=== PATIENT | female | born 1950 | race Caucasian/White ===

== ENCOUNTER 2019-01-24 14:51 | Inpatient (IN) ==
[2019-01-24 16:14] VITALS: BMI 28.5
[2019-01-24] MEDS ORDERED: NS 1/2 1000 ML IV 1,000 ML ONE (16:25)
[2019-01-24 16:26] LABS: BASOPHILS % (AUTO) 0.4 % (0.2-1.0); EOSINOPHILS # (AUTO) 0.1 x10^3/uL (0.0-0.2); EOSINOPHILS % (AUTO) 0.9 % (0.9-2.9); HEMATOCRIT 48.4 % (36.0-47.0); HEMOGLOBIN 16.3 g/dL (12.0-16.0); LYMPHOCYTES # (AUTO) 1.9 X10^3/uL (1.3-2.9); LYMPHOCYTES % (AUTO) 19.4 % (21.0-51.0); MEAN CORPUSCULAR HEMOGLOBIN 32.6 pg (27.0-34.0); MEAN CORPUSCULAR HGB CONC 33.6 g/dL (33.0-35.0); MEAN CORPUSCULAR VOLUME 97.1 fL (80.0-100.0); MONOCYTES # (AUTO) 0.8 x10^3/uL (0.3-0.8); MONOCYTES % (AUTO) 8.4 % (0.0-13.0); NEUTROPHILS # (AUTO) 6.8 x10^3/uL (2.2-4.8); NEUTROPHILS % (AUTO) 70.9 % (42.0-75.0); PLATELET COUNT 100 X10^3/uL (150.0-450.0); RED BLOOD COUNT 4.98 X10^6/uL (3.5-5.4); RED CELL DISTRIBUTION WIDTH 17.8 % (11.6-16.5); WHITE BLOOD COUNT 9.6 X10^3/uL (3.6-10.0)
[2019-01-24] MEDS: DUONEB 0.5 MG/3 MG NEB SCH ×2 (16:28→20:45)
[2019-01-24] MEDS: VSL#3 PO SCH (16:33)
[2019-01-24] MEDS: LEVAQUIN PREMIX IV 500 MG 500 MG/100 ML BAG IV SCH (16:33)
[2019-01-24] MEDS: NS 1/2 1000 ML IV 1,000 ML IV SCH (16:33)
[2019-01-24] MEDS: ROBITUSSIN DM PO SCH ×2 (16:33→21:51)
[2019-01-24 16:39] LABS: ALANINE AMINOTRANSFERASE 34 Units/L (12-78); ALBUMIN 2.4 g/dL (3.4-5.0); ALKALINE PHOSPHATASE 129 Units/L (46-116); ASPARTATE AMINO TRANSFERASE 36 Units/L (15-37); BLOOD UREA NITROGEN 16 mg/dL (7-18); CALCIUM 8.7 mg/dL (8.5-10.1); CARBON DIOXIDE 28.4 mmol/L (21-32); CHLORIDE 104 mmol/L (98-107); COR NA(FOR HYPERGLY) 141 mmol/L (136-145); CREATININE 1.09 mg/dL (0.55-1.02); SODIUM 139 mmol/L (136-145); TOTAL PROTEIN 6.5 g/dL (6.4-8.2); eGFR NON BLACK RACES 53 (>60)
[2019-01-24] MEDS: TUSSIONEX PENNKINETIC SUSP PO SCH (16:43)
[2019-01-24] MEDS ORDERED: SALINE 3% 15 ML NEB TX NEB ONE (16:58)
[2019-01-24] MEDS ORDERED: MICRO K EXTEN CAP 10 MEQ PO PRN (18:20)
[2019-01-24] MEDS ORDERED: K-DUR TAB 20 MEQ PO PRN (18:20)
[2019-01-24] MEDS ORDERED: K-RIDER 10 MEQ/NS 100 ML 10 MEQ/100 ML BAG IV PRN (18:20)
[2019-01-24] MEDS ORDERED: POTASSIUM CHLORIDE LIQ 20 MEQ UDC PO PRN (18:20)
[2019-01-24] MEDS ORDERED: POTASSIUM CHL 40 MEQ/NS 0.45% 500 ML IV PRN (18:20)
[2019-01-24] MEDS ORDERED: POTASSIUM CHL 60 MEQ/NS 0.45% 500 ML IV PRN (18:20)
[2019-01-24] MEDS ORDERED: KLOR-CON PO PRN (18:20)
[2019-01-24] MEDS: MAGNESIUM SULFATE 1 GRAM/100 mL PREMIX 1 GM/100 ML BAG IV PRN ×4 (19:21→23:00)
--- NOTE | 2019-01-24 20:34 | RAD ---
Single frontal view of the chest. Indication: Pneumonia. Comparison: 01/19/2019. Findings: There is cardiomegaly without pulmonary vasculature congestion. The lungs are hyper expanded with stable chronic interstitial lung changes. No focal consolidation, pneumothorax, or pleural effusion. Conclusion: Stable examination with cardiomegaly and COPD. No focal consolidation. Reported By:
[2019-01-24] MEDS: ZOSYN VIAL 3.375 GRAMS 3.375 G in NS 100 ML IV + SPIKE MINIBAG* 100 ML IV SCH (21:51)
[2019-01-25] MEDS: DUONEB 0.5 MG/3 MG NEB SCH ×6 (01:01→21:45)
[2019-01-25] MEDS: TUSSIONEX PENNKINETIC SUSP PO SCH ×2 (04:55→21:27)
[2019-01-25] MEDS: ZOSYN VIAL 3.375 GRAMS 3.375 G in NS 100 ML IV + SPIKE MINIBAG* 100 ML IV SCH ×3 (05:04→21:28)
[2019-01-25] MEDS: NS 1/2 1000 ML IV 1,000 ML IV SCH ×2 (05:04→09:12)
[2019-01-25 05:39] LABS: BASOPHILS % (AUTO) 0.5 % (0.2-1.0); EOSINOPHILS # (AUTO) 0.1 x10^3/uL (0.0-0.2); EOSINOPHILS % (AUTO) 1.4 % (0.9-2.9); HEMATOCRIT 44.4 % (36.0-47.0); HEMOGLOBIN 14.8 g/dL (12.0-16.0); LYMPHOCYTES # (AUTO) 1.3 X10^3/uL (1.3-2.9); LYMPHOCYTES % (AUTO) 20.9 % (21.0-51.0); MEAN CORPUSCULAR HEMOGLOBIN 32.5 pg (27.0-34.0); MEAN CORPUSCULAR HGB CONC 33.4 g/dL (33.0-35.0); MEAN CORPUSCULAR VOLUME 97.4 fL (80.0-100.0); MEAN PLATELET VOLUME 11.2 fL (7.4-11.0); MONOCYTES # (AUTO) 0.7 x10^3/uL (0.3-0.8); MONOCYTES % (AUTO) 10.7 % (0.0-13.0); NEUTROPHILS # (AUTO) 4.1 x10^3/uL (2.2-4.8); NEUTROPHILS % (AUTO) 66.5 % (42.0-75.0); PLATELET COUNT 79 X10^3/uL (150.0-450.0); RED BLOOD COUNT 4.56 X10^6/uL (3.5-5.4); RED CELL DISTRIBUTION WIDTH 17.8 % (11.6-16.5); WHITE BLOOD COUNT 6.2 X10^3/uL (3.6-10.0)
[2019-01-25 05:53] LABS: ALANINE AMINOTRANSFERASE 28 Units/L (12-78); ALBUMIN 1.9 g/dL (3.4-5.0); ALKALINE PHOSPHATASE 110 Units/L (46-116); ASPARTATE AMINO TRANSFERASE 31 Units/L (15-37); BLOOD UREA NITROGEN 14 mg/dL (7-18); CARBON DIOXIDE 26.9 mmol/L (21-32); CHLORIDE 105 mmol/L (98-107); COR CA(FOR HYPOALB) 9.7 mg/dL (8.5-10.1); COR NA(FOR HYPERGLY) 139 mmol/L (136-145); CREATININE 0.89 mg/dL (0.55-1.02); MAGNESIUM 2.1 mg/dL (1.7-2.9); SODIUM 139 mmol/L (136-145); TOTAL PROTEIN 5.5 g/dL (6.4-8.2); eGFR NON BLACK RACES > 60 (>60)
--- NOTE | 2019-01-25 06:14 | RAD ---
HISTORY: Follow-up pneumonia Study: Chest AP portable Comparison: 01/24/2019 Findings: The heart is mildly enlarged. No definite congestive heart failure is noted. The clementine are normal. The lungs are mildly hyperinflated. Mild interstitial lung changes are present. No acute alveolar infiltrates or pleural effusions are identified. The bony thorax is unremarkable. IMPRESSION: Mild cardiomegaly without congestive heart failure Hyperinflation with mild interstitial lung disease consistent with COPD in the appropriate clinical setting Reported By:
[2019-01-25] MEDS ORDERED: PHARMACY CONSULT - DOSE _____ XX SCH (09:00)
[2019-01-25] MEDS ORDERED: NS 1/2 1000 ML IV 1,000 ML ONE (09:08)
[2019-01-25] MEDS: VSL#3 PO SCH (09:11)
[2019-01-25] MEDS: ROBITUSSIN DM PO SCH ×4 (09:12→21:27)
[2019-01-25] MEDS: LEVAQUIN PREMIX IV 500 MG 500 MG/100 ML BAG IV SCH (09:12)
[2019-01-25] MEDS ORDERED: ALLEGRA ONE (11:08)
[2019-01-25] MEDS: SYNTHROID 50 mcg TAB PO SCH (11:27)
[2019-01-25] MEDS: ELIQUIS PO SCH ×2 (11:27→21:27)
[2019-01-25] MEDS: ALLEGRA PO SCH (11:28)
[2019-01-25] MEDS: ZESTRIL TAB 10 MG PO SCH (11:28)
[2019-01-25] MEDS: PROTONIX TAB 40 MG PO SCH (11:28)
[2019-01-25] MEDS: CARDIZEM SR 90 MG PO SCH ×2 (11:29→21:27)
[2019-01-25 11:32] LABS: CKMB % 4.8 % (<4); CREATINE KINASE MB 1.1 ng/mL (0-4.0); TROPONIN I 0.05 ng/mL (0-1.5)
[2019-01-25 15:25] LABS: CKMB % 3.7 % (<4); TROPONIN I 0.04 ng/mL (0-1.5)
--- NOTE | 2019-01-25 16:12 | DR.UPDATE ---
H&P Update History and Physical Update: WAS SEEN IN THE OFFICE TODAY FOR COMPLAINTS OF COUGH, FEVER, CHILLS, DIZZINESS, FATIGUE, AND SHORTNESS OF BREATH. SHE REPORTS THAT COUGH HAS BEEN PRODUCTIVE. ON EXAMINATION, SHE WAS NOTED WITH AN ABNORMAL HEART RHYTHM. SHE WAS STARTED ON CIPRO 500MG PO BID X 7 DAYS ON 01/19/19 WELL AN ADVAIR INHALER. SHE DENIES IMPROVEMENT IN SYMPTOMS. SHE WAS ADMITTED FOR FURTHER EVALUATION AND TREATMENT OF PNEUMONIA. ON ADMISSION, WE PLAN TO START IV LEVAQUIN AND IV ZOSYN. WE WILL ALSO RESUME HER CARDIZEM AND ELIQUIS DUE TO ATRIAL FIBRILLATION. WE WILL OBTAIN LABS AND CHEST XRAY. OTHERWISE, NO CHANGES NOTED TO H&P. Changes noted: NO Prescription drug monitoring program results: PDMP reviewed and no concerns identified
--- NOTE | 2019-01-25 17:04 | PCM.PROG ---
Progress Note - Progress Note for Day of Date of Exam: 01/25/19 - Subjective Subjective: WAS ADMITTED FOR PNEUMONIA AND ATRIAL FIBRILLATION. TODAY, SHE IS ALERT AND ORIENTED, LYING IN BED ON MORNING ROUNDS. SHE CONTINUES WITH COMPLAINTS OF COUGH AND SHORTNESS OF BREATH. SHE REPORTS THAT COUGH HAS BEEN PRODUCTIVE. ON EXAMINATION, SHE IS NOTED WITH AN IRREGULAR HEART BEAT. RATE IS CONTROLLED, IN THE 70S. BILATERAL LUNGS ARE NOTED WITH SCATTERED WHEEZING, DIMINISHED. ABDOMEN IS ROUND, SOFT, AND NON-TENDER WITH NORMAL BOWEL SOUNDS NOTED IN ALL QUADRANTS. HER VITALS THIS MORNING ARE: 98.9-60-12-96%-108/51. LABS WERE OBTAINED. ABNORMAL LAB VALUES INCLUDE THE FOLLOWING: HGB 16.3, HCT 48.4, PLT COUNT 100, CREATININE 1.09, GLUCOSE 201, MAGNESIUM 1.3, ALK PHOS 129, ALBUMI N 2.4. BLOOD AND SPUTUM CULTURES ARE PENDING. A CHEST XRAY WAS OBTAINED THIS MORNING AND REVEALED: Mild cardiomegaly without congestive heart failure. Hyperinflation with mild interstitial lung disease consistent with COPD in the appropriate clinical setting. SHE IS CURRENTLY ON THE PNEUMONIA PROTOCOL WITH LEVAQUIN, ZOSYN, RESPIRATORY TX, AND SUPPLEMENTAL OXYGEN. SHE IS ON ELIQUIS AND CARDIZEM FOR THE ATRIAL FIBRILLATION. WE WILL CONTINUE WITH CURRENT PLAN OF CARE TODAY AND OBTAIN AN ECHO. WE WILL ALSO OBTAIN SERIAL CARDIAC ENZYMES AND EKGS. OTHERWISE, WE WILL FOLLOW UP WITH AM LABS AND CONTINUE TO MONITOR. - Past Medical Family Social History Past Med/Fam/Surg Hx: No changes since H&P Allergies: Allergies No Known Drug Allergies Allergy (Verified 06/17/18 07:54) - Review of Systems ROS: No change since H&P - Vital Signs and I&O's Vital Signs: Temperature 97.8 F Pulse Rate 67 Respiratory Rate 13 Blood Pressure [Left Arm] 126/82 Blood Pressure 117/58 O2 Sat by Pulse Oximetry 100 Intake and Output: Intake & Output 01/23/19 01/24/19 01/25/19 01/26/19 11:59 11:59 11:59 11:59 Intake Total 1260 / 1260 1196 / 1196 Balance 1260 / 1260 1196 / 1196 - Physical Exam Oriented: Normal Eyes: Normal Ear: Normal Nose: Normal Throat: Normal Respiratory: Generalized, Diminished, Wheezes Cardiovascular: Irregular. negative: S3, S4, Murmur : Normal Auscultation: Bowel Sounds: Normal Palpation: Normal Tenderness: Normal Skin: Normal Musculoskeletal: Normal Psychiatric: Normal Mood Description: Calm Affect: Normal Speech Pattern: Clear, Appropriate - Laboratory and Diagnostics Result Diagrams: 01/25/19 03:58 01/25/19 03:58 Labs: 01/25/19 05:00 Sputum - Expectorated Sputum - Final Laboratory WBC 6.2 X10^3/uL (3.6-10.0) 01/25/19 03:58 RBC 4.56 X10^6/uL (3.5-5.4) 01/25/19 03:58 Hgb 14.8 g/dL (12.0-16.0) 01/25/19 03:58 Hct 44.4 % (36.0-47.0) 01/25/19 03:58 MCV 97.4 fL (80.0-100.0) 01/25/19 03:58 MCH 32.5 pg (27.0-34.0) 01/25/19 03:58 MCHC 33.4 g/dL (33.0-35.0) 01/25/19 03:58 RDW 17.8 % (11.6-16.5) H 01/25/19 03:58 Plt Count 79 X10^3/uL (150.0-450.0) L 01/25/19 03:58 MPV 11.2 fL (7.4-11.0) H 01/25/19 03:58 Neut % (Auto) 66.5 % (42.0-75.0) 01/25/19 03:58 Lymph % (Auto) 20.9 % (21.0-51.0) L 01/25/19 03:58 [place] % (Auto) 10.7 % (0.0-13.0) 01/25/19 03:58 Eos % (Auto) 1.4 % (0.9-2.9) 01/25/19 03:58 Baso % (Auto) 0.5 % (0.2-1.0) 01/25/19 03:58 Neut # (Auto) 4.1 x10^3/uL (2.2-4.8) 01/25/19 03:58 Lymph # (Auto) 1.3 X10^3/uL (1.3-2.9) 01/25/19 03:58 [place] # (Auto) 0.7 x10^3/uL (0.3-0.8) 01/25/19 03:58 Eos # (Auto) 0.1 x10^3/uL (0.0-0.2) 01/25/19 03:58 Baso # (Auto) 0.0 X10^3/uL (0.0-0.1) 01/25/19 03:58 Absolute Nucleated RBC 0.2 /100WBC 01/25/19 03:58 Sodium 139 mmol/L (136-145) 01/25/19 03:58 Corrected Sodium 139 mmol/L (136-145) 01/25/19 03:58 Potassium 3.7 mmol/L (3.5-5.1) 01/25/19 03:58 Chloride 105 mmol/L (98-107) 01/25/19 03:58 Carbon Dioxide 26.9 mmol/L (21-32) 01/25/19 03:58 BUN 14 mg/dL (7-18) 01/25/19 03:58 Creatinine 0.89 mg/dL (0.55-1.02) 01/25/19 03:58 Est GFR (MDRD) Af Amer > 60 (>60) 01/25/19 03:58 Est GFR (MDRD) Non-Af > 60 (>60) 01/25/19 03:58 Glucose 113 mg/dL (65-99) H 01/25/19 03:58 Calcium 8.0 mg/dL (8.5-10.1) L 01/25/19 03:58 Corrected Calcium 9.7 mg/dL (8.5-10.1) 01/25/19 03:58 Magnesium 2.1 mg/dL (1.7-2.9) 01/25/19 03:58 Total Bilirubin 1.50 mg/dL (0.2-1.0) H 01/25/19 03:58 AST 31 Units/L (15-37) 01/25/19 03:58 ALT 28 Units/L (12-78) 01/25/19 03:58 Alkaline Phosphatase 110 Units/L (46-116) 01/25/19 03:58 Creatine Kinase 27 Units/L (26-192) 01/25/19 14:56 CK-MB (CK-2) 1.0 ng/mL (0-4.0) 01/25/19 14:56 CK/CKMB % Calc 3.7 % (<4) 01/25/19 14:56 Troponin I 0.04 ng/mL (0-1.5) 01/25/19 14:56 Total Protein 5.5 g/dL (6.4-8.2) L 01/25/19 03:58 Albumin 1.9 g/dL (3.4-5.0) L 01/25/19 03:58 Globulin 3.6 g/dL (2.5-4.5) 01/25/19 03:58 Albumin/Globulin Ratio 0.5 Ratio (1.1-2.1) L 01/25/19 03:58 - Plan (1) Pneumonia Status: Acute Qualifiers: Pneumonia type: due to unspecified organism Laterality: unspecified laterality Lung location: unspecified part of lung Qualified Code(s): J18.9 - Pneumonia, unspecified organism Plan: IV ZOSYN, IV LEVAQUIN, RESPIRATORY TX, SUPPLEMENTAL OXYGEN, CONTINUE TO MONITOR (2) Atrial fibrillation Status: Acute Qualifiers: Atrial fibrillation type: paroxysmal Qualified Code(s): I48.0 - Paroxysmal atrial fibrillation Plan: CARDIZEM PO, ELIQUIS PO, CONTINUE TO MONITOR (3) COPD (chronic obstructive pulmonary disease) Status: Acute Qualifiers: COPD type: unspecified COPD Qualified Code(s): J44.9 - Chronic obstructive pulmonary disease, unspecified Plan: CONTINUE HOME MEDS, RESPIRATORY TX, SUPPLEMENTAL OXYGEN
[2019-01-25] MEDS: SNACK - Diabetic Appropriate PO SCH (19:29)
[2019-01-25 19:37] LABS: CKMB % 5.2 % (<4); CREATINE KINASE MB 1.2 ng/mL (0-4.0); TROPONIN I 0.04 ng/mL (0-1.5)
[2019-01-25] MEDS ORDERED: NYSTATIN CREAM TOP PRN (21:54)
[2019-01-26] MEDS: DUONEB 0.5 MG/3 MG NEB SCH ×6 (00:53→20:29)
[2019-01-26] MEDS ORDERED: NS 1/2 1000 ML IV 1,000 ML ONE ×2 (00:55→16:50)
[2019-01-26] MEDS: NS 1/2 1000 ML IV 1,000 ML IV SCH ×3 (01:07→20:35)
[2019-01-26 05:28] LABS: BASOPHILS % (AUTO) 0.4 % (0.2-1.0); EOSINOPHILS # (AUTO) 0.1 x10^3/uL (0.0-0.2); HEMATOCRIT 40.7 % (36.0-47.0); HEMOGLOBIN 13.8 g/dL (12.0-16.0); LYMPHOCYTES % (AUTO) 20.4 % (21.0-51.0); MEAN CORPUSCULAR HGB CONC 33.8 g/dL (33.0-35.0); MEAN CORPUSCULAR VOLUME 97.4 fL (80.0-100.0); MEAN PLATELET VOLUME 10.9 fL (7.4-11.0); MONOCYTES # (AUTO) 0.5 x10^3/uL (0.3-0.8); MONOCYTES % (AUTO) 10.6 % (0.0-13.0); NEUTROPHILS # (AUTO) 3.3 x10^3/uL (2.2-4.8); NEUTROPHILS % (AUTO) 66.6 % (42.0-75.0); PLATELET COUNT 70 X10^3/uL (150.0-450.0); RED BLOOD COUNT 4.17 X10^6/uL (3.5-5.4); RED CELL DISTRIBUTION WIDTH 17.6 % (11.6-16.5)
[2019-01-26 05:48] LABS: ALANINE AMINOTRANSFERASE 24 Units/L (12-78); ALBUMIN 1.6 g/dL (3.4-5.0); ALKALINE PHOSPHATASE 89 Units/L (46-116); ASPARTATE AMINO TRANSFERASE 28 Units/L (15-37); BLOOD UREA NITROGEN 12 mg/dL (7-18); CALCIUM 8.1 mg/dL (8.5-10.1); CARBON DIOXIDE 26.2 mmol/L (21-32); CHLORIDE 106 mmol/L (98-107); COR NA(FOR HYPERGLY) 138 mmol/L (136-145); CREATININE 0.85 mg/dL (0.55-1.02); SODIUM 137 mmol/L (136-145); TOTAL PROTEIN 4.8 g/dL (6.4-8.2); eGFR NON BLACK RACES > 60 (>60)
[2019-01-26] MEDS: ZOSYN VIAL 3.375 GRAMS 3.375 G in NS 100 ML IV + SPIKE MINIBAG* 100 ML IV SCH ×3 (05:49→21:06)
--- NOTE | 2019-01-26 06:20 | RAD ---
HISTORY: Follow-up pneumonia Study: Chest AP portable Comparison: 01/25/2019 Findings: The heart remains enlarged. No definite congestive heart failure is noted. The clementine are normal. No acute alveolar infiltrates or pleural effusions are identified. Interstitial lung changes are stable. The bony thorax is unremarkable. IMPRESSION: Mild cardiomegaly without congestive heart failure Stable hyperinflation with interstitial lung changes Reported By:
[2019-01-26] MEDS ORDERED: ALLEGRA ONE (09:33)
[2019-01-26] MEDS: LEVAQUIN PREMIX IV 500 MG 500 MG/100 ML BAG IV SCH (09:45)
[2019-01-26] MEDS: SYNTHROID 50 mcg TAB PO SCH (09:45)
[2019-01-26] MEDS: VSL#3 PO SCH (09:46)
[2019-01-26] MEDS: ZESTRIL TAB 10 MG PO SCH (09:46)
[2019-01-26] MEDS: ALLEGRA PO SCH (09:46)
[2019-01-26] MEDS: ELIQUIS PO SCH ×2 (09:46→20:49)
[2019-01-26] MEDS: PROTONIX TAB 40 MG PO SCH (09:46)
[2019-01-26] MEDS: CARDIZEM SR 90 MG PO SCH ×2 (09:46→20:49)
[2019-01-26] MEDS: AMARYL TAB 4 MG PO SCH (09:47)
[2019-01-26] MEDS: ROBITUSSIN DM PO SCH ×4 (09:47→20:49)
[2019-01-26] MEDS: TUSSIONEX PENNKINETIC SUSP PO SCH ×2 (09:47→20:49)
[2019-01-26] MEDS ORDERED: PROCALAMINE 3 % 1,000 ML IV SCH (11:00)
[2019-01-26] MEDS: ALBUMIN HUMAN 25%- 100 ML 100 ML IV SCH (11:48)
--- NOTE | 2019-01-26 18:08 | PCM.PROG ---
Progress Note - Progress Note for Day of Date of Exam: 01/26/19 - Subjective Subjective: WAS ADMITTED FOR PNEUMONIA AND ATRIAL FIBRILLATION. TODAY, SHE IS ALERT AND ORIENTED, LYING IN BED ON MORNING ROUNDS. SHE CONTINUES WITH COMPLAINTS OF COUGH AND SHORTNESS OF BREATH. SHE ALSO REPORTS GENERALIZED WEAKNESS. ON EXAMINATION, SHE IS NOTED WITH AN IRREGULAR HEART BEAT. RATE IS CONTROLLED, IN THE 70S. BILATERAL LUNGS ARE NOTED WITH SCATTERED WHEEZING, DIMINISHED. ABDOMEN IS ROUND, SOFT, AND NON-TENDER WITH NORMAL BOWEL SOUNDS NOTED IN ALL QUADRANTS. HER VITALS THIS MORNING ARE: 98.3-60-14-100%-127/60. LABS WERE OBTAINED. ABNORMAL LAB VALUES INCLUDE THE FOLLOWING:PLT COUNT 70, GLUCOSE 137, CALCIUM 8.1, TOTAL BILI 1.30, TOTAL PROTEIN 4.8, ALBUMIN 1.6. BLOOD AND SPUTUM CULTURES ARE PENDING. A CHEST XRAY WAS OBTAINED THIS MORNING AND REVEALED: Mild cardiomegaly without congestive heart failure. Stable hyperinflation with interstitial lung changes. SHE IS CURRENTLY ON THE PNEUMONIA PROTOCOL WITH LEVAQUIN, ZOSYN, RESPIRATORY TX, AND SUPPLEMENTAL OXYGEN. SHE IS ON ELIQUIS AND CARDIZEM FOR THE ATRIAL FIBRILLATION. WE WILL CONTINUE WITH CURRENT PLAN OF CARE TODAY. WE WILL START PROCALAMINE AND ALBUMIN 25% IV DAILY DUE TO PROTEIN DEFICIENCY. OTHERWISE, WE WILL FOLLOW UP WITH AM LABS AND CONTINUE TO MONITOR. - Past Medical Family Social History Past Med/Fam/Surg Hx: No changes since H&P Allergies: Allergies No Known Drug Allergies Allergy (Verified 06/17/18 07:54) - Review of Systems ROS: No change since H&P - Vital Signs and I&O's Vital Signs: Temperature 98.4 F Pulse Rate 67 Respiratory Rate 15 Blood Pressure [Left Arm] 126/82 Blood Pressure 110/55 O2 Sat by Pulse Oximetry 99 Intake and Output: Intake & Output 01/24/19 01/25/19 01/26/19 01/27/19 11:59 11:59 11:59 11:59 Intake Total 1260 / 1260 2595 / 2595 1602 / 1602 Balance 1260 / 1260 2595 / 2595 1602 / 1602 - Physical Exam Oriented: Normal Eyes: Normal Ear: Normal Nose: Normal Throat: Normal Respiratory: Generalized, Diminished, Wheezes Cardiovascular: Irregular. negative: S3, S4, Murmur : Normal Auscultation: Bowel Sounds: Normal Tenderness: Normal Skin: Normal Musculoskeletal: Normal Psychiatric: Normal Mood Description: Calm Affect: Normal Speech Pattern: Clear, Appropriate - Laboratory and Diagnostics Result Diagrams: 01/26/19 04:14 01/26/19 04:14 Labs: 01/24/19 14:15 Blood Blood Culture - Preliminary 01/24/19 14:00 Blood Blood Culture - Preliminary 01/25/19 05:00 Sputum - Expectorated Sputum Sputum Culture - Preliminary 01/25/19 05:00 Sputum - Expectorated Sputum - Final Laboratory WBC 5.0 X10^3/uL (3.6-10.0) 01/26/19 04:14 RBC 4.17 X10^6/uL (3.5-5.4) 01/26/19 04:14 Hgb 13.8 g/dL (12.0-16.0) 01/26/19 04:14 Hct 40.7 % (36.0-47.0) 01/26/19 04:14 MCV 97.4 fL (80.0-100.0) 01/26/19 04:14 MCH 33.0 pg (27.0-34.0) 01/26/19 04:14 MCHC 33.8 g/dL (33.0-35.0) 01/26/19 04:14 RDW 17.6 % (11.6-16.5) H 01/26/19 04:14 Plt Count 70 X10^3/uL (150.0-450.0) L 01/26/19 04:14 MPV 10.9 fL (7.4-11.0) 01/26/19 04:14 Neut % (Auto) 66.6 % (42.0-75.0) 01/26/19 04:14 Lymph % (Auto) 20.4 % (21.0-51.0) L 01/26/19 04:14 [place] % (Auto) 10.6 % (0.0-13.0) 01/26/19 04:14 Eos % (Auto) 2.0 % (0.9-2.9) 01/26/19 04:14 Baso % (Auto) 0.4 % (0.2-1.0) 01/26/19 04:14 Neut # (Auto) 3.3 x10^3/uL (2.2-4.8) 01/26/19 04:14 Lymph # (Auto) 1.0 X10^3/uL (1.3-2.9) L 01/26/19 04:14 [place] # (Auto) 0.5 x10^3/uL (0.3-0.8) 01/26/19 04:14 Eos # (Auto) 0.1 x10^3/uL (0.0-0.2) 01/26/19 04:14 Baso # (Auto) 0.0 X10^3/uL (0.0-0.1) 01/26/19 04:14 Absolute Nucleated RBC 0.2 /100WBC 01/26/19 04:14 Sodium 137 mmol/L (136-145) 01/26/19 04:14 Corrected Sodium 138 mmol/L (136-145) 01/26/19 04:14 Potassium 4.1 mmol/L (3.5-5.1) 01/26/19 04:14 Chloride 106 mmol/L (98-107) 01/26/19 04:14 Carbon Dioxide 26.2 mmol/L (21-32) 01/26/19 04:14 BUN 12 mg/dL (7-18) 01/26/19 04:14 Creatinine 0.85 mg/dL (0.55-1.02) 01/26/19 04:14 Est GFR (MDRD) Af Amer > 60 (>60) 01/26/19 04:14 Est GFR (MDRD) Non-Af > 60 (>60) 01/26/19 04:14 Glucose 137 mg/dL (65-99) H 01/26/19 04:14 Calcium 8.1 mg/dL (8.5-10.1) L 01/26/19 04:14 Corrected Calcium 10.0 mg/dL (8.5-10.1) 01/26/19 04:14 Magnesium 2.1 mg/dL (1.7-2.9) 01/25/19 03:58 Total Bilirubin 1.30 mg/dL (0.2-1.0) H 01/26/19 04:14 AST 28 Units/L (15-37) 01/26/19 04:14 ALT 24 Units/L (12-78) 01/26/19 04:14 Alkaline Phosphatase 89 Units/L (46-116) 01/26/19 04:14 Creatine Kinase 23 Units/L (26-192) L 01/25/19 18:46 CK-MB (CK-2) 1.2 ng/mL (0-4.0) 01/25/19 18:46 CK/CKMB % Calc 5.2 % (<4) 01/25/19 18:46 Troponin I 0.04 ng/mL (0-1.5) 01/25/19 18:46 Total Protein 4.8 g/dL (6.4-8.2) L 01/26/19 04:14 Albumin 1.6 g/dL (3.4-5.0) L 01/26/19 04:14 Globulin 3.2 g/dL (2.5-4.5) 01/26/19 04:14 Albumin/Globulin Ratio 0.5 Ratio (1.1-2.1) L 01/26/19 04:14 - Plan (1) Pneumonia Status: Acute Qualifiers: Pneumonia type: due to unspecified organism Laterality: unspecified laterality Lung location: unspecified part of lung Qualified Code(s): J18.9 - Pneumonia, unspecified organism Plan: IV ZOSYN, IV LEVAQUIN, RESPIRATORY TX, SUPPLEMENTAL OXYGEN, CONTINUE TO MONITOR (2) Atrial fibrillation Status: Acute Qualifiers: Atrial fibrillation type: paroxysmal Qualified Code(s): I48.0 - Paroxysmal atrial fibrillation Plan: CARDIZEM PO, ELIQUIS PO, CONTINUE TO MONITOR (3) COPD (chronic obstructive pulmonary disease) Status: Acute Qualifiers: COPD type: unspecified COPD Qualified Code(s): J44.9 - Chronic obstructive pulmonary disease, unspecified Plan: CONTINUE HOME MEDS, RESPIRATORY TX, SUPPLEMENTAL OXYGEN (4) Protein deficiency Status: Acute Plan: ALBUMIN 25% IV DAILY, PROCAL, CONTINUE TO MONITOR
[2019-01-26] MEDS: SNACK - Diabetic Appropriate PO SCH (20:33)
[2019-01-27] MEDS: DUONEB 0.5 MG/3 MG NEB SCH ×6 (01:31→21:56)
[2019-01-27] MEDS ORDERED: NS 1/2 1000 ML IV 1,000 ML ONE ×2 (05:12→20:50)
[2019-01-27] MEDS: ZOSYN VIAL 3.375 GRAMS 3.375 G in NS 100 ML IV + SPIKE MINIBAG* 100 ML IV SCH ×3 (05:24→21:15)
[2019-01-27] MEDS: NS 1/2 1000 ML IV 1,000 ML IV SCH ×4 (05:24→20:50)
[2019-01-27 06:43] LABS: BASOPHILS % (AUTO) 0.5 % (0.2-1.0); EOSINOPHILS # (AUTO) 0.1 x10^3/uL (0.0-0.2); EOSINOPHILS % (AUTO) 1.5 % (0.9-2.9); HEMATOCRIT 43.6 % (36.0-47.0); HEMOGLOBIN 14.7 g/dL (12.0-16.0); LYMPHOCYTES # (AUTO) 1.2 X10^3/uL (1.3-2.9); LYMPHOCYTES % (AUTO) 22.3 % (21.0-51.0); MEAN CORPUSCULAR HEMOGLOBIN 32.7 pg (27.0-34.0); MEAN CORPUSCULAR HGB CONC 33.7 g/dL (33.0-35.0); MEAN CORPUSCULAR VOLUME 96.9 fL (80.0-100.0); MEAN PLATELET VOLUME 10.3 fL (7.4-11.0); MONOCYTES # (AUTO) 0.5 x10^3/uL (0.3-0.8); MONOCYTES % (AUTO) 10.5 % (0.0-13.0); NEUTROPHILS # (AUTO) 3.4 x10^3/uL (2.2-4.8); NEUTROPHILS % (AUTO) 65.2 % (42.0-75.0); PLATELET COUNT 64 X10^3/uL (150.0-450.0); RED CELL DISTRIBUTION WIDTH 18.1 % (11.6-16.5); WHITE BLOOD COUNT 5.2 X10^3/uL (3.6-10.0)
[2019-01-27 07:17] LABS: ALANINE AMINOTRANSFERASE 27 Units/L (12-78); ALBUMIN 2.4 g/dL (3.4-5.0); ALKALINE PHOSPHATASE 97 Units/L (46-116); ASPARTATE AMINO TRANSFERASE 38 Units/L (15-37); BLOOD UREA NITROGEN 14 mg/dL (7-18); CALCIUM 8.4 mg/dL (8.5-10.1); CARBON DIOXIDE 24.6 mmol/L (21-32); CHLORIDE 102 mmol/L (98-107); COR CA(FOR HYPOALB) 9.7 mg/dL (8.5-10.1); COR NA(FOR HYPERGLY) 135 mmol/L (136-145); CREATININE 0.92 mg/dL (0.55-1.02); SODIUM 134 mmol/L (136-145); TOTAL PROTEIN 5.9 g/dL (6.4-8.2); eGFR NON BLACK RACES > 60 (>60)
[2019-01-27] MEDS ORDERED: ALLEGRA ONE (09:00)
[2019-01-27] MEDS: ROBITUSSIN DM PO SCH ×4 (09:07→20:46)
[2019-01-27] MEDS: ALLEGRA PO SCH (09:07)
[2019-01-27] MEDS: AMARYL TAB 4 MG PO SCH (09:07)
[2019-01-27] MEDS: ELIQUIS PO SCH ×2 (09:08→20:46)
[2019-01-27] MEDS: SYNTHROID 50 mcg TAB PO SCH (09:08)
[2019-01-27] MEDS: PROTONIX TAB 40 MG PO SCH (09:08)
[2019-01-27] MEDS: ZESTRIL TAB 10 MG PO SCH (09:08)
[2019-01-27] MEDS: ALBUMIN HUMAN 25%- 100 ML 100 ML IV SCH (09:09)
[2019-01-27] MEDS: TUSSIONEX PENNKINETIC SUSP PO SCH ×2 (09:21→20:46)
[2019-01-27] MEDS: VSL#3 PO SCH (09:21)
[2019-01-27] MEDS: CARDIZEM SR 90 MG PO SCH ×2 (09:23→20:46)
[2019-01-27] MEDS: LEVAQUIN PREMIX IV 500 MG 500 MG/100 ML BAG IV SCH (09:55)
[2019-01-27] MEDS: SNACK - Diabetic Appropriate PO SCH (20:00)
--- NOTE | 2019-01-27 20:05 | PCM.PROG ---
Progress Note - Progress Note for Day of Date of Exam: 01/27/19 - Subjective Subjective: WAS ADMITTED FOR PNEUMONIA AND ATRIAL FIBRILLATION. TODAY, SHE IS ALERT AND ORIENTED, LYING IN BED ON MORNING ROUNDS. SHE CONTINUES WITH COMPLAINTS OF COUGH AND SHORTNESS OF BREATH. SHE ALSO REPORTS GENERALIZED WEAKNESS. ON EXAMINATION, SHE IS NOTED WITH AN IRREGULAR HEART BEAT. RATE IS CONTROLLED, IN THE 70S. BILATERAL LUNGS ARE NOTED WITH SCATTERED WHEEZING, DIMINISHED. ABDOMEN IS ROUND, SOFT, AND NON-TENDER WITH NORMAL BOWEL SOUNDS NOTED IN ALL QUADRANTS. HER VITALS THIS MORNING ARE: 97.9-63-14-98%-130/60. LABS WERE OBTAINED. ABNORMAL LAB VALUES INCLUDE THE FOLLOWING: PLT COUNT 64, SODIUM 134, GLUCOSE 129, CALCIUM 8.4, TOTAL BILI 1.40, ALT 38, TOTAL PROTEIN 5.9, ALBUMIN 2.4. BLOOD AND SPUTUM CULTURES ARE PENDING. SHE IS CURRENTLY ON THE PNEUMONIA PROTOCOL WITH LEVAQUIN, ZOSYN, RESPIRATORY TX, AND SUPPLEMENTAL OXYGEN. SHE IS ON ELIQUIS AND CARDIZEM FOR THE ATRIAL FIBRILLATION. WE WILL CONTINUE WITH CURRENT PLAN OF CARE TODAY. OTHERWISE, WE WILL FOLLOW UP WITH AM LABS AND CONTINUE TO MONITOR. - Past Medical Family Social History Past Med/Fam/Surg Hx: No changes since H&P Allergies: Allergies No Known Drug Allergies Allergy (Verified 06/17/18 07:54) - Review of Systems ROS: No change since H&P - Vital Signs and I&O's Vital Signs: Temperature 98.4 F Pulse Rate 61 Respiratory Rate 13 Blood Pressure [Left Arm] 126/82 Blood Pressure 133/59 O2 Sat by Pulse Oximetry 99 Intake and Output: Intake & Output 01/25/19 01/26/19 01/27/19 01/28/19 11:59 11:59 11:59 11:59 Intake Total 1260 / 1260 2595 / 2595 3737 / 3737 1641 / 1641 Balance 1260 / 1260 2595 / 2595 3737 / 3737 1641 / 1641 - Physical Exam Oriented: Normal Eyes: Normal Ear: Normal Nose: Normal Throat: Normal Respiratory: Generalized, Diminished, Wheezes Cardiovascular: Irregular. negative: S3, S4, Murmur : Normal Auscultation: Bowel Sounds: Normal Tenderness: Normal Skin: Normal Musculoskeletal: Normal Psychiatric: Normal Mood Description: Calm Affect: Normal Speech Pattern: Clear, Appropriate - Laboratory and Diagnostics Result Diagrams: 01/27/19 05:13 01/27/19 05:13 Labs: 01/25/19 05:00 Sputum - Expectorated Sputum Sputum Culture - Final 01/25/19 05:00 Sputum - Expectorated Sputum - Final 01/24/19 14:15 Blood Blood Culture - Preliminary 01/24/19 14:00 Blood Blood Culture - Preliminary Laboratory WBC 5.2 X10^3/uL (3.6-10.0) 01/27/19 05:13 RBC 4.50 X10^6/uL (3.5-5.4) 01/27/19 05:13 Hgb 14.7 g/dL (12.0-16.0) 01/27/19 05:13 Hct 43.6 % (36.0-47.0) 01/27/19 05:13 MCV 96.9 fL (80.0-100.0) 01/27/19 05:13 MCH 32.7 pg (27.0-34.0) 01/27/19 05:13 MCHC 33.7 g/dL (33.0-35.0) 01/27/19 05:13 RDW 18.1 % (11.6-16.5) H 01/27/19 05:13 Plt Count 64 X10^3/uL (150.0-450.0) L 01/27/19 05:13 MPV 10.3 fL (7.4-11.0) 01/27/19 05:13 Neut % (Auto) 65.2 % (42.0-75.0) 01/27/19 05:13 Lymph % (Auto) 22.3 % (21.0-51.0) 01/27/19 05:13 [place] % (Auto) 10.5 % (0.0-13.0) 01/27/19 05:13 Eos % (Auto) 1.5 % (0.9-2.9) 01/27/19 05:13 Baso % (Auto) 0.5 % (0.2-1.0) 01/27/19 05:13 Neut # (Auto) 3.4 x10^3/uL (2.2-4.8) 01/27/19 05:13 Lymph # (Auto) 1.2 X10^3/uL (1.3-2.9) L 01/27/19 05:13 [place] # (Auto) 0.5 x10^3/uL (0.3-0.8) 01/27/19 05:13 Eos # (Auto) 0.1 x10^3/uL (0.0-0.2) 01/27/19 05:13 Baso # (Auto) 0.0 X10^3/uL (0.0-0.1) 01/27/19 05:13 Absolute Nucleated RBC 0.2 /100WBC 01/27/19 05:13 Sodium 134 mmol/L (136-145) L 01/27/19 05:13 Corrected Sodium 135 mmol/L (136-145) L 01/27/19 05:13 Potassium 4.5 mmol/L (3.5-5.1) 01/27/19 05:13 Chloride 102 mmol/L (98-107) 01/27/19 05:13 Carbon Dioxide 24.6 mmol/L (21-32) 01/27/19 05:13 BUN 14 mg/dL (7-18) 01/27/19 05:13 Creatinine 0.92 mg/dL (0.55-1.02) 01/27/19 05:13 Est GFR (MDRD) Af Amer > 60 (>60) 01/27/19 05:13 Est GFR (MDRD) Non-Af > 60 (>60) 01/27/19 05:13 Glucose 129 mg/dL (65-99) H 01/27/19 05:13 POC Glucose (mg/dL) 123 mg/dL (65-99) H 01/27/19 06:00 Calcium 8.4 mg/dL (8.5-10.1) L 01/27/19 05:13 Corrected Calcium 9.7 mg/dL (8.5-10.1) 01/27/19 05:13 Magnesium 2.1 mg/dL (1.7-2.9) 01/25/19 03:58 Total Bilirubin 1.40 mg/dL (0.2-1.0) H 01/27/19 05:13 AST 38 Units/L (15-37) H 01/27/19 05:13 ALT 27 Units/L (12-78) 01/27/19 05:13 Alkaline Phosphatase 97 Units/L (46-116) 01/27/19 05:13 Creatine Kinase 23 Units/L (26-192) L 01/25/19 18:46 CK-MB (CK-2) 1.2 ng/mL (0-4.0) 01/25/19 18:46 CK/CKMB % Calc 5.2 % (<4) 01/25/19 18:46 Troponin I 0.04 ng/mL (0-1.5) 01/25/19 18:46 Total Protein 5.9 g/dL (6.4-8.2) L 01/27/19 05:13 Albumin 2.4 g/dL (3.4-5.0) L 01/27/19 05:13 Globulin 3.5 g/dL (2.5-4.5) 01/27/19 05:13 Albumin/Globulin Ratio 0.7 Ratio (1.1-2.1) L 01/27/19 05:13 - Plan (1) Pneumonia Status: Acute Qualifiers: Pneumonia type: due to unspecified organism Laterality: unspecified laterality Lung location: unspecified part of lung Qualified Code(s): J18.9 - Pneumonia, unspecified organism Plan: IV ZOSYN, IV LEVAQUIN, RESPIRATORY TX, SUPPLEMENTAL OXYGEN, CONTINUE TO MONITOR (2) Atrial fibrillation Status: Acute Qualifiers: Atrial fibrillation type: paroxysmal Qualified Code(s): I48.0 - Paroxysmal atrial fibrillation Plan: CARDIZEM PO, ELIQUIS PO, CONTINUE TO MONITOR (3) COPD (chronic obstructive pulmonary disease) Status: Acute Qualifiers: COPD type: unspecified COPD Qualified Code(s): J44.9 - Chronic obstructive pulmonary disease, unspecified Plan: CONTINUE HOME MEDS, RESPIRATORY TX, SUPPLEMENTAL OXYGEN (4) Protein deficiency Status: Acute Plan: ALBUMIN 25% IV DAILY, PROCAL, CONTINUE TO MONITOR
[2019-01-27] MEDS ORDERED: COLACE CAP 100 MG PO SCH (21:00)
[2019-01-28] MEDS: DUONEB 0.5 MG/3 MG NEB SCH ×3 (01:07→08:33)
[2019-01-28] MEDS: NS 1/2 1000 ML IV 1,000 ML IV SCH (05:13)
[2019-01-28 05:21] LABS: BASOPHILS % (AUTO) 0.4 % (0.2-1.0); HEMATOCRIT 39.4 % (36.0-47.0); HEMOGLOBIN 13.3 g/dL (12.0-16.0); LYMPHOCYTES # (AUTO) 0.8 X10^3/uL (1.3-2.9); LYMPHOCYTES % (AUTO) 17.1 % (21.0-51.0); MEAN CORPUSCULAR HEMOGLOBIN 32.8 pg (27.0-34.0); MEAN CORPUSCULAR HGB CONC 33.7 g/dL (33.0-35.0); MEAN CORPUSCULAR VOLUME 97.3 fL (80.0-100.0); MEAN PLATELET VOLUME 11.4 fL (7.4-11.0); MONOCYTES # (AUTO) 0.5 x10^3/uL (0.3-0.8); MONOCYTES % (AUTO) 10.5 % (0.0-13.0); NEUTROPHILS # (AUTO) 3.3 x10^3/uL (2.2-4.8); PLATELET COUNT 49 X10^3/uL (150.0-450.0); RED BLOOD COUNT 4.05 X10^6/uL (3.5-5.4); RED CELL DISTRIBUTION WIDTH 17.8 % (11.6-16.5); WHITE BLOOD COUNT 4.6 X10^3/uL (3.6-10.0)
[2019-01-28 05:27] LABS: ALANINE AMINOTRANSFERASE 21 Units/L (12-78); ALBUMIN 2.5 g/dL (3.4-5.0); ALKALINE PHOSPHATASE 75 Units/L (46-116); ASPARTATE AMINO TRANSFERASE 27 Units/L (15-37); BLOOD UREA NITROGEN 13 mg/dL (7-18); CALCIUM 8.4 mg/dL (8.5-10.1); CARBON DIOXIDE 28.8 mmol/L (21-32); CHLORIDE 102 mmol/L (98-107); COR CA(FOR HYPOALB) 9.6 mg/dL (8.5-10.1); COR NA(FOR HYPERGLY) 135 mmol/L (136-145); CREATININE 0.73 mg/dL (0.55-1.02); SODIUM 134 mmol/L (136-145); TOTAL PROTEIN 5.5 g/dL (6.4-8.2); eGFR NON BLACK RACES > 60 (>60)
[2019-01-28] MEDS: ZOSYN VIAL 3.375 GRAMS 3.375 G in NS 100 ML IV + SPIKE MINIBAG* 100 ML IV SCH (05:42)
[2019-01-28 05:58] LABS: PLATELET MORPHOLOGY COMMENT NORMAL (NORMAL)
--- NOTE | 2019-01-28 06:02 | RAD ---
HISTORY: Shortness of breath Study: Chest AP portable Comparison: 01/26/2019 Findings: The heart remains enlarged. No definite congestive heart failure is identified. The clementine are normal. Interstitial lung changes are stable. No acute alveolar infiltrates or pleural effusions are identified. The bony thorax is unremarkable. IMPRESSION: Continued cardiomegaly without congestive heart failure Mild hyperinflation with interstitial lung changes, stable Reported By:
[2019-01-28] MEDS ORDERED: ALLEGRA ONE (09:01)
[2019-01-28] MEDS: ALBUMIN HUMAN 25%- 100 ML 100 ML IV SCH (09:30)
[2019-01-28] MEDS: LEVAQUIN PREMIX IV 500 MG 500 MG/100 ML BAG IV SCH (09:30)
[2019-01-28] MEDS: ROBITUSSIN DM PO SCH (09:31)
[2019-01-28] MEDS: ELIQUIS PO SCH (09:31)
[2019-01-28] MEDS: AMARYL TAB 4 MG PO SCH (09:31)
[2019-01-28] MEDS: SYNTHROID 50 mcg TAB PO SCH (09:33)
[2019-01-28] MEDS: ZESTRIL TAB 10 MG PO SCH (09:34)
[2019-01-28] MEDS: ALLEGRA PO SCH (09:34)
[2019-01-28] MEDS: PROTONIX TAB 40 MG PO SCH (09:35)
[2019-01-28] MEDS: TUSSIONEX PENNKINETIC SUSP PO SCH (09:35)
[2019-01-28] MEDS: CARDIZEM SR 90 MG PO SCH (09:38)
[2019-01-28 11:42] VITALS: BP 134/59
== END 2019-01-28 11:43 | disposition home or self-care (01) | DRG 194 ==
LOC: ICU 15:29
PROVIDERS: ADMIT Internal Medicine; ATTEND Internal Medicine
DX: I48.0 Paroxysmal atrial fibrillation; J18.8 Other pneumonia, unspecified organism; Z79.01 Long term (current) use of anticoagulants; R26.89 Other abnormalities of gait and mobility; E46 Unspecified protein-calorie malnutrition; J44.9 Chronic obstructive pulmonary disease, unspecified; R94.31 Abnormal electrocardiogram [ECG] [EKG]
CPT/HCPCS: 36415; 71010; 71045; 80053; 82550; 82553; 83735; 84484; 85025; 87040; 87070; 87205; 93005; 93306; 94640; 97110; 97116; 97162; 97167; 97530; 97535; A4222; B5200; P9047; J1956; J2543; J3475; J7050; J7620

== ENCOUNTER 2019-02-14 11:51 | Observation (INO) ==
[2019-02-14 14:09] VITALS: BMI 28.8
--- NOTE | 2019-02-14 14:19 | CT ---
HISTORY: Altered mental status Study: CT HEAD WITHOUT CONTRAST Comparison: No recent comparisons Technique: Multiple axial images of the brain were obtained from the skull base to the vertex without administration of IV contrast. Findings: Moderate cortical volume loss is observed resulting in prominence of the subarachnoid space along the frontal skull convexity. There is no intracranial hemorrhage or extra-axial hematoma. There is no mass effect or shift or cerebral edema. The ventricular size is normal. Cortical goss-white matter differentiation is preserved. No sulcal effacement is identified. There is no acute, large artery territorial infarct identified. IMPRESSION: 1. No acute intracranial process can be identified. Other chronic age-related involutional changes as discussed above. Individualized dose optimization techniques were utilized to reduce radiation dose through one or more of the following means: automated exposure control, adjustment of mA and/or KV according to patient size, or through use of iterative reconstruction technique. Reported By:
[2019-02-14 14:23] LABS: BASOPHILS # (AUTO) 0.1 X10^3/uL (0.0-0.1); BASOPHILS % (AUTO) 0.6 % (0.2-1.0); EOSINOPHILS % (AUTO) 0.5 % (0.9-2.9); HEMATOCRIT 47.7 % (36.0-47.0); LYMPHOCYTES # (AUTO) 1.9 X10^3/uL (1.3-2.9); LYMPHOCYTES % (AUTO) 24.4 % (21.0-51.0); MEAN CORPUSCULAR HEMOGLOBIN 32.9 pg (27.0-34.0); MEAN CORPUSCULAR HGB CONC 33.6 g/dL (33.0-35.0); MEAN CORPUSCULAR VOLUME 97.7 fL (80.0-100.0); MEAN PLATELET VOLUME 9.9 fL (7.4-11.0); MONOCYTES # (AUTO) 0.7 x10^3/uL (0.3-0.8); MONOCYTES % (AUTO) 8.8 % (0.0-13.0); NEUTROPHILS # (AUTO) 5.1 x10^3/uL (2.2-4.8); NEUTROPHILS % (AUTO) 65.7 % (42.0-75.0); PLATELET COUNT 107 X10^3/uL (150.0-450.0); RED BLOOD COUNT 4.88 X10^6/uL (3.5-5.4); RED CELL DISTRIBUTION WIDTH 17.2 % (11.6-16.5); WHITE BLOOD COUNT 7.8 X10^3/uL (3.6-10.0)
[2019-02-14 14:37] LABS: ALANINE AMINOTRANSFERASE 20 Units/L (12-78); ALBUMIN 2.9 g/dL (3.4-5.0); ALKALINE PHOSPHATASE 111 Units/L (46-116); ASPARTATE AMINO TRANSFERASE 25 Units/L (15-37); BLOOD UREA NITROGEN 16 mg/dL (7-18); CALCIUM 9.4 mg/dL (8.5-10.1); CARBON DIOXIDE 26.7 mmol/L (21-32); CHLORIDE 104 mmol/L (98-107); COR CA(FOR HYPOALB) 10.3 mg/dL (8.5-10.1); COR NA(FOR HYPERGLY) 145 mmol/L (136-145); CREATININE 1.03 mg/dL (0.55-1.02); SODIUM 140 mmol/L (136-145); TOTAL PROTEIN 7.4 g/dL (6.4-8.2); eGFR NON BLACK RACES 56 (>60)
[2019-02-14] MEDS: NS 1000 ML 1,000 ML IV SCH (15:01)
[2019-02-14] MEDS: SYNTHROID 50 mcg TAB PO SCH (16:30)
[2019-02-14] MEDS: HumuLIN R SUBCUT PRN ×2 (16:33→21:28)
[2019-02-14] MEDS ORDERED: POTASSIUM CHLORIDE LIQ 20 MEQ UDC PO PRN (17:15)
[2019-02-14] MEDS ORDERED: MICRO K EXTEN CAP 10 MEQ PO PRN (17:15)
[2019-02-14] MEDS ORDERED: POTASSIUM CHL 60 MEQ/NS 0.45% 500 ML IV PRN (17:15)
[2019-02-14] MEDS ORDERED: KLOR-CON PO PRN (17:15)
[2019-02-14] MEDS ORDERED: POTASSIUM CHL 40 MEQ/NS 0.45% 500 ML IV PRN (17:15)
[2019-02-14] MEDS ORDERED: K-RIDER 10 MEQ/NS 100 ML 10 MEQ/100 ML BAG IV PRN (17:15)
[2019-02-14] MEDS: K-DUR TAB 20 MEQ PO PRN (17:47)
[2019-02-14] MEDS: SNACK - Diabetic Appropriate PO SCH (20:04)
[2019-02-14] MEDS: PULMICORT NEB TX 0.5 MG NEB SCH (20:29)
[2019-02-14] MEDS: DUONEB 0.5 MG/3 MG NEB SCH ×2 (20:29)
[2019-02-14] MEDS ORDERED: REFLEX: PROVENTIL NEB & PulmiCORT NEB~ NEB SCH (21:00)
[2019-02-14] MEDS: ELIQUIS PO SCH (21:25)
[2019-02-14] MEDS: CARDIZEM SR 90 MG PO SCH (21:25)
[2019-02-15] MEDS ORDERED: MAGNESIUM SULFATE 1 GRAM/100 mL PREMIX 4 G/400 ML BAG IV ONE (00:52)
[2019-02-15] MEDS: MAGNESIUM SULFATE 1 GRAM/100 mL PREMIX 1 GM/100 ML BAG IV PRN ×4 (00:57→04:19)
[2019-02-15] MEDS: DUONEB 0.5 MG/3 MG NEB SCH ×3 (05:20→20:24)
[2019-02-15] MEDS: SYNTHROID 50 mcg TAB PO SCH (06:03)
[2019-02-15] MEDS: NS 1000 ML 1,000 ML IV SCH ×2 (06:03→20:25)
[2019-02-15] MEDS: HumuLIN R SUBCUT PRN (06:04)
[2019-02-15 06:13] LABS: BASOPHILS # (AUTO) 0.1 X10^3/uL (0.0-0.1); BASOPHILS % (AUTO) 0.8 % (0.2-1.0); EOSINOPHILS % (AUTO) 0.6 % (0.9-2.9); HEMATOCRIT 41.7 % (36.0-47.0); HEMOGLOBIN 14.3 g/dL (12.0-16.0); LYMPHOCYTES # (AUTO) 1.6 X10^3/uL (1.3-2.9); LYMPHOCYTES % (AUTO) 25.6 % (21.0-51.0); MEAN CORPUSCULAR HEMOGLOBIN 33.2 pg (27.0-34.0); MEAN CORPUSCULAR HGB CONC 34.2 g/dL (33.0-35.0); MEAN PLATELET VOLUME 9.8 fL (7.4-11.0); MONOCYTES # (AUTO) 0.5 x10^3/uL (0.3-0.8); MONOCYTES % (AUTO) 8.6 % (0.0-13.0); NEUTROPHILS # (AUTO) 4.1 x10^3/uL (2.2-4.8); NEUTROPHILS % (AUTO) 64.4 % (42.0-75.0); PLATELET COUNT 86 X10^3/uL (150.0-450.0); RED CELL DISTRIBUTION WIDTH 16.9 % (11.6-16.5); WHITE BLOOD COUNT 6.4 X10^3/uL (3.6-10.0)
[2019-02-15 06:32] LABS: ALANINE AMINOTRANSFERASE 17 Units/L (12-78); ALBUMIN 2.4 g/dL (3.4-5.0); ALKALINE PHOSPHATASE 91 Units/L (46-116); ASPARTATE AMINO TRANSFERASE 23 Units/L (15-37); BLOOD UREA NITROGEN 13 mg/dL (7-18); CALCIUM 8.5 mg/dL (8.5-10.1); CARBON DIOXIDE 25.9 mmol/L (21-32); CHLORIDE 105 mmol/L (98-107); COR CA(FOR HYPOALB) 9.8 mg/dL (8.5-10.1); COR NA(FOR HYPERGLY) 143 mmol/L (136-145); CREATININE 0.78 mg/dL (0.55-1.02); MAGNESIUM 2.3 mg/dL (1.7-2.9); SODIUM 139 mmol/L (136-145); TOTAL PROTEIN 6.2 g/dL (6.4-8.2); eGFR NON BLACK RACES > 60 (>60)
[2019-02-15] MEDS ORDERED: PROTONIX TAB 40 MG PO SCH (09:00)
[2019-02-15] MEDS: PULMICORT NEB TX 0.5 MG NEB SCH ×2 (09:31→20:24)
[2019-02-15] MEDS: AMARYL TAB 4 MG PO SCH (09:41)
[2019-02-15] MEDS: CARDIZEM SR 90 MG PO SCH ×2 (09:41→21:45)
[2019-02-15] MEDS: ZESTRIL TAB 10 MG PO SCH (09:42)
[2019-02-15] MEDS: ELIQUIS PO SCH ×2 (09:42→21:45)
[2019-02-15] MEDS: PEPCID 20 MG IV PREMIX* 20 MG/50 ML BAG IV SCH ×2 (09:42→21:50)
[2019-02-15] MEDS: VSL#3 PO SCH (09:42)
--- NOTE | 2019-02-15 11:30 | MRI ---
MRA of the head without contrast Clinical indication: Possible CVA, slurred speech 2 days ago, confusion Technique: 3D [id number] MRA of the brain is performed with 2D slab reconstruction. Comparison: None Findings: With regards to the posterior circulatory system, the vertebral arteries are codominant. Normal flow related signal is maintained through the bilateral vertebral arteries and posterior inferior cerebellar artery branches. Normal flow related signal is maintained throughout the basilar artery to the level of the basilar terminus. Normal flow related signal is maintained within the bilateral superior cerebellar artery segments and bilateral posterior cerebral artery segments. With regards to the anterior circulatory system, normal flow related signal is maintained through the ICA terminus, bilateral middle cerebral artery and bilateral anterior cerebral artery territories. Overall, there is no loss of signal within the anterior or posterior circulatory system to indicate occlusion, slow flow, or hemodynamically significant stenosis. No discrete aneurysms are demonstrated, within limitations of MRA. Please note that MRA is relatively insensitive for small aneurysms measuring less than 3 mm. Impression: There is no flow limiting stenosis or occlusion of the major vascular territories comprising the anterior and posterior intracranial circulation. Reported By:
--- NOTE | 2019-02-15 15:11 | VAS ---
HISTORY: . Slurred speech weakness Study: Carotid Doppler ultrasound Comparison: None Technique: Multiple grayscale and color flow Doppler imaging of the carotid and vertebral arteries is performed with waveform analysis and peak systolic velocity measurements. Findings: At real-time scanning on the right no plaquing or stenoses are seen. Waveforms are normal peak systolic velocities are in the normal range maximal 91 centimeters/second in the proximal right ICA. Antegrade flow seen in the right vertebral artery. On the left mild plaquing is seen in the left carotid bulb. Waveforms are normal. Peak systolic velocity is in the proximal left ICA at 73 cm per 2nd. Antegrade flow seen in the left vertebral artery. IMPRESSION: 1. Normal antegrade flow seen in both vertebral arteries. 2. No hemodynamically significant stenoses in either carotid system by real-time scanning, waveforms, peak systolic velocities or systolic velocity ratios. Reported By:
[2019-02-15 16:39] LABS: BILIRUBIN,URINE NEGATIVE (NEGATIVE); BLOOD/HEMOGLOBIN,URINE 1+ (NEGATIVE); GLUCOSE, URINE NEGATIVE (NEGATIVE); KETONES,URINE NEGATIVE (NEGATIVE); LEUKOCYTE ESTERASE ,URINE NEGATIVE (NEGATIVE); NITRITES,URINE NEGATIVE (NEGATIVE); PROTEIN,URINE NEGATIVE (NEGATIVE); UROBILINOGEN,URINE 1+ (NORMAL)
[2019-02-15 16:53] LABS: APPEARANCE,URINE SLIGHTLY HAZY (CLEAR); COLOR,URINE YELLOW (YELLOW)
[2019-02-15 16:54] LABS: AMORPHOUS SEDIMENT,UR 1+ /HPF (NEGATIVE); BACTERIA,URINE TRACE /HPF (NEGATIVE); SQUAMOUS EPITHELIAL CELL,UR MANY /HPF (NEGATIVE)
[2019-02-15 16:55] LABS: YEAST,URINE RARE /HPF (NEGATIVE)
--- NOTE | 2019-02-15 18:38 | DR.H&P ---
H&P - History & Physical for Day of: H&P Date: 02/14/19 - Chief Complaint Chief Complaint: WEAKNESS, SLURRED SPEECH, DROWSINESS - History of Present Illness History of Present Illness: IS A 68 YEAR OLD PATIENT OF OURS WHO PRESENTED TO THE HOSPITAL A DIRECT ADMISSION DUE TO SLURRED SPEECH, WEAKNESS, AND INCREASED DROWSINESS. SYMPTOMS REPORTEDLY STARTED TWO DAYS AGO AND HAVE PROGRESSIVELY GOTTEN WORSE. ON ARRIVAL TO THE HOSPITAL, VITALS WERE 97.6-85-13-97%-141/78. LABS WERE OBTAINED. ABNORMAL LAB VALUES INCLUDE THE FOLLOWING: HCT 47.7, PLT COUNT 107, CREATININE 1.03, GLUCOSE 323, MAGNESIUM 1.4, TOTAL BILI 2.00, ALBUMIN 2.9. A BRAIN CT WAS OBTAINED AND REVEALED: Moderate cortical volume loss is observed resulting in prominence of the subarachnoid space along the frontal skull convexity. There is no intracranial hemorrhage or extra-axial hematoma. There is no mass effect or shift or cerebral edema. The ventricular size is normal. Cortical goss-white matter differentiation is preserved. No sulcal effacement is identified. There is no acute, large artery territorial infarct identified. Right mastoid effusion noted. SHE WAS STARTED ON NORMAL SALINE AT 50ML/HR, MAGNESIUM REPLACEMENT, HUMULIN R SLIDING SCALE, AND HOME MEDICATIONS WERE RESUMED. WE PLAN TO OBTAIN A BRAIN MRI/MRA IN THE MORNING. OTHERWISE, WE WILL FOLLOW UP WITH AM LABS AND CONTINUE TO MONITOR. - Past Medical History Past Medical History: Hypertension, Diabetes, Hypothyroidism, COPD - Past Surgical History Surgical History: Hysterectomy - Family History Family Medical History: Hypertension - Social History Does patient currently use any type of tobacco product: No Have you used tobacco products in the last 12 months: No Type of Tobacco Use: None Alcohol Use: None Drug Use: None Prescription drug monitoring program results: PDMP reviewed and no concerns identified - Medications Home Medications: No Known Drug Allergies Allergy (Verified 06/17/18 07:54) - Review of Systems Constitutional: See HPI, Weakness Eyes: No Symptoms Reported ENT: No Symptoms Reported Respiratory: No Symptoms Reported Cardiovascular: No Symptoms Reported Gastrointestinal: No Symptoms Reported Genitourinary: No Symptoms Reported Musculoskeletal: No Symptoms Reported Skin: No Symptoms Reported Neurological: See HPI, Weakness, Change in Speech, Confusion - Physical Exam Vital Signs: Temperature 98.1 F Pulse Rate [Apical] 80 Pulse Rate 75 Respiratory Rate 13 Blood Pressure [Left Arm] 118/57 Blood Pressure 134/59 O2 Sat by Pulse Oximetry 98 Oriented: Not Oriented Eyes: Normal Ear: Normal Nose: Normal Throat: Normal Respiratory: Diminished Throughout Cardiovascular: Normal. negative: S3, S4, Murmur : Normal Auscultation: Bowel Sounds: Normal Palpation: Normal Tenderness: Normal Skin: Normal Musculoskeletal: Normal Psychiatric: Normal Mood Description: Calm Affect: Normal Speech Pattern: Clear - Assessment/Plan (1) Generalized weakness Status: Acute Plan: OBTAIN BRAIN MRI/MRA IN AM, PHYSICAL THERAPY, CONTINUE TO MONITOR (2) Slurring of speech Status: Acute (3) Diabetes Qualifiers: Diabetes mellitus type: type 2 Diabetes mellitus long-term insulin use: with manager intermediate use Diabetes mellitus complication status: without complication Qualified Code(s): E11.9 - Type 2 diabetes mellitus without complications; Z79.4 - terminal gauger supervisor (current) use of insulin Status: Acute Plan: HUMULIN R SLIDING SCALE, CONTINUE TO MONITOR (4) Atrial fibrillation Qualifiers: Atrial fibrillation type: chronic Qualified Code(s): I48.2 - Chronic atrial fibrillation Status: Acute Plan: ELIQUIS 5 MG PO BID, CONTINUE TO MONITOR - Allergies Allergies/Adverse Reactions: Allergies Allergy/AdvReac Type Severity Reaction Status Date / Time No Known Drug Allergies Allergy Verified 06/17/18 07:54
[2019-02-15] MEDS ORDERED: SNACK - Diabetic Appropriate PO SCH (20:00)
[2019-02-15] MEDS: ZOSYN VIAL 3.375 GRAMS 3.375 G in NS 100 ML IV + SPIKE MINIBAG* 100 ML IV SCH ×2 (20:32→22:26)
[2019-02-15] MEDS: SNACK - Diabetic Appropriate PO SCH (20:33)
[2019-02-16] MEDS: HumuLIN R SUBCUT PRN ×2 (05:39→11:23)
[2019-02-16] MEDS: ZOSYN VIAL 3.375 GRAMS 3.375 G in NS 100 ML IV + SPIKE MINIBAG* 100 ML IV SCH (05:48)
[2019-02-16] MEDS: DUONEB 0.5 MG/3 MG NEB SCH ×2 (06:05→06:06)
[2019-02-16 06:14] LABS: BASOPHILS % (AUTO) 0.5 % (0.2-1.0); EOSINOPHILS % (AUTO) 0.7 % (0.9-2.9); HEMATOCRIT 43.1 % (36.0-47.0); HEMOGLOBIN 14.7 g/dL (12.0-16.0); LYMPHOCYTES # (AUTO) 1.8 X10^3/uL (1.3-2.9); LYMPHOCYTES % (AUTO) 27.5 % (21.0-51.0); MEAN CORPUSCULAR HEMOGLOBIN 32.9 pg (27.0-34.0); MEAN CORPUSCULAR HGB CONC 34.1 g/dL (33.0-35.0); MEAN CORPUSCULAR VOLUME 96.2 fL (80.0-100.0); MEAN PLATELET VOLUME 9.9 fL (7.4-11.0); MONOCYTES # (AUTO) 0.6 x10^3/uL (0.3-0.8); MONOCYTES % (AUTO) 9.3 % (0.0-13.0); PLATELET COUNT 81 X10^3/uL (150.0-450.0); RED BLOOD COUNT 4.48 X10^6/uL (3.5-5.4); RED CELL DISTRIBUTION WIDTH 17.1 % (11.6-16.5); WHITE BLOOD COUNT 6.5 X10^3/uL (3.6-10.0)
[2019-02-16 06:18] LABS: ALANINE AMINOTRANSFERASE 17 Units/L (12-78); ALBUMIN 2.3 g/dL (3.4-5.0); ALKALINE PHOSPHATASE 90 Units/L (46-116); ASPARTATE AMINO TRANSFERASE 28 Units/L (15-37); BLOOD UREA NITROGEN 13 mg/dL (7-18); CALCIUM 8.8 mg/dL (8.5-10.1); CHLORIDE 107 mmol/L (98-107); COR CA(FOR HYPOALB) 10.2 mg/dL (8.5-10.1); COR NA(FOR HYPERGLY) 142 mmol/L (136-145); CREATININE 0.86 mg/dL (0.55-1.02); SODIUM 140 mmol/L (136-145); TOTAL PROTEIN 6.1 g/dL (6.4-8.2); eGFR NON BLACK RACES > 60 (>60)
[2019-02-16] MEDS: SYNTHROID 50 mcg TAB PO SCH (07:39)
[2019-02-16] MEDS: PULMICORT NEB TX 0.5 MG NEB SCH (09:30)
[2019-02-16] MEDS: AMARYL TAB 4 MG PO SCH (09:45)
[2019-02-16] MEDS: NS 1000 ML 1,000 ML IV SCH (09:45)
[2019-02-16] MEDS: ELIQUIS PO SCH (09:49)
[2019-02-16] MEDS: VSL#3 PO SCH (09:49)
[2019-02-16] MEDS: CARDIZEM SR 90 MG PO SCH (09:49)
[2019-02-16] MEDS: PEPCID 20 MG IV PREMIX* 20 MG/50 ML BAG IV SCH (09:49)
[2019-02-16] MEDS: ZESTRIL TAB 10 MG PO SCH (09:50)
[2019-02-16] MEDS: K-DUR TAB 20 MEQ PO PRN (11:30)
[2019-02-16 13:06] VITALS: BP 178/70
== END 2019-02-16 13:59 | disposition home or self-care (01) ==
LOC: ICU
PROVIDERS: ADMIT Internal Medicine; ATTEND Internal Medicine
DX: R47.81 Slurred speech; R41.0 Disorientation, unspecified; E80.6 Other disorders of bilirubin metabolism; Z79.4 Long term (current) use of insulin; I48.2 Chronic atrial fibrillation; G45.9 Transient cerebral ischemic attack, unspecified; Z79.899 Other long term (current) drug therapy; J44.9 Chronic obstructive pulmonary disease, unspecified; E11.65 Type 2 diabetes mellitus with hyperglycemia; R26.89 Other abnormalities of gait and mobility; E03.8 Other specified hypothyroidism
CPT/HCPCS: 36415; 70450; 70544; 70551; 80053; 81001; 83735; 85025; 93880; 94640; 96367; 96372; 96374; 97162; 97166; A4222; S0028; G0378; J1815; J2543; J3475; J7030; J7050; J7620; J7626

== ENCOUNTER 2019-02-19 11:29 | Inpatient (IN) ==
--- NOTE | 2019-02-19 12:03 | DR.AMS ---
HPI Time Seen Time Seen by Provider: 02/19/19 11:40 HPI Comment HPI Comment: PATIENT IS 68YR OLD WHITE FEMALE WITH HISTORY OF COPD, DM, HTN AND HYPOTHYROIDISM IS IN THE EMERGENCY ROOM VIA EMS WITH UNRESPONSIVENESS.. HER RELATIVE SAID SHE WAS IN HER USUAL STATE OF MIND LAST NIGHT WHEN SHE WENT TO BED. IN THE ED SHE IS MOVING ALL LIMBS BUT RESPOND OMLY TO PAINFUL STIMULI. GCS 9. Complaint Cheif Complaint Doctors Comments: UNRESPONSINESS, AMS. Reviewed Nurses Notes Reviewed: Yes Source History Provided: Family Member and EMS Mode of Arrival Mode of Arrival: EMS Timing Came On: Suddenly Symptoms: Improving Duration Duration: Constant Duration: Hours Quality Quality: Decreased Alertness Severity Severity: Unresponsive Context Recent: None History Of: Diabetes Associated Signs and Symptoms Associated Signs and Symptoms: Unresponsiveness PMH PMH Past Medical History: COPD, Diabetes, Hypertension and Hypothyroidism Surgical History: Hysterectomy Family History Family Medical History: Hypertension Social History Do you use any recreational Drugs:: No infectious screening Isolation: Standard ROS Review of Systems Constitutional: See HPI and Other (UNRESPONSIVE, RESPONDING TO PAINFUL STIMULI.); negative Fever Eyes: No Symptoms Reported and See HPI ENTM: No Symptoms Reported and See HPI Respiratoy: See HPI; negative Short of Breath, Wheezing and Hemoptysis Cardiovascular: See HPI, Syncope (RESPOND TO PAIN.) and Other; negative Edema a nd Palpitations Gastrointestinal/Abdominal: See HPI; negative Vomiting Genitourinary: See HPI; negative Hematuria Neurological: See HPI and Other (RESPNDING TO PAINFUL STIMULI.) Musculoskeletal: See HPI and Other (MUSCLE TONE NORMAL. NOT SPASTIC OR FLACCID.) Integumentary: See HPI; negative Change in Color, Rash and Juandice Hematologic/Lymphatic: See HPI and Easy Bruising; negative Swollen Glands and Lymphadenopathy Endocrine: See HPI and Other (NO POLYDYPSEA REPORTED. PATIENT NOT RESPONDING TO QUESTIONS.) Psychiatric: See HPI and Other (AMS.) Unable to Obtain Due To: Altered mental status PE Vitals Vital Signs: Temp Pulse Pulse Resp BP BP Pulse Ox 02/27/19 16:00 99.1 F 68 12 111/54 99 02/27/19 15:00 73 14 108/53 99 02/27/19 14:00 68 11 L 103/55 100 02/27/19 13:00 79 15 115/56 98 02/27/19 12:01 69 17 104/54 100 02/27/19 12:00 98.8 F 67 14 100 02/27/19 11:00 65 10 L 113/53 100 02/27/19 10:01 67 12 110/54 100 02/27/19 10:00 68 10 L 100 02/27/19 09:00 66 15 115/58 100 02/27/19 08:25 20 100 02/27/19 08:00 98.5 F 66 14 112/55 100 02/27/19 07:00 67 14 115/55 100 02/27/19 06:00 65 14 118/58 100 02/27/19 05:00 71 14 114/55 99 02/27/19 04:00 97.6 F 71 12 119/59 100 02/27/19 03:00 72 11 L 126/62 100 02/27/19 02:01 72 12 120/56 100 02/27/19 02:00 72 10 L 100 02/27/19 01:00 73 12 122/58 100 02/27/19 00:00 98.1 F 68 13 128/60 100 02/26/19 23:00 76 13 122/57 100 02/26/19 22:00 74 13 118/58 100 02/26/19 21:00 72 11 L 130/61 100 02/26/19 20:35 64 100 02/26/19 20:00 98.1 F 71 15 131/63 100 02/26/19 19:00 65 12 120/58 100 02/26/19 18:30 72 18 100 02/26/19 18:15 69 10 L 64 L 02/26/19 18:00 62 12 100 02/26/19 17:45 67 12 100 02/26/19 17:30 64 11 L 100 02/26/19 17:15 63 14 100 02/26/19 17:00 64 15 112/53 100 02/26/19 16:45 64 14 100 02/26/19 16:30 70 15 99 02/26/19 16:15 60 11 L 100 02/26/19 16:00 98.0 F 62 11 L 112/58 100 02/26/19 15:45 62 11 L 100 02/26/19 15:30 60 11 L 100 02/26/19 15:15 62 12 100 02/26/19 15:00 60 11 L 109/58 100 02/26/19 14:45 60 11 L 97 02/26/19 14:30 60 13 94 L 02/26/19 14:21 61 18 02/26/19 14:00 63 15 120/58 100 02/26/19 13:45 62 17 100 02/26/19 13:30 66 14 100 02/26/19 13:15 66 15 100 02/26/19 13:00 70 15 136/60 100 02/26/19 12:45 66 14 100 02/26/19 12:30 58 L 11 L 100 02/26/19 12:15 60 12 100 02/26/19 12:00 98.0 F 61 11 L 117/58 100 02/26/19 11:45 60 13 100 02/26/19 11:30 61 12 100 02/26/19 11:15 63 15 100 02/26/19 11:00 64 18 128/61 100 02/26/19 10:45 63 18 100 02/26/19 10:30 67 22 100 02/26/19 10:15 64 15 100 02/26/19 10:00 66 16 129/62 100 02/26/19 09:45 63 16 100 02/26/19 09:30 60 14 100 02/26/19 09:15 59 L 14 100 02/26/19 09:02 63 100 02/26/19 09:00 73 15 113/73 100 02/26/19 08:45 69 18 100 02/26/19 08:30 65 15 100 02/26/19 08:15 67 13 100 02/26/19 08:00 98.5 F 53 L 9 L 105/55 100 02/26/19 07:45 57 L 10 L 99 02/26/19 07:31 61 13 99 02/26/19 07:15 54 L 10 L 100 02/26/19 07:01 56 L 9 L 94/50 100 02/26/19 07:00 56 L 10 L 100 02/26/19 06:45 54 L 10 L 100 02/26/19 06:30 59 L 9 L 100 02/26/19 06:15 59 L 9 L 100 02/26/19 06:00 57 L 12 102/54 100 02/26/19 05:45 58 L 11 L 100 02/26/19 05:30 60 9 L 100 02/26/19 05:15 55 L 9 L 99 02/26/19 05:00 57 L 10 L 105/54 100 02/26/19 04:45 63 9 L 100 02/26/19 04:30 70 13 99 02/26/19 04:15 61 9 L 99 02/26/19 04:00 97.9 F 61 10 L 106/54 99 02/26/19 03:45 63 9 L 100 02/26/19 03:30 66 10 L 100 02/26/19 03:15 70 100 02/26/19 03:00 68 118/56 100 02/26/19 02:45 66 10 L 100 02/26/19 02:30 65 10 L 98 02/26/19 02:15 63 10 L 99 02/26/19 02:00 64 9 L 118/55 99 02/26/19 01:45 69 9 L 100 02/26/19 01:30 69 10 L 100 02/26/19 01:15 68 10 L 100 02/26/19 01:00 69 10 L 129/60 100 02/26/19 00:45 69 11 L 100 02/26/19 00:30 70 10 L 100 02/26/19 00:15 72 11 L 99 02/26/19 00:00 98.4 F 76 15 131/60 98 02/25/19 23:45 69 11 L 99 02/25/19 23:30 69 11 L 99 02/25/19 23:15 72 12 99 02/25/19 23:00 73 12 128/60 100 02/25/19 22:45 71 11 L 100 02/25/19 22:30 69 14 100 02/25/19 22:15 70 9 L 100 02/25/19 22:00 72 11 L 128/59 100 02/25/19 21:45 70 14 100 02/25/19 21:30 70 14 100 02/25/19 21:15 66 11 L 100 02/25/19 21:00 71 11 L 128/60 100 02/25/19 20:45 68 22 100 02/25/19 20:30 69 15 100 02/25/19 20:25 64 100 02/25/19 20:15 70 13 100 02/25/19 20:00 98.0 F 66 13 139/63 100 02/25/19 19:45 65 10 L 100 07 19:30 67 16 100 02/25/19 19:15 67 12 100 02/25/19 19:00 65 10 L 135/63 100 02/25/19 18:45 66 10 L 100 02/25/19 18:30 63 12 100 02/25/19 18:15 65 19 100 02/25/19 18:00 69 8 L 138/68 99 02/25/19 17:45 69 9 L 99 02/25/19 17:30 69 14 99 02/25/19 17:15 67 10 L 99 02/25/19 17:00 68 12 142/66 100 02/25/19 16:45 68 12 99 02/25/19 16:30 68 10 L 99 02/25/19 16:15 67 11 L 99 02/25/19 16:00 71 15 139/68 99 02/25/19 15:45 68 10 L 99 02/25/19 15:30 66 11 L 99 02/25/19 15:15 66 13 99 02/25/19 15:00 62 14 128/60 100 02/25/19 14:45 65 17 100 02/25/19 14:30 64 14 100 02/25/19 14:15 64 10 L 100 02/25/19 14:00 61 13 131/60 100 02/25/19 13:45 62 13 100 02/25/19 13:30 61 12 100 02/25/19 13:15 60 12 100 02/25/19 13:01 72 19 126/64 100 02/25/19 13:00 73 31 H 100 02/25/19 12:45 69 13 100 02/25/19 12:30 68 16 100 02/25/19 12:15 66 11 L 100 02/25/19 12:00 98.0 F 133/64 02/25/19 11:45 66 11 L 100 02/25/19 11:30 69 11 L 100 02/25/19 11:15 68 10 L 100 02/25/19 11:00 71 11 L 138/62 100 02/25/19 10:45 69 10 L 100 02/25/19 10:30 71 12 100 02/25/19 10:15 71 11 L 100 02/25/19 10:00 71 15 152/67 100 02/25/19 09:45 68 11 L 100 02/25/19 09:30 73 14 100 02/25/19 09:15 76 14 100 02/25/19 09:00 70 11 L 146/67 100 02/25/19 08:59 71 100 02/25/19 08:45 71 13 100 02/25/19 08:30 69 10 L 100 02/25/19 08:15 69 12 100 02/25/19 08:01 74 12 124/51 100 02/25/19 08:00 98.7 F 74 12 100 02/25/19 07:45 74 12 100 02/25/19 07:30 73 10 L 100 02/25/19 07:15 74 11 L 100 02/25/19 07:00 72 9 L 145/63 100 02/25/19 06:45 72 11 L 100 02/25/19 06:30 71 10 L 100 02/25/19 06:15 73 11 L 100 02/25/19 06:01 73 10 L 133/79 100 02/25/19 06:00 74 15 133/79 100 02/25/19 05:45 73 10 L 100 02/25/19 05:30 71 10 L 100 02/25/19 05:15 71 10 L 100 02/25/19 05:04 73 11 L 140/58 100 02/25/19 05:00 72 10 L 140/58 100 02/25/19 04:47 70 10 L 100 02/25/19 04:30 72 10 L 100 02/25/19 04:15 71 9 L 100 02/25/19 04:00 98.2 F 71 11 L 113/59 100 02/25/19 03:48 74 02/25/19 03:15 71 10 L 100 02/25/19 03:00 73 11 L 115/60 100 02/25/19 02:45 72 14 100 02/25/19 02:30 71 10 L 100 02/25/19 02:15 71 10 L 100 02/25/19 02:06 75 10 L 118/58 100 02/25/19 02:00 71 10 L 118/58 100 02/25/19 01:45 72 9 L 100 02/25/19 01:30 71 16 100 02/25/19 01:15 71 10 L 100 02/25/19 01:01 73 11 L 138/61 100 07/19 01:00 73 10 L 138/61 100 07/19/19 00:45 72 9 L 100 07/ 00:30 73 9 L 100 07/ 00:15 72 12 100 07 00:00 98.0 F 70 11 L 116/61 100 0718/19 23:45 75 8 L 100 0718/19 23:30 74 10 L 100 0718/19 23:15 72 10 L 100 0718/19 23:00 72 11 L 128/58 100 0718/19 22:45 74 11 L 100 0718/19 22:30 75 11 L 100 0718/19 22:25 78 16 126/59 100 18/19 22:15 85 15 100 18/19 20:12 71 100 18/19 18:45 68 10 L 99 0718/19 18:30 67 11 L 99 0718/19 18:18 75 14 19 17:57 119/59 18/19 17:56 71 15 18/19 17:45 72 12 100 18/19 17:30 72 13 100 18/19 17:15 69 12 100 18/19 17:01 67 10 L 131/59 100 18/19 17:00 70 10 L 98 18/19 16:45 68 11 L 100 18/19 16:30 67 9 L 100 18/19 16:15 67 9 L 100 18/19 16:00 67 10 L 122/56 100 18/19 15:45 69 9 L 100 0718/19 15:30 67 9 L 100 0718/19 15:15 65 10 L 100 07/18/19 15:00 66 11 L 124/58 100 18/19 14:45 66 11 L 99 0718/19 14:30 88 98 18/19 14:15 67 12 100 18/19 14:00 70 12 123/60 100 18/19 13:48 69 11 L 100 07/18/19 13:30 73 13 100 18/19 13:15 80 16 94 L 18/19 13:01 80 15 139/65 97 07/18/19 13:00 80 13 100 07/18/19 12:45 76 20 100 07/18/19 12:30 73 13 100 07/18/19 12:15 69 9 L 100 07/18/19 12:00 97.8 F 68 11 L 133/61 100 07/18/19 11:45 63 9 L 100 07/18/19 11:30 66 11 L 100 07/18/19 11:15 62 10 L 100 07/18/19 11:00 62 10 L 125/56 100 07/18/19 10:45 62 10 L 100 07/18/19 10:30 63 11 L 100 07/18/19 10:15 64 11 L 100 07/18/19 10:00 126/58 07/18/19 09:45 68 13 100 07/18/19 09:30 69 12 100 07/18/19 09:15 69 16 100 07/18/19 09:00 67 12 123/56 100 07/18/19 08:45 62 11 L 100 07/18/19 08:39 62 100 07/18/19 08:30 61 11 L 100 07/18/19 08:15 67 12 100 07/18/19 08:01 80 14 119/73 97 07/18/19 08:00 97.1 F L 75 16 88 L 07/18/19 07:45 73 14 100 07/18/19 07:30 65 11 L 100 07/18/19 07:15 63 11 L 100 07/18/19 07:00 65 11 L 128/62 100 07/18/19 06:45 64 12 100 07/18/19 06:30 64 11 L 100 07/18/19 06:15 64 11 L 100 07/18/19 06:00 62 12 118/59 100 07/18/19 05:45 64 12 100 07/18/19 05:30 63 11 L 100 07/18/19 05:15 60 12 100 07/18/19 05:00 63 12 120/56 100 07/18/19 04:45 62 11 L 100 07/18/19 04:30 68 19 100 07/18/19 04:15 60 11 L 100 07/18/19 04:00 97.5 F L 63 12 120/58 100 07/18/19 03:45 63 10 L 100 07/18/19 03:30 61 10 L 100 02/24/19 03:15 63 10 L 100 02/24/19 03:00 64 10 L 112/57 100 02/24/19 02:45 67 11 L 100 02/24/19 02:30 65 11 L 100 02/24/19 02:15 67 12 100 02/24/19 02:00 66 14 121/59 100 02/24/19 01:45 67 11 L 100 02/24/19 01:30 67 11 L 100 02/24/19 01:15 67 11 L 100 02/24/19 01:00 67 10 L 120/59 100 02/24/19 00:45 71 10 L 100 02/24/19 00:30 71 10 L 100 02/24/19 00:15 71 7 L 100 02/24/19 00:00 97.7 F 72 11 L 122/60 100 02/23/19 23:45 73 11 L 100 02/23/19 23:30 73 11 L 100 02/23/19 23:15 74 10 L 100 02/23/19 23:00 75 13 132/63 100 02/23/19 22:45 75 12 100 02/23/19 22:30 73 11 L 100 02/23/19 22:00 78 15 133/60 100 02/23/19 21:03 73 100 02/23/19 21:00 73 11 L 149/66 100 02/23/19 20:00 97.4 F L 77 12 113/56 100 02/23/19 19:00 97.0 F L 78 13 110/66 100 02/23/19 18:01 76 13 108/58 100 02/23/19 18:00 75 13 100 02/23/19 17:45 72 11 L 100 02/23/19 17:30 74 13 100 02/23/19 17:15 73 11 L 100 02/23/19 17:00 75 13 94/55 100 02/23/19 16:45 75 11 L 100 02/23/19 16:30 74 11 L 100 02/23/19 16:15 73 11 L 100 02/23/19 16:01 73 10 L 86/54 100 02/23/19 16:00 71 10 L 100 02/23/19 15:45 98.7 F 70 10 L 100 02/23/19 15:30 72 10 L 100 07/17/19 15:15 73 11 L 100 02/23/19 15:00 78 11 L 117/56 100 02/23/19 14:46 83 16 124/57 100 02/23/19 14:45 82 16 100 02/23/19 14:30 88 12 100 02/23/19 14:15 84 10 L 100 02/23/19 14:01 87 13 147/64 100 02/23/19 14:00 85 17 100 02/23/19 13:45 95 H 21 100 02/23/19 13:30 97 H 24 96 02/23/19 13:15 85 14 100 02/23/19 13:01 92 H 17 167/81 100 02/23/19 13:00 92 H 18 99 02/23/19 12:45 95 H 18 97 02/23/19 12:30 94 H 21 97 02/23/19 12:15 84 100 02/23/19 12:00 97.4 F L 78 16 143/64 100 02/23/19 11:45 79 20 100 02/23/19 11:30 83 19 100 02/23/19 11:15 74 13 100 02/23/19 11:00 76 14 132/60 100 02/23/19 10:45 85 12 100 02/23/19 10:30 83 100 02/23/19 10:15 86 16 100 02/23/19 10:00 87 12 129/75 100 02/23/19 09:45 89 14 100 02/23/19 09:30 88 18 100 02/23/19 09:15 87 15 100 02/23/19 09:00 120/56 02/23/19 08:45 86 18 100 02/23/19 08:37 87 100 02/23/19 08:30 88 12 100 02/23/19 08:15 90 16 99 02/23/19 08:01 93 H 16 128/73 95 02/23/19 08:00 90 14 99 02/23/19 07:45 92 H 16 100 02/23/19 07:30 75 12 99 02/23/19 07:15 76 12 99 02/23/19 07:00 75 13 115/54 99 02/23/19 06:45 76 10 L 99 02/23/19 06:30 76 10 L 99 02/23/19 06:15 76 10 L 100 02/23/19 06:00 76 10 L 134/58 100 02/23/19 05:45 75 11 L 100 02/23/19 05:30 78 11 L 100 02/23/19 05:15 79 12 100 02/23/19 05:00 75 12 132/59 100 02/23/19 04:45 76 12 100 02/23/19 04:30 74 11 L 100 02/23/19 04:15 73 11 L 100 02/23/19 04:01 76 11 L 144/62 100 02/23/19 04:00 98.4 F 77 12 144/62 100 02/23/19 03:45 76 11 L 100 02/23/19 03:30 72 12 100 02/23/19 03:15 73 11 L 100 02/23/19 03:00 72 11 L 98/52 100 02/23/19 02:45 69 12 100 02/23/19 02:30 71 12 100 02/23/19 02:15 68 9 L 100 02/23/19 02:03 71 13 91/51 100 02/23/19 02:02 67 9 L 79/51 99 02/23/19 02:00 65 9 L 83/49 99 02/23/19 01:45 68 8 L 100 02/23/19 01:30 66 8 L 100 02/23/19 01:15 72 13 100 02/23/19 01:00 69 10 L 93/50 100 02/23/19 00:45 68 9 L 100 02/23/19 00:30 67 9 L 100 02/23/19 00:15 68 10 L 100 02/23/19 00:00 98.2 F 74 9 L 119/57 100 02/22/19 23:45 69 7 L 100 02/22/19 23:30 68 8 L 100 02/22/19 23:15 66 9 L 100 02/22/19 23:00 70 10 L 128/61 100 02/22/19 22:45 71 9 L 100 02/22/19 22:00 69 11 L 121/59 100 02/22/19 21:00 72 12 128/58 100 02/22/19 20:51 72 100 02/22/19 20:15 98.1 F 69 11 L 96/48 100 02/22/19 19:15 97.9 F 73 12 134/64 100 02/22/19 18:00 142/67 02/22/19 17:45 77 100 02/22/19 17:30 125/68 02/22/19 17:15 74 100 02/22/19 17:00 65 123/58 100 02/22/19 16:15 97.8 F 71 99/51 100 02/22/19 16:00 97.4 F L 73 94/50 100 02/22/19 15:45 97.6 F 70 138/60 100 02/22/19 15:30 97.8 F 76 122/58 100 02/22/19 15:18 78 10 L 80/48 96 02/22/19 15:15 97.8 F 77 98 02/22/19 14:00 82 15 147/67 95 02/22/19 13:01 89 34 H 100 02/22/19 12:00 98.2 F 83 19 99 02/22/19 11:08 134/67 02/22/19 11:06 92 H 97 02/22/19 10:00 71 12 152/65 100 02/22/19 09:15 66 9 L 100 02/22/19 09:00 138/62 02/22/19 08:15 63 6 L 100 02/22/19 08:01 61 9 L 142/60 100 02/22/19 07:01 113/56 02/22/19 07:00 58 L 9 L 100 02/22/19 06:45 62 9 L 100 02/22/19 06:30 61 10 L 100 02/22/19 06:15 66 10 L 100 02/22/19 06:01 66 10 L 114/54 100 02/22/19 06:00 69 10 L 100 02/22/19 05:45 68 11 L 100 02/22/19 05:30 60 10 L 100 02/22/19 05:15 59 L 10 L 100 02/22/19 05:00 60 9 L 119/53 100 02/22/19 04:45 62 10 L 100 02/22/19 04:30 64 11 L 100 02/22/19 04:15 63 9 L 100 02/22/19 04:00 66 11 L 106/56 99 02/22/19 03:45 59 L 9 L 100 02/22/19 03:30 62 11 L 100 02/22/19 03:15 60 11 L 100 02/22/19 03:00 97.9 F 66 10 L 110/55 100 02/22/19 02:45 68 10 L 100 02/22/19 02:30 64 10 L 100 02/22/19 02:15 66 10 L 100 02/22/19 02:00 73 13 111/58 100 02/22/19 01:45 71 10 L 100 02/22/19 01:30 74 9 L 100 02/22/19 01:15 74 11 L 100 02/22/19 01:00 76 10 L 107/51 100 02/22/19 00:45 76 10 L 100 02/22/19 00:30 74 10 L 100 02/22/19 00:15 74 10 L 100 02/22/19 00:00 116/56 02/21/19 23:45 76 10 L 100 02/21/19 23:30 76 12 100 02/21/19 23:15 78 15 100 02/21/19 23:00 98.6 F 79 12 115/58 100 02/21/19 22:45 74 10 L 100 02/21/19 22:30 78 11 L 100 02/21/19 22:15 79 11 L 100 02/21/19 22:01 81 12 119/64 100 02/21/19 22:00 78 12 119/64 100 02/21/19 21:45 78 12 99 02/21/19 21:30 76 12 100 02/21/19 21:21 79 99 02/21/19 21:15 85 14 100 02/21/19 21:00 78 10 L 99/62 100 02/21/19 20:45 79 11 L 100 02/21/19 20:30 79 12 100 02/21/19 20:15 75 10 L 99 02/21/19 20:00 74 12 115/57 100 02/21/19 19:45 76 12 100 02/21/19 19:30 77 10 L 100 02/21/19 19:15 75 10 L 100 02/21/19 19:00 98.4 F 77 11 L 114/57 100 02/21/19 18:45 78 10 L 100 02/21/19 18:30 78 10 L 100 02/21/19 18:15 81 10 L 100 02/21/19 18:00 80 13 136/75 100 02/21/19 17:45 86 16 100 02/21/19 17:30 87 13 100 02/21/19 17:15 85 18 100 02/21/19 17:01 89 20 150/65 100 02/21/19 17:00 89 15 150/65 100 02/21/19 16:45 81 18 100 02/21/19 16:30 77 17 100 02/21/19 16:15 79 18 100 02/21/19 16:00 98.6 F 87 12 113/68 100 02/21/19 15:45 92 H 17 100 02/21/19 15:30 88 13 99 02/21/19 15:15 80 8 L 100 02/21/19 15:00 80 12 123/71 100 02/21/19 14:30 96 02/21/19 14:15 95 02/21/19 14:00 78 16 138/58 100 02/21/19 13:00 82 19 140/63 100 02/21/19 12:00 98.1 F 92 H 24 130/91 100 02/21/19 11:00 79 15 130/62 100 02/21/19 10:00 85 17 132/64 100 02/21/19 09:00 78 17 148/72 100 02/21/19 08:48 80 100 02/21/19 08:00 97.8 F 78 11 L 151/75 100 02/21/19 07:00 75 14 127/95 100 02/21/19 06:00 74 16 127/65 100 02/21/19 05:00 79 14 148/72 100 02/21/19 04:00 98.0 F 79 14 148/72 100 02/21/19 03:00 76 12 131/60 100 02/21/19 02:00 76 16 142/64 100 02/21/19 01:00 79 13 125/66 100 02/21/19 00:00 97.7 F 81 13 131/63 100 02/20/19 23:00 83 12 157/80 100 02/20/19 22:00 79 20 142/62 100 02/20/19 21:00 80 12 169/80 100 02/20/19 20:57 81 98 02/20/19 20:00 98.0 F 79 10 L 143/75 100 02/20/19 19:00 80 12 169/72 100 02/20/19 18:00 75 10 L 161/72 100 02/20/19 17:45 74 10 L 100 02/20/19 17:30 74 11 L 100 02/20/19 17:15 77 10 L 100 02/20/19 17:00 74 11 L 153/71 100 02/20/19 16:45 74 9 L 100 02/20/19 16:30 73 7 L 100 02/20/19 16:15 72 9 L 100 02/20/19 16:00 98.7 F 72 9 L 130/72 100 02/20/19 15:45 74 9 L 100 02/20/19 15:30 73 10 L 100 02/20/19 15:15 73 9 L 100 02/20/19 15:00 70 8 L 145/67 100 02/20/19 14:48 70 96 02/20/19 14:15 71 0 L 100 02/20/19 14:00 71 0 L 139/68 100 02/20/19 13:45 65 7 L 100 02/20/19 13:30 70 10 L 99 02/20/19 13:15 71 9 L 100 02/20/19 13:00 68 11 L 131/63 100 02/20/19 12:45 98.2 F 66 9 L 100 02/20/19 12:30 69 10 L 99 02/20/19 12:15 68 10 L 100 02/20/19 12:00 69 11 L 143/71 100 02/20/19 11:45 69 0 L 100 02/20/19 11:30 70 7 L 100 02/20/19 11:15 68 8 L 100 02/20/19 11:00 68 10 L 138/65 99 02/20/19 10:45 67 12 100 02/20/19 10:30 65 9 L 99 02/20/19 10:15 67 9 L 99 02/20/19 10:00 66 10 L 136/65 100 02/20/19 09:45 65 0 L 100 02/20/19 09:30 64 9 L 100 02/20/19 09:15 66 11 L 100 02/20/19 09:13 66 99 02/20/19 09:00 66 10 L 134/67 100 02/20/19 08:45 66 5 L 100 02/20/19 08:30 63 9 L 99 02/20/19 08:15 97.7 F 67 11 L 99 02/20/19 08:00 67 11 L 135/62 100 02/20/19 07:45 67 14 99 02/20/19 07:30 64 10 L 99 02/20/19 07:15 65 11 L 99 02/20/19 07:00 65 10 L 131/64 100 02/20/19 06:45 68 11 L 99 02/20/19 06:30 67 11 L 100 02/20/19 06:15 66 10 L 100 02/20/19 06:00 66 13 129/67 99 02/20/19 05:45 64 12 99 02/20/19 05:30 64 12 99 02/20/19 05:15 64 11 L 99 02/20/19 05:00 63 11 L 129/58 99 02/20/19 04:45 66 10 L 99 02/20/19 04:30 64 11 L 99 02/20/19 04:15 65 13 99 02/20/19 04:00 64 12 128/59 99 02/20/19 03:45 64 11 L 99 02/20/19 03:30 64 12 99 02/20/19 03:15 63 11 L 99 02/20/19 03:00 63 13 124/62 100 02/20/19 02:45 65 10 L 100 02/20/19 02:30 63 9 L 99 02/20/19 02:15 64 12 100 02/20/19 02:00 65 11 L 129/61 100 02/20/19 01:45 64 11 L 99 02/20/19 01:30 62 11 L 99 02/20/19 01:15 62 10 L 99 02/20/19 01:00 66 11 L 129/58 99 02/20/19 00:00 97.5 F L 65 13 123/57 98 02/19/19 23:00 66 13 135/63 98 02/19/19 22:00 63 12 142/68 100 02/19/19 21:00 66 16 153/70 100 02/19/19 20:00 97.2 F L 64 12 144/69 100 02/19/19 19:59 64 99 02/19/19 19:00 67 13 151/66 100 02/19/19 18:23 97.7 F 02/19/19 18:15 64 7 L 100 02/19/19 18:02 62 11 L 149/77 02/19/19 18:01 62 11 L 100 02/19/19 17:10 65 10 L 144/72 02/19/19 17:00 64 12 154/68 02/19/19 16:42 61 10 L 152/73 02/19/19 16:00 58 L 12 162/74 02/19/19 15:30 60 9 L 139/65 02/19/19 15:00 60 9 L 145/63 02/19/19 14:30 59 L 9 L 150/69 02/19/19 14:10 59 L 11 L 141/73 02/19/19 14:00 59 L 14 146/69 02/19/19 13:40 85 12 207/100 02/19/19 13:20 81 13 198/85 02/19/19 13:00 84 12 190/84 02/19/19 12:40 78 13 179/87 02/19/19 12:20 80 14 168/83 02/19/19 12:00 75 12 162/75 95 02/19/19 11:54 97 F L 74 11 L 157/74 96 02/16/19 13:00 178/70 178/70 General Limitations: Altered Mental Status General Appearance: In No Apparent Distress and Other (RESPOND TO PAIN STIMULI.) Head Head Exam: Normal Inspection and Atraumatic Head Exam Physical: Other (NONE PRESENT.) Eyes Eye exam: PERRL (PUPILS EQUAL. AND REACTIVE.); negative Scleral Icterus and Conjunctival Injection Pupils: Regular, Round: Bilateral ENT ENT Exam: Normal Oropharynx, Normal External Ear Exam and TM's Normal Bilaterally External Ear Exam: Normal External Inspection; negative Mastoid Tenderness TM/Canal Exam: Bilateral: Normal Nose Exam: negative Nasal Deviation and Septal Hematoma Mouth Exam: negative Lip Swelling and Tongue Swelling Throat Exam: Normal Inspection and Tonsillar Erythema; negative Tonsillomegaly and Tonsillar Exudate Neck Neck Exam: Trachea Midline and Tenderness; negative Lymphadenopathy Chest Chest Inspection: Normal Inspection Respiratory Respiratory Exam: Normal Lung Sounds Bilat; negative Accessory Muscle Use, Chest Wall Tenderness and Respiratory Distress Respiratory Exam: Bilateral: Rhonchi and Lower: Rhonchi Cardiovascular Cardiovascular Exam: Normal Rhythm and Normal Heart Sounds; negative Systolic Murmur and Diastolic Murmur Abdominal Exam Abdominal Exam: Normal Bowel Sounds and Soft; negative Tenderness Extremities Extremities Exam: Normal Inspection and Normal Capillary Refill; negative Edema Back Back Exam: negative Tenderness and Paraspinal Tenderness Neurological Neurological Exam: Other (RESPONSE TO PAINFUL STIMULI. GCS 9. ); negative CN II- XII Intact and Motor Sensory Deficit Speech: Other (NOT TALKING CURRENTLY.) Cranial Nerve Exam: Gag reflex (XI): Normal Psychological Psychiatric Exam: Flat Affect and Other (RESPONDING TO PAINFUL STIMULI.) Skin Skin Exam: Warm, Dry, Intact and Normal Color MDM Differential Diagnosis Metabolic: Dehydration, Hypercalcemia, Hypernatremia, Hypoglycemia and Hyponatremia Structural: Mass Lesion COURSE Treatment Treatment: SEE ORDERS. Education/Counseling Educated On: Diagnosis ROR Labs Reviewed Laboratory Results Reviewed?: Yes Result Diagrams: 03/04/19 06:11 03/04/19 06:11 Laboratory: 02/19/19 11:08 Blood Blood Culture - Final 02/19/19 11:02 Blood Blood Culture - Final WBC 8.2 X10^3/uL (3.6-10.0) 03/04/19 06:11 RBC 3.72 X10^6/uL (3.5-5.4) 03/04/19 06:11 Hgb 12.4 g/dL (12.0-16.0) 03/04/19 06:11 Hct 36.4 % (36.0-47.0) 03/04/19 06:11 MCV 97.7 fL (80.0-100.0) 03/04/19 06:11 MCH 33.2 pg (27.0-34.0) 03/04/19 06:11 MCHC 34.0 g/dL (33.0-35.0) 03/04/19 06:11 RDW 16.9 % (11.6-16.5) H 03/04/19 06:11 Plt Count 71 X10^3/uL (150.0-450.0) L 03/04/19 06:11 MPV 10.2 fL (7.4-11.0) 03/04/19 06:11 Neut % (Auto) 61.0 % (42.0-75.0) 03/04/19 06:11 Lymph % (Auto) 25.9 % (21.0-51.0) 03/04/19 06:11 [place] % (Auto) 11.0 % (0.0-13.0) 03/04/19 06:11 Eos % (Auto) 1.2 % (0.9-2.9) 03/04/19 06:11 Baso % (Auto) 0.9 % (0.2-1.0) 03/04/19 06:11 Neut # (Auto) 5.0 x10^3/uL (2.2-4.8) H 03/04/19 06:11 Lymph # (Auto) 2.1 X10^3/uL (1.3-2.9) 03/04/19 06:11 [place] # (Auto) 0.9 x10^3/uL (0.3-0.8) H 03/04/19 06:11 Eos # (Auto) 0.1 x10^3/uL (0.0-0.2) 03/04/19 06:11 Baso # (Auto) 0.1 X10^3/uL (0.0-0.1) 03/04/19 06:11 Absolute Nucleated RBC 0.2 /100WBC 03/04/19 06:11 INR Target Range - 02/23/19 11:10 INR 1.34 (0.8-1.3) H 02/23/19 11:10 APTT 29.6 SECONDS (22.9-36.5) 02/23/19 11:10 PTT Comment - 02/23/19 11:10 Sodium 138 mmol/L (136-145) 03/04/19 06:11 Corrected Sodium 139 mmol/L (136-145) 03/04/19 06:11 Potassium 4.1 mmol/L (3.5-5.1) 03/04/19 06:11 Chloride 104 mmol/L (98-107) 03/04/19 06:11 Carbon Dioxide 28.4 mmol/L (21-32) 03/04/19 06:11 BUN 11 mg/dL (7-18) 03/04/19 06:11 Creatinine 0.97 mg/dL (0.55-1.02) 03/04/19 06:11 Est GFR (MDRD) Af Amer > 60 (>60) 03/04/19 06:11 Est GFR (MDRD) Non-Af > 60 (>60) 03/04/19 06:11 Glucose 161 mg/dL (65-99) H 03/04/19 06:11 POC Glucose (mg/dL) 211 mg/dL (65-99) H 02/27/19 16:42 Lactic Acid 1.9 mmol/L (0.4-2.0) 02/19/19 11:02 Calcium 9.2 mg/dL (8.5-10.1) 03/04/19 06:11 Corrected Calcium 10.9 mg/dL (8.5-10.1) H 03/04/19 06:11 Magnesium 1.1 mg/dL (1.7-2.9) L 03/04/19 06:11 Iron 201 ug/dL (50-175) H 02/21/19 17:57 Transferrin 196 mg/dL (202-364) L 02/21/19 17:57 Ferritin 81 ng/mL (8-252) 02/21/19 17:57 Total Bilirubin 1.00 mg/dL (0.2-1.0) 03/04/19 06:11 Direct Bilirubin 0.80 mg/dL (0-0.2) H 02/21/19 17:57 Indirect Bilirubin 1.50 mg/dL (0.2-0.8) H 02/21/19 17:57 AST 33 Units/L (15-37) 03/04/19 06:11 ALT 18 Units/L (12-78) 03/04/19 06:11 Alkaline Phosphatase 92 Units/L (46-116) 03/04/19 06:11 Ammonia 32 umol/L (11-32) 03/04/19 06:11 Creatine Kinase 43 Units/L (26-192) 02/20/19 03:58 CK-MB (CK-2) 2.0 ng/mL (0-4.0) 02/20/19 03:58 CK/CKMB % Calc 4.7 % (<4) 02/20/19 03:58 Troponin I 0.04 ng/mL (0-1.5) 02/20/19 03:58 C-Reactive Protein 3.60 mg/L (0-3.0) H 02/19/19 11:02 B-Natriuretic Peptide 135 pg/mL (0-79) H 02/19/19 11:02 Total Protein 5.6 g/dL (6.4-8.2) L 03/04/19 06:11 Albumin 1.9 g/dL (3.4-5.0) L 03/04/19 06:11 Globulin 3.7 g/dL (2.5-4.5) 03/04/19 06:11 Albumin/Globulin Ratio 0.5 Ratio (1.1-2.1) L 03/04/19 06:11 [id number] 118 mg/dL (90-200) 02/21/19 17:57 Ceruloplasmin 21 mg/dL (17-54) 02/21/19 17:57 Alpha Fetoprotein 5 ng/mL (0-9) 02/23/19 11:10 Carcinoembryonic Ag 15.7 ng/mL (0.0-3.0) H 02/19/19 11:02 Specimen Type Catherized urine 02/19/19 12:17 Urine Color Yellow (YELLOW) 02/19/19 12:17 Urine Appearance Cloudy (CLEAR) 02/19/19 12:17 Urine pH 7.0 (5.0 - 8.0) 02/19/19 12:17 Ur Specific [place] 1.010 (1.000-1.030) 02/19/19 12:17 Urine Protein 1+ (NEGATIVE) 02/19/19 12:17 Urine Glucose (UA) 1+ (NEGATIVE) 02/19/19 12:17 Urine Ketones Negative (NEGATIVE) 02/19/19 12:17 Urine Occult Blood 2+ (NEGATIVE) 02/19/19 12:17 Urine Nitrite Negative (NEGATIVE) 02/19/19 12:17 Urine Bilirubin Negative (NEGATIVE) 02/19/19 12:17 Urine Urobilinogen 1+ (NORMAL) 02/19/19 12:17 Ur Leukocyte Esterase Negative (NEGATIVE) 02/19/19 12:17 Urine RBC 0-2 /HPF (NONE SEEN) 02/19/19 12:17 Urine WBC 3-5 /HPF (NONE SEEN) 02/19/19 12:17 Ur Squamous Epith Cells Moderate /HPF (NEGATIVE) 02/19/19 12:17 Amorphous Sediment 3+ /HPF (NEGATIVE) 02/19/19 12:17 Urine Bacteria Negative /HPF (NEGATIVE) 02/19/19 12:17 Hyaline Casts Rare /LPF (NEGATIVE) 02/19/19 12:17 Ur Culture Indicated? No/not indicated 02/19/19 12:17 Urine Opiates Screen Negative (NEG=<300) 02/19/19 11:57 Urine Methadone Screen Negative (NEG=<300) 02/19/19 11:57 Ur Barbiturates Screen Negative (NEG=<200) 02/19/19 11:57 Ur Phencyclidine Scrn Negative (NEG=<25) 02/19/19 11:57 Ur Amphetamines Screen Negative (NEG=<1000) 02/19/19 11:57 U Benzodiazepines Scrn Negative (NEG=<200) 02/19/19 11:57 Urine Cocaine Screen Negative (NEG=<300) 02/19/19 11:57 U Marijuana (THC) Screen Negative (NEG=<50) 02/19/19 11:57 Copper 73.1 ug/dL (80.0-155.0) L 02/21/19 17:57 CHRISTINE Screen None detected (None Detected) 02/21/19 17:57 CHRISTINE Titer TNP 02/21/19 17:57 CHRISTINE Pattern TNP 02/21/19 17:57 Anti-Mitochondrial Ab 6.6 Units (0.0-20.0) 02/21/19 17:57 Smooth Muscle Ab Titer <1:20 (<1:20) 02/21/19 17:57 Hepatitis A IgM Ab Negative (Negative) 02/21/19 17:57 Hep Bs Antigen Negative (Negative) 02/21/19 17:57 Hep Bs Ag Confirmation TNP 02/21/19 17:57 Hep B Core IgM Ab Negative (Negative) 02/21/19 17:57 Hepatitis C Ab Index 0.03 IV 02/21/19 17:57 Hepatitis C Interp Negative (Negative) 02/21/19 17:57 Hepatitis Interpret See note 02/21/19 17:57 XRAY XRAY Interpreted by: Radiologist XRAY Findings: REPORT NOTED. Opioid Opioid Risk Tool Age ([place] box if 16-45): No Total: 0 Total Score Risk Category: Low Risk Copyright: Mulugeta CARNEY predicting aberrant behaviors Diagnosis Discharge Problem: Altered mental status Qualifiers: Altered mental status type: transient alteration of awareness Qualified Code(s): R40.4 - Transient alteration of awareness Pneumonia Qualifiers: Pneumonia type: due to unspecified organism Laterality: left Lung location: lower lobe of lung Qualified Code(s): J18.1 - Lobar pneumonia, unspecified organism Instructions Instructions: Chronic Obstructive Pulmonary Disease, [id number] Ammonia Test Cirrhosis Type 2 Diabetes Mellitus, Self Care, Adult, [id number] Atrial Fibrillation, [id number] Community-Acquired Pneumonia, Adult Forms: Excuse From Work or School
[2019-02-19 12:22] LABS: BASOPHILS # (AUTO) 0.1 X10^3/uL (0.0-0.1); BASOPHILS % (AUTO) 0.8 % (0.2-1.0); EOSINOPHILS # (AUTO) 0.1 x10^3/uL (0.0-0.2); EOSINOPHILS % (AUTO) 0.8 % (0.9-2.9); HEMATOCRIT 51.1 % (36.0-47.0); HEMOGLOBIN 17.6 g/dL (12.0-16.0); LYMPHOCYTES # (AUTO) 2.2 X10^3/uL (1.3-2.9); LYMPHOCYTES % (AUTO) 21.3 % (21.0-51.0); MEAN CORPUSCULAR HEMOGLOBIN 33.1 pg (27.0-34.0); MEAN CORPUSCULAR HGB CONC 34.4 g/dL (33.0-35.0); MEAN CORPUSCULAR VOLUME 96.2 fL (80.0-100.0); MEAN PLATELET VOLUME 10.4 fL (7.4-11.0); MONOCYTES # (AUTO) 0.9 x10^3/uL (0.3-0.8); NEUTROPHILS # (AUTO) 7.1 x10^3/uL (2.2-4.8); NEUTROPHILS % (AUTO) 68.1 % (42.0-75.0); PLATELET COUNT 107 X10^3/uL (150.0-450.0); RED BLOOD COUNT 5.31 X10^6/uL (3.5-5.4); RED CELL DISTRIBUTION WIDTH 16.9 % (11.6-16.5); WHITE BLOOD COUNT 10.4 X10^3/uL (3.6-10.0)
[2019-02-19 12:29] LABS: BILIRUBIN,URINE NEGATIVE (NEGATIVE); BLOOD/HEMOGLOBIN,URINE 2+ (NEGATIVE); GLUCOSE, URINE 1+ (NEGATIVE); KETONES,URINE NEGATIVE (NEGATIVE); LEUKOCYTE ESTERASE ,URINE NEGATIVE (NEGATIVE); NITRITES,URINE NEGATIVE (NEGATIVE); PROTEIN,URINE 1+ (NEGATIVE); UROBILINOGEN,URINE 1+ (NORMAL)
[2019-02-19 12:34] LABS: APPEARANCE,URINE CLOUDY (CLEAR); COLOR,URINE YELLOW (YELLOW)
[2019-02-19 12:36] LABS: LACTIC ACID 1.9 mmol/L (0.4-2.0)
--- NOTE | 2019-02-19 12:36 | CT ---
HISTORY: Altered mental status and dizziness. Noncontrast head CT examination. Comparison: Head CT exam dated 02/15/2019. Technique: Multiple axial images of the brain were obtained from the skull base to the vertex without administration of IV contrast. Findings: There is moderate sulcal and cisternal prominence as well as atherosclerotic change in the proximal intracranial carotid and vertebral arteries, which is not out of proportion to the patient's stated age. There is diffuse CT density alteration seen in the periventricular white matter of the high and mid-convexity, which is likely in the setting of small vessel disease and not out of proportion to the patient's stated age. There is no pathologic ventricular dilatation or CT evidence for hydrocephalus or herniation syndrome. No midline shift is evident. No acute intraparenchymal hemorrhage or mass can be identified. No extra-axial fluid collections are seen. No alteration in the attenuation of the brain parenchyma can be identified to suggest acute or subacute ischemic change. The extracranial structures are unremarkable. IMPRESSION: 1. No acute intracranial process or changes identified. 2. Age-appropriate intra-cranial changes of advancing age. Reported By:
[2019-02-19 12:37] LABS: BLOOD UREA NITROGEN 12 mg/dL (7-18); CALCIUM 9.2 mg/dL (8.5-10.1); CARBON DIOXIDE 26.7 mmol/L (21-32); CHLORIDE 105 mmol/L (98-107); COR NA(FOR HYPERGLY) 143 mmol/L (136-145); CREATININE 0.94 mg/dL (0.55-1.02); SODIUM 140 mmol/L (136-145); TROPONIN I 0.03 ng/mL (0-1.5); eGFR NON BLACK RACES > 60 (>60)
[2019-02-19 12:41] LABS: ALANINE AMINOTRANSFERASE 21 Units/L (12-78); ALBUMIN 3.1 g/dL (3.4-5.0); ALKALINE PHOSPHATASE 120 Units/L (46-116); ASPARTATE AMINO TRANSFERASE 24 Units/L (15-37); CKMB % 4.4 % (<4); COR CA(FOR HYPOALB) 9.9 mg/dL (8.5-10.1); CREATINE KINASE 55 Units/L (26-192); CREATINE KINASE MB 2.4 ng/mL (0-4.0); TOTAL PROTEIN 7.7 g/dL (6.4-8.2)
--- NOTE | 2019-02-19 12:42 | RAD ---
Examination: Portable AP chest History: AMS Comparison 01/28/2019 Findings: Mild cardiomegaly. The lungs are essentially clear. There may be minimal infiltrate in the retrocardiac left base but this is equivocal. There is no discrete mass, pneumothorax or large pleural effusion. Impression: Improved aeration of the lungs since 01/28/2019. Mild stable cardiomegaly. A small area of infiltrate or atelectasis in the left lower lobe is not excluded. Reported By:
[2019-02-19 12:51] LABS: BACTERIA,URINE NEGATIVE /HPF (NEGATIVE); RBC,URINE 0-2 /HPF (NONE SEEN); SQUAMOUS EPITHELIAL CELL,UR MODERATE /HPF (NEGATIVE)
[2019-02-19 12:52] LABS: AMORPHOUS SEDIMENT,UR 3+ /HPF (NEGATIVE); HYALINE CASTS, URINE RARE /LPF (NEGATIVE)
[2019-02-19] MEDS ORDERED: NORMODYNE INJ 20 MG VIAL IVP PRN (13:33)
[2019-02-19] MEDS ORDERED: NORMODYNE INJ 100 MG VIAL ONE (13:43)
[2019-02-19] MEDS: PROVENTIL NEB TX 0.083% 2.5MG/ 3ML NEB SCH (19:59)
[2019-02-19] MEDS: PULMICORT NEB TX 0.5 MG NEB SCH (19:59)
[2019-02-19] MEDS: SNACK - Diabetic Appropriate PO SCH (22:20)
[2019-02-19 23:45] LABS: CKMB % 3.3 % (<4); CREATINE KINASE MB 1.3 ng/mL (0-4.0); TROPONIN I 0.04 ng/mL (0-1.5)
[2019-02-19] MEDS: CARDIZEM SR 90 MG PO SCH (23:52)
[2019-02-19] MEDS: CRESTOR TAB 10 MG PO SCH (23:53)
[2019-02-19] MEDS: ELIQUIS PO SCH (23:53)
[2019-02-20 04:27] LABS: BASOPHILS % (AUTO) 0.5 % (0.2-1.0); EOSINOPHILS # (AUTO) 0.1 x10^3/uL (0.0-0.2); EOSINOPHILS % (AUTO) 1.2 % (0.9-2.9); HEMOGLOBIN 14.9 g/dL (12.0-16.0); LYMPHOCYTES # (AUTO) 1.8 X10^3/uL (1.3-2.9); LYMPHOCYTES % (AUTO) 22.7 % (21.0-51.0); MEAN CORPUSCULAR HEMOGLOBIN 32.7 pg (27.0-34.0); MEAN CORPUSCULAR HGB CONC 33.7 g/dL (33.0-35.0); MEAN CORPUSCULAR VOLUME 96.9 fL (80.0-100.0); MEAN PLATELET VOLUME 10.4 fL (7.4-11.0); MONOCYTES # (AUTO) 0.7 x10^3/uL (0.3-0.8); MONOCYTES % (AUTO) 8.6 % (0.0-13.0); NEUTROPHILS # (AUTO) 5.4 x10^3/uL (2.2-4.8); PLATELET COUNT 81 X10^3/uL (150.0-450.0); RED BLOOD COUNT 4.54 X10^6/uL (3.5-5.4); RED CELL DISTRIBUTION WIDTH 17.1 % (11.6-16.5); WHITE BLOOD COUNT 8.1 X10^3/uL (3.6-10.0)
[2019-02-20 04:34] LABS: ALANINE AMINOTRANSFERASE 16 Units/L (12-78); ALBUMIN 2.2 g/dL (3.4-5.0); ALKALINE PHOSPHATASE 90 Units/L (46-116); ASPARTATE AMINO TRANSFERASE 24 Units/L (15-37); BLOOD UREA NITROGEN 14 mg/dL (7-18); CALCIUM 8.8 mg/dL (8.5-10.1); CARBON DIOXIDE 28.4 mmol/L (21-32); CHLORIDE 108 mmol/L (98-107); COR CA(FOR HYPOALB) 10.2 mg/dL (8.5-10.1); COR NA(FOR HYPERGLY) 145 mmol/L (136-145); CREATININE 0.85 mg/dL (0.55-1.02); MAGNESIUM 1.3 mg/dL (1.7-2.9); SODIUM 142 mmol/L (136-145); TOTAL PROTEIN 5.9 g/dL (6.4-8.2); eGFR NON BLACK RACES > 60 (>60)
[2019-02-20] MEDS ORDERED: KLOR-CON PO PRN (04:42)
[2019-02-20] MEDS ORDERED: K-RIDER 10 MEQ/NS 100 ML 10 MEQ/100 ML BAG IV PRN (04:42)
[2019-02-20] MEDS ORDERED: MICRO K EXTEN CAP 10 MEQ PO PRN (04:42)
[2019-02-20] MEDS ORDERED: POTASSIUM CHL 60 MEQ/NS 0.45% 500 ML IV PRN (04:42)
[2019-02-20] MEDS ORDERED: POTASSIUM CHL 40 MEQ/NS 0.45% 500 ML IV PRN (04:42)
[2019-02-20] MEDS ORDERED: POTASSIUM CHLORIDE LIQ 20 MEQ UDC PO PRN (04:42)
[2019-02-20] MEDS ORDERED: MAGNESIUM SULFATE 1 GRAM/100 mL PREMIX 1 G/100 ML BAG IV ONE ×2 (04:49→05:58)
[2019-02-20] MEDS: MAGNESIUM SULFATE 1 GRAM/100 mL PREMIX 1 GM/100 ML BAG IV PRN ×4 (04:52→09:29)
[2019-02-20 04:55] LABS: CKMB % 4.7 % (<4); TROPONIN I 0.04 ng/mL (0-1.5)
[2019-02-20] MEDS ORDERED: LACTOBAC RHAMNOSUS GG INULIN PO SCH (09:00)
[2019-02-20] MEDS: PULMICORT NEB TX 0.5 MG NEB SCH ×2 (09:13→20:57)
[2019-02-20] MEDS: PROVENTIL NEB TX 0.083% 2.5MG/ 3ML NEB SCH ×2 (09:13→20:57)
[2019-02-20] MEDS ORDERED: NS 100 ML IV 100 ML ONE (10:39)
[2019-02-20] MEDS ORDERED: PHARMACY CONSULT - DOSE _____ XX SCH (11:00)
[2019-02-20] MEDS: AMARYL TAB 4 MG PO SCH (12:23)
[2019-02-20] MEDS: SYNTHROID 50 mcg TAB PO SCH (12:25)
[2019-02-20] MEDS: ZESTRIL TAB 10 MG PO SCH (12:25)
[2019-02-20] MEDS: PROTONIX TAB 40 MG PO SCH (12:26)
[2019-02-20] MEDS: ELIQUIS PO SCH ×2 (12:27→20:08)
[2019-02-20] MEDS: CARDIZEM SR 90 MG PO SCH ×2 (12:28→20:08)
[2019-02-20] MEDS: CULTURELLE PRO-WELL PROBIOTIC CAP PO SCH (12:28)
[2019-02-20 14:18] VITALS: BMI 28.5
--- NOTE | 2019-02-20 15:32 | CT ---
CT ABDOMEN AND PELVIS WITH IV CONTRAST CLINICAL HISTORY: 68-year-old female with elevated ammonia level. History of COPD COMPARISON: None. TECHNIQUE: Multiple contiguous axial images of the abdomen and pelvis were obtained following the administration of 100 mL Omnipaque 350 IV contrast. Coronal and sagittal reformatted imaging was submitted. Dose reduction techniques including Automated Exposure Control (AEC) and adjustment of mA and kV were utilized. FINDINGS: Small volume consolidation left lung base with a few air bronchograms and bilateral trace pleural effusions. Interstitial thickening consistent with history of COPD. No mass, nodule, pneumothorax. Cardiomegaly with moderate pericardial effusion. Mild atrophic appearance of the liver with nodular contour without mass, biliary ductal dilatation or other focal lesion. Spleen, pancreas and gallbladder are unremarkable. The adrenal glands are normal bilaterally. The kidneys perfuse in a normal fashion and the ureters run in an unobstructed course to the urinary bladder. Bladder is overall decompressed around a well placed Mccray catheter with balloon inflated in good position with small volume intracystic air, likely secondary to placement of the same. No nephroureterolithiasis or hydroureteronephrosis. Status post hysterectomy. Vaginal cuff and adnexa unremarkable. Pelvic phleboliths are present. Appendix not visualized, no pericecal inflammatory change. Diverticulosis without diverticulitis. The bowel is without obstruction or inflammation and there is no free fluid or free air within the peritoneal cavity. There are no pathologically enlarged lymph nodes in the abdomen or pelvis. The arteriovascular structures are within normal limits. Soft tissues are normal. The osseous structures are intact without fracture or malalignment. IMPRESSION: 1. Small volume consolidation with air bronchograms left lower lobe and trace bilateral effusions, correlate clinically with serology for pneumonia. 2. Mild hepatic atrophy with lobulated contour, correlate clinically with serology for cirrhosis. 3. Diverticulosis without diverticulitis. 4. Mccray catheter as above with small volume intracystic gas, likely secondary to the same, correlate with urinalysis. 5. No acute intra-abdominal intrapelvic process otherwise. Reported By:
--- NOTE | 2019-02-20 19:33 | DR.H&P ---
H&P - History & Physical for Day of: H&P Date: 02/19/19 - Chief Complaint Chief Complaint: ALTERED MENTAL STATUS - History of Present Illness History of Present Illness: IS A 68 YEAR OLD PATIENT OF OURS WHO PRESENTED TO THE ER WITH REPORTS OF ALTERED MENTAL STATUS PER FAMILY MEMBERS. FAMILY REPORTS THAT PATIENT WAS LAST SEEN IN HER USUAL STATE AT BEDTIME THE PRIOR NIGHT. SHE WAS HOSPITALIZED ABOUT A WEEK AGO TO RULE OUT ACUTE CVA. SHE HAD RETURNED TO [facility] PRIOR TO DISCHARGE ON 02/16. ON ARRIVAL TO THE HOSPITAL, VITALS WERE 97.0-74-11-96%-157/74. LABS WERE OBTAINED. ABNORMAL LAB VALUES INCLUDE THE FOLLOWING: WBC 10.4, HGB 17.6, HCT 51.1, PLT COUNT 107, INR 1.53, GLUCOSE 230, TOTAL BILI 1.80, ALK PHOS 120, CRP 3.60, BNP 135, ALBUMIN 3.1, AMMONIA 75. URINALYSIS REVEALED: WBC 3-5, RBC 0-2, LEUKOCYTES NEGATIVE, BACTERIA NEGATIVE. A BRAIN CT WAS OBTAINED AND REVEALED: No acute intracranial process or changes identified. Age-appropriate intra-cranial changes of advancing age. EKG REVEALED ATRIAL FIBRILLATION WITH HR 83. CHEST XRAY REVEALED: Improved aeration of the lungs since 01/28/2019. Mild stable cardiomegaly. A small area of infiltrate or atelectasis in the left lower lobe is not excluded. SHE WAS ADMITTED TO THE HOSPITAL FOR FURTHER EVALUATION AND TREATMENT OF ALTERED MENTAL STATUS. SHE WAS STARTED ON NORMAL SALINE AT 30ML/HR, HUMULIN R SLIDING SCALE, AND HOME MEDICATIONS WERE RESUMED. OTHERWISE, WE WILL FOLLOW UP WITH AM LABS AND CONTINUE TO MONITOR. - Past Medical History Past Medical History: Hypertension, Diabetes, Hypothyroidism, COPD - Past Surgical History Surgical History: Hysterectomy - Family History Family Medical History: Hypertension - Social History Does patient currently use any type of tobacco product: No Have you used tobacco products in the last 12 months: No Type of Tobacco Use: None Does any household member use tobacco: No Alcohol Use: None Prescription drug monitoring program results: PDMP reviewed and no concerns identified - Medications Home Medications: No Known Drug Allergies Allergy (Verified 06/17/18 07:54) - Review of Systems Constitutional: See HPI, Weakness Eyes: No Symptoms Reported ENT: No Symptoms Reported Respiratory: Shortness of Breath Cardiovascular: No Symptoms Reported Gastrointestinal: No Symptoms Reported Genitourinary: No Symptoms Reported Musculoskeletal: No Symptoms Reported Skin: No Symptoms Reported Neurological: See HPI, Weakness, Confusion - Physical Exam Vital Signs: Temperature 98.7 F Pulse Rate [Apical] 65 Pulse Rate 75 Respiratory Rate 10 Blood Pressure [Left Arm] 144/72 Blood Pressure 161/72 O2 Sat by Pulse Oximetry 100 Oriented: Person Eyes: Normal Ear: Normal Nose: Normal Throat: Normal Respiratory: Diminished Throughout Cardiovascular: Normal. negative: S3, S4, Murmur, Edema : Normal Auscultation: Bowel Sounds: Normal Palpation: Normal Tenderness: Normal Skin: Normal Musculoskeletal: Normal Psychiatric: Normal Mood Description: Calm Affect: Normal Speech Pattern: Inappropriate - Assessment/Plan (1) Altered mental status Qualifiers: Altered mental status type: transient alteration of awareness Qualified Code(s): R40.4 - Transient alteration of awareness Status: Acute Plan: ADMIT, MONITOR LABS (2) Generalized weakness Status: Acute - Allergies Allergies/Adverse Reactions: Allergies Allergy/AdvReac Type Severity Reaction Status Date / Time No Known Drug Allergies Allergy Verified 06/17/18 07:54
[2019-02-20] MEDS ORDERED: SNACK - Diabetic Appropriate PO SCH (20:00)
[2019-02-20] MEDS: NS 1000 ML 1,000 ML IV SCH (20:08)
[2019-02-20] MEDS: CHRONULAC NG SCH (20:08)
[2019-02-20] MEDS: CRESTOR TAB 10 MG PO SCH (20:08)
[2019-02-20] MEDS: SNACK - Diabetic Appropriate PO SCH (20:09)
[2019-02-21 04:30] LABS: AMMONIA 50 umol/L (11-32)
[2019-02-21 04:31] LABS: BASOPHILS # (AUTO) 0.1 X10^3/uL (0.0-0.1); BASOPHILS % (AUTO) 0.8 % (0.2-1.0); EOSINOPHILS # (AUTO) 0.1 x10^3/uL (0.0-0.2); EOSINOPHILS % (AUTO) 0.9 % (0.9-2.9); HEMATOCRIT 48.7 % (36.0-47.0); HEMOGLOBIN 16.4 g/dL (12.0-16.0); LYMPHOCYTES # (AUTO) 2.3 X10^3/uL (1.3-2.9); LYMPHOCYTES % (AUTO) 23.9 % (21.0-51.0); MEAN CORPUSCULAR HEMOGLOBIN 32.9 pg (27.0-34.0); MEAN CORPUSCULAR HGB CONC 33.7 g/dL (33.0-35.0); MEAN CORPUSCULAR VOLUME 97.7 fL (80.0-100.0); MEAN PLATELET VOLUME 10.8 fL (7.4-11.0); MONOCYTES # (AUTO) 0.8 x10^3/uL (0.3-0.8); MONOCYTES % (AUTO) 8.4 % (0.0-13.0); NEUTROPHILS # (AUTO) 6.3 x10^3/uL (2.2-4.8); PLATELET COUNT 90 X10^3/uL (150.0-450.0); RED BLOOD COUNT 4.99 X10^6/uL (3.5-5.4); RED CELL DISTRIBUTION WIDTH 16.8 % (11.6-16.5); WHITE BLOOD COUNT 9.6 X10^3/uL (3.6-10.0)
[2019-02-21 04:38] LABS: ALANINE AMINOTRANSFERASE 19 Units/L (12-78); ALBUMIN 2.4 g/dL (3.4-5.0); ALKALINE PHOSPHATASE 99 Units/L (46-116); ASPARTATE AMINO TRANSFERASE 22 Units/L (15-37); BLOOD UREA NITROGEN 16 mg/dL (7-18); CALCIUM 8.8 mg/dL (8.5-10.1); CARBON DIOXIDE 28.8 mmol/L (21-32); CHLORIDE 106 mmol/L (98-107); COR CA(FOR HYPOALB) 10.1 mg/dL (8.5-10.1); COR NA(FOR HYPERGLY) 144 mmol/L (136-145); CREATININE 1.03 mg/dL (0.55-1.02); SODIUM 142 mmol/L (136-145); TOTAL PROTEIN 6.4 g/dL (6.4-8.2); eGFR NON BLACK RACES 56 (>60)
[2019-02-21] MEDS: CHRONULAC NG SCH ×2 (04:39→12:52)
[2019-02-21] MEDS: NS 1000 ML 1,000 ML IV SCH ×3 (05:15→18:10)
[2019-02-21] MEDS: MAGNESIUM SULFATE 1 GRAM/100 mL PREMIX 1 GM/100 ML BAG IV PRN ×2 (06:27→12:49)
[2019-02-21] MEDS: PROVENTIL NEB TX 0.083% 2.5MG/ 3ML NEB SCH ×2 (08:48→21:21)
[2019-02-21] MEDS: PULMICORT NEB TX 0.5 MG NEB SCH ×2 (08:48→21:21)
[2019-02-21 11:39] LABS: IRON 193 ug/dL (50-175)
[2019-02-21] MEDS ORDERED: PHARMACY CONSULT - DOSE _____ XX SCH (12:00)
[2019-02-21] MEDS: HumuLIN R SUBCUT PRN ×3 (12:44→21:26)
[2019-02-21] MEDS ORDERED: SALINE 3% 15 ML NEB TX NEB ONE (13:45)
[2019-02-21] MEDS: FORTAZ or TAZICEF VIAL INJ 1 G in NS 100 ML IV + SPIKE MINIBAG* 100 ML IV SCH ×2 (15:00→21:25)
[2019-02-21] MEDS: ZESTRIL TAB 10 MG PO SCH (16:44)
[2019-02-21] MEDS: PROTONIX TAB 40 MG PO SCH (16:46)
[2019-02-21] MEDS: AMARYL TAB 4 MG PO SCH (16:46)
[2019-02-21] MEDS: ALDACTONE TAB 25 MG PO SCH (16:46)
[2019-02-21] MEDS: CARDIZEM SR 90 MG PO SCH ×2 (17:01→21:28)
[2019-02-21] MEDS: CULTURELLE PRO-WELL PROBIOTIC CAP PO SCH (17:01)
[2019-02-21] MEDS: SYNTHROID 50 mcg TAB PO SCH (17:02)
--- NOTE | 2019-02-21 17:13 | DR.CONSULT ---
Consult - Consultation for Day of: Date: 02/21/19 - Chief Complaint Chief Complaint: Patient referred for EGD r/o varices. Patient with complaints of constipation - History of Present Illness History of Present Illness: Patient is a 68 yo female who was referred for EGD r/o varices. Patient with complaitns of constipatio last BM was 02/18. Patient denies dysphagia, dyspepsia, nausea, vomiting, abdominal pain, diarrhea, melena and hematochezia. Last EGD was 10/21/18 which shoed mild to moderate antral gastritis, previous seen ulcer healed and mild esophagitis. Last Colon was 06/28/15 which showed sigmoid diverticulosis and internal hemorrhoids. Abdomen and pelvis CT showed Mild hepatic atrophy with lobulated contour, correlate clinically with serology for cirrhosis. Hgb 16.4, Hct 48.7, Plt 90, T. BIli 2.20, AST 22, ALT 19, ALlk Phos 99, Ammonia 50 - Past Medical History Past Medical History: COPD, Diabetes, GERD, Hypertension, Hypothyroidism Additional Medical History: Thyroid cancer - Past Surgical History Surgical History: Hysterectomy - Family History Family Medical History: Hypertension - Social History Does patient currently use any type of tobacco product: No Have you used tobacco products in the last 12 months: No Type of Tobacco Use: None Does any household member use tobacco: No Alcohol Use: None - Medications Home Medications: No Known Drug Allergies Allergy (Verified 06/17/18 07:54) - Review of Systems Gastrointestinal: Constipation. denies: Nausea, Vomiting, Abdominal Pain, Diarrhea, Melena, Hematochezia - Physical Exam Vital Signs: Temperature 97.8 F Pulse Rate [Apical] 65 Pulse Rate 66 Respiratory Rate 19 Blood Pressure [Left Arm] 144/72 Blood Pressure 140/63 O2 Sat by Pulse Oximetry 96 Oriented: Normal Eyes: Normal Ear: Normal Nose: Normal Throat: Normal Respiratory: Clear Throughout Cardiovascular: Normal Auscultation: Bowel Sounds: Normal Palpation: Normal, Other (no distention). negative: Spleen Enlarged, Liver Enlarged, Mass Pulsatile Tenderness: Normal (no tenderness) Skin: Normal Musculoskeletal: Normal Psychiatric: Normal Mood Description: Calm, Appropriate Affect: Normal Speech Pattern: Clear, Appropriate - Plan Plan: Assessment. 1. Abnormal Liver Imaging suggesting cirrhosis. 2. Hyperammonemia. 3. GERD. Plan. 1. Abnormal LFT panel, hepatitis panel, Fractionate bilirubin, Monitor LFT, EGD tomorrow to rule out varices. 2. Cont lactulose 30ml Q8hr. 3. Cont protonix. Plan reviewed with Dr. London - Allergies Allergies/Adverse Reactions: Allergies Allergy/AdvReac Type Severity Reaction Status Date / Time No Known Drug Allergies Allergy Verified 06/17/18 07:54
[2019-02-21] MEDS: CHRONULAC PO SCH (17:24)
[2019-02-21 18:23] LABS: BILIRUBIN,DIRECT 0.8 mg/dL (0-0.2)
[2019-02-21 18:44] LABS: IRON 201 ug/dL (50-175)
[2019-02-21] MEDS: SNACK - Diabetic Appropriate PO SCH (20:53)
--- NOTE | 2019-02-21 21:15 | PCM.PROG ---
Progress Note - Progress Note for Day of Date of Exam: 02/20/19 - Subjective Subjective: WAS ADMITTED FOR ALTERED MENTAL STATUS. TODAY, SHE IS LYING IN BED WITH EYES CLOSED ON MORNING ROUNDS. SHE AWAKENS TO VERBAL STIMULI, BUT CONTINUES WITH DROWSINESS. SHE IS DISORIENTED THIS MORNING. ON EXAMINATION, SCLERA IS NOTED TO BE JAUNDICED. HEART RHYTHM IS IRREGULAR. BILATERAL LUNGS ARE NOTED WITH DIMINISHED LUNG SOUNDS THROUGHOUT. ABDOMEN IS ROUND, SOFT, AND NOTED WITH DIFFUSE TENDERNESS TO PALPATION. HER VITALS THIS MORNING ARE: 97.7-67-11-99%-135/62. LABS WERE OBTAINED. ABNORMAL LAB VALUES INCLUDE THE FOLLOWING: PLT COUNT 81, INR 1.53, CHLORIDE 108, GLUCOSE 207, MAGNESIUM 1.3, TOTAL BILI 1.70, AMMONIA 75. BLOOD CULTURES ARE PENDING. EKG REVEALED ATRIAL FIBRILLATION WITH HR 65. WE OBTAINED AN ABDOMEN/PELVIS CT WAS OBTAINED THIS MORNING AND REVEALED: Small volume consolidation with air bronchograms left lower lobe and trace bilateral effusions, correlate clinically with serology for pneumonia. Mild hepatic atrophy with lobulated contour, correlate clinically wit h serology for cirrhosis. Diverticulosis without diverticulitis. Mccray catheter as above with small volume intracystic gas, likely secondary to the same, correlate with urinalysis. No acute intra-abdominal intrapelvic process otherwise. SHE IS CURRENTLY RECEIVING NORMAL SALINE AT O. TODAY, WE WILL START FORTAZ 1G IV Q8H AND LACTULOSE 30ML Q8H VIA NG TUBE. WE WILL CONSULT DUE TO CIRRHOSIS. OTHERWISE, WE WILL CONTINUE WITH CURRENT PLAN OF CARE. WE PLAN TO FOLLOW-UP WITH AM LABS AND CONTINUE TO MONITOR. - Past Medical Family Social History Past Med/Fam/Surg Hx: No changes since H&P Allergies: Allergies No Known Drug Allergies Allergy (Verified 06/17/18 07:54) - Review of Systems ROS: No change since H&P - Vital Signs and I&O's Vital Signs: Temperature 98.4 F Pulse Rate [Apical] 65 Pulse Rate 74 Respiratory Rate 16 Blood Pressure [Left Arm] 144/72 Blood Pressure 115/57 O2 Sat by Pulse Oximetry 100 Intake and Output: Intake & Output 02/19/19 02/20/19 02/21/19 02/22/19 11:59 11:59 11:59 11:59 Intake Total 450 / 450 1072 / 1072 1350 / 1350 Output Total 850 / 850 1650 / 1650 225 / 225 Balance -400 / -400 -578 / -578 1125 / 1125 - Physical Exam Oriented: Normal Eyes: Normal Ear: Normal Nose: Normal Throat: Normal Respiratory: Generalized, Diminished Cardiovascular: Normal : Normal Auscultation: Bowel Sounds: Normal Palpation: Normal Tenderness: Diffuse, Mild. negative: Rebound, Guarding, Rigidity Skin: Normal Musculoskeletal: Normal Psychiatric: Normal Mood Description: Calm Affect: Normal Speech Pattern: Clear, Delayed - Laboratory and Diagnostics Result Diagrams: 02/21/19 04:12 02/21/19 04:12 Labs: 02/19/19 11:08 Blood Blood Culture - Preliminary 02/19/19 11:02 Blood Blood Culture - Preliminary Laboratory WBC 9.6 X10^3/uL (3.6-10.0) 02/21/19 04:12 RBC 4.99 X10^6/uL (3.5-5.4) 02/21/19 04:12 Hgb 16.4 g/dL (12.0-16.0) H 02/21/19 04:12 Hct 48.7 % (36.0-47.0) H 02/21/19 04:12 MCV 97.7 fL (80.0-100.0) 02/21/19 04:12 MCH 32.9 pg (27.0-34.0) 02/21/19 04:12 MCHC 33.7 g/dL (33.0-35.0) 02/21/19 04:12 RDW 16.8 % (11.6-16.5) H 02/21/19 04:12 Plt Count 90 X10^3/uL (150.0-450.0) L 02/21/19 04:12 MPV 10.8 fL (7.4-11.0) 02/21/19 04:12 Neut % (Auto) 66.0 % (42.0-75.0) 02/21/19 04:12 Lymph % (Auto) 23.9 % (21.0-51.0) 02/21/19 04:12 [place] % (Auto) 8.4 % (0.0-13.0) 02/21/19 04:12 Eos % (Auto) 0.9 % (0.9-2.9) 02/21/19 04:12 Baso % (Auto) 0.8 % (0.2-1.0) 02/21/19 04:12 Neut # (Auto) 6.3 x10^3/uL (2.2-4.8) H 02/21/19 04:12 Lymph # (Auto) 2.3 X10^3/uL (1.3-2.9) 02/21/19 04:12 [place] # (Auto) 0.8 x10^3/uL (0.3-0.8) 02/21/19 04:12 Eos # (Auto) 0.1 x10^3/uL (0.0-0.2) 02/21/19 04:12 Baso # (Auto) 0.1 X10^3/uL (0.0-0.1) 02/21/19 04:12 Absolute Nucleated RBC 0.5 /100WBC 02/21/19 04:12 INR Target Range - 02/20/19 03:58 INR 1.53 (0.8-1.3) H 02/20/19 03:58 APTT 29.2 SECONDS (22.9-36.5) 02/20/19 03:58 PTT Comment - 02/20/19 03:58 Sodium 142 mmol/L (136-145) 02/21/19 04:12 Corrected Sodium 144 mmol/L (136-145) 02/21/19 04:12 Potassium 3.7 mmol/L (3.5-5.1) 02/21/19 04:12 Chloride 106 mmol/L (98-107) 02/21/19 04:12 Carbon Dioxide 28.8 mmol/L (21-32) 02/21/19 04:12 BUN 16 mg/dL (7-18) 02/21/19 04:12 Creatinine 1.03 mg/dL (0.55-1.02) H 02/21/19 04:12 Est GFR (MDRD) Af Amer > 60 (>60) 02/21/19 04:12 Est GFR (MDRD) Non-Af 56 (>60) L 02/21/19 04:12 Glucose 189 mg/dL (65-99) H 02/21/19 04:12 POC Glucose (mg/dL) 251 mg/dL (65-99) H 02/21/19 20:42 Lactic Acid 1.9 mmol/L (0.4-2.0) 02/19/19 11:02 Calcium 8.8 mg/dL (8.5-10.1) 02/21/19 04:12 Corrected Calcium 10.1 mg/dL (8.5-10.1) 02/21/19 04:12 Magnesium 1.6 mg/dL (1.7-2.9) L 02/21/19 04:12 Iron 201 ug/dL (50-175) H 02/21/19 17:57 Transferrin 196 mg/dL (202-364) L 02/21/19 17:57 Ferritin 81 ng/mL (8-252) 02/21/19 17:57 Total Bilirubin 2.30 mg/dL (0.2-1.0) H 02/21/19 17:57 Direct Bilirubin 0.80 mg/dL (0-0.2) H 02/21/19 17:57 Indirect Bilirubin 1.50 mg/dL (0.2-0.8) H 02/21/19 17:57 AST 22 Units/L (15-37) 02/21/19 04:12 ALT 19 Units/L (12-78) 02/21/19 04:12 Alkaline Phosphatase 99 Units/L (46-116) 02/21/19 04:12 Ammonia 50 umol/L (11-32) H 02/21/19 04:12 Creatine Kinase 43 Units/L (26-192) 02/20/19 03:58 CK-MB (CK-2) 2.0 ng/mL (0-4.0) 02/20/19 03:58 CK/CKMB % Calc 4.7 % (<4) 02/20/19 03:58 Troponin I 0.04 ng/mL (0-1.5) 02/20/19 03:58 C-Reactive Protein 3.60 mg/L (0-3.0) H 02/19/19 11:02 B-Natriuretic Peptide 135 pg/mL (0-79) H 02/19/19 11:02 Total Protein 6.4 g/dL (6.4-8.2) 02/21/19 04:12 Albumin 2.4 g/dL (3.4-5.0) L 02/21/19 04:12 Globulin 4.0 g/dL (2.5-4.5) 02/21/19 04:12 Albumin/Globulin Ratio 0.6 Ratio (1.1-2.1) L 02/21/19 04:12 Specimen Type Catherized urine 02/19/19 12:17 Urine Color Yellow (YELLOW) 02/19/19 12:17 Urine Appearance Cloudy (CLEAR) 02/19/19 12:17 Urine pH 7.0 (5.0 - 8.0) 02/19/19 12:17 Ur Specific [place] 1.010 (1.000-1.030) 02/19/19 12:17 Urine Protein 1+ (NEGATIVE) 02/19/19 12:17 Urine Glucose (UA) 1+ (NEGATIVE) 02/19/19 12:17 Urine Ketones Negative (NEGATIVE) 02/19/19 12:17 Urine Occult Blood 2+ (NEGATIVE) 02/19/19 12:17 Urine Nitrite Negative (NEGATIVE) 02/19/19 12:17 Urine Bilirubin Negative (NEGATIVE) 02/19/19 12:17 Urine Urobilinogen 1+ (NORMAL) 02/19/19 12:17 Ur Leukocyte Esterase Negative (NEGATIVE) 02/19/19 12:17 Urine RBC 0-2 /HPF (NONE SEEN) 02/19/19 12:17 Urine WBC 3-5 /HPF (NONE SEEN) 02/19/19 12:17 Ur Squamous Epith Cells Moderate /HPF (NEGATIVE) 02/19/19 12:17 Amorphous Sediment 3+ /HPF (NEGATIVE) 02/19/19 12:17 Urine Bacteria Negative /HPF (NEGATIVE) 02/19/19 12:17 Hyaline Casts Rare /LPF (NEGATIVE) 02/19/19 12:17 Ur Culture Indicated? No/not indicated 02/19/19 12:17 Urine Opiates Screen Negative (NEG=<300) 02/19/19 11:57 Urine Methadone Screen Negative (NEG=<300) 02/19/19 11:57 Ur Barbiturates Screen Negative (NEG=<200) 02/19/19 11:57 Ur Phencyclidine Scrn Negative (NEG=<25) 02/19/19 11:57 Ur Amphetamines Screen Negative (NEG=<1000) 02/19/19 11:57 U Benzodiazepines Scrn Negative (NEG=<200) 02/19/19 11:57 Urine Cocaine Screen Negative (NEG=<300) 02/19/19 11:57 U Marijuana (THC) Screen Negative (NEG=<50) 02/19/19 11:57 - Plan (1) Pneumonia Status: Acute Qualifiers: Pneumonia type: due to unspecified organism Laterality: left Lung location: lower lobe of lung Qualified Code(s): J18.1 - Lobar pneumonia, unspecified organism Plan: IV ANTIBIOTICS, RESPIRATORY TX, SUPPLEMENTAL OXYGEN, CONTINUE TO MONITOR (2) Cirrhosis of liver Status: Acute Qualifiers: Hepatic cirrhosis type: unspecified hepatic cirrhosis Ascites presence: without ascites Qualified Code(s): K74.60 - Unspecified cirrhosis of liver Plan: LACTULOSE, CONSULT GI, CONTINUE TO MONITOR (3) Altered mental status Status: Acute Qualifiers: Altered mental status type: transient alteration of awareness Qualified Code(s): R40.4 - Transient alteration of awareness Plan: CONTINUE TO MONITOR (4) Generalized weakness Status: Acute
[2019-02-22 04:17] LABS: BASOPHILS # (AUTO) 0.1 X10^3/uL (0.0-0.1); BASOPHILS % (AUTO) 0.6 % (0.2-1.0); EOSINOPHILS # (AUTO) 0.1 x10^3/uL (0.0-0.2); EOSINOPHILS % (AUTO) 0.6 % (0.9-2.9); HEMATOCRIT 45.2 % (36.0-47.0); HEMOGLOBIN 15.2 g/dL (12.0-16.0); LYMPHOCYTES % (AUTO) 20.8 % (21.0-51.0); MEAN CORPUSCULAR HGB CONC 33.7 g/dL (33.0-35.0); MEAN CORPUSCULAR VOLUME 97.8 fL (80.0-100.0); MEAN PLATELET VOLUME 11.1 fL (7.4-11.0); MONOCYTES # (AUTO) 1.1 x10^3/uL (0.3-0.8); MONOCYTES % (AUTO) 11.3 % (0.0-13.0); NEUTROPHILS # (AUTO) 6.6 x10^3/uL (2.2-4.8); NEUTROPHILS % (AUTO) 66.7 % (42.0-75.0); PLATELET COUNT 83 X10^3/uL (150.0-450.0); RED BLOOD COUNT 4.62 X10^6/uL (3.5-5.4); RED CELL DISTRIBUTION WIDTH 16.8 % (11.6-16.5); WHITE BLOOD COUNT 9.9 X10^3/uL (3.6-10.0)
[2019-02-22 04:22] LABS: AMMONIA 74 umol/L (11-32)
[2019-02-22] MEDS: CHRONULAC PO SCH ×5 (04:22→20:28)
[2019-02-22 04:24] LABS: ALANINE AMINOTRANSFERASE 15 Units/L (12-78); ALBUMIN 2.2 g/dL (3.4-5.0); ALKALINE PHOSPHATASE 90 Units/L (46-116); ASPARTATE AMINO TRANSFERASE 24 Units/L (15-37); BLOOD UREA NITROGEN 15 mg/dL (7-18); CALCIUM 8.9 mg/dL (8.5-10.1); CARBON DIOXIDE 28.5 mmol/L (21-32); CHLORIDE 105 mmol/L (98-107); COR CA(FOR HYPOALB) 10.3 mg/dL (8.5-10.1); COR NA(FOR HYPERGLY) 142 mmol/L (136-145); CREATININE 0.94 mg/dL (0.55-1.02); SODIUM 139 mmol/L (136-145); eGFR NON BLACK RACES > 60 (>60)
[2019-02-22] MEDS: NS 1000 ML 1,000 ML IV SCH ×2 (06:11→17:39)
[2019-02-22] MEDS: FORTAZ or TAZICEF VIAL INJ 1 G in NS 100 ML IV + SPIKE MINIBAG* 100 ML IV SCH ×3 (06:23→21:53)
--- NOTE | 2019-02-22 06:23 | RAD ---
HISTORY: Shortness of breath Study: Chest AP portable Comparison: 02/19/2019 Findings: The heart is enlarged. No congestive heart failure is noted. The lungs are well inflated. The right lung and left upper lung dill are clear. There is persistent increased density in the retrocardiac area the left lower lobe obscuring the left hemidiaphragm. This could be on the basis of atelectasis or infiltrate. The bony thorax is unremarkable. IMPRESSION: Continued cardiomegaly without congestive heart failure Increasing density retrocardiac area of the left lower lobe obscuring the left hemidiaphragm. This could be the basis of atelectasis, infiltrate or both Reported By:
[2019-02-22] MEDS: PROVENTIL NEB TX 0.083% 2.5MG/ 3ML NEB SCH ×2 (08:50→20:51)
[2019-02-22] MEDS: PULMICORT NEB TX 0.5 MG NEB SCH ×2 (08:50→20:51)
[2019-02-22] MEDS ORDERED: NS 500 ML IV 500 ML ONE (14:15)
[2019-02-22] MEDS ORDERED: VERSED ONE (15:28)
[2019-02-22] MEDS ORDERED: DIPRIVAN VIAL ONE (15:28)
[2019-02-22] MEDS: ALDACTONE TAB 25 MG PO SCH (15:46)
[2019-02-22] MEDS: AMARYL TAB 4 MG PO SCH (15:56)
[2019-02-22] MEDS: PROTONIX TAB 40 MG PO SCH (15:57)
[2019-02-22] MEDS: CARDIZEM SR 90 MG PO SCH ×2 (15:57→20:27)
[2019-02-22] MEDS: CULTURELLE PRO-WELL PROBIOTIC CAP PO SCH (15:57)
[2019-02-22] MEDS: ZESTRIL TAB 10 MG PO SCH (15:58)
[2019-02-22] MEDS: SYNTHROID 50 mcg TAB PO SCH (15:58)
[2019-02-22] MEDS: SNACK - Diabetic Appropriate PO SCH (20:27)
[2019-02-22] MEDS: XIFAXAN PO SCH (20:28)
--- NOTE | 2019-02-22 22:13 | PCM.PROG ---
Progress Note - Progress Note for Day of Date of Exam: 02/21/19 - Subjective Subjective: IS BEING TREATED FOR LEFT LOWER LOBE PNEUMONIA, CIRRHOSIS, AND ALTERED MENTAL STATUS. TODAY, SHE IS ALERT AND ORIENTED, LYING IN BED ON MORNING ROUNDS. FAMILY REPORTS THAT SHE HAS HAD A BETTER NIGHT AND IS MORE COHERENT. ON EXAMINATION, SCLERA IS NOTED TO BE SLIGHTLY JAUNDICED. NG TUBE NOTED. HEART RHYTHM IS IRREGULAR. BILATERAL LUNGS ARE NOTED WITH DIMINISHED LUNG SOUNDS THROUGHOUT. ABDOMEN IS ROUND, SOFT, AND NOTED WITH DIFFUSE TENDERNESS TO PALPATION. HER VITALS THIS MORNING ARE: 97.8-78-11-100%-151/75. LABS WERE OBTAINED. ABNORMAL LAB VALUES INCLUDE THE FOLLOWING: HGB 16.4, HGB 48.7, PLT COUNT 90, CREATININE 1.03, GLUCOSE 189, TOTAL BILI 2.20, AMMONIA 50, ALBUMIN 2.4. BLOOD CULTURES ARE PENDING. CONSULTED WITH HER AND PLANS FOR AN EGD TOMORROW. HE ORDERED NEW LABS. SHE IS CURRENTLY RECEIVING NORMAL SALINE AT [facility], [facility], AND LACTULOSE. WE WILL START ALDACTONE 25MG PO DAILY TODAY. WE WILL DISCONTINUE HER NG TUBE AND START A MECHANICAL SOFT DIET. OTHERWISE, WE WILL CONTINUE WITH CURRENT PLAN OF CARE. WE PLAN TO FOLLOW-UP WITH AM LABS AND CONTINUE TO MONITOR. - Past Medical Family Social History Past Med/Fam/Surg Hx: No changes since H&P Allergies: Allergies No Known Drug Allergies Allergy (Verified 06/17/18 07:54) - Review of Systems ROS: No change since H&P - Vital Signs and I&O's Vital Signs: Temperature 97.8 F Pulse Rate [Apical] 65 Pulse Rate 72 Respiratory Rate 10 Blood Pressure [Left Arm] 144/72 Blood Pressure 142/67 O2 Sat by Pulse Oximetry 100 Intake and Output: Intake & Output 02/20/19 02/21/19 02/22/19 02/23/19 11:59 11:59 11:59 11:59 Intake Total 450 / 450 1072 / 1072 2790 / 2790 182 / 182 Output Total 850 / 850 1650 / 1650 825 / 825 600 / 600 Balance -400 / -400 -578 / -578 1965 / 1965 -418 / -418 - Physical Exam Oriented: Normal Eyes: Normal Ear: Normal Nose: Normal Throat: Normal Respiratory: Generalized, Diminished Cardiovascular: Normal : Normal Auscultation: Bowel Sounds: Normal Tenderness: Diffuse, Mild. negative: Rebound, Guarding, Rigidity Skin: Normal Musculoskeletal: Normal Psychiatric: Normal Mood Description: Calm Affect: Normal Speech Pattern: Unclear, Slurred - Laboratory and Diagnostics Result Diagrams: 02/22/19 04:03 02/22/19 04:03 Labs: 02/19/19 11:08 Blood Blood Culture - Preliminary 02/19/19 11:02 Blood Blood Culture - Preliminary Laboratory WBC 9.9 X10^3/uL (3.6-10.0) 02/22/19 04:03 RBC 4.62 X10^6/uL (3.5-5.4) 02/22/19 04:03 Hgb 15.2 g/dL (12.0-16.0) 02/22/19 04:03 Hct 45.2 % (36.0-47.0) 02/22/19 04:03 MCV 97.8 fL (80.0-100.0) 02/22/19 04:03 MCH 33.0 pg (27.0-34.0) 02/22/19 04:03 MCHC 33.7 g/dL (33.0-35.0) 02/22/19 04:03 RDW 16.8 % (11.6-16.5) H 02/22/19 04:03 Plt Count 83 X10^3/uL (150.0-450.0) L 02/22/19 04:03 MPV 11.1 fL (7.4-11.0) H 02/22/19 04:03 Neut % (Auto) 66.7 % (42.0-75.0) 02/22/19 04:03 Lymph % (Auto) 20.8 % (21.0-51.0) L 02/22/19 04:03 [place] % (Auto) 11.3 % (0.0-13.0) 02/22/19 04:03 Eos % (Auto) 0.6 % (0.9-2.9) L 02/22/19 04:03 Baso % (Auto) 0.6 % (0.2-1.0) 02/22/19 04:03 Neut # (Auto) 6.6 x10^3/uL (2.2-4.8) H 02/22/19 04:03 Lymph # (Auto) 2.0 X10^3/uL (1.3-2.9) 02/22/19 04:03 [place] # (Auto) 1.1 x10^3/uL (0.3-0.8) H 02/22/19 04:03 Eos # (Auto) 0.1 x10^3/uL (0.0-0.2) 02/22/19 04:03 Baso # (Auto) 0.1 X10^3/uL (0.0-0.1) 02/22/19 04:03 Absolute Nucleated RBC 0.1 /100WBC 02/22/19 04:03 INR Target Range - 02/20/19 03:58 INR 1.53 (0.8-1.3) H 02/20/19 03:58 APTT 29.2 SECONDS (22.9-36.5) 02/20/19 03:58 PTT Comment - 02/20/19 03:58 Sodium 139 mmol/L (136-145) 02/22/19 04:03 Corrected Sodium 142 mmol/L (136-145) 02/22/19 04:03 Potassium 3.5 mmol/L (3.5-5.1) 02/22/19 04:03 Chloride 105 mmol/L (98-107) 02/22/19 04:03 Carbon Dioxide 28.5 mmol/L (21-32) 02/22/19 04:03 BUN 15 mg/dL (7-18) 02/22/19 04:03 Creatinine 0.94 mg/dL (0.55-1.02) 02/22/19 04:03 Est GFR (MDRD) Af Amer > 60 (>60) 02/22/19 04:03 Est GFR (MDRD) Non-Af > 60 (>60) 02/22/19 04:03 Glucose 209 mg/dL (65-99) H 02/22/19 04:03 POC Glucose (mg/dL) 138 mg/dL (65-99) H 02/22/19 20:15 Lactic Acid 1.9 mmol/L (0.4-2.0) 02/19/19 11:02 Calcium 8.9 mg/dL (8.5-10.1) 02/22/19 04:03 Corrected Calcium 10.3 mg/dL (8.5-10.1) H 02/22/19 04:03 Magnesium 1.6 mg/dL (1.7-2.9) L 02/21/19 04:12 Iron 201 ug/dL (50-175) H 02/21/19 17:57 Transferrin 196 mg/dL (202-364) L 02/21/19 17:57 Ferritin 81 ng/mL (8-252) 02/21/19 17:57 Total Bilirubin 1.80 mg/dL (0.2-1.0) H 02/22/19 04:03 Direct Bilirubin 0.80 mg/dL (0-0.2) H 02/21/19 17:57 Indirect Bilirubin 1.50 mg/dL (0.2-0.8) H 02/21/19 17:57 AST 24 Units/L (15-37) 02/22/19 04:03 ALT 15 Units/L (12-78) 02/22/19 04:03 Alkaline Phosphatase 90 Units/L (46-116) 02/22/19 04:03 Ammonia 74 umol/L (11-32) H 02/22/19 04:03 Creatine Kinase 43 Units/L (26-192) 02/20/19 03:58 CK-MB (CK-2) 2.0 ng/mL (0-4.0) 02/20/19 03:58 CK/CKMB % Calc 4.7 % (<4) 02/20/19 03:58 Troponin I 0.04 ng/mL (0-1.5) 02/20/19 03:58 C-Reactive Protein 3.60 mg/L (0-3.0) H 02/19/19 11:02 B-Natriuretic Peptide 135 pg/mL (0-79) H 02/19/19 11:02 Total Protein 6.0 g/dL (6.4-8.2) L 02/22/19 04:03 Albumin 2.2 g/dL (3.4-5.0) L 02/22/19 04:03 Globulin 3.8 g/dL (2.5-4.5) 02/22/19 04:03 Albumin/Globulin Ratio 0.6 Ratio (1.1-2.1) L 02/22/19 04:03 Specimen Type Catherized urine 02/19/19 12:17 Urine Color Yellow (YELLOW) 02/19/19 12:17 Urine Appearance Cloudy (CLEAR) 02/19/19 12:17 Urine pH 7.0 (5.0 - 8.0) 02/19/19 12:17 Ur Specific [place] 1.010 (1.000-1.030) 02/19/19 12:17 Urine Protein 1+ (NEGATIVE) 02/19/19 12:17 Urine Glucose (UA) 1+ (NEGATIVE) 02/19/19 12:17 Urine Ketones Negative (NEGATIVE) 02/19/19 12:17 Urine Occult Blood 2+ (NEGATIVE) 02/19/19 12:17 Urine Nitrite Negative (NEGATIVE) 02/19/19 12:17 Urine Bilirubin Negative (NEGATIVE) 02/19/19 12:17 Urine Urobilinogen 1+ (NORMAL) 02/19/19 12:17 Ur Leukocyte Esterase Negative (NEGATIVE) 02/19/19 12:17 Urine RBC 0-2 /HPF (NONE SEEN) 02/19/19 12:17 Urine WBC 3-5 /HPF (NONE SEEN) 02/19/19 12:17 Ur Squamous Epith Cells Moderate /HPF (NEGATIVE) 02/19/19 12:17 Amorphous Sediment 3+ /HPF (NEGATIVE) 02/19/19 12:17 Urine Bacteria Negative /HPF (NEGATIVE) 02/19/19 12:17 Hyaline Casts Rare /LPF (NEGATIVE) 02/19/19 12:17 Ur Culture Indicated? No/not indicated 02/19/19 12:17 Urine Opiates Screen Negative (NEG=<300) 02/19/19 11:57 Urine Methadone Screen Negative (NEG=<300) 02/19/19 11:57 Ur Barbiturates Screen Negative (NEG=<200) 02/19/19 11:57 Ur Phencyclidine Scrn Negative (NEG=<25) 02/19/19 11:57 Ur Amphetamines Screen Negative (NEG=<1000) 02/19/19 11:57 U Benzodiazepines Scrn Negative (NEG=<200) 02/19/19 11:57 Urine Cocaine Screen Negative (NEG=<300) 02/19/19 11:57 U Marijuana (THC) Screen Negative (NEG=<50) 02/19/19 11:57 - Plan (1) Pneumonia Status: Acute Qualifiers: Pneumonia type: due to unspecified organism Laterality: left Lung location: lower lobe of lung Qualified Code(s): J18.1 - Lobar pneumonia, unspecified organism Plan: IV ANTIBIOTICS, RESPIRATORY TX, SUPPLEMENTAL OXYGEN, CONTINUE TO MONITOR (2) Cirrhosis of liver Status: Acute Qualifiers: Hepatic cirrhosis type: unspecified hepatic cirrhosis Ascites presence: without ascites Qualified Code(s): K74.60 - Unspecified cirrhosis of liver Plan: LACTULOSE, ALDACTONE 25MG PO DAILY, CONTINUE TO MONITOR (3) Altered mental status Status: Acute Qualifiers: Altered mental status type: transient alteration of awareness Qualified Code(s): R40.4 - Transient alteration of awareness Plan: CONTINUE TO MONITOR (4) Generalized weakness Status: Acute
[2019-02-23] MEDS: NS 1000 ML 1,000 ML IV SCH ×2 (00:11→18:51)
[2019-02-23 04:55] LABS: BASOPHILS % (AUTO) 0.4 % (0.2-1.0); EOSINOPHILS # (AUTO) 0.1 x10^3/uL (0.0-0.2); EOSINOPHILS % (AUTO) 1.1 % (0.9-2.9); HEMATOCRIT 43.4 % (36.0-47.0); HEMOGLOBIN 14.9 g/dL (12.0-16.0); LYMPHOCYTES # (AUTO) 2.1 X10^3/uL (1.3-2.9); MEAN CORPUSCULAR HEMOGLOBIN 33.3 pg (27.0-34.0); MEAN CORPUSCULAR HGB CONC 34.3 g/dL (33.0-35.0); MEAN CORPUSCULAR VOLUME 97.1 fL (80.0-100.0); MEAN PLATELET VOLUME 11.3 fL (7.4-11.0); MONOCYTES # (AUTO) 0.7 x10^3/uL (0.3-0.8); MONOCYTES % (AUTO) 8.3 % (0.0-13.0); NEUTROPHILS # (AUTO) 5.2 x10^3/uL (2.2-4.8); NEUTROPHILS % (AUTO) 64.2 % (42.0-75.0); PLATELET COUNT 76 X10^3/uL (150.0-450.0); RED BLOOD COUNT 4.47 X10^6/uL (3.5-5.4); RED CELL DISTRIBUTION WIDTH 16.6 % (11.6-16.5); WHITE BLOOD COUNT 8.1 X10^3/uL (3.6-10.0)
[2019-02-23 04:59] LABS: AMMONIA 106 umol/L (11-32)
[2019-02-23 05:01] LABS: ALANINE AMINOTRANSFERASE 15 Units/L (12-78); ALBUMIN 2.2 g/dL (3.4-5.0); ALKALINE PHOSPHATASE 89 Units/L (46-116); ASPARTATE AMINO TRANSFERASE 24 Units/L (15-37); BLOOD UREA NITROGEN 13 mg/dL (7-18); CALCIUM 8.5 mg/dL (8.5-10.1); CARBON DIOXIDE 28.6 mmol/L (21-32); CHLORIDE 106 mmol/L (98-107); COR CA(FOR HYPOALB) 9.9 mg/dL (8.5-10.1); COR NA(FOR HYPERGLY) 143 mmol/L (136-145); CREATININE 0.93 mg/dL (0.55-1.02); SODIUM 142 mmol/L (136-145); TOTAL PROTEIN 5.9 g/dL (6.4-8.2); eGFR NON BLACK RACES > 60 (>60)
[2019-02-23] MEDS: FORTAZ or TAZICEF VIAL INJ 1 G in NS 100 ML IV + SPIKE MINIBAG* 100 ML IV SCH ×3 (05:35→21:20)
--- NOTE | 2019-02-23 06:31 | RAD ---
HISTORY: Shortness of breath Study: Chest AP portable Comparison: 02/22/2019 Findings: The heart remains enlarged. No congestive heart failure is noted. The lungs are well inflated. The right lung and left upper lung dill are clear. There has been some improvement in the aeration of the left lower lobe. Residual atelectasis/infiltrate, effusion may be present. Bony thorax is unremarkable. IMPRESSION: Continued mild cardiomegaly without congestive heart failure Some improvement in the aeration of the left lower lobe when compared with the prior examination Reported By:
[2019-02-23] MEDS: MAGNESIUM SULFATE 1 GRAM/100 mL PREMIX 1 GM/100 ML BAG IV PRN ×4 (06:39→12:34)
[2019-02-23] MEDS: PROVENTIL NEB TX 0.083% 2.5MG/ 3ML NEB SCH ×2 (08:36→21:02)
[2019-02-23] MEDS: PULMICORT NEB TX 0.5 MG NEB SCH ×2 (08:36→21:02)
[2019-02-23] MEDS: XIFAXAN PO SCH ×2 (09:57→20:15)
[2019-02-23] MEDS: PROTONIX TAB 40 MG PO SCH (09:57)
[2019-02-23] MEDS: SYNTHROID 50 mcg TAB PO SCH (09:57)
[2019-02-23] MEDS: AMARYL TAB 4 MG PO SCH (09:57)
[2019-02-23] MEDS: ALDACTONE TAB 25 MG PO SCH (09:57)
[2019-02-23] MEDS: CHRONULAC PO SCH ×4 (09:58→20:15)
[2019-02-23] MEDS: ZESTRIL TAB 10 MG PO SCH (09:58)
[2019-02-23] MEDS: CULTURELLE PRO-WELL PROBIOTIC CAP PO SCH (10:11)
[2019-02-23] MEDS: K-DUR TAB 20 MEQ PO PRN (10:16)
[2019-02-23] MEDS: CARDIZEM SR 90 MG PO SCH ×2 (10:48→20:15)
[2019-02-23] MEDS: HumuLIN R SUBCUT PRN ×2 (11:48→17:47)
[2019-02-23] MEDS: SNACK - Diabetic Appropriate PO SCH (20:02)
--- NOTE | 2019-02-23 20:47 | PCM.PROG ---
Progress Note - Progress Note for Day of Date of Exam: 02/22/19 - Subjective Subjective: IS BEING TREATED FOR LEFT LOWER LOBE PNEUMONIA, CIRRHOSIS, AND ALTERED MENTAL STATUS. TODAY, SHE IS ALERT AND ORIENTED, LYING IN BED ON MORNING ROUNDS. ON EXAMINATION, SCLERA CONTINUES TO BE SLIGHTLY JAUNDICED. NG TUBE NOTED. HEART RHYTHM IS IRREGULAR. BILATERAL LUNGS ARE NOTED WITH DIMINISHED LUNG SOUNDS THROUGHOUT. ABDOMEN IS ROUND, SOFT, AND NOTED WITH DIFFUSE TENDERNESS TO PALPATION. HER VITALS THIS MORNING ARE: 97.8-61-12-100%-142/60. LABS WERE OBTAINED. ABNORMAL LAB VALUES INCLUDE THE FOLLOWING: PLT COUNT 83, GLUCOSE 209, TOTAL BILI 1.80, AMMONIA 74, TOTAL PROTEIN 6.0, ALBUMIN 2.2. BLOOD CULTURES ARE PENDING. CONSULTED WITH HER AND PLANS FOR AN EGD TODAY. HE ORDERED NEW LABS THAT ARE CURRENTLY PENDING. TODAYS CHEST XRAY REVEALED: Continued cardiomegaly without congestive heart failure. Increasing density retrocardiac area of the left lower lobe obscuring the left hemidiaphragm. This could be the basis of atelectasis, infiltrate or both. SHE IS CURRENTLY RECEIVING NORMAL SALINE AT [facility], AND LACTULOSE, ALDACTONE 25MG PO DAILY, AND HOME MEDICATIONS WERE RESUMED. WE WILL CONTINUE WITH CURRENT PLAN OF CARE. OTHERWISE, WE PLAN TO FOLLOW-UP WITH AM LABS AND CONTINUE TO MONITOR. - Past Medical Family Social History Past Med/Fam/Surg Hx: No changes since H&P Allergies: Allergies No Known Drug Allergies Allergy (Verified 06/17/18 07:54) - Review of Systems ROS: No change since H&P - Vital Signs and I&O's Vital Signs: Temperature 97.4 F Pulse Rate [Apical] 65 Pulse Rate 77 Respiratory Rate 12 Blood Pressure [Left Arm] 144/72 Blood Pressure 113/56 O2 Sat by Pulse Oximetry 100 Intake and Output: Intake & Output 02/21/19 02/22/19 02/23/19 02/24/19 11:59 11:59 11:59 11:59 Intake Total 1072 / 1072 2790 / 2790 1038 / 1038 1304 / 1304 Output Total 1650 / 1650 825 / 825 1350 / 1350 900 / 900 Balance -578 / -578 1965 / 1965 -312 / -312 404 / 404 - Physical Exam Oriented: Normal Eyes: Normal Ear: Normal Nose: Normal Throat: Normal Respiratory: Generalized, Diminished Cardiovascular: Normal : Normal Auscultation: Bowel Sounds: Normal Tenderness: Diffuse, Mild. negative: Rebound, Guarding, Rigidity Skin: Normal Musculoskeletal: Normal Psychiatric: Normal Mood Description: Flat Affect: Normal Speech Pattern: Clear, Delayed - Laboratory and Diagnostics Result Diagrams: 02/23/19 04:35 02/23/19 04:35 Labs: 02/19/19 11:08 Blood Blood Culture - Preliminary 02/19/19 11:02 Blood Blood Culture - Preliminary Laboratory WBC 8.1 X10^3/uL (3.6-10.0) 02/23/19 04:35 RBC 4.47 X10^6/uL (3.5-5.4) 02/23/19 04:35 Hgb 14.9 g/dL (12.0-16.0) 02/23/19 04:35 Hct 43.4 % (36.0-47.0) 02/23/19 04:35 MCV 97.1 fL (80.0-100.0) 02/23/19 04:35 MCH 33.3 pg (27.0-34.0) 02/23/19 04:35 MCHC 34.3 g/dL (33.0-35.0) 02/23/19 04:35 RDW 16.6 % (11.6-16.5) H 02/23/19 04:35 Plt Count 76 X10^3/uL (150.0-450.0) L 02/23/19 04:35 MPV 11.3 fL (7.4-11.0) H 02/23/19 04:35 Neut % (Auto) 64.2 % (42.0-75.0) 02/23/19 04:35 Lymph % (Auto) 26.0 % (21.0-51.0) 02/23/19 04:35 [place] % (Auto) 8.3 % (0.0-13.0) 02/23/19 04:35 Eos % (Auto) 1.1 % (0.9-2.9) 02/23/19 04:35 Baso % (Auto) 0.4 % (0.2-1.0) 02/23/19 04:35 Neut # (Auto) 5.2 x10^3/uL (2.2-4.8) H 02/23/19 04:35 Lymph # (Auto) 2.1 X10^3/uL (1.3-2.9) 02/23/19 04:35 [place] # (Auto) 0.7 x10^3/uL (0.3-0.8) 02/23/19 04:35 Eos # (Auto) 0.1 x10^3/uL (0.0-0.2) 02/23/19 04:35 Baso # (Auto) 0.0 X10^3/uL (0.0-0.1) 02/23/19 04:35 Absolute Nucleated RBC 0.1 /100WBC 02/23/19 04:35 INR Target Range - 02/23/19 11:10 INR 1.34 (0.8-1.3) H 02/23/19 11:10 APTT 29.6 SECONDS (22.9-36.5) 02/23/19 11:10 PTT Comment - 02/23/19 11:10 Sodium 142 mmol/L (136-145) 02/23/19 04:35 Corrected Sodium 143 mmol/L (136-145) 02/23/19 04:35 Potassium 3.7 mmol/L (3.5-5.1) 02/23/19 04:35 Chloride 106 mmol/L (98-107) 02/23/19 04:35 Carbon Dioxide 28.6 mmol/L (21-32) 02/23/19 04:35 BUN 13 mg/dL (7-18) 02/23/19 04:35 Creatinine 0.93 mg/dL (0.55-1.02) 02/23/19 04:35 Est GFR (MDRD) Af Amer > 60 (>60) 02/23/19 04:35 Est GFR (MDRD) Non-Af > 60 (>60) 02/23/19 04:35 Glucose 140 mg/dL (65-99) H 02/23/19 04:35 POC Glucose (mg/dL) 135 mg/dL (65-99) H 02/23/19 19:57 Lactic Acid 1.9 mmol/L (0.4-2.0) 02/19/19 11:02 Calcium 8.5 mg/dL (8.5-10.1) 02/23/19 04:35 Corrected Calcium 9.9 mg/dL (8.5-10.1) 02/23/19 04:35 Magnesium 1.4 mg/dL (1.7-2.9) L 02/23/19 04:35 Iron 201 ug/dL (50-175) H 02/21/19 17:57 Transferrin 196 mg/dL (202-364) L 02/21/19 17:57 Ferritin 81 ng/mL (8-252) 02/21/19 17:57 Total Bilirubin 1.80 mg/dL (0.2-1.0) H 02/23/19 04:35 Direct Bilirubin 0.80 mg/dL (0-0.2) H 02/21/19 17:57 Indirect Bilirubin 1.50 mg/dL (0.2-0.8) H 02/21/19 17:57 AST 24 Units/L (15-37) 02/23/19 04:35 ALT 15 Units/L (12-78) 02/23/19 04:35 Alkaline Phosphatase 89 Units/L (46-116) 02/23/19 04:35 Ammonia 106 umol/L (11-32) H 02/23/19 04:35 Creatine Kinase 43 Units/L (26-192) 02/20/19 03:58 CK-MB (CK-2) 2.0 ng/mL (0-4.0) 02/20/19 03:58 CK/CKMB % Calc 4.7 % (<4) 02/20/19 03:58 Troponin I 0.04 ng/mL (0-1.5) 02/20/19 03:58 C-Reactive Protein 3.60 mg/L (0-3.0) H 02/19/19 11:02 B-Natriuretic Peptide 135 pg/mL (0-79) H 02/19/19 11:02 Total Protein 5.9 g/dL (6.4-8.2) L 02/23/19 04:35 Albumin 2.2 g/dL (3.4-5.0) L 02/23/19 04:35 Globulin 3.7 g/dL (2.5-4.5) 02/23/19 04:35 Albumin/Globulin Ratio 0.6 Ratio (1.1-2.1) L 02/23/19 04:35 Specimen Type Catherized urine 02/19/19 12:17 Urine Color Yellow (YELLOW) 02/19/19 12:17 Urine Appearance Cloudy (CLEAR) 02/19/19 12:17 Urine pH 7.0 (5.0 - 8.0) 02/19/19 12:17 Ur Specific [place] 1.010 (1.000-1.030) 02/19/19 12:17 Urine Protein 1+ (NEGATIVE) 02/19/19 12:17 Urine Glucose (UA) 1+ (NEGATIVE) 02/19/19 12:17 Urine Ketones Negative (NEGATIVE) 02/19/19 12:17 Urine Occult Blood 2+ (NEGATIVE) 02/19/19 12:17 Urine Nitrite Negative (NEGATIVE) 02/19/19 12:17 Urine Bilirubin Negative (NEGATIVE) 02/19/19 12:17 Urine Urobilinogen 1+ (NORMAL) 02/19/19 12:17 Ur Leukocyte Esterase Negative (NEGATIVE) 02/19/19 12:17 Urine RBC 0-2 /HPF (NONE SEEN) 02/19/19 12:17 Urine WBC 3-5 /HPF (NONE SEEN) 02/19/19 12:17 Ur Squamous Epith Cells Moderate /HPF (NEGATIVE) 02/19/19 12:17 Amorphous Sediment 3+ /HPF (NEGATIVE) 02/19/19 12:17 Urine Bacteria Negative /HPF (NEGATIVE) 02/19/19 12:17 Hyaline Casts Rare /LPF (NEGATIVE) 02/19/19 12:17 Ur Culture Indicated? No/not indicated 02/19/19 12:17 Urine Opiates Screen Negative (NEG=<300) 02/19/19 11:57 Urine Methadone Screen Negative (NEG=<300) 02/19/19 11:57 Ur Barbiturates Screen Negative (NEG=<200) 02/19/19 11:57 Ur Phencyclidine Scrn Negative (NEG=<25) 02/19/19 11:57 Ur Amphetamines Screen Negative (NEG=<1000) 02/19/19 11:57 U Benzodiazepines Scrn Negative (NEG=<200) 02/19/19 11:57 Urine Cocaine Screen Negative (NEG=<300) 02/19/19 11:57 U Marijuana (THC) Screen Negative (NEG=<50) 02/19/19 11:57 - Plan (1) Pneumonia Status: Acute Qualifiers: Pneumonia type: due to unspecified organism Laterality: left Lung location: lower lobe of lung Qualified Code(s): J18.1 - Lobar pneumonia, unspecified organism Plan: IV ANTIBIOTICS, RESPIRATORY TX, SUPPLEMENTAL OXYGEN, CONTINUE TO MONITOR (2) Cirrhosis of liver Status: Acute Qualifiers: Hepatic cirrhosis type: unspecified hepatic cirrhosis Ascites presence: without ascites Qualified Code(s): K74.60 - Unspecified cirrhosis of liver Plan: LACTULOSE, ALDACTONE 25MG PO DAILY, CONTINUE TO MONITOR (3) Altered mental status Status: Acute Qualifiers: Altered mental status type: transient alteration of awareness Qualified Code(s): R40.4 - Transient alteration of awareness Plan: CONTINUE TO MONITOR (4) Generalized weakness Status: Acute
[2019-02-24] MEDS: NS 1000 ML 1,000 ML IV SCH ×3 (03:17→19:23)
[2019-02-24 04:15] LABS: AMMONIA 91 umol/L (11-32)
[2019-02-24 04:16] LABS: BASOPHILS # (AUTO) 0.1 X10^3/uL (0.0-0.1); BASOPHILS % (AUTO) 0.8 % (0.2-1.0); EOSINOPHILS # (AUTO) 0.1 x10^3/uL (0.0-0.2); EOSINOPHILS % (AUTO) 1.1 % (0.9-2.9); HEMATOCRIT 41.9 % (36.0-47.0); HEMOGLOBIN 14.2 g/dL (12.0-16.0); LYMPHOCYTES # (AUTO) 2.5 X10^3/uL (1.3-2.9); LYMPHOCYTES % (AUTO) 26.5 % (21.0-51.0); MEAN CORPUSCULAR HEMOGLOBIN 32.9 pg (27.0-34.0); MEAN CORPUSCULAR HGB CONC 33.8 g/dL (33.0-35.0); MEAN CORPUSCULAR VOLUME 97.4 fL (80.0-100.0); MONOCYTES % (AUTO) 10.3 % (0.0-13.0); NEUTROPHILS # (AUTO) 5.8 x10^3/uL (2.2-4.8); NEUTROPHILS % (AUTO) 61.3 % (42.0-75.0); PLATELET COUNT 86 X10^3/uL (150.0-450.0); RED CELL DISTRIBUTION WIDTH 16.5 % (11.6-16.5); WHITE BLOOD COUNT 9.4 X10^3/uL (3.6-10.0)
[2019-02-24 04:18] LABS: ALANINE AMINOTRANSFERASE 19 Units/L (12-78); ALBUMIN 2.1 g/dL (3.4-5.0); ALKALINE PHOSPHATASE 91 Units/L (46-116); ASPARTATE AMINO TRANSFERASE 32 Units/L (15-37); BLOOD UREA NITROGEN 11 mg/dL (7-18); CALCIUM 7.9 mg/dL (8.5-10.1); CARBON DIOXIDE 29.8 mmol/L (21-32); CHLORIDE 105 mmol/L (98-107); COR CA(FOR HYPOALB) 9.4 mg/dL (8.5-10.1); COR NA(FOR HYPERGLY) 142 mmol/L (136-145); CREATININE 0.95 mg/dL (0.55-1.02); MAGNESIUM 1.6 mg/dL (1.7-2.9); SODIUM 140 mmol/L (136-145); TOTAL PROTEIN 5.6 g/dL (6.4-8.2); eGFR NON BLACK RACES > 60 (>60)
[2019-02-24] MEDS: FORTAZ or TAZICEF VIAL INJ 1 G in NS 100 ML IV + SPIKE MINIBAG* 100 ML IV SCH ×3 (05:28→21:45)
--- NOTE | 2019-02-24 06:11 | RAD ---
HISTORY: Shortness of breath Study: Chest AP portable Comparison: 02/23/2019 Findings: Patient is rotated to the left. The heart remains mildly enlarged. No congestive heart failure is noted. The right lung and left upper lung dill are clear. Increased density remains in the retrocardiac area of the left lower lobe consistent with atelectasis, infiltrate, effusion or combination. The bony thorax is unremarkable. IMPRESSION: No significant change from the prior examination Reported By:
[2019-02-24] MEDS: MAGNESIUM SULFATE 1 GRAM/100 mL PREMIX 1 GM/100 ML BAG IV PRN ×2 (06:31→08:38)
[2019-02-24] MEDS: PROVENTIL NEB TX 0.083% 2.5MG/ 3ML NEB SCH ×2 (08:38→20:11)
[2019-02-24] MEDS: PULMICORT NEB TX 0.5 MG NEB SCH ×2 (08:38→20:12)
[2019-02-24] MEDS: ALDACTONE TAB 25 MG PO SCH (08:57)
[2019-02-24] MEDS: CHRONULAC PO SCH ×4 (08:57→20:52)
[2019-02-24] MEDS: SYNTHROID 50 mcg TAB PO SCH (08:58)
[2019-02-24] MEDS: CARDIZEM SR 90 MG PO SCH ×2 (08:58→21:09)
[2019-02-24] MEDS: PROTONIX TAB 40 MG PO SCH (08:58)
[2019-02-24] MEDS: K-DUR TAB 20 MEQ PO PRN ×2 (08:58→13:34)
[2019-02-24] MEDS: XIFAXAN PO SCH ×2 (08:59→20:52)
[2019-02-24] MEDS: ZESTRIL TAB 10 MG PO SCH (08:59)
[2019-02-24] MEDS: CULTURELLE PRO-WELL PROBIOTIC CAP PO SCH (09:00)
[2019-02-24] MEDS: AMARYL TAB 4 MG PO SCH (09:00)
[2019-02-24] MEDS: HumuLIN R SUBCUT PRN ×2 (17:01→20:54)
[2019-02-24] MEDS: SNACK - Diabetic Appropriate PO SCH (20:30)
--- NOTE | 2019-02-24 20:57 | PCM.PROG ---
Progress Note - Progress Note for Day of Date of Exam: 02/23/19 - Subjective Subjective: IS BEING TREATED FOR LEFT LOWER LOBE PNEUMONIA, CIRRHOSIS, AND ALTERED MENTAL STATUS. TODAY, SHE IS ALERT AND ORIENTED, LYING IN BED ON MORNING ROUNDS. ON EXAMINATION, SCLERA CONTINUES TO BE SLIGHTLY JAUNDICED. HEART RHYTHM IS IRREGULAR. BILATERAL LUNGS ARE NOTED WITH DIMINISHED LUNG SOUNDS THROUGHOUT. ABDOMEN IS ROUND, SOFT, AND NOTED WITH DIFFUSE TENDERNESS TO PALPATION. HER VITALS THIS MORNING ARE: 97.8-90-14-99%-128/73. LABS WERE OBTAINED. ABNORMAL LAB VALUES INCLUDE THE FOLLOWING: PLT COUNT 76, INR 1.34, GLUCOSE 140, TOTAL BILI 1.80, AMMONIA 106, TOTAL PROTEIN 5.9, ALBUMIN 2.2. BLOOD CULTURES ARE PENDING. CHEST XRAY OBTAINED THIS MORNING AND REVEALED: Continued mild cardiomegaly without congestive heart failure. Some improvement in the aeration of the left lower lobe when compared with the prior examination. TOOK PATIENT FOR AN EGD YESTERDAY. IT REVEALED: DISTAL ESOPHAGITIS, EROSIVE GASTRITIS, NO VARICIES NOTED. SHE IS CURRENTLY RECEIVING NORMAL SALINE AT [facility], AND LACTULOSE, ALDACTONE 25MG PO DAILY, AND HOME MEDICATIONS WERE RESUMED. WE WILL CONTINUE WITH CURRENT PLAN OF CARE. OTHERWISE, WE PLAN TO FOLLOW-UP WITH AM LABS AND CONTINUE TO MONITOR. - Past Medical Family Social History Past Med/Fam/Surg Hx: No changes since H&P Allergies: Allergies No Known Drug Allergies Allergy (Verified 06/17/18 07:54) - Review of Systems ROS: No change since H&P - Vital Signs and I&O's Vital Signs: Temperature 97.8 F Pulse Rate [Apical] 65 Pulse Rate 71 Respiratory Rate 10 Blood Pressure [Left Arm] 144/72 Blood Pressure 119/59 O2 Sat by Pulse Oximetry 100 Intake and Output: Intake & Output 02/22/19 02/23/19 02/24/19 02/25/19 11:59 11:59 11:59 11:59 Intake Total 2790 / 2790 1038 / 1038 2677 / 2677 1182 / 1182 Output Total 825 / 825 1350 / 1350 1675 / 1675 650 / 650 Balance 1965 / 1965 -312 / -312 1002 / 1002 532 / 532 - Physical Exam Oriented: Normal Eyes: Normal Ear: Normal Nose: Normal Throat: Normal Respiratory: Generalized, Diminished Cardiovascular: Normal : Normal Auscultation: Bowel Sounds: Normal Tenderness: Diffuse, Mild. negative: Rebound, Guarding, Rigidity Skin: Normal Musculoskeletal: Normal Psychiatric: Normal Mood Description: Flat Affect: Normal Speech Pattern: Clear, Delayed - Laboratory and Diagnostics Result Diagrams: 02/24/19 03:57 02/24/19 11:25 Labs: 02/19/19 11:08 Blood Blood Culture - Preliminary 02/19/19 11:02 Blood Blood Culture - Preliminary Laboratory WBC 9.4 X10^3/uL (3.6-10.0) 02/24/19 03:57 RBC 4.30 X10^6/uL (3.5-5.4) 02/24/19 03:57 Hgb 14.2 g/dL (12.0-16.0) 02/24/19 03:57 Hct 41.9 % (36.0-47.0) 02/24/19 03:57 MCV 97.4 fL (80.0-100.0) 02/24/19 03:57 MCH 32.9 pg (27.0-34.0) 02/24/19 03:57 MCHC 33.8 g/dL (33.0-35.0) 02/24/19 03:57 RDW 16.5 % (11.6-16.5) 02/24/19 03:57 Plt Count 86 X10^3/uL (150.0-450.0) L 02/24/19 03:57 MPV 12.0 fL (7.4-11.0) H 02/24/19 03:57 Neut % (Auto) 61.3 % (42.0-75.0) 02/24/19 03:57 Lymph % (Auto) 26.5 % (21.0-51.0) 02/24/19 03:57 [place] % (Auto) 10.3 % (0.0-13.0) 02/24/19 03:57 Eos % (Auto) 1.1 % (0.9-2.9) 02/24/19 03:57 Baso % (Auto) 0.8 % (0.2-1.0) 02/24/19 03:57 Neut # (Auto) 5.8 x10^3/uL (2.2-4.8) H 02/24/19 03:57 Lymph # (Auto) 2.5 X10^3/uL (1.3-2.9) 02/24/19 03:57 [place] # (Auto) 1.0 x10^3/uL (0.3-0.8) H 02/24/19 03:57 Eos # (Auto) 0.1 x10^3/uL (0.0-0.2) 02/24/19 03:57 Baso # (Auto) 0.1 X10^3/uL (0.0-0.1) 02/24/19 03:57 Absolute Nucleated RBC 0.2 /100WBC 02/24/19 03:57 INR Target Range - 02/23/19 11:10 INR 1.34 (0.8-1.3) H 02/23/19 11:10 APTT 29.6 SECONDS (22.9-36.5) 02/23/19 11:10 PTT Comment - 02/23/19 11:10 Sodium 140 mmol/L (136-145) 02/24/19 03:57 Corrected Sodium 142 mmol/L (136-145) 02/24/19 03:57 Potassium 3.7 mmol/L (3.5-5.1) 02/24/19 11:25 Chloride 105 mmol/L (98-107) 02/24/19 03:57 Carbon Dioxide 29.8 mmol/L (21-32) 02/24/19 03:57 BUN 11 mg/dL (7-18) 02/24/19 03:57 Creatinine 0.95 mg/dL (0.55-1.02) 02/24/19 03:57 Est GFR (MDRD) Af Amer > 60 (>60) 02/24/19 03:57 Est GFR (MDRD) Non-Af > 60 (>60) 02/24/19 03:57 Glucose 165 mg/dL (65-99) H 02/24/19 03:57 POC Glucose (mg/dL) 195 mg/dL (65-99) H 02/24/19 20:40 Lactic Acid 1.9 mmol/L (0.4-2.0) 02/19/19 11:02 Calcium 7.9 mg/dL (8.5-10.1) L 02/24/19 03:57 Corrected Calcium 9.4 mg/dL (8.5-10.1) 02/24/19 03:57 Magnesium 1.6 mg/dL (1.7-2.9) L 02/24/19 03:57 Iron 201 ug/dL (50-175) H 02/21/19 17:57 Transferrin 196 mg/dL (202-364) L 02/21/19 17:57 Ferritin 81 ng/mL (8-252) 02/21/19 17:57 Total Bilirubin 1.50 mg/dL (0.2-1.0) H 02/24/19 03:57 Direct Bilirubin 0.80 mg/dL (0-0.2) H 02/21/19 17:57 Indirect Bilirubin 1.50 mg/dL (0.2-0.8) H 02/21/19 17:57 AST 32 Units/L (15-37) 02/24/19 03:57 ALT 19 Units/L (12-78) 02/24/19 03:57 Alkaline Phosphatase 91 Units/L (46-116) 02/24/19 03:57 Ammonia 91 umol/L (11-32) H 02/24/19 03:57 Creatine Kinase 43 Units/L (26-192) 02/20/19 03:58 CK-MB (CK-2) 2.0 ng/mL (0-4.0) 02/20/19 03:58 CK/CKMB % Calc 4.7 % (<4) 02/20/19 03:58 Troponin I 0.04 ng/mL (0-1.5) 02/20/19 03:58 C-Reactive Protein 3.60 mg/L (0-3.0) H 02/19/19 11:02 B-Natriuretic Peptide 135 pg/mL (0-79) H 02/19/19 11:02 Total Protein 5.6 g/dL (6.4-8.2) L 02/24/19 03:57 Albumin 2.1 g/dL (3.4-5.0) L 02/24/19 03:57 Globulin 3.5 g/dL (2.5-4.5) 02/24/19 03:57 Albumin/Globulin Ratio 0.6 Ratio (1.1-2.1) L 02/24/19 03:57 Carcinoembryonic Ag 15.7 ng/mL (0.0-3.0) H 02/19/19 11:02 Specimen Type Catherized urine 02/19/19 12:17 Urine Color Yellow (YELLOW) 02/19/19 12:17 Urine Appearance Cloudy (CLEAR) 02/19/19 12:17 Urine pH 7.0 (5.0 - 8.0) 02/19/19 12:17 Ur Specific [place] 1.010 (1.000-1.030) 02/19/19 12:17 Urine Protein 1+ (NEGATIVE) 02/19/19 12:17 Urine Glucose (UA) 1+ (NEGATIVE) 02/19/19 12:17 Urine Ketones Negative (NEGATIVE) 02/19/19 12:17 Urine Occult Blood 2+ (NEGATIVE) 02/19/19 12:17 Urine Nitrite Negative (NEGATIVE) 02/19/19 12:17 Urine Bilirubin Negative (NEGATIVE) 02/19/19 12:17 Urine Urobilinogen 1+ (NORMAL) 02/19/19 12:17 Ur Leukocyte Esterase Negative (NEGATIVE) 02/19/19 12:17 Urine RBC 0-2 /HPF (NONE SEEN) 02/19/19 12:17 Urine WBC 3-5 /HPF (NONE SEEN) 02/19/19 12:17 Ur Squamous Epith Cells Moderate /HPF (NEGATIVE) 02/19/19 12:17 Amorphous Sediment 3+ /HPF (NEGATIVE) 02/19/19 12:17 Urine Bacteria Negative /HPF (NEGATIVE) 02/19/19 12:17 Hyaline Casts Rare /LPF (NEGATIVE) 02/19/19 12:17 Ur Culture Indicated? No/not indicated 02/19/19 12:17 Urine Opiates Screen Negative (NEG=<300) 02/19/19 11:57 Urine Methadone Screen Negative (NEG=<300) 02/19/19 11:57 Ur Barbiturates Screen Negative (NEG=<200) 02/19/19 11:57 Ur Phencyclidine Scrn Negative (NEG=<25) 02/19/19 11:57 Ur Amphetamines Screen Negative (NEG=<1000) 02/19/19 11:57 U Benzodiazepines Scrn Negative (NEG=<200) 02/19/19 11:57 Urine Cocaine Screen Negative (NEG=<300) 02/19/19 11:57 U Marijuana (THC) Screen Negative (NEG=<50) 02/19/19 11:57 - Plan (1) Pneumonia Status: Acute Qualifiers: Pneumonia type: due to unspecified organism Laterality: left Lung location: lower lobe of lung Qualified Code(s): J18.1 - Lobar pneumonia, unspecified organism Plan: IV ANTIBIOTICS, RESPIRATORY TX, SUPPLEMENTAL OXYGEN, CONTINUE TO MONITOR (2) Cirrhosis of liver Status: Acute Qualifiers: Hepatic cirrhosis type: unspecified hepatic cirrhosis Ascites presence: without ascites Qualified Code(s): K74.60 - Unspecified cirrhosis of liver Plan: LACTULOSE, ALDACTONE 25MG PO DAILY, CONTINUE TO MONITOR (3) Altered mental status Status: Acute Qualifiers: Altered mental status type: transient alteration of awareness Qualified Code(s): R40.4 - Transient alteration of awareness Plan: CONTINUE TO MONITOR (4) Generalized weakness Status: Acute
[2019-02-25] MEDS: FORTAZ or TAZICEF VIAL INJ 1 G in NS 100 ML IV + SPIKE MINIBAG* 100 ML IV SCH ×3 (06:04→21:07)
[2019-02-25 06:11] LABS: BASOPHILS # (AUTO) 0.1 X10^3/uL (0.0-0.1); BASOPHILS % (AUTO) 0.5 % (0.2-1.0); EOSINOPHILS # (AUTO) 0.1 x10^3/uL (0.0-0.2); EOSINOPHILS % (AUTO) 0.6 % (0.9-2.9); HEMOGLOBIN 14.7 g/dL (12.0-16.0); LYMPHOCYTES # (AUTO) 1.9 X10^3/uL (1.3-2.9); LYMPHOCYTES % (AUTO) 17.1 % (21.0-51.0); MEAN CORPUSCULAR HGB CONC 34.3 g/dL (33.0-35.0); MEAN CORPUSCULAR VOLUME 96.3 fL (80.0-100.0); MONOCYTES # (AUTO) 1.1 x10^3/uL (0.3-0.8); MONOCYTES % (AUTO) 9.5 % (0.0-13.0); NEUTROPHILS # (AUTO) 8.1 x10^3/uL (2.2-4.8); NEUTROPHILS % (AUTO) 72.3 % (42.0-75.0); PLATELET COUNT 86 X10^3/uL (150.0-450.0); RED BLOOD COUNT 4.47 X10^6/uL (3.5-5.4); RED CELL DISTRIBUTION WIDTH 16.8 % (11.6-16.5); WHITE BLOOD COUNT 11.2 X10^3/uL (3.6-10.0)
[2019-02-25 06:23] LABS: AMMONIA 69 umol/L (11-32)
[2019-02-25 06:37] LABS: ALANINE AMINOTRANSFERASE 21 Units/L (12-78); ALBUMIN 2.2 g/dL (3.4-5.0); ALKALINE PHOSPHATASE 95 Units/L (46-116); ASPARTATE AMINO TRANSFERASE 33 Units/L (15-37); BLOOD UREA NITROGEN 12 mg/dL (7-18); CALCIUM 8.6 mg/dL (8.5-10.1); CARBON DIOXIDE 27.7 mmol/L (21-32); CHLORIDE 107 mmol/L (98-107); COR NA(FOR HYPERGLY) 142 mmol/L (136-145); CREATININE 0.91 mg/dL (0.55-1.02); MAGNESIUM 1.5 mg/dL (1.7-2.9); SODIUM 141 mmol/L (136-145); eGFR NON BLACK RACES > 60 (>60)
--- NOTE | 2019-02-25 06:41 | RAD ---
HISTORY: Shortness of breath Study: Chest AP portable Comparison: 02/24/2019 Findings: The heart is mildly enlarged. No congestive heart failure is noted. The lungs are hyperinflated. There has been significant improvement in the aeration of the left lower lobe with the left hemidiaphragm no longer obscured. No acute alveolar infiltrates are identified. The bony thorax is unremarkable. IMPRESSION: Mild cardiomegaly without congestive heart failure Lungs generally hyperinflated and now clear. Reported By:
[2019-02-25] MEDS: MAGNESIUM SULFATE 1 GRAM/100 mL PREMIX 1 GM/100 ML BAG IV PRN ×2 (07:00→08:52)
[2019-02-25] MEDS ORDERED: ZOFRAN INJ 4 MG VIAL IVP PRN (07:57)
[2019-02-25] MEDS ORDERED: NS + KCL 40 MEQ/L 1,000 ML IV SCH (08:00)
[2019-02-25] MEDS: PULMICORT NEB TX 0.5 MG NEB SCH ×2 (08:56→20:25)
[2019-02-25] MEDS: PROVENTIL NEB TX 0.083% 2.5MG/ 3ML NEB SCH ×2 (08:56→20:25)
[2019-02-25] MEDS: CULTURELLE PRO-WELL PROBIOTIC CAP PO SCH (09:12)
[2019-02-25] MEDS: CHRONULAC PO SCH ×4 (09:13→20:52)
[2019-02-25] MEDS: PROTONIX TAB 40 MG PO SCH (09:13)
[2019-02-25] MEDS: ALDACTONE TAB 25 MG PO SCH (09:13)
[2019-02-25] MEDS: SYNTHROID 50 mcg TAB PO SCH (09:13)
[2019-02-25] MEDS: ZESTRIL TAB 10 MG PO SCH (09:14)
[2019-02-25] MEDS: AMARYL TAB 4 MG PO SCH (09:14)
[2019-02-25] MEDS: XIFAXAN PO SCH ×2 (09:14→20:52)
[2019-02-25] MEDS: CARDIZEM SR 90 MG PO SCH ×2 (09:14→20:52)
[2019-02-25] MEDS: HumuLIN R SUBCUT PRN ×3 (13:21→20:53)
[2019-02-25] MEDS: SNACK - Diabetic Appropriate PO SCH (20:53)
--- NOTE | 2019-02-26 05:48 | RAD ---
Examination: AP chest History: SOB Comparison 02/25/2019 Findings: Continued cardiomegaly. The right lung is clear. There is now noted opacification in the left lower lobe obscuring the retrocardiac structures, diaphragm and costophrenic angle. The left upper lobe is clear and normally inflated. Impression: Stable cardiac enlargement. Interval development of left basal density consistent with pneumonia/atelectasis left lower lobe. Reported By:
[2019-02-26] MEDS: FORTAZ or TAZICEF VIAL INJ 1 G in NS 100 ML IV + SPIKE MINIBAG* 100 ML IV SCH ×3 (05:53→21:52)
[2019-02-26 06:33] LABS: BASOPHILS # (AUTO) 0.1 X10^3/uL (0.0-0.1); BASOPHILS % (AUTO) 0.7 % (0.2-1.0); EOSINOPHILS % (AUTO) 0.3 % (0.9-2.9); HEMATOCRIT 39.8 % (36.0-47.0); HEMOGLOBIN 13.6 g/dL (12.0-16.0); LYMPHOCYTES # (AUTO) 2.7 X10^3/uL (1.3-2.9); LYMPHOCYTES % (AUTO) 20.7 % (21.0-51.0); MEAN CORPUSCULAR HEMOGLOBIN 32.9 pg (27.0-34.0); MEAN CORPUSCULAR VOLUME 96.6 fL (80.0-100.0); MEAN PLATELET VOLUME 10.5 fL (7.4-11.0); MONOCYTES # (AUTO) 1.2 x10^3/uL (0.3-0.8); MONOCYTES % (AUTO) 8.9 % (0.0-13.0); NEUTROPHILS # (AUTO) 9.2 x10^3/uL (2.2-4.8); NEUTROPHILS % (AUTO) 69.4 % (42.0-75.0); PLATELET COUNT 82 X10^3/uL (150.0-450.0); RED BLOOD COUNT 4.12 X10^6/uL (3.5-5.4); RED CELL DISTRIBUTION WIDTH 16.8 % (11.6-16.5); WHITE BLOOD COUNT 13.2 X10^3/uL (3.6-10.0)
[2019-02-26 06:42] LABS: AMMONIA 116 umol/L (11-32)
[2019-02-26 06:49] LABS: HEPATITIS B SURFACE ANTIGEN Negative (Negative)
[2019-02-26 06:54] LABS: ANTI-NUCLEAR ANTIBODY TEST None Detected (None Detected)
[2019-02-26 06:54] LABS: ALANINE AMINOTRANSFERASE 19 Units/L (12-78); ALBUMIN 2.1 g/dL (3.4-5.0); ALKALINE PHOSPHATASE 91 Units/L (46-116); ASPARTATE AMINO TRANSFERASE 26 Units/L (15-37); BLOOD UREA NITROGEN 14 mg/dL (7-18); CALCIUM 8.6 mg/dL (8.5-10.1); CARBON DIOXIDE 26.7 mmol/L (21-32); CHLORIDE 106 mmol/L (98-107); COR CA(FOR HYPOALB) 10.1 mg/dL (8.5-10.1); COR NA(FOR HYPERGLY) 139 mmol/L (136-145); SODIUM 138 mmol/L (136-145); eGFR NON BLACK RACES > 60 (>60)
[2019-02-26] MEDS: CHRONULAC PO SCH ×5 (08:56→21:51)
[2019-02-26] MEDS: CARDIZEM SR 90 MG PO SCH ×2 (08:57→21:49)
[2019-02-26] MEDS: AMARYL TAB 4 MG PO SCH (08:58)
[2019-02-26] MEDS: PROTONIX TAB 40 MG PO SCH (08:58)
[2019-02-26] MEDS: XIFAXAN PO SCH ×2 (08:58→21:50)
[2019-02-26] MEDS: ALDACTONE TAB 25 MG PO SCH (08:58)
[2019-02-26] MEDS: SYNTHROID 50 mcg TAB PO SCH (08:58)
[2019-02-26] MEDS: ZESTRIL TAB 10 MG PO SCH (08:59)
[2019-02-26] MEDS: CULTURELLE PRO-WELL PROBIOTIC CAP PO SCH (08:59)
[2019-02-26] MEDS: PROVENTIL NEB TX 0.083% 2.5MG/ 3ML NEB SCH ×2 (09:02→20:35)
[2019-02-26] MEDS: PULMICORT NEB TX 0.5 MG NEB SCH ×2 (09:02→20:35)
[2019-02-26] MEDS: NS + KCL 20 MEQ/L 1,000 ML IV SCH ×2 (09:31→22:27)
[2019-02-26] MEDS: MAGNESIUM SULFATE 1 GRAM/100 mL PREMIX 1 GM/100 ML BAG IV PRN ×2 (10:33→11:47)
[2019-02-26] MEDS ORDERED: TobraDEX OPHTH SUSP ONE (12:26)
[2019-02-26] MEDS: TobraDEX OPHTH OPHTH 1 DOSE EACHEYE SCH ×2 (12:29→21:51)
[2019-02-26] MEDS: HumuLIN R SUBCUT PRN ×2 (12:31→21:50)
[2019-02-26] MEDS ORDERED: BUTT CREAM (COMPOUND) ONE (16:50)
[2019-02-26] MEDS: SNACK - Diabetic Appropriate PO SCH (20:00)
--- NOTE | 2019-02-26 21:17 | PCM.PROG ---
Progress Note - Progress Note for Day of Date of Exam: 02/24/19 - Subjective Subjective: IS BEING TREATED FOR LEFT LOWER LOBE PNEUMONIA, CIRRHOSIS, AND ALTERED MENTAL STATUS. TODAY, SHE IS ALERT AND ORIENTED, LYING IN BED ON MORNING ROUNDS. SHE IS NOTED WITH COMPLAINTS OF WEAKNESS AND NAUSEA TODAY. ON EXAMINATION, SCLERA CONTINUES TO BE SLIGHTLY JAUNDICED. HEART RHYTHM IS IRREGULAR. BILATERAL LUNGS ARE NOTED WITH DIMINISHED LUNG SOUNDS THROUGHOUT. ABDOMEN IS ROUND, SOFT, AND NOTED WITH DIFFUSE TENDERNESS TO PALPATION. HER VITALS THIS MORNING ARE: 97.1-75-16-98%-119/73. LABS WERE OBTAINED. ABNORMAL LAB VALUES INCLUDE THE FOLLOWING: PLT COUNT 86, GLUCOSE 165, CALCIUM 7.9, MAGNESIUM 1.6, TOTAL 1.50, AMMONIA 91, TOTAL PROTEIN 5.6, ALBUMIN 2.1. BLOOD CULTURES ARE PENDING. CHEST XRAY OBTAINED THIS MORNING AND REVEALED: Patient is rotated to the left. The heart remains mildly enlarged. No congestive heart failure is noted. The right lung and left upper lung dill are clear. Increased density remains in the retrocardiac area of the left lower lobe consistent with atelectasis, infiltrate, effusion or combination. The bony thorax is unremarkable. SHE IS CURRENTLY RECEIVING NORMAL SALINE AT [facility], [facility], AND LACTULOSE, ALDACTONE 25MG PO DAILY, AND HOME MEDICATIONS WERE RESUMED. WE WILL CONTINUE WITH CURRENT PLAN OF CARE. OTHERWISE, WE PLAN TO FOLLOW-UP WITH AM LABS AND CONTINUE TO MONITOR. - Past Medical Family Social History Past Med/Fam/Surg Hx: No changes since H&P Allergies: Allergies No Known Drug Allergies Allergy (Verified 06/17/18 07:54) - Review of Systems ROS: No change since H&P - Vital Signs and I&O's Vital Signs: Temperature 98.1 F Pulse Rate [Apical] 65 Pulse Rate 64 Respiratory Rate 15 Blood Pressure [Left Arm] 144/72 Blood Pressure 131/63 O2 Sat by Pulse Oximetry 100 Intake and Output: Intake & Output 02/24/19 02/25/19 02/26/19 02/27/19 11:59 11:59 11:59 11:59 Intake Total 2677 / 2677 2217 / 2217 1979 / 1979 1390 / 1390 Output Total 1675 / 1675 1400 / 1400 1100 / 1100 600 / 600 Balance 1002 / 1002 817 / 817 880 / 880 790 / 790 - Physical Exam Oriented: Normal Eyes: Normal Ear: Normal Nose: Normal Throat: Normal Respiratory: Generalized, Diminished Cardiovascular: Normal : Normal Auscultation: Bowel Sounds: Normal Palpation: Normal Tenderness: Diffuse, Mild. negative: Rebound, Guarding, Rigidity Skin: Normal Musculoskeletal: Normal Psychiatric: Normal Mood Description: Calm, Flat Affect: Normal Speech Pattern: Clear - Laboratory and Diagnostics Result Diagrams: 02/26/19 06:13 02/26/19 06:13 Labs: 02/19/19 11:08 Blood Blood Culture - Final 02/19/19 11:02 Blood Blood Culture - Final Laboratory WBC 13.2 X10^3/uL (3.6-10.0) H 02/26/19 06:13 RBC 4.12 X10^6/uL (3.5-5.4) 02/26/19 06:13 Hgb 13.6 g/dL (12.0-16.0) 02/26/19 06:13 Hct 39.8 % (36.0-47.0) 02/26/19 06:13 MCV 96.6 fL (80.0-100.0) 02/26/19 06:13 MCH 32.9 pg (27.0-34.0) 02/26/19 06:13 MCHC 34.0 g/dL (33.0-35.0) 02/26/19 06:13 RDW 16.8 % (11.6-16.5) H 02/26/19 06:13 Plt Count 82 X10^3/uL (150.0-450.0) L 02/26/19 06:13 MPV 10.5 fL (7.4-11.0) 02/26/19 06:13 Neut % (Auto) 69.4 % (42.0-75.0) 02/26/19 06:13 Lymph % (Auto) 20.7 % (21.0-51.0) L 02/26/19 06:13 [place] % (Auto) 8.9 % (0.0-13.0) 02/26/19 06:13 Eos % (Auto) 0.3 % (0.9-2.9) L 02/26/19 06:13 Baso % (Auto) 0.7 % (0.2-1.0) 02/26/19 06:13 Neut # (Auto) 9.2 x10^3/uL (2.2-4.8) H 02/26/19 06:13 Lymph # (Auto) 2.7 X10^3/uL (1.3-2.9) 02/26/19 06:13 [place] # (Auto) 1.2 x10^3/uL (0.3-0.8) H 02/26/19 06:13 Eos # (Auto) 0.0 x10^3/uL (0.0-0.2) 02/26/19 06:13 Baso # (Auto) 0.1 X10^3/uL (0.0-0.1) 02/26/19 06:13 Absolute Nucleated RBC 0.0 /100WBC 02/26/19 06:13 INR Target Range - 02/23/19 11:10 INR 1.34 (0.8-1.3) H 02/23/19 11:10 APTT 29.6 SECONDS (22.9-36.5) 02/23/19 11:10 PTT Comment - 02/23/19 11:10 Sodium 138 mmol/L (136-145) 02/26/19 06:13 Corrected Sodium 139 mmol/L (136-145) 02/26/19 06:13 Potassium 4.2 mmol/L (3.5-5.1) 02/26/19 06:13 Chloride 106 mmol/L (98-107) 02/26/19 06:13 Carbon Dioxide 26.7 mmol/L (21-32) 02/26/19 06:13 BUN 14 mg/dL (7-18) 02/26/19 06:13 Creatinine 0.90 mg/dL (0.55-1.02) 02/26/19 06:13 Est GFR (MDRD) Af Amer > 60 (>60) 02/26/19 06:13 Est GFR (MDRD) Non-Af > 60 (>60) 02/26/19 06:13 Glucose 155 mg/dL (65-99) H 02/26/19 06:13 POC Glucose (mg/dL) 180 mg/dL (65-99) H 02/26/19 20:23 Lactic Acid 1.9 mmol/L (0.4-2.0) 02/19/19 11:02 Calcium 8.6 mg/dL (8.5-10.1) 02/26/19 06:13 Corrected Calcium 10.1 mg/dL (8.5-10.1) 02/26/19 06:13 Magnesium 1.5 mg/dL (1.7-2.9) L 02/26/19 06:13 Iron 201 ug/dL (50-175) H 02/21/19 17:57 Transferrin 196 mg/dL (202-364) L 02/21/19 17:57 Ferritin 81 ng/mL (8-252) 02/21/19 17:57 Total Bilirubin 1.60 mg/dL (0.2-1.0) H 02/26/19 06:13 Direct Bilirubin 0.80 mg/dL (0-0.2) H 02/21/19 17:57 Indirect Bilirubin 1.50 mg/dL (0.2-0.8) H 02/21/19 17:57 AST 26 Units/L (15-37) 02/26/19 06:13 ALT 19 Units/L (12-78) 02/26/19 06:13 Alkaline Phosphatase 91 Units/L (46-116) 02/26/19 06:13 Ammonia 116 umol/L (11-32) H 02/26/19 06:13 Creatine Kinase 43 Units/L (26-192) 02/20/19 03:58 CK-MB (CK-2) 2.0 ng/mL (0-4.0) 02/20/19 03:58 CK/CKMB % Calc 4.7 % (<4) 02/20/19 03:58 Troponin I 0.04 ng/mL (0-1.5) 02/20/19 03:58 C-Reactive Protein 3.60 mg/L (0-3.0) H 02/19/19 11:02 B-Natriuretic Peptide 135 pg/mL (0-79) H 02/19/19 11:02 Total Protein 6.0 g/dL (6.4-8.2) L 02/26/19 06:13 Albumin 2.1 g/dL (3.4-5.0) L 02/26/19 06:13 Globulin 3.9 g/dL (2.5-4.5) 02/26/19 06:13 Albumin/Globulin Ratio 0.5 Ratio (1.1-2.1) L 02/26/19 06:13 Ilsng-3-Rymjajbmltt 118 mg/dL (90-200) 02/21/19 17:57 Ceruloplasmin 21 mg/dL (17-54) 02/21/19 17:57 Alpha Fetoprotein 5 ng/mL (0-9) 02/23/19 11:10 Carcinoembryonic Ag 15.7 ng/mL (0.0-3.0) H 02/19/19 11:02 Specimen Type Catherized urine 02/19/19 12:17 Urine Color Yellow (YELLOW) 02/19/19 12:17 Urine Appearance Cloudy (CLEAR) 02/19/19 12:17 Urine pH 7.0 (5.0 - 8.0) 02/19/19 12:17 Ur Specific [place] 1.010 (1.000-1.030) 02/19/19 12:17 Urine Protein 1+ (NEGATIVE) 02/19/19 12:17 Urine Glucose (UA) 1+ (NEGATIVE) 02/19/19 12:17 Urine Ketones Negative (NEGATIVE) 02/19/19 12:17 Urine Occult Blood 2+ (NEGATIVE) 02/19/19 12:17 Urine Nitrite Negative (NEGATIVE) 02/19/19 12:17 Urine Bilirubin Negative (NEGATIVE) 02/19/19 12:17 Urine Urobilinogen 1+ (NORMAL) 02/19/19 12:17 Ur Leukocyte Esterase Negative (NEGATIVE) 02/19/19 12:17 Urine RBC 0-2 /HPF (NONE SEEN) 02/19/19 12:17 Urine WBC 3-5 /HPF (NONE SEEN) 02/19/19 12:17 Ur Squamous Epith Cells Moderate /HPF (NEGATIVE) 02/19/19 12:17 Amorphous Sediment 3+ /HPF (NEGATIVE) 02/19/19 12:17 Urine Bacteria Negative /HPF (NEGATIVE) 02/19/19 12:17 Hyaline Casts Rare /LPF (NEGATIVE) 02/19/19 12:17 Ur Culture Indicated? No/not indicated 02/19/19 12:17 Urine Opiates Screen Negative (NEG=<300) 02/19/19 11:57 Urine Methadone Screen Negative (NEG=<300) 02/19/19 11:57 Ur Barbiturates Screen Negative (NEG=<200) 02/19/19 11:57 Ur Phencyclidine Scrn Negative (NEG=<25) 02/19/19 11:57 Ur Amphetamines Screen Negative (NEG=<1000) 02/19/19 11:57 U Benzodiazepines Scrn Negative (NEG=<200) 02/19/19 11:57 Urine Cocaine Screen Negative (NEG=<300) 02/19/19 11:57 U Marijuana (THC) Screen Negative (NEG=<50) 02/19/19 11:57 [place] 73.1 ug/dL (80.0-155.0) L 02/21/19 17:57 CHRISTINE Screen None detected (None Detected) 02/21/19 17:57 CHRISTINE Titer TNP 02/21/19 17:57 CHRISTINE Pattern TNP 02/21/19 17:57 Anti-Mitochondrial Ab 6.6 Units (0.0-20.0) 02/21/19 17:57 Smooth Muscle Ab Titer <1:20 (<1:20) 02/21/19 17:57 Hepatitis A IgM Ab Negative (Negative) 02/21/19 17:57 Hep Bs Antigen Negative (Negative) 02/21/19 17:57 Hep Bs Ag Confirmation TNP 02/21/19 17:57 Hep B Core IgM Ab Negative (Negative) 02/21/19 17:57 Hepatitis C Ab Index 0.03 IV 02/21/19 17:57 Hepatitis C Interp Negative (Negative) 02/21/19 17:57 Hepatitis Interpret See note 02/21/19 17:57 - Plan (1) Pneumonia Status: Acute Qualifiers: Pneumonia type: due to unspecified organism Laterality: left Lung location: lower lobe of lung Qualified Code(s): J18.1 - Lobar pneumonia, u nspecified organism Plan: IV ANTIBIOTICS, RESPIRATORY TX, SUPPLEMENTAL OXYGEN, CONTINUE TO MONITOR (2) Cirrhosis of liver Status: Acute Qualifiers: Hepatic cirrhosis type: unspecified hepatic cirrhosis Ascites presence: without ascites Qualified Code(s): K74.60 - Unspecified cirrhosis of liver Plan: LACTULOSE, ALDACTONE 25MG PO DAILY, CONTINUE TO MONITOR (3) Altered mental status Status: Acute Qualifiers: Altered mental status type: transient alteration of awareness Qualified Code(s): R40.4 - Transient alteration of awareness Plan: CONTINUE TO MONITOR (4) Generalized weakness Status: Acute
[2019-02-27] MEDS ORDERED: CARDIZEM TAB 30 MG PLAIN ONE (00:09)
[2019-02-27] MEDS: HumuLIN R SUBCUT PRN ×2 (05:41→12:00)
[2019-02-27] MEDS: FORTAZ or TAZICEF VIAL INJ 1 G in NS 100 ML IV + SPIKE MINIBAG* 100 ML IV SCH ×2 (05:41→14:00)
[2019-02-27 06:18] LABS: BASOPHILS # (AUTO) 0.1 X10^3/uL (0.0-0.1); BASOPHILS % (AUTO) 0.8 % (0.2-1.0); EOSINOPHILS # (AUTO) 0.1 x10^3/uL (0.0-0.2); EOSINOPHILS % (AUTO) 0.9 % (0.9-2.9); HEMATOCRIT 39.5 % (36.0-47.0); HEMOGLOBIN 13.6 g/dL (12.0-16.0); LYMPHOCYTES # (AUTO) 2.9 X10^3/uL (1.3-2.9); LYMPHOCYTES % (AUTO) 23.4 % (21.0-51.0); MEAN CORPUSCULAR HEMOGLOBIN 33.2 pg (27.0-34.0); MEAN CORPUSCULAR HGB CONC 34.5 g/dL (33.0-35.0); MEAN CORPUSCULAR VOLUME 96.1 fL (80.0-100.0); MEAN PLATELET VOLUME 10.4 fL (7.4-11.0); MONOCYTES # (AUTO) 1.2 x10^3/uL (0.3-0.8); MONOCYTES % (AUTO) 10.1 % (0.0-13.0); NEUTROPHILS % (AUTO) 64.8 % (42.0-75.0); PLATELET COUNT 84 X10^3/uL (150.0-450.0); RED BLOOD COUNT 4.11 X10^6/uL (3.5-5.4); RED CELL DISTRIBUTION WIDTH 16.5 % (11.6-16.5); WHITE BLOOD COUNT 12.3 X10^3/uL (3.6-10.0)
[2019-02-27 06:29] LABS: AMMONIA 72 umol/L (11-32)
[2019-02-27 06:32] LABS: ALANINE AMINOTRANSFERASE 19 Units/L (12-78); ALBUMIN 2.1 g/dL (3.4-5.0); ALKALINE PHOSPHATASE 90 Units/L (46-116); ASPARTATE AMINO TRANSFERASE 25 Units/L (15-37); BLOOD UREA NITROGEN 11 mg/dL (7-18); CALCIUM 8.3 mg/dL (8.5-10.1); CARBON DIOXIDE 27.6 mmol/L (21-32); CHLORIDE 104 mmol/L (98-107); COR CA(FOR HYPOALB) 9.8 mg/dL (8.5-10.1); COR NA(FOR HYPERGLY) 138 mmol/L (136-145); CREATININE 0.95 mg/dL (0.55-1.02); SODIUM 137 mmol/L (136-145); TOTAL PROTEIN 5.9 g/dL (6.4-8.2); eGFR NON BLACK RACES > 60 (>60)
[2019-02-27] MEDS: MAGNESIUM SULFATE 1 GRAM/100 mL PREMIX 1 GM/100 ML BAG IV PRN (06:46)
--- NOTE | 2019-02-27 06:58 | RAD ---
Portable chest Clinical indication: Shortness of breath Comparison: 02/26/2019. Findings: Aeration of the left lung base has improved in the interim. There is decreased atelectasis with trace residual pleural effusion. The remainder of the lungs are clear. The heart is enlarged. Impression: Decreased atelectasis of the left lower lobe with residual small volume atelectasis and pleural effusion persisting. Cardiomegaly Reported By:
[2019-02-27] MEDS ORDERED: SALINE 3% 15 ML NEB TX NEB ONE (08:12)
[2019-02-27] MEDS: DUONEB 0.5 MG/3 MG NEB SCH ×3 (08:25→16:33)
[2019-02-27] MEDS: PULMICORT NEB TX 0.5 MG NEB SCH (08:25)
[2019-02-27] MEDS: CHRONULAC PO SCH ×2 (09:10→13:30)
[2019-02-27] MEDS: SYNTHROID 50 mcg TAB PO SCH (09:11)
[2019-02-27] MEDS: CARDIZEM SR 90 MG PO SCH (09:11)
[2019-02-27] MEDS: AMARYL TAB 4 MG PO SCH (09:11)
[2019-02-27] MEDS: XIFAXAN PO SCH (09:11)
[2019-02-27] MEDS: ALDACTONE TAB 25 MG PO SCH (09:11)
[2019-02-27] MEDS: PROTONIX TAB 40 MG PO SCH (09:11)
[2019-02-27] MEDS: CULTURELLE PRO-WELL PROBIOTIC CAP PO SCH (09:12)
[2019-02-27] MEDS: ZESTRIL TAB 10 MG PO SCH (09:12)
[2019-02-27] MEDS: TobraDEX OPHTH OPHTH 1 DOSE EACHEYE SCH (09:12)
[2019-02-27 16:52] VITALS: BP 111/54
[2019-02-27] MEDS ORDERED: HumuLIN R ONE (21:00)
[2019-02-27] MEDS ORDERED: XIFAXAN PO ONE (21:00)
[2019-02-27] MEDS ORDERED: FORTAZ or TAZICEF VIAL INJ ONE (21:00)
[2019-02-27] MEDS ORDERED: MAGNESIUM SULFATE 1 GRAM/100 mL PREMIX IV ONE (21:00)
[2019-02-27] MEDS ORDERED: CHRONULAC ONE (21:00)
[2019-02-28] MEDS ORDERED: DUONEB 0.5 MG/3 MG NEB ONE ×5 (05:45→21:30)
[2019-02-28] MEDS ORDERED: PULMICORT NEB TX 0.5 MG NEB ONE ×2 (09:00→21:30)
[2019-02-28] MEDS ORDERED: ROCEPHIN VIAL 1 GRAM IVP ONE (09:00)
[2019-02-28] MEDS ORDERED: AMARYL TAB 4 MG PO ONE (09:00)
[2019-02-28] MEDS ORDERED: CHRONULAC PO ONE ×3 (09:00→21:20)
[2019-02-28] MEDS ORDERED: SYNTHROID 50 mcg TAB PO ONE (09:00)
[2019-02-28] MEDS ORDERED: XIFAXAN PO ONE (09:00)
[2019-02-28] MEDS ORDERED: PROTONIX TAB 40 MG PO ONE (09:00)
[2019-02-28] MEDS ORDERED: CULTURELLE PRO-WELL PROBIOTIC CAP PO ONE (09:00)
[2019-02-28] MEDS ORDERED: ALDACTONE TAB 25 MG PO ONE (09:00)
[2019-02-28] MEDS ORDERED: ZESTRIL TAB 10 MG PO ONE (09:00)
[2019-02-28] MEDS ORDERED: HumuLIN R SUBCUT ONE ×2 (16:45→21:20)
[2019-02-28] MEDS ORDERED: MAGNESIUM SULFATE 1 GRAM/100 mL PREMIX IV ONE (21:20)
[2019-03-01] MEDS ORDERED: MAGNESIUM SULFATE 1 GRAM/100 mL PREMIX IV ONE ×2 (01:00→02:00)
[2019-03-01] MEDS ORDERED: HumuLIN R SUBCUT ONE ×3 (06:00→17:00)
[2019-03-01] MEDS ORDERED: CHRONULAC PO ONE ×3 (09:00→21:30)
[2019-03-01] MEDS ORDERED: PROTONIX TAB 40 MG PO ONE (09:00)
[2019-03-01] MEDS ORDERED: XIFAXAN PO ONE ×2 (09:00→21:30)
[2019-03-01] MEDS ORDERED: ZESTRIL TAB 10 MG PO ONE (09:00)
[2019-03-01] MEDS ORDERED: SYNTHROID 50 mcg TAB PO ONE (09:00)
[2019-03-01] MEDS ORDERED: CARDIZEM SR 90 MG PO ONE ×2 (09:00→21:30)
[2019-03-01] MEDS ORDERED: ROCEPHIN VIAL 1 GRAM IVP ONE (09:00)
[2019-03-01] MEDS ORDERED: AMARYL TAB 4 MG PO ONE (09:00)
[2019-03-01] MEDS ORDERED: CULTURELLE PRO-WELL PROBIOTIC CAP PO ONE (09:00)
[2019-03-01] MEDS ORDERED: ALDACTONE TAB 25 MG PO ONE (09:00)
[2019-03-01] MEDS ORDERED: CRESTOR TAB 10 MG PO ONE (21:30)
[2019-03-02] MEDS ORDERED: ZESTRIL TAB 10 MG PO ONE (09:00)
[2019-03-02] MEDS ORDERED: CHRONULAC PO ONE ×4 (09:00→21:00)
[2019-03-02] MEDS ORDERED: SYNTHROID 50 mcg TAB PO ONE (09:00)
[2019-03-02] MEDS ORDERED: CARDIZEM SR 90 MG PO ONE ×2 (09:00→21:00)
[2019-03-02] MEDS ORDERED: VSL#3 PO ONE (09:00)
[2019-03-02] MEDS ORDERED: AMARYL TAB 4 MG PO ONE (09:00)
[2019-03-02] MEDS ORDERED: PROTONIX TAB 40 MG PO ONE (09:00)
[2019-03-02] MEDS ORDERED: ALDACTONE TAB 25 MG PO ONE (09:00)
[2019-03-02] MEDS ORDERED: XIFAXAN PO ONE ×2 (09:00→21:00)
[2019-03-02] MEDS ORDERED: NS IV ONE (11:00)
[2019-03-02] MEDS ORDERED: KCL IV ONE (11:00)
[2019-03-02] MEDS ORDERED: HumuLIN R SUBCUT ONE ×3 (11:30→20:40)
[2019-03-02] MEDS ORDERED: ROCEPHIN VIAL 1 GRAM IVP ONE (13:50)
[2019-03-03] MEDS ORDERED: HumuLIN R SUBCUT ONE ×4 (05:25→20:20)
[2019-03-03] MEDS ORDERED: ROCEPHIN VIAL 1 GRAM ONE (08:17)
[2019-03-03] MEDS ORDERED: CHRONULAC PO ONE ×4 (09:00→21:00)
[2019-03-03] MEDS ORDERED: XIFAXAN PO ONE ×2 (09:00→21:00)
[2019-03-03] MEDS ORDERED: SYNTHROID 50 mcg TAB PO ONE (09:00)
[2019-03-03] MEDS ORDERED: PROTONIX TAB 40 MG PO ONE (09:00)
[2019-03-03] MEDS ORDERED: AMARYL TAB 4 MG PO ONE (09:00)
[2019-03-03] MEDS ORDERED: ROCEPHIN VIAL 1 GRAM IVP ONE (09:00)
[2019-03-03] MEDS ORDERED: VSL#3 PO ONE (09:00)
[2019-03-03] MEDS ORDERED: CARDIZEM SR 90 MG PO ONE ×2 (09:00→21:00)
[2019-03-03] MEDS ORDERED: ZESTRIL TAB 10 MG PO ONE (09:00)
[2019-03-03] MEDS ORDERED: ALDACTONE TAB 25 MG PO ONE (09:00)
[2019-03-04 05:54] LABS: HEMATOCRIT 36.5 % (36.0-47.0); HEMOGLOBIN 12.6 g/dL (12.0-16.0); LYMPHOCYTES % (AUTO) 28.2 % (21.0-51.0); MEAN CORPUSCULAR HEMOGLOBIN 33.3 pg (27.0-34.0); MEAN CORPUSCULAR HGB CONC 34.6 g/dL (33.0-35.0); MEAN CORPUSCULAR VOLUME 96.2 fL (80.0-100.0); MEAN PLATELET VOLUME 10.9 fL (7.4-11.0); NEUTROPHILS % (AUTO) 59.1 % (42.0-75.0); PLATELET COUNT 86 X10^3/uL (150.0-450.0); RED CELL DISTRIBUTION WIDTH 16.6 % (11.6-16.5); WHITE BLOOD COUNT 11.2 X10^3/uL (3.6-10.0)
[2019-03-04 05:55] LABS: BASOPHILS # (AUTO) 0.1 X10^3/uL (0.0-0.1); BASOPHILS % (AUTO) 0.5 % (0.2-1.0); EOSINOPHILS # (AUTO) 0.1 x10^3/uL (0.0-0.2); EOSINOPHILS % (AUTO) 1.3 % (0.9-2.9); LYMPHOCYTES # (AUTO) 3.1 X10^3/uL (1.3-2.9); MONOCYTES # (AUTO) 1.2 x10^3/uL (0.3-0.8); MONOCYTES % (AUTO) 10.9 % (0.0-13.0); NEUTROPHILS # (AUTO) 6.6 x10^3/uL (2.2-4.8)
[2019-03-04 05:57] LABS: BLOOD UREA NITROGEN 9 mg/dL (7-18); CALCIUM 8.2 mg/dL (8.5-10.1); CARBON DIOXIDE 28.7 mmol/L (21-32); CHLORIDE 102 mmol/L (98-107); COR NA(FOR HYPERGLY) 136 mmol/L (136-145); CREATININE 0.87 mg/dL (0.55-1.02); SODIUM 136 mmol/L (136-145); eGFR NON BLACK RACES > 60 (>60)
[2019-03-04 05:58] LABS: ALANINE AMINOTRANSFERASE 17 Units/L (12-78); ALKALINE PHOSPHATASE 85 Units/L (46-116); AMMONIA 74 umol/L (11-32); ASPARTATE AMINO TRANSFERASE 23 Units/L (15-37); TOTAL PROTEIN 5.5 g/dL (6.4-8.2)
[2019-03-04 05:59] LABS: ALBUMIN 1.8 g/dL (3.4-5.0)
[2019-03-04 06:02] LABS: HEMATOCRIT 36.8 % (36.0-47.0); HEMOGLOBIN 12.8 g/dL (12.0-16.0); MEAN CORPUSCULAR HEMOGLOBIN 33.4 pg (27.0-34.0); MEAN CORPUSCULAR HGB CONC 34.6 g/dL (33.0-35.0); MEAN CORPUSCULAR VOLUME 96.4 fL (80.0-100.0); RED BLOOD COUNT 3.82 X10^6/uL (3.5-5.4); RED CELL DISTRIBUTION WIDTH 16.8 % (11.6-16.5); WHITE BLOOD COUNT 10.9 X10^3/uL (3.6-10.0)
[2019-03-04 06:03] LABS: BASOPHILS # (AUTO) 0.1 X10^3/uL (0.0-0.1); BASOPHILS % (AUTO) 0.6 % (0.2-1.0); EOSINOPHILS # (AUTO) 0.1 x10^3/uL (0.0-0.2); EOSINOPHILS % (AUTO) 1.2 % (0.9-2.9); LYMPHOCYTES # (AUTO) 2.6 X10^3/uL (1.3-2.9); LYMPHOCYTES % (AUTO) 24.2 % (21.0-51.0); MONOCYTES # (AUTO) 1.2 x10^3/uL (0.3-0.8); MONOCYTES % (AUTO) 10.8 % (0.0-13.0); NEUTROPHILS # (AUTO) 6.9 x10^3/uL (2.2-4.8); NEUTROPHILS % (AUTO) 63.2 % (42.0-75.0); PLATELET COUNT 85 X10^3/uL (150.0-450.0)
[2019-03-04 06:08] LABS: SODIUM 137 mmol/L (136-145)
[2019-03-04 06:09] LABS: BLOOD UREA NITROGEN 10 mg/dL (7-18); CALCIUM 8.4 mg/dL (8.5-10.1); CARBON DIOXIDE 28.8 mmol/L (21-32); CHLORIDE 103 mmol/L (98-107); COR NA(FOR HYPERGLY) 139 mmol/L (136-145); CREATININE 0.86 mg/dL (0.55-1.02); eGFR NON BLACK RACES > 60 (>60)
[2019-03-04 06:10] LABS: ALANINE AMINOTRANSFERASE 14 Units/L (12-78); ALBUMIN 1.9 g/dL (3.4-5.0); ALKALINE PHOSPHATASE 88 Units/L (46-116); AMMONIA 75 umol/L (11-32); ASPARTATE AMINO TRANSFERASE 22 Units/L (15-37); COR CA(FOR HYPOALB) 10.1 mg/dL (8.5-10.1); TOTAL PROTEIN 5.5 g/dL (6.4-8.2)
[2019-03-04 06:30] LABS: WHITE BLOOD COUNT 9.5 X10^3/uL (3.6-10.0)
[2019-03-04 06:31] LABS: BASOPHILS # (AUTO) 0.1 X10^3/uL (0.0-0.1); BASOPHILS % (AUTO) 0.5 % (0.2-1.0); EOSINOPHILS # (AUTO) 0.1 x10^3/uL (0.0-0.2); EOSINOPHILS % (AUTO) 1.2 % (0.9-2.9); HEMATOCRIT 36.1 % (36.0-47.0); HEMOGLOBIN 12.5 g/dL (12.0-16.0); LYMPHOCYTES # (AUTO) 2.3 X10^3/uL (1.3-2.9); LYMPHOCYTES % (AUTO) 24.2 % (21.0-51.0); MEAN CORPUSCULAR HEMOGLOBIN 33.5 pg (27.0-34.0); MEAN CORPUSCULAR HGB CONC 34.7 g/dL (33.0-35.0); MEAN CORPUSCULAR VOLUME 96.6 fL (80.0-100.0); MEAN PLATELET VOLUME 10.6 fL (7.4-11.0); MONOCYTES # (AUTO) 0.9 x10^3/uL (0.3-0.8); MONOCYTES % (AUTO) 9.5 % (0.0-13.0); NEUTROPHILS # (AUTO) 6.1 x10^3/uL (2.2-4.8); NEUTROPHILS % (AUTO) 64.6 % (42.0-75.0); PLATELET COUNT 78 X10^3/uL (150.0-450.0); RED BLOOD COUNT 3.74 X10^6/uL (3.5-5.4); RED CELL DISTRIBUTION WIDTH 16.9 % (11.6-16.5)
[2019-03-04 06:33] LABS: AMMONIA 45 umol/L (11-32); BLOOD UREA NITROGEN 11 mg/dL (7-18); CARBON DIOXIDE 28.8 mmol/L (21-32); CHLORIDE 100 mmol/L (98-107); SODIUM 134 mmol/L (136-145)
[2019-03-04 06:34] LABS: ALANINE AMINOTRANSFERASE 20 Units/L (12-78); ALBUMIN 1.9 g/dL (3.4-5.0); ALKALINE PHOSPHATASE 94 Units/L (46-116); ASPARTATE AMINO TRANSFERASE 30 Units/L (15-37); CALCIUM 8.5 mg/dL (8.5-10.1); COR CA(FOR HYPOALB) 10.2 mg/dL (8.5-10.1); COR NA(FOR HYPERGLY) 135 mmol/L (136-145); TOTAL PROTEIN 5.5 g/dL (6.4-8.2); eGFR NON BLACK RACES > 60 (>60)
[2019-03-04 06:46] LABS: AMMONIA 32 umol/L (11-32)
[2019-03-04 06:49] LABS: BASOPHILS # (AUTO) 0.1 X10^3/uL (0.0-0.1); BASOPHILS % (AUTO) 0.9 % (0.2-1.0); EOSINOPHILS # (AUTO) 0.1 x10^3/uL (0.0-0.2); EOSINOPHILS % (AUTO) 1.2 % (0.9-2.9); HEMATOCRIT 36.4 % (36.0-47.0); HEMOGLOBIN 12.4 g/dL (12.0-16.0); LYMPHOCYTES # (AUTO) 2.1 X10^3/uL (1.3-2.9); LYMPHOCYTES % (AUTO) 25.9 % (21.0-51.0); MEAN CORPUSCULAR HEMOGLOBIN 33.2 pg (27.0-34.0); MEAN CORPUSCULAR VOLUME 97.7 fL (80.0-100.0); MEAN PLATELET VOLUME 10.2 fL (7.4-11.0); MONOCYTES # (AUTO) 0.9 x10^3/uL (0.3-0.8); PLATELET COUNT 71 X10^3/uL (150.0-450.0); RED BLOOD COUNT 3.72 X10^6/uL (3.5-5.4); RED CELL DISTRIBUTION WIDTH 16.9 % (11.6-16.5); WHITE BLOOD COUNT 8.2 X10^3/uL (3.6-10.0)
[2019-03-04 06:55] LABS: ALANINE AMINOTRANSFERASE 18 Units/L (12-78); ALBUMIN 1.9 g/dL (3.4-5.0); ALKALINE PHOSPHATASE 92 Units/L (46-116); ASPARTATE AMINO TRANSFERASE 33 Units/L (15-37); BLOOD UREA NITROGEN 11 mg/dL (7-18); CALCIUM 9.2 mg/dL (8.5-10.1); CARBON DIOXIDE 28.4 mmol/L (21-32); CHLORIDE 104 mmol/L (98-107); COR CA(FOR HYPOALB) 10.9 mg/dL (8.5-10.1); COR NA(FOR HYPERGLY) 139 mmol/L (136-145); CREATININE 0.97 mg/dL (0.55-1.02); MAGNESIUM 1.1 mg/dL (1.7-2.9); SODIUM 138 mmol/L (136-145); TOTAL PROTEIN 5.6 g/dL (6.4-8.2); eGFR NON BLACK RACES > 60 (>60)
[2019-03-04 07:17] LABS: CHLORIDE 101 mmol/L (98-107); SODIUM 135 mmol/L (136-145)
[2019-03-04 07:18] LABS: ALANINE AMINOTRANSFERASE 16 Units/L (12-78); ALBUMIN 2.1 g/dL (3.4-5.0); ALKALINE PHOSPHATASE 99 Units/L (46-116); ASPARTATE AMINO TRANSFERASE 27 Units/L (15-37); BLOOD UREA NITROGEN 11 mg/dL (7-18); CARBON DIOXIDE 26.5 mmol/L (21-32); COR CA(FOR HYPOALB) 10.5 mg/dL (8.5-10.1); COR NA(FOR HYPERGLY) 137 mmol/L (136-145); CREATININE 0.88 mg/dL (0.55-1.02); TOTAL PROTEIN 6.1 g/dL (6.4-8.2); eGFR NON BLACK RACES > 60 (>60)
[2019-03-04 07:19] LABS: HEMATOCRIT 38.5 % (36.0-47.0); HEMOGLOBIN 13.2 g/dL (12.0-16.0); MEAN CORPUSCULAR HEMOGLOBIN 33.2 pg (27.0-34.0); MEAN CORPUSCULAR HGB CONC 34.4 g/dL (33.0-35.0); MEAN CORPUSCULAR VOLUME 96.8 fL (80.0-100.0); RED BLOOD COUNT 3.98 X10^6/uL (3.5-5.4); RED CELL DISTRIBUTION WIDTH 17.3 % (11.6-16.5); WHITE BLOOD COUNT 8.8 X10^3/uL (3.6-10.0)
[2019-03-04 07:20] LABS: BASOPHILS % (AUTO) 0.5 % (0.2-1.0); EOSINOPHILS # (AUTO) 0.1 x10^3/uL (0.0-0.2); EOSINOPHILS % (AUTO) 1.1 % (0.9-2.9); LYMPHOCYTES % (AUTO) 23.4 % (21.0-51.0); MEAN PLATELET VOLUME 10.3 fL (7.4-11.0); MONOCYTES # (AUTO) 0.8 x10^3/uL (0.3-0.8); NEUTROPHILS # (AUTO) 5.8 x10^3/uL (2.2-4.8); PLATELET COUNT 76 X10^3/uL (150.0-450.0)
[2019-03-04] MEDS ORDERED: ROCEPHIN VIAL 1 GRAM ONE (08:12)
[2019-03-04] MEDS ORDERED: ROCEPHIN VIAL 1 GRAM IVP SCH (09:00)
[2019-03-04] MEDS ORDERED: CHRONULAC PO SCH (09:00)
[2019-03-04] MEDS ORDERED: VSL#3 PO SCH (09:00)
[2019-03-10 11:24] LABS: C282Y NEGATIVE; H63D NEGATIVE; S65C NEGATIVE
== END 2019-03-04 14:50 | disposition home or self-care (01) | DRG 195 ==
LOC: ER 11:29 → ICU 11:29
PROVIDERS: ADMIT Internal Medicine; ATTEND Internal Medicine
DX: R94.31 Abnormal electrocardiogram [ECG] [EKG]; R82.2 Biliuria; I10 Essential (primary) hypertension; R40.4 Transient alteration of awareness; R42 Dizziness and giddiness; J44.9 Chronic obstructive pulmonary disease, unspecified; I48.91 Unspecified atrial fibrillation; K20.8 Other esophagitis; E03.8 Other specified hypothyroidism; K21.9 Gastro-esophageal reflux disease without esophagitis; E11.65 Type 2 diabetes mellitus with hyperglycemia; K74.69 Other cirrhosis of liver; R53.1 Weakness; K29.00 Acute gastritis without bleeding; J18.8 Other pneumonia, unspecified organism; K59.09 Other constipation; K52.89 Other specified noninfective gastroenteritis and colitis
CPT/HCPCS: 36415; 51702; 70450; 71010; 71045; 74000; 74018; 74022; 74177; 80053; 80074; 80307; 81001; 81256; 82103; 82105; 82140; 82248; 82378; 82390; 82525; 82550; 82553; 82728; 83516; 83540; 83605; 83735; 83880; 84132; 84466; 84484; 85025; 85610; 85730; 86038; 86140; 86256; 86308; 87040; 92526; 92610; 93005; 94640; 94669; 96365; 96374; 97110; 97112; 97116; 97162; 97166; 97530; 97535; 99100; 99284; A4222; G0378; G0434; J0696; J0713; J1815; J2250; J2405; J2704; J3475; J3490; J7030; J7040; J7050; J7613; J7620; J7626

== ENCOUNTER 2019-03-26 13:57 | Observation (INO) ==
[2019-03-26 14:06] VITALS: BMI 30.1
--- NOTE | 2019-03-26 14:27 | DR.EXTPAIN ---
HPI - Time seen Time seen: 14:20 - PCP Primary Care Physician: Bobo - HPI Comment HPI Comment: 68 y/o with recurrent tias and cirrhosis brought in by family who noted confusion, slurred speech and facial drooping this morning and brought her in; she is somnolent but awakens easily to say she feels alright "but ask them"; denies cp, sob, abd pain, n/v/d, dysuria, weakness, swelling or headaches; family says she's off balance as well; she was given script for bloodwork to be done yesterday but it was not. - Complaint/Symptoms Chief Complaint:: " face swollen and numbness for three days now, feeling weak also" Self Treatment fo Chief Complaint: " pt fell a week and 1/2 ago and broke her left sholder,she was also in the hospital two weeks ago. - Source History Provided: Patient, Family Member - Mode of arrival Mode of Arrival: Wheelchair - Timing Onset of Chief Complaint: 03/23/19 PMH - PMH Past Medical History: Yes Past Medical History: Hypertension, Diabetes, Hypothyroidism, COPD Past Medical History Comment: cirrhosis Past Surgical History: Yes Surgical History: Hysterectomy - Family History History of Family Medical Conditions: Yes Family Medical History: Hypertension - Social History Does patient currently use any type of tobacco product: No Have you used tobacco products in the last 12 months: No Type of Tobacco Use: None Does any household member use tobacco: No Do you use any recreational Drugs:: No Lives Where: Home - infectious screening In the last 2 months have you had wt loss of >10#?: NO Have you had fever, night sweats or hemotysis?: No Have you traveled outside the country in the last 6 months?: No Isolation: Standard ROS - Review of Systems Constitutional: No Symptoms Reported, Malaise Eyes: No Symptoms Reported ENTM: No Symptoms Reported Respiratoy: No Symptoms Reported Cardiovascular: No Symptoms Reported Neurological: See HPI Musculoskeletal: No Symptoms Reported Integumentary: No Symptoms Reported Hematologic/Lymphatic: No Symptoms Reported Endocrine: No Symptoms Reported Psychiatric: See HPI PE - General Limitations: No Limitations General Appearance: Alert (awakens easily and makes good eye contact), In No Apparent Distress - Head Head Exam: Normal Inspection, Atraumatic, Normocephalic - Eyes Eye exam: Normal Appearance, PERRL, EOMI - ENT ENT Exam: Normal Exam - Respiratory Respiratory Exam: Bilateral Clear to Auscultation - Cardiovascular Cardiovascular Exam: Regular Rate, Normal Rhythm - Abdominal Exam Abdominal Exam: Normal Inspection, Normal Bowel Sounds, Soft - Extremities Extremities Exam: Normal Inspection - Upper Extremities Arm Exam: Other (lt arm in sling) - Neurological Neurological Exam: Alert, Oriented X3, CN II-XII Intact - Psychiatric Psychiatric Exam: Normal Affect, Normal Mood - Skin Skin Exam: Warm, Dry, Intact - Vital Signs Vitals: Temperature 98.1 F Pulse Rate [Right Brachial] 80 Pulse Rate 70 Respiratory Rate 18 Blood Pressure [Left Arm] 134/63 Blood Pressure 138/64 O2 Sat by Pulse Oximetry 98 Course - Reevaluation 1st: Worsened (remains somonolent with sporadic, slurred speech) - Consultation Called: 16:39 Call Returned: 16:40 Consultation Comments: d/w Dr Broussard who is agreeable to 23 obs w/hydration ROR - Labs Reviewed Result Diagrams: 03/26/19 14:35 03/26/19 14:35 - Labs Reviewed Laboratory: WBC 7.6 X10^3/uL (3.6-10.0) 03/26/19 14:35 RBC 3.67 X10^6/uL (3.5-5.4) 03/26/19 14:35 Hgb 12.3 g/dL (12.0-16.0) 03/26/19 14:35 Hct 36.2 % (36.0-47.0) 03/26/19 14:35 MCV 98.8 fL (80.0-100.0) 03/26/19 14:35 MCH 33.5 pg (27.0-34.0) 03/26/19 14:35 MCHC 33.9 g/dL (33.0-35.0) 03/26/19 14:35 RDW 16.1 % (11.6-16.5) 03/26/19 14:35 Plt Count 114 X10^3/uL (150.0-450.0) L 03/26/19 14:35 MPV 10.1 fL (7.4-11.0) 03/26/19 14:35 Neut % (Auto) 68.1 % (42.0-75.0) 03/26/19 14:35 Lymph % (Auto) 21.7 % (21.0-51.0) 03/26/19 14:35 [place] % (Auto) 9.0 % (0.0-13.0) 03/26/19 14:35 Eos % (Auto) 0.5 % (0.9-2.9) L 03/26/19 14:35 Baso % (Auto) 0.7 % (0.2-1.0) 03/26/19 14:35 Neut # (Auto) 5.1 x10^3/uL (2.2-4.8) H 03/26/19 14:35 Lymph # (Auto) 1.6 X10^3/uL (1.3-2.9) 03/26/19 14:35 [place] # (Auto) 0.7 x10^3/uL (0.3-0.8) 03/26/19 14:35 Eos # (Auto) 0.0 x10^3/uL (0.0-0.2) 03/26/19 14:35 Baso # (Auto) 0.1 X10^3/uL (0.0-0.1) 03/26/19 14:35 Absolute Nucleated RBC 0.0 /100WBC 03/26/19 14:35 Sodium 140 mmol/L (136-145) 03/26/19 14:35 Corrected Sodium 145 mmol/L (136-145) 03/26/19 14:35 Potassium 3.6 mmol/L (3.5-5.1) 03/26/19 14:35 Chloride 103 mmol/L (98-107) 03/26/19 14:35 Carbon Dioxide 29.5 mmol/L (21-32) 03/26/19 14:35 BUN 6 mg/dL (7-18) L 03/26/19 14:35 Creatinine 1.18 mg/dL (0.55-1.02) H 03/26/19 14:35 Est GFR (MDRD) Af Amer 58 (>60) L 03/26/19 14:35 Est GFR (MDRD) Non-Af 48 (>60) L 03/26/19 14:35 Glucose 321 mg/dL (65-99) H 03/26/19 14:35 Calcium 8.0 mg/dL (8.5-10.1) L 03/26/19 14:35 Corrected Calcium 9.5 mg/dL (8.5-10.1) 03/26/19 14:35 Total Bilirubin 1.10 mg/dL (0.2-1.0) H 03/26/19 14:35 AST 26 Units/L (15-37) 03/26/19 14:35 ALT 21 Units/L (12-78) 03/26/19 14:35 Alkaline Phosphatase 171 Units/L (46-116) H 03/26/19 14:35 Ammonia 34 umol/L (11-32) H 03/26/19 14:35 Total Protein 6.0 g/dL (6.4-8.2) L 03/26/19 14:35 Albumin 2.1 g/dL (3.4-5.0) L 03/26/19 14:35 Globulin 3.9 g/dL (2.5-4.5) 03/26/19 14:35 Albumin/Globulin Ratio 0.5 Ratio (1.1-2.1) L 03/26/19 14:35 Specimen Type Clean catch urine 03/26/19 16:06 Urine Color Yellow (YELLOW) 03/26/19 16:06 Urine Appearance Clear (CLEAR) 03/26/19 16:06 Urine pH 7.0 (5.0 - 8.0) 03/26/19 16:06 Ur Specific [place] 1.015 (1.000-1.030) 03/26/19 16:06 Urine Protein Negative (NEGATIVE) 03/26/19 16:06 Urine Glucose (UA) 3+ (NEGATIVE) 03/26/19 16:06 Urine Ketones Negative (NEGATIVE) 03/26/19 16:06 Urine Occult Blood Negative (NEGATIVE) 03/26/19 16:06 Urine Nitrite Negative (NEGATIVE) 03/26/19 16:06 Urine Bilirubin Negative (NEGATIVE) 03/26/19 16:06 Urine Urobilinogen Normal (NORMAL) 03/26/19 16:06 Ur Leukocyte Esterase Negative (NEGATIVE) 03/26/19 16:06 Opioid - Opioid Risk Tool Age ([place]bal[place] box if 16-45): No Total: 0 Total Score Risk Category: Low Risk - Diagnosis Discharge Problem: Altered mental status Qualifiers: Altered mental status type: somnolence Qualified Code(s): R40.0 - Somnolence - Discharge Plan Disposition: ADMITTED INPATIENT Condition: Stable - Follow ups/Referrals Follow ups/Referrals: GARRISON CHRISTOPHER [Primary Care Provider] - 3 days - Instructions
[2019-03-26 14:44] LABS: BASOPHILS # (AUTO) 0.1 X10^3/uL (0.0-0.1); BASOPHILS % (AUTO) 0.7 % (0.2-1.0); EOSINOPHILS % (AUTO) 0.5 % (0.9-2.9); HEMATOCRIT 36.2 % (36.0-47.0); HEMOGLOBIN 12.3 g/dL (12.0-16.0); LYMPHOCYTES # (AUTO) 1.6 X10^3/uL (1.3-2.9); LYMPHOCYTES % (AUTO) 21.7 % (21.0-51.0); MEAN CORPUSCULAR HEMOGLOBIN 33.5 pg (27.0-34.0); MEAN CORPUSCULAR HGB CONC 33.9 g/dL (33.0-35.0); MEAN CORPUSCULAR VOLUME 98.8 fL (80.0-100.0); MEAN PLATELET VOLUME 10.1 fL (7.4-11.0); MONOCYTES # (AUTO) 0.7 x10^3/uL (0.3-0.8); NEUTROPHILS # (AUTO) 5.1 x10^3/uL (2.2-4.8); NEUTROPHILS % (AUTO) 68.1 % (42.0-75.0); PLATELET COUNT 114 X10^3/uL (150.0-450.0); RED BLOOD COUNT 3.67 X10^6/uL (3.5-5.4); RED CELL DISTRIBUTION WIDTH 16.1 % (11.6-16.5); WHITE BLOOD COUNT 7.6 X10^3/uL (3.6-10.0)
[2019-03-26 14:56] LABS: ALBUMIN 2.1 g/dL (3.4-5.0); CARBON DIOXIDE 29.5 mmol/L (21-32); COR CA(FOR HYPOALB) 9.5 mg/dL (8.5-10.1); CREATININE 1.18 mg/dL (0.55-1.02)
--- NOTE | 2019-03-26 15:13 | CT ---
HISTORY: Face swelling and numbness, weakness Study: CT brain without contrast Comparison: None available Technique: Multiple axial images of the brain were obtained from the skull base to the vertex without administration of IV contrast.Dose reduction techniques including Automated Exposure Control (AEC) and adjustment of mA and kV were utlized. Findings: No acute intraparenchymal hemorrhage or mass can be identified. No extra-axial fluid collections are seen. No alteration in the attenuation of the brain parenchyma can be identified to suggest acute or subacute ischemic change. Mild periventricular small vessel ischemic changes are noted. The ventricular system is symmetric and nondilated. There is a right mastoid air cell effusion noted. IMPRESSION: 1. No acute intracranial process can be identified. 2. Right mastoid air cell effusion which may represent mastoiditis. Reported By:
[2019-03-26 16:13] LABS: BILIRUBIN,URINE NEGATIVE (NEGATIVE); BLOOD/HEMOGLOBIN,URINE NEGATIVE (NEGATIVE); GLUCOSE, URINE 3+ (NEGATIVE); KETONES,URINE NEGATIVE (NEGATIVE); LEUKOCYTE ESTERASE ,URINE NEGATIVE (NEGATIVE); NITRITES,URINE NEGATIVE (NEGATIVE); PROTEIN,URINE NEGATIVE (NEGATIVE); UROBILINOGEN,URINE NORMAL (NORMAL)
[2019-03-26 16:15] LABS: APPEARANCE,URINE CLEAR (CLEAR); COLOR,URINE YELLOW (YELLOW)
[2019-03-26] MEDS ORDERED: HumuLIN R SUBCUT PRN (20:50)
[2019-03-26] MEDS: NS 1000 ML 1,000 ML IV SCH ×2 (20:55→21:29)
[2019-03-26] MEDS ORDERED: NORCO 5/325 MG TAB PO PRN (23:14)
[2019-03-27] MEDS: NS 1000 ML 1,000 ML IV SCH ×3 (03:28→12:06)
[2019-03-27 05:32] LABS: BASOPHILS % (AUTO) 0.6 % (0.2-1.0); EOSINOPHILS % (AUTO) 0.7 % (0.9-2.9); HEMATOCRIT 33.1 % (36.0-47.0); HEMOGLOBIN 11.3 g/dL (12.0-16.0); LYMPHOCYTES # (AUTO) 1.7 X10^3/uL (1.3-2.9); LYMPHOCYTES % (AUTO) 26.6 % (21.0-51.0); MEAN CORPUSCULAR HEMOGLOBIN 33.7 pg (27.0-34.0); MEAN CORPUSCULAR HGB CONC 34.1 g/dL (33.0-35.0); MEAN CORPUSCULAR VOLUME 98.6 fL (80.0-100.0); MEAN PLATELET VOLUME 9.8 fL (7.4-11.0); MONOCYTES # (AUTO) 0.7 x10^3/uL (0.3-0.8); MONOCYTES % (AUTO) 10.2 % (0.0-13.0); NEUTROPHILS % (AUTO) 61.9 % (42.0-75.0); PLATELET COUNT 89 X10^3/uL (150.0-450.0); RED BLOOD COUNT 3.35 X10^6/uL (3.5-5.4); RED CELL DISTRIBUTION WIDTH 16.1 % (11.6-16.5); WHITE BLOOD COUNT 6.4 X10^3/uL (3.6-10.0)
[2019-03-27 05:53] LABS: ALANINE AMINOTRANSFERASE 17 Units/L (12-78); ALBUMIN 1.8 g/dL (3.4-5.0); ALKALINE PHOSPHATASE 154 Units/L (46-116); ASPARTATE AMINO TRANSFERASE 21 Units/L (15-37); BLOOD UREA NITROGEN 8 mg/dL (7-18); CALCIUM 7.7 mg/dL (8.5-10.1); CARBON DIOXIDE 28.6 mmol/L (21-32); CHLORIDE 106 mmol/L (98-107); COR CA(FOR HYPOALB) 9.5 mg/dL (8.5-10.1); COR NA(FOR HYPERGLY) 142 mmol/L (136-145); SODIUM 140 mmol/L (136-145); TOTAL PROTEIN 5.3 g/dL (6.4-8.2); eGFR NON BLACK RACES > 60 (>60)
[2019-03-27] MEDS ORDERED: K-RIDER 10 MEQ/NS 100 ML 10 MEQ/100 ML BAG IV PRN (06:18)
[2019-03-27] MEDS ORDERED: KLOR-CON PO PRN (06:18)
[2019-03-27] MEDS ORDERED: MICRO K EXTEN CAP 10 MEQ PO PRN (06:18)
[2019-03-27] MEDS ORDERED: POTASSIUM CHL 60 MEQ/NS 0.45% 500 ML IV PRN (06:18)
[2019-03-27] MEDS ORDERED: K-DUR TAB 20 MEQ PO PRN (06:18)
[2019-03-27] MEDS ORDERED: POTASSIUM CHL 40 MEQ/NS 0.45% 500 ML IV PRN (06:18)
[2019-03-27] MEDS ORDERED: POTASSIUM CHLORIDE LIQ 20 MEQ UDC PO PRN (06:18)
[2019-03-27 12:05] VITALS: BP 129/58
[2019-03-27] MEDS ORDERED: SNACK - Diabetic Appropriate PO SCH (20:00)
== END 2019-03-27 10:40 | disposition home or self-care (01) ==
LOC: ER 13:57 → MED/SURG 13:57
PROVIDERS: ADMIT Internal Medicine; ATTEND Internal Medicine
DX: I10 Essential (primary) hypertension; R47.81 Slurred speech; E11.65 Type 2 diabetes mellitus with hyperglycemia; Z91.81 History of falling; R29.810 Facial weakness; R41.82 Altered mental status, unspecified; E03.8 Other specified hypothyroidism; J44.9 Chronic obstructive pulmonary disease, unspecified
CPT/HCPCS: 36415; 70450; 80053; 81003; 82140; 83735; 85025; 96367; 99284; A4222; G0378; J1815; J7030

== ENCOUNTER 2019-04-29 06:49 | Inpatient (IN) ==
[2019-04-29] MEDS ORDERED: ZOFRAN INJ 4 MG VIAL ONE (06:50)
[2019-04-29] MEDS ORDERED: ZOFRAN INJ 4 MG VIAL IVP ONE (07:07)
--- NOTE | 2019-04-29 07:22 | DR.GENAD ---
HPI - PCP Primary Care Physician: SAUL - HPI Comment HPI Comment: 68 y/o pt with cirrhosis and recurrent episodes of high ammonia levels now unresponsive and gazing to the left for the past day; gagging per ems as below. - Complaint/Symptoms Chief Complaint:: EMS STATES THEY WERE CALLED OUT TO PT BEING UNRESPONSIVE POSSIBEL STROKE. PT IS NOTED TO BE ONLY RESPONSIVE TO PAINFUL STIMULI. PT HAS A HISTORY OF HIGH AMMONIA LEVELS IN THE RECENT PAST AND WAS ADMITTED TO THIS FACILITY. UPON ARRIVAL PT WAS NOTED TO BE GAGGING TRYNG TO VOMIT. NO VOMIT NOTED. PT PUPILS NOTED TO BE NON REACTIVE - Source History Provided: EMS - Mode of Arrival Mode of Arrival: EMS - Timing Onset of Chief Complaint: 04/29/19 PMH - PMH Past Medical History: Yes Past Medical History: Hypertension, Diabetes, Hypothyroidism, COPD Past Surgical History: Yes Surgical History: Hysterectomy, Other - Family History History of Family Medical Conditions: Yes Family Medical History: Hypertension - Social History Does any household member use tobacco: No Alcohol Use: None Do you use any recreational Drugs:: No Lives With: Family Lives Where: Home - infectious screening In the last 2 months have you had wt loss of >10#?: NO Have you had fever, night sweats or hemotysis?: No Have you traveled outside the country in the last 6 months?: No Isolation: Standard ROS - Review of Systems Unable to Obtain Due To: Altered mental status PE - General Limitations: Altered Mental Status General Appearance: Obtunded - Head Head Exam: Other (turned to left, gazing to left) - Eyes Eye exam: Other (pupils 2mm and unresponsive) - Neck Neck Exam: Normal Inspection, Full ROM - Chest Chest Inspection: Normal Inspection, Symmetric Chest Wall Rise - Respiratory Respiratory Exam: Normal Lung Sounds Bilat Respiratory Exam: Bilateral Clear to Auscultation - Cardiovascular Cardiovascular Exam: Regular Rate, Normal Rhythm - Abdominal Exam Abdominal Exam: Normal Bowel Sounds, Soft - Extremities Extremities Exam: Normal Inspection - Neurologic Neurological Exam: Other (stuporous, snoring) - Skin Skin Exam: Warm, Dry - Vital Signs Vitals: Temperature 98.8 F Pulse Rate 94 Respiratory Rate 12 Blood Pressure [Right Arm] 129/58 Blood Pressure [Left Arm] 134/63 Blood Pressure 148/68 O2 Sat by Pulse Oximetry 98 ROR - Labs Reviewed Result Diagrams: 04/29/19 07:27 04/29/19 07:27 - Labs Reviewed Laboratory: WBC 11.5 X10^3/uL (3.6-10.0) H 04/29/19 07:27 RBC 4.67 X10^6/uL (3.5-5.4) 04/29/19 07:27 Hgb 15.1 g/dL (12.0-16.0) 04/29/19 07:27 Hct 44.9 % (36.0-47.0) 04/29/19 07:27 MCV 96.1 fL (80.0-100.0) 04/29/19 07:27 MCH 32.3 pg (27.0-34.0) 04/29/19 07: MCHC 33.6 g/dL (33.0-35.0) 04/29/19 07: RDW 15.6 % (11.6-16.5) 04/29/19 07:27 Plt Count 94 X10^3/uL (150.0-450.0) L 04/29/19 07: MPV 10.6 fL (7.4-11.0) 04/29/19 07:27 Neut % (Auto) 64.0 % (42.0-75.0) 04/29/19 07: Lymph % (Auto) 25.9 % (21.0-51.0) 04/29/19 07:27 [place] % (Auto) 8.8 % (0.0-13.0) 04/29/19 07:27 Eos % (Auto) 0.2 % (0.9-2.9) L 04/29/19 07:27 Baso % (Auto) 1.1 % (0.2-1.0) H 04/29/19 07:27 Neut # (Auto) 7.4 x10^3/uL (2.2-4.8) H 04/29/19 07:27 Lymph # (Auto) 3.0 X10^3/uL (1.3-2.9) H 04/29/19 07:27 [place] # (Auto) 1.0 x10^3/uL (0.3-0.8) H 04/29/19 07:27 Eos # (Auto) 0.0 x10^3/uL (0.0-0.2) 04/29/19 07:27 Baso # (Auto) 0.1 X10^3/uL (0.0-0.1) 04/29/19 07:27 Absolute Nucleated RBC 0.1 /100WBC 04/29/19 07:27 Sodium 141 mmol/L (136-145) 04/29/19 07:27 Corrected Sodium 145 mmol/L (136-145) 04/29/19 07:27 Potassium 2.7 mmol/L (3.5-5.1) L* 04/29/19 07:27 Chloride 105 mmol/L (98-107) 04/29/19 07:27 Carbon Dioxide 22.7 mmol/L (21-32) 04/29/19 07:27 BUN 15 mg/dL (7-18) 04/29/19 07:27 Creatinine 1.61 mg/dL (0.55-1.02) H 04/29/19 07:27 Est GFR (MDRD) Af Amer 41 (>60) L 04/29/19 07:27 Est GFR (MDRD) Non-Af 34 (>60) L 04/29/19 07:27 Glucose 285 mg/dL (65-99) H 04/29/19 07:27 Calcium 9.1 mg/dL (8.5-10.1) 04/29/19 07:27 Corrected Calcium 10.1 mg/dL (8.5-10.1) 04/29/19 07:27 Total Bilirubin 1.30 mg/dL (0.2-1.0) H 04/29/19 07:27 AST 21 Units/L (15-37) 04/29/19 07:27 ALT 20 Units/L (12-78) 04/29/19 07:27 Alkaline Phosphatase 204 Units/L (46-116) H 04/29/19 07:27 Ammonia 160 umol/L (11-32) H 04/29/19 07:27 Total Protein 7.3 g/dL (6.4-8.2) 04/29/19 07:27 Albumin 2.7 g/dL (3.4-5.0) L 04/29/19 07:27 Globulin 4.6 g/dL (2.5-4.5) H 04/29/19 07:27 Albumin/Globulin Ratio 0.6 Ratio (1.1-2.1) L 04/29/19 07:27 Specimen Type Catherized urine 04/29/19 07:17 Urine Color Yellow (YELLOW) 04/29/19 07:17 Urine Appearance Clear (CLEAR) 04/29/19 07:17 Urine pH 6.0 (5.0 - 8.0) 04/29/19 07:17 Ur Specific Wolsey 1.015 (1.000-1.030) 04/29/19 07:17 Urine Protein 2+ (NEGATIVE) 04/29/19 07:17 Urine Glucose (UA) 4+ (NEGATIVE) 04/29/19 07:17 Urine Ketones Negative (NEGATIVE) 04/29/19 07:17 Urine Occult Blood 1+ (NEGATIVE) 04/29/19 07:17 Urine Nitrite Negative (NEGATIVE) 04/29/19 07:17 Urine Bilirubin Negative (NEGATIVE) 04/29/19 07:17 Urine Urobilinogen 1+ (NORMAL) 04/29/19 07:17 Ur Leukocyte Esterase 1+ (NEGATIVE) 04/29/19 07:17 Urine RBC 0-2 /HPF (0-3) 04/29/19 07:17 Urine WBC 3-5 /HPF (0-5) 04/29/19 07:17 Ur Squamous Epith Cells Rare /HPF (NEGATIVE) 04/29/19 07:17 Ur Renal Epithelial Cell Few /HPF (NEGATIVE) 04/29/19 07:17 Amorphous Sediment 1+ /HPF (NEGATIVE) 04/29/19 07:17 Urine Bacteria Trace /HPF (NEGATIVE) 04/29/19 07:17 Ur Culture Indicated? Yes/culture set up 04/29/19 07:17 Urine Opiates Screen Negative (NEG=<300) 04/29/19 07:17 Urine Methadone Screen Negative (NEG=<300) 04/29/19 07:17 Ur Barbiturates Screen Negative (NEG=<200) 04/29/19 07:17 Ur Phencyclidine Scrn Negative (NEG=<25) 04/29/19 07:17 Ur Amphetamines Screen Negative (NEG=<1000) 04/29/19 07:17 U Benzodiazepines Scrn Negative (NEG=<200) 04/29/19 07:17 Urine Cocaine Screen Negative (NEG=<300) 04/29/19 07:17 U Marijuana (THC) Screen Negative (NEG=<50) 04/29/19 07:17 Opioid - Opioid Risk Tool Age ([place] box if 16-45): No History of Preadolescent Sexual Abuse: No Total: 0 Total Score Risk Category: Low Risk - Diagnosis Discharge Problem: Hypokalemia, Hyperammonemia Cirrhosis of liver Qualifiers: Hepatic cirrhosis type: other cirrhosis Qualified Code(s): K74.69 - Other cirrhosis of liver Altered mental status Qualifiers: Altered mental status type: stupor Qualified Code(s): R40.1 - Stupor - Follow ups/Referrals Follow ups/Referrals: GARRISON CHRISTOPHER [Primary Care Provider] - 3 days - Instructions
[2019-04-29 07:27] LABS: BILIRUBIN,URINE NEGATIVE (NEGATIVE); BLOOD/HEMOGLOBIN,URINE 1+ (NEGATIVE); GLUCOSE, URINE 4+ (NEGATIVE); KETONES,URINE NEGATIVE (NEGATIVE); LEUKOCYTE ESTERASE ,URINE 1+ (NEGATIVE); NITRITES,URINE NEGATIVE (NEGATIVE); PROTEIN,URINE 2+ (NEGATIVE); UROBILINOGEN,URINE 1+ (NORMAL)
[2019-04-29 07:29] LABS: APPEARANCE,URINE CLEAR (CLEAR); COLOR,URINE YELLOW (YELLOW)
[2019-04-29 07:33] LABS: AMORPHOUS SEDIMENT,UR 1+ /HPF (NEGATIVE); BACTERIA,URINE TRACE /HPF (NEGATIVE); RBC,URINE 0-2 /HPF (0-3); RENAL EPITHELIAL CELLS,URINE FEW /HPF (NEGATIVE); SQUAMOUS EPITHELIAL CELL,UR RARE /HPF (NEGATIVE)
[2019-04-29 07:37] LABS: BASOPHILS # (AUTO) 0.1 X10^3/uL (0.0-0.1); BASOPHILS % (AUTO) 1.1 % (0.2-1.0); EOSINOPHILS % (AUTO) 0.2 % (0.9-2.9); HEMATOCRIT 44.9 % (36.0-47.0); HEMOGLOBIN 15.1 g/dL (12.0-16.0); LYMPHOCYTES % (AUTO) 25.9 % (21.0-51.0); MEAN CORPUSCULAR HEMOGLOBIN 32.3 pg (27.0-34.0); MEAN CORPUSCULAR HGB CONC 33.6 g/dL (33.0-35.0); MEAN CORPUSCULAR VOLUME 96.1 fL (80.0-100.0); MEAN PLATELET VOLUME 10.6 fL (7.4-11.0); MONOCYTES % (AUTO) 8.8 % (0.0-13.0); NEUTROPHILS # (AUTO) 7.4 x10^3/uL (2.2-4.8); PLATELET COUNT 94 X10^3/uL (150.0-450.0); RED BLOOD COUNT 4.67 X10^6/uL (3.5-5.4); RED CELL DISTRIBUTION WIDTH 15.6 % (11.6-16.5); WHITE BLOOD COUNT 11.5 X10^3/uL (3.6-10.0)
[2019-04-29 07:42] LABS: CALCIUM 9.1 mg/dL (8.5-10.1); CARBON DIOXIDE 22.7 mmol/L (21-32); CREATININE 1.61 mg/dL (0.55-1.02)
[2019-04-29 07:47] LABS: ALBUMIN 2.7 g/dL (3.4-5.0); COR CA(FOR HYPOALB) 10.1 mg/dL (8.5-10.1); TOTAL PROTEIN 7.3 g/dL (6.4-8.2)
--- NOTE | 2019-04-29 07:49 | CT ---
History: Altered mental status Study: CT brain without contrast. Sagittal and coronal reformations were provided. Comparison: March 26, 2019 Findings: The ventricles and sulci are normal in size and configuration. There is no hemorrhage or mass or edema or subdural collection of fluid. The calvarium is intact. The paranasal sinuses are clear. The right mastoid sinus is opacified as before. There is no bone destruction evident. Impression: 1. No evidence for acute or active intracranial disease 2. Unchanged opacified right mastoid sinus Reported By:
[2019-04-29] MEDS ORDERED: KAYEXALATE SUSP PO ONE (07:57)
[2019-04-29] MEDS ORDERED: K-RIDER 10 MEQ/NS 100 ML 10 MEQ/100 ML BAG IV SCH (08:00)
[2019-04-29 08:09] LABS: CKMB % 1.8 % (<4); CREATINE KINASE MB 1.3 ng/mL (0-4.0); TROPONIN I 0.04 ng/mL (0-1.5)
[2019-04-29] MEDS ORDERED: K-LYTE EFFERVESCENT PO ONE (08:24)
[2019-04-29] MEDS ORDERED: K-LYTE EFFERVESCENT ONE (08:27)
--- NOTE | 2019-04-29 09:08 | RAD ---
History: Nasogastric tube placement Study: Portable upper abdomen and chest Findings: There is a nasogastric tube in position with the tip in the mid body of the stomach. The visualized lungs are clear. Impression: Satisfactory nasogastric tube placement and position Reported By:
[2019-04-29] MEDS: CHRONULAC PO SCH ×4 (09:13→21:15)
[2019-04-29] MEDS: NS 1000 ML 1,000 ML IV SCH ×2 (09:14→23:11)
--- NOTE | 2019-04-29 12:19 | DR.GENAD ---
HPI Time Seen Time Seen by Provider: 04/29/19 07:08 PCP Primary Care Physician: SAUL Complaint/Symptoms Chief Complaint:: EMS STATES THEY WERE CALLED OUT TO PT BEING UNRESPONSIVE POSSIBEL STROKE. PT IS NOTED TO BE ONLY RESPONSIVE TO PAINFUL STIMULI. PT HAS A HISTORY OF HIGH AMMONIA LEVELS IN THE RECENT PAST AND WAS ADMITTED TO THIS FACILITY. UPON ARRIVAL PT WAS NOTED TO BE GAGGING TRYNG TO VOMIT. NO VOMIT NOTED. PT PUPILS NOTED TO BE NON REACTIVE Source History Provided: EMS Mode of Arrival Mode of Arrival: EMS Timing Onset of Chief Complaint: 04/29/19 PMH PMH Past Medical History: Yes Past Medical History: COPD, Diabetes, Hypertension and Hypothyroidism Past Surgical History: Yes Surgical History: Hysterectomy and Other Family History History of Family Medical Conditions: Yes Family Medical History: Hypertension Social History Does any household member use tobacco: No Alcohol Use: None Do you use any recreational Drugs:: No Lives With: Family Lives Where: Home infectious screening In the last 2 months have you had wt loss of >10#?: NO Have you had fever, night sweats or hemotysis?: No Have you traveled outside the country in the last 6 months?: No Isolation: Standard PE Vital Signs Vitals: Temperature 98.8 F Pulse Rate 90 Respiratory Rate 26 Blood Pressure [Right Arm] 129/58 Blood Pressure [Left Arm] 134/63 Blood Pressure 140/66 O2 Sat by Pulse Oximetry 97 ROR Labs Reviewed Result Diagrams: 04/29/19 07:27 04/29/19 11:21 Laboratory: WBC 11.5 X10^3/uL (3.6-10.0) H 04/29/19 07:27 RBC 4.67 X10^6/uL (3.5-5.4) 04/29/19 07:27 Hgb 15.1 g/dL (12.0-16.0) 04/29/19 07:27 Hct 44.9 % (36.0-47.0) 04/29/19 07:27 MCV 96.1 fL (80.0-100.0) 04/29/19 07:27 MCH 32.3 pg (27.0-34.0) 04/29/19 07:27 MCHC 33.6 g/dL (33.0-35.0) 04/29/19 07:27 RDW 15.6 % (11.6-16.5) 04/29/19 07:27 Plt Count 94 X10^3/uL (150.0-450.0) L 04/29/19 07:27 MPV 10.6 fL (7.4-11.0) 04/29/19 07:27 Neut % (Auto) 64.0 % (42.0-75.0) 04/29/19 07:27 Lymph % (Auto) 25.9 % (21.0-51.0) 04/29/19 07:27 [place] % (Auto) 8.8 % (0.0-13.0) 04/29/19 07:27 Eos % (Auto) 0.2 % (0.9-2.9) L 04/29/19 07:27 Baso % (Auto) 1.1 % (0.2-1.0) H 04/29/19 07:27 Neut # (Auto) 7.4 x10^3/uL (2.2-4.8) H 04/29/19 07:27 Lymph # (Auto) 3.0 X10^3/uL (1.3-2.9) H 04/29/19 07:27 [place] # (Auto) 1.0 x10^3/uL (0.3-0.8) H 04/29/19 07:27 Eos # (Auto) 0.0 x10^3/uL (0.0-0.2) 04/29/19 07:27 Baso # (Auto) 0.1 X10^3/uL (0.0-0.1) 04/29/19 07:27 Absolute Nucleated RBC 0.1 /100WBC 04/29/19 07:27 Sodium 141 mmol/L (136-145) 04/29/19 07:27 Corrected Sodium 145 mmol/L (136-145) 04/29/19 07:27 Potassium 3.8 mmol/L (3.5-5.1) 04/29/19 11:21 Chloride 105 mmol/L (98-107) 04/29/19 07:27 Carbon Dioxide 22.7 mmol/L (21-32) 04/29/19 07:27 BUN 15 mg/dL (7-18) 04/29/19 07:27 Creatinine 1.61 mg/dL (0.55-1.02) H 04/29/19 07:27 Est GFR (MDRD) Af Amer 41 (>60) L 04/29/19 07:27 Est GFR (MDRD) Non-Af 34 (>60) L 04/29/19 07:27 Glucose 285 mg/dL (65-99) H 04/29/19 07:27 Calcium 9.1 mg/dL (8.5-10.1) 04/29/19 07:27 Corrected Calcium 10.1 mg/dL (8.5-10.1) 04/29/19 07:27 Magnesium 1.7 mg/dL (1.7-2.9) 04/29/19 07:27 Total Bilirubin 1.30 mg/dL (0.2-1.0) H 04/29/19 07:27 AST 21 Units/L (15-37) 04/29/19 07:27 ALT 20 Units/L (12-78) 04/29/19 07:27 Alkaline Phosphatase 204 Units/L (46-116) H 04/29/19 07:27 Ammonia 160 umol/L (11-32) H 04/29/19 07:27 Creatine Kinase 71 Units/L (26-192) 04/29/19 07:27 CK-MB (CK-2) 1.3 ng/mL (0-4.0) 04/29/19 07:27 CK/CKMB % Calc 1.8 % (<4) 04/29/19 07:27 Troponin I 0.04 ng/mL (0-1.5) 04/29/19 07:27 Total Protein 7.3 g/dL (6.4-8.2) 04/29/19 07:27 Albumin 2.7 g/dL (3.4-5.0) L 04/29/19 07:27 Globulin 4.6 g/dL (2.5-4.5) H 04/29/19 07:27 Albumin/Globulin Ratio 0.6 Ratio (1.1-2.1) L 04/29/19 07:27 Specimen Type Catherized urine 04/29/19 07:17 Urine Color Yellow (YELLOW) 04/29/19 07:17 Urine Appearance Clear (CLEAR) 04/29/19 07:17 Urine pH 6.0 (5.0 - 8.0) 04/29/19 07:17 Ur Specific [place] 1.015 (1.000-1.030) 04/29/19 07:17 Urine Protein 2+ (NEGATIVE) 04/29/19 07:17 Urine Glucose (UA) 4+ (NEGATIVE) 04/29/19 07:17 Urine Ketones Negative (NEGATIVE) 04/29/19 07:17 Urine Occult Blood 1+ (NEGATIVE) 04/29/19 07:17 Urine Nitrite Negative (NEGATIVE) 04/29/19 07:17 Urine Bilirubin Negative (NEGATIVE) 04/29/19 07:17 Urine Urobilinogen 1+ (NORMAL) 04/29/19 07:17 Ur Leukocyte Esterase 1+ (NEGATIVE) 04/29/19 07:17 Urine RBC 0-2 /HPF (0-3) 04/29/19 07:17 Urine WBC 3-5 /HPF (0-5) 04/29/19 07:17 Ur Squamous Epith Cells Rare /HPF (NEGATIVE) 04/29/19 07:17 Ur Renal Epithelial Cell Few /HPF (NEGATIVE) 04/29/19 07:17 Amorphous Sediment 1+ /HPF (NEGATIVE) 04/29/19 07:17 Urine Bacteria Trace /HPF (NEGATIVE) 04/29/19 07:17 Ur Culture Indicated? Yes/culture set up 04/29/19 07:17 Urine Opiates Screen Negative (NEG=<300) 04/29/19 07:17 Urine Methadone Screen Negative (NEG=<300) 04/29/19 07:17 Ur Barbiturates Screen Negative (NEG=<200) 04/29/19 07:17 Ur Phencyclidine Scrn Negative (NEG=<25) 04/29/19 07:17 Ur Amphetamines Screen Negative (NEG=<1000) 04/29/19 07:17 U Benzodiazepines Scrn Negative (NEG=<200) 04/29/19 07:17 Urine Cocaine Screen Negative (NEG=<300) 04/29/19 07:17 U Marijuana (THC) Screen Negative (NEG=<50) 04/29/19 07:17 Opioid Opioid Risk Tool Family Hx of Substance Abuse: Illegal Drugs Age ([place] box if 16-45): No History of Preadolescent Sexual Abuse: No Total: 1 Total Score Risk Category: Low Risk Copyright: Mulugeta CARNEY predicting aberrant behaviors Diagnosis Discharge Problem: Hypokalemia, Hyperammonemia Cirrhosis of liver Qualifiers: Hepatic cirrhosis type: other cirrhosis Qualified Code(s): K74.69 - Other cirrhosis of liver Altered mental status Qualifiers: Altered mental status type: stupor Qualified Code(s): R40.1 - Stupor Instructions Forms: Excuse From Work
[2019-04-29 14:26] VITALS: BMI 26.6
[2019-04-29 15:52] LABS: CKMB % 1.7 % (<4); CREATINE KINASE MB 1.3 ng/mL (0-4.0); TROPONIN I 0.06 ng/mL (0-1.5)
[2019-04-29 21:42] LABS: CKMB % 1.5 % (<4); CREATINE KINASE MB 1.6 ng/mL (0-4.0); TROPONIN I 0.14 ng/mL (0-1.5)
[2019-04-30 05:40] LABS: BASOPHILS # (AUTO) 0.1 X10^3/uL (0.0-0.1); BASOPHILS % (AUTO) 0.7 % (0.2-1.0); EOSINOPHILS # (AUTO) 0.1 x10^3/uL (0.0-0.2); EOSINOPHILS % (AUTO) 0.6 % (0.9-2.9); HEMATOCRIT 44.6 % (36.0-47.0); HEMOGLOBIN 14.6 g/dL (12.0-16.0); LYMPHOCYTES # (AUTO) 2.5 X10^3/uL (1.3-2.9); LYMPHOCYTES % (AUTO) 20.3 % (21.0-51.0); MEAN CORPUSCULAR HEMOGLOBIN 31.7 pg (27.0-34.0); MEAN CORPUSCULAR HGB CONC 32.8 g/dL (33.0-35.0); MEAN CORPUSCULAR VOLUME 96.6 fL (80.0-100.0); MEAN PLATELET VOLUME 11.9 fL (7.4-11.0); MONOCYTES # (AUTO) 1.5 x10^3/uL (0.3-0.8); MONOCYTES % (AUTO) 12.5 % (0.0-13.0); NEUTROPHILS % (AUTO) 65.9 % (42.0-75.0); PLATELET COUNT 47 X10^3/uL (150.0-450.0); RED BLOOD COUNT 4.61 X10^6/uL (3.5-5.4); RED CELL DISTRIBUTION WIDTH 15.3 % (11.6-16.5); WHITE BLOOD COUNT 12.2 X10^3/uL (3.6-10.0)
[2019-04-30 05:54] LABS: PLATELET MORPHOLOGY COMMENT NORMAL (NORMAL)
[2019-04-30 05:55] LABS: ALBUMIN 2.3 g/dL (3.4-5.0); CALCIUM 8.5 mg/dL (8.5-10.1); CARBON DIOXIDE 24.9 mmol/L (21-32); COR CA(FOR HYPOALB) 9.9 mg/dL (8.5-10.1); CREATINE KINASE MB 1.5 ng/mL (0-4.0); CREATININE 1.18 mg/dL (0.55-1.02); MAGNESIUM 1.6 mg/dL (1.7-2.9); TOTAL PROTEIN 6.5 g/dL (6.4-8.2); TROPONIN I 0.22 ng/mL (0-1.5)
[2019-04-30] MEDS: CHRONULAC PO SCH ×4 (09:30→21:35)
[2019-04-30] MEDS ORDERED: KLOR-CON PO PRN (10:10)
[2019-04-30] MEDS ORDERED: POTASSIUM CHL 40 MEQ/NS 0.45% 500 ML IV PRN (10:10)
[2019-04-30] MEDS ORDERED: K-DUR TAB 20 MEQ PO PRN (10:10)
[2019-04-30] MEDS ORDERED: POTASSIUM CHL 60 MEQ/NS 0.45% 500 ML IV PRN (10:10)
[2019-04-30 10:43] LABS: CKMB % 1.1 % (<4); CREATINE KINASE MB 1.9 ng/mL (0-4.0); TROPONIN I 0.16 ng/mL (0-1.5)
[2019-04-30] MEDS: POTASSIUM CHLORIDE LIQ 20 MEQ UDC PO PRN (11:30)
[2019-04-30] MEDS: NS 1000 ML 1,000 ML IV SCH (13:40)
[2019-04-30] MEDS: MAGNESIUM SULFATE 1 GRAM/100 mL PREMIX 2 G/200 ML BAG IV SCH ×2 (13:56→14:59)
[2019-04-30] MEDS: HumuLIN R SUBCUT PRN (17:48)
[2019-04-30] MEDS: SNACK - Diabetic Appropriate PO SCH (19:08)
[2019-05-01] MEDS: NS 1000 ML 1,000 ML IV SCH ×3 (02:50→16:02)
[2019-05-01 04:08] LABS: BASOPHILS # (AUTO) 0.4 X10^3/uL (0.0-0.1); BASOPHILS % (AUTO) 3.4 % (0.2-1.0); EOSINOPHILS # (AUTO) 0.1 x10^3/uL (0.0-0.2); EOSINOPHILS % (AUTO) 0.8 % (0.9-2.9); HEMOGLOBIN 15.2 g/dL (12.0-16.0); LYMPHOCYTES % (AUTO) 9.6 % (21.0-51.0); MEAN CORPUSCULAR HEMOGLOBIN 32.6 pg (27.0-34.0); MEAN CORPUSCULAR HGB CONC 33.8 g/dL (33.0-35.0); MEAN CORPUSCULAR VOLUME 96.4 fL (80.0-100.0); MEAN PLATELET VOLUME 11.3 fL (7.4-11.0); MONOCYTES # (AUTO) 1.1 x10^3/uL (0.3-0.8); MONOCYTES % (AUTO) 10.3 % (0.0-13.0); NEUTROPHILS # (AUTO) 8.3 x10^3/uL (2.2-4.8); NEUTROPHILS % (AUTO) 75.9 % (42.0-75.0); PLATELET COUNT 63 X10^3/uL (150.0-450.0); RED BLOOD COUNT 4.67 X10^6/uL (3.5-5.4); RED CELL DISTRIBUTION WIDTH 15.6 % (11.6-16.5)
[2019-05-01 04:16] LABS: ALBUMIN 2.4 g/dL (3.4-5.0); CALCIUM 8.2 mg/dL (8.5-10.1); CARBON DIOXIDE 24.4 mmol/L (21-32); COR CA(FOR HYPOALB) 9.5 mg/dL (8.5-10.1); CREATININE 1.2 mg/dL (0.55-1.02); MAGNESIUM 1.8 mg/dL (1.7-2.9); TOTAL PROTEIN 6.7 g/dL (6.4-8.2)
[2019-05-01 04:31] LABS: PLATELET MORPHOLOGY COMMENT NORMAL (NORMAL)
[2019-05-01] MEDS: K-RIDER 10 MEQ/NS 100 ML 10 MEQ/100 ML BAG IV PRN ×4 (04:47→11:30)
[2019-05-01] MEDS: MAGNESIUM SULFATE 1 GRAM/100 mL PREMIX 1 GM/100 ML BAG IV PRN ×2 (07:35→08:40)
[2019-05-01] MEDS: CHRONULAC PO SCH ×2 (08:58→13:30)
[2019-05-01] MEDS: MIRALAX POWDER (1 DOSE 17 G) PO SCH ×2 (16:02→21:59)
[2019-05-01] MEDS: POTASSIUM CHLORIDE LIQ 20 MEQ UDC PO PRN (17:25)
[2019-05-01] MEDS: SNACK - Diabetic Appropriate PO SCH (19:54)
[2019-05-02 04:05] LABS: BASOPHILS # (AUTO) 0.1 X10^3/uL (0.0-0.1); EOSINOPHILS # (AUTO) 0.1 x10^3/uL (0.0-0.2); EOSINOPHILS % (AUTO) 0.5 % (0.9-2.9); HEMOGLOBIN 14.8 g/dL (12.0-16.0); LYMPHOCYTES # (AUTO) 1.3 X10^3/uL (1.3-2.9); MEAN CORPUSCULAR HEMOGLOBIN 32.2 pg (27.0-34.0); MEAN CORPUSCULAR HGB CONC 33.5 g/dL (33.0-35.0); MEAN CORPUSCULAR VOLUME 96.2 fL (80.0-100.0); MEAN PLATELET VOLUME 11.2 fL (7.4-11.0); MONOCYTES # (AUTO) 0.9 x10^3/uL (0.3-0.8); MONOCYTES % (AUTO) 7.9 % (0.0-13.0); NEUTROPHILS # (AUTO) 9.6 x10^3/uL (2.2-4.8); NEUTROPHILS % (AUTO) 79.6 % (42.0-75.0); PLATELET COUNT 52 X10^3/uL (150.0-450.0); RED BLOOD COUNT 4.58 X10^6/uL (3.5-5.4); RED CELL DISTRIBUTION WIDTH 15.2 % (11.6-16.5)
[2019-05-02 04:08] LABS: AMMONIA 68 umol/L (11-32)
[2019-05-02 04:12] LABS: ALANINE AMINOTRANSFERASE 14 Units/L (12-78); ALBUMIN 2.2 g/dL (3.4-5.0); ALKALINE PHOSPHATASE 176 Units/L (46-116); ASPARTATE AMINO TRANSFERASE 28 Units/L (15-37); BLOOD UREA NITROGEN 10 mg/dL (7-18); CALCIUM 7.8 mg/dL (8.5-10.1); CARBON DIOXIDE 23.4 mmol/L (21-32); CHLORIDE 106 mmol/L (98-107); COR CA(FOR HYPOALB) 9.2 mg/dL (8.5-10.1); COR NA(FOR HYPERGLY) 139 mmol/L (136-145); CREATININE 0.98 mg/dL (0.55-1.02); SODIUM 138 mmol/L (136-145); TOTAL PROTEIN 6.3 g/dL (6.4-8.2); eGFR NON BLACK RACES 60 (>60)
[2019-05-02 04:16] LABS: PLATELET MORPHOLOGY COMMENT NORMAL (NORMAL)
[2019-05-02] MEDS: MAGNESIUM SULFATE 1 GRAM/100 mL PREMIX 1 GM/100 ML BAG IV PRN ×2 (04:38→05:51)
[2019-05-02] MEDS: NS 1000 ML 1,000 ML IV SCH ×3 (04:43→17:16)
[2019-05-02] MEDS: MIRALAX POWDER (1 DOSE 17 G) PO SCH (05:51)
[2019-05-02] MEDS ORDERED: LEVEMIR SC SCH ×2 (11:00→12:00)
--- NOTE | 2019-05-02 11:04 | DR.H&P ---
H&P - History & Physical for Day of: H&P Date: 04/29/19 - Chief Complaint Chief Complaint: UNRESPONSIVE - History of Present Illness History of Present Illness: IS A 68 YEAR OLD PATIENT OF OURS WHO PRESENTED TO THE ER VIA EMS WITH REPORTS OF UNRESPONSIVENESS. ON ARRIVAL TO THE ER, PATIENT WAS ONLY RESPONSIVE TO PAINFUL STIMULI. SHE HAS A HISTORY OF CIRRHOSIS WITH HIGH AMMONIA LEVELS. PATIENT HAS BEEN ON LACTULOSE, HOWEVER, FAMILY REPORTS THAT THEY STOPPED GIVING IT TO HER BECAUSE IT INCREASED HER GLUCOSE LEVELS. ON ARRIVAL, VITALS WERE 98.8-94-12-98%-148/68. LABS WERE OBTAINED. ABNORMAL LAB VALUES INCLUDE THE FOLLOWING: WBC 11.5, PLT COUNT 94, POTASSIUM 2.7, CREATININE 1.61, GLUCOSE 285, TOTAL BILI 1.30, ALK PHOS 204, AMMONIA 160, ALBUMIN 2.7, GLOBULIN 4.6. URINALYSIS REVEALED: WBC 3-5, RBC 0-2, BACTERIA TRACE, LEUKOCYTES 1+, BACTERIA TRACE, GLUCOSE 4+. URINE CULTURE OBTAINED. A BRAIN CT WAS OBTAINED AND REVEALED: No evidence for acute or active intracranial diseas. Unchanged opacified right mastoid sinus. EKG REVEALED: ATRIAL FIBRILLATION WITH HR 85. AN NG TUBE WAS PLACED AND PATIENT WAS GIVEN LACTULOSE 30ML PO X 1 DOSE. SHE WAS ALSO GIVEN ZOFRAN 4MG IV X 1 DOSE IN THE ER. SHE WAS ADMITTED FOR FURTHER EVALUATION AND TREATMENT OF AMS, HYPERAMMONEMIA, CORRHOSIS OF THE LIVER, AND HYPOKALEMIA. SHE WAS STARTED ON NORMAL SALINE AT 75ML/HR, POTASSIUM PROTOCOL, HUMULIN R SLIDING SCALE, AND OTBS ACHS. OTHERWISE, WE PLAN TO FOLLOW UP WITH AM LABS AND CONTINUE TO MONITOR. - Past Medical History Past Medical History: Hypertension, Diabetes, Hypothyroidism, COPD Additional Medical History: Thyroid cancer - Past Surgical History Surgical History: Hysterectomy, Other - Family History Family Medical History: Hypertension - Social History Does patient currently use any type of tobacco product: No Have you used tobacco products in the last 12 months: No Type of Tobacco Use: None Does any household member use tobacco: No Alcohol Use: None Drug Use: None - Medications Home Medications: No Known Drug Allergies Allergy (Verified 04/29/19 06:52) CONTINUE taking the following medications lactulose 60 g PO QID 04/29/19 [History] - Review of Systems Constitutional: See HPI, Weakness Eyes: No Symptoms Reported ENT: No Symptoms Reported Respiratory: No Symptoms Reported Cardiovascular: No Symptoms Reported Gastrointestinal: No Symptoms Reported Genitourinary: No Symptoms Reported Musculoskeletal: No Symptoms Reported Skin: No Symptoms Reported Neurological: See HPI, Weakness, Change in Speech, Confusion - Physical Exam Vital Signs: Temperature 97.6 F Pulse Rate 88 Respiratory Rate 11 Blood Pressure [Right Arm] 129/58 Blood Pressure [Left Arm] 134/63 Blood Pressure 152/70 O2 Sat by Pulse Oximetry 99 Oriented: Unable to test Eyes: Normal Ear: Normal Nose: Normal Throat: Normal Respiratory: Diminished Throughout Cardiovascular: Normal. negative: S3, S4, Murmur : Normal Auscultation: Bowel Sounds: Normal Palpation: Normal Tenderness: Normal Skin: Normal Musculoskeletal: Normal Psychiatric: Other Mood Description: Flat Affect: Flat Speech Pattern: Inappropriate - Assessment/Plan (1) Hyperammonemia Status: Acute Plan: LACTULOSE 30ML PO QID VIA PEG TUBE, CONTINUE TO MONITOR (2) Cirrhosis of liver Qualifiers: Hepatic cirrhosis type: other cirrhosis Qualified Code(s): K74.69 - Other cirrhosis of liver Status: Acute (3) Altered mental status Qualifiers: Altered mental status type: stupor Qualified Code(s): R40.1 - Stupor Status: Acute (4) Hypokalemia Status: Acute Plan: POTASSIUM PROTOCOL, CONTINUE TO MONITOR (5) Diabetes Qualifiers: Diabetes mellitus type: type 2 Diabetes mellitus rodent exterminator insulin use: without rodent exterminator use Diabetes mellitus complication status: with other specified complication Qualified Code(s): E11.69 - Type 2 diabetes mellitus with other specified complication Status: Acute Plan: HUMLIN R SLIDING SCALE, OTBS ACHS - Allergies Allergies/Adverse Reactions: Allergies Allergy/AdvReac Type Severity Reaction Status Date / Time No Known Drug Allergies Allergy Verified 04/29/19 06:52
[2019-05-02] MEDS: CHRONULAC PO SCH ×3 (13:51→21:23)
[2019-05-02] MEDS: XIFAXAN PO SCH ×2 (13:51→22:12)
--- NOTE | 2019-05-02 19:20 | PCM.PROG ---
Progress Note - Progress Note for Day of Date of Exam: 05/02/19 - Subjective Subjective: WAS ADMITTED FOR TREATMENT OF AMS, HYPERAMMONEMIA, CORRHOSIS OF THE LIVER, AND HYPOKALEMIA. TODAY, SHE IS LYING IN BED WITH EYES CLOSED ON MORNING ROUNDS. SHE AWAKENS TO VERBAL STIMULI. STAFF REPORTS THAT SHE CONTINUES WITH MODERATE WEAKNESS, DROWSINESS, AND CONFUSION AT TIMES. ON EXAMINATION, HEART IS REGULAR IN RATE AND RHYTHM. NG TUBE NOTED. BILATERAL LUNGS ARE NOTED WITH DIMINISHED LUNG SOUNDS THROUGHOUT. ABDOMEN IS ROUND, SOFT, AND NON-TENDER WITH NORMAL BOWEL SOUNDS NOTED IN ALL QUADRANTS. HER VITALS THIS MORNING ARE: 97.3-87-14-97%-133/71. LABS WERE OBTAINED. ABNORMAL LAB VALUES INCLUDE THE FOLLOWING: WBC 12.0, PLT COUNT 52., GLUCOSE 159, CALCIUM 7.8, ALK PHOS 176, AMMONIA 68, TOTAL PROTEIN 6.3, ALBUMIN 2.2. URINE CULTURE PENDING. SHE WAS ADMITTED ON LACTULOSE 30MG QID VIA THE NG TUBE. THIS WAS DISCONTINUED OVER THE WEEKEND AND SHE WAS PLACED ON MIRALAX 17G TID. WE WILL DISCONTINUE THIS AND RESTART LACTULOSE 30ML QID. WE WILL ALSO START LEVEMIR 10 UNITS SC BID AND CONSULT . OTHERWISE, WE WILL CONTINUE WITH CURRENT PLAN OF CARE TODAY. WE WILL FOLLOW UP WITH AM LABS AND CONTINUE TO MONITOR. - Past Medical Family Social History Past Med/Fam/Surg Hx: No changes since H&P Allergies: Allergies No Known Drug Allergies Allergy (Verified 04/29/19 06:52) - Review of Systems ROS: No change since H&P - Vital Signs and I&O's Vital Signs: Temperature 97.8 F Pulse Rate 93 Respiratory Rate 13 Blood Pressure [Right Arm] 129/58 Blood Pressure [Left Arm] 134/63 Blood Pressure 127/68 O2 Sat by Pulse Oximetry 99 Intake and Output: Intake & Output 04/30/19 05/01/19 05/02/19 05/03/19 11:59 11:59 11:59 11:59 Intake Total 986 / 986 1985 / 1985 2733 / 2733 875 / 875 Output Total 1225 / 1225 2500 / 2500 1900 / 1900 550 / 550 Balance -239 / -239 -514 / -514 833 / 833 325 / 325 - Physical Exam Oriented: Person Eyes: Normal Ear: Normal Nose: Normal Throat: Normal Respiratory: Generalized, Diminished Cardiovascular: Normal. negative: S3, S4, Murmur : Normal Auscultation: Bowel Sounds: Normal Palpation: Normal Tenderness: Normal Skin: Normal Musculoskeletal: Normal Psychiatric: Other Mood Description: Flat Affect: Flat Speech Pattern: Inappropriate - Laboratory and Diagnostics Result Diagrams: 05/02/19 03:50 05/02/19 03:50 Labs: 04/29/19 07:17 Urine,Catheterized Urine Culture - Final Laboratory WBC 12.0 X10^3/uL (3.6-10.0) H 05/02/19 03:50 RBC 4.58 X10^6/uL (3.5-5.4) 05/02/19 03:50 Hgb 14.8 g/dL (12.0-16.0) 05/02/19 03:50 Hct 44.0 % (36.0-47.0) 05/02/19 03:50 MCV 96.2 fL (80.0-100.0) 05/02/19 03:50 MCH 32.2 pg (27.0-34.0) 05/02/19 03:50 MCHC 33.5 g/dL (33.0-35.0) 05/02/19 03:50 RDW 15.2 % (11.6-16.5) 05/02/19 03:50 Plt Count 52 X10^3/uL (150.0-450.0) L 05/02/19 03:50 Plt Count Comment Decreased (ADEQUATE) A 05/02/19 03:50 MPV 11.2 fL (7.4-11.0) H 05/02/19 03:50 Neut % (Auto) 79.6 % (42.0-75.0) H 05/02/19 03:50 Lymph % (Auto) 11.0 % (21.0-51.0) L 05/02/19 03:50 [place] % (Auto) 7.9 % (0.0-13.0) 05/02/19 03:50 Eos % (Auto) 0.5 % (0.9-2.9) L 05/02/19 03:50 Baso % (Auto) 1.0 % (0.2-1.0) 05/02/19 03:50 Neut # (Auto) 9.6 x10^3/uL (2.2-4.8) H 05/02/19 03:50 Lymph # (Auto) 1.3 X10^3/uL (1.3-2.9) 05/02/19 03:50 [place] # (Auto) 0.9 x10^3/uL (0.3-0.8) H 05/02/19 03:50 Eos # (Auto) 0.1 x10^3/uL (0.0-0.2) 05/02/19 03:50 Baso # (Auto) 0.1 X10^3/uL (0.0-0.1) 05/02/19 03:50 Absolute Nucleated RBC 0.1 /100WBC 05/02/19 03:50 Total Counted 100 05/02/19 03:50 Neutrophils % (Manual) 94 % (39-76) H 05/02/19 03:50 Lymphocytes % (Manual) 5 % (13-43) L 05/02/19 03:50 Monocytes % (Manual) 1 % (4-9) L 05/02/19 03:50 Plt Morphology Comment Normal (NORMAL) 05/02/19 03:50 RBC Morphology Normal (NORMAL) 05/02/19 03:50 Sodium 138 mmol/L (136-145) 05/02/19 03:50 Corrected Sodium 139 mmol/L (136-145) 05/02/19 03:50 Potassium 4.1 mmol/L (3.5-5.1) 05/02/19 03:50 Chloride 106 mmol/L (98-107) 05/02/19 03:50 Carbon Dioxide 23.4 mmol/L (21-32) 05/02/19 03:50 BUN 10 mg/dL (7-18) 05/02/19 03:50 Creatinine 0.98 mg/dL (0.55-1.02) 05/02/19 03:50 Est GFR (MDRD) Af Amer > 60 (>60) 05/02/19 03:50 Est GFR (MDRD) Non-Af 60 (>60) 05/02/19 03:50 Glucose 159 mg/dL (65-99) H 05/02/19 03:50 POC Glucose (mg/dL) 117 mg/dL (65-99) H 05/02/19 16:42 Calcium 7.8 mg/dL (8.5-10.1) L 05/02/19 03:50 Corrected Calcium 9.2 mg/dL (8.5-10.1) 05/02/19 03:50 Magnesium 1.7 mg/dL (1.7-2.9) 05/02/19 03:50 Total Bilirubin 1.90 mg/dL (0.2-1.0) H 05/02/19 03:50 AST 28 Units/L (15-37) 05/02/19 03:50 ALT 14 Units/L (12-78) 05/02/19 03:50 Alkaline Phosphatase 176 Units/L (46-116) H 05/02/19 03:50 Ammonia 68 umol/L (11-32) H 05/02/19 03:50 Creatine Kinase 168 Units/L (26-192) 04/30/19 09:58 CK-MB (CK-2) 1.9 ng/mL (0-4.0) 04/30/19 09:58 CK/CKMB % Calc 1.1 % (<4) 04/30/19 09:58 Troponin I 0.16 ng/mL (0-1.5) 04/30/19 09:58 Total Protein 6.3 g/dL (6.4-8.2) L 05/02/19 03:50 Albumin 2.2 g/dL (3.4-5.0) L 05/02/19 03:50 Globulin 4.1 g/dL (2.5-4.5) 05/02/19 03:50 Albumin/Globulin Ratio 0.5 Ratio (1.1-2.1) L 05/02/19 03:50 Specimen Type Catherized urine 04/29/19 07:17 Urine Color Yellow (YELLOW) 04/29/19 07:17 Urine Appearance Clear (CLEAR) 04/29/19 07:17 Urine pH 6.0 (5.0 - 8.0) 04/29/19 07:17 Ur Specific [place] 1.015 (1.000-1.030) 04/29/19 07:17 Urine Protein 2+ (NEGATIVE) 04/29/19 07:17 Urine Glucose (UA) 4+ (NEGATIVE) 04/29/19 07:17 Urine Ketones Negative (NEGATIVE) 04/29/19 07:17 Urine Occult Blood 1+ (NEGATIVE) 04/29/19 07:17 Urine Nitrite Negative (NEGATIVE) 04/29/19 07:17 Urine Bilirubin Negative (NEGATIVE) 04/29/19 07:17 Urine Urobilinogen 1+ (NORMAL) 04/29/19 07:17 Ur Leukocyte Esterase 1+ (NEGATIVE) 04/29/19 07:17 Urine RBC 0-2 /HPF (0-3) 04/29/19 07:17 Urine WBC 3-5 /HPF (0-5) 04/29/19 07:17 Ur Squamous Epith Cells Rare /HPF (NEGATIVE) 04/29/19 07:17 Ur Renal Epithelial Cell Few /HPF (NEGATIVE) 04/29/19 07:17 Amorphous Sediment 1+ /HPF (NEGATIVE) 04/29/19 07:17 Urine Bacteria Trace /HPF (NEGATIVE) 04/29/19 07:17 Ur Culture Indicated? Yes/culture set up 04/29/19 07:17 Urine Opiates Screen Negative (NEG=<300) 04/29/19 07:17 Urine Methadone Screen Negative (NEG=<300) 04/29/19 07:17 Ur Barbiturates Screen Negative (NEG=<200) 04/29/19 07:17 Ur Phencyclidine Scrn Negative (NEG=<25) 04/29/19 07:17 Ur Amphetamines Screen Negative (NEG=<1000) 04/29/19 07:17 U Benzodiazepines Scrn Negative (NEG=<200) 04/29/19 07:17 Urine Cocaine Screen Negative (NEG=<300) 04/29/19 07:17 U Marijuana (THC) Screen Negative (NEG=<50) 04/29/19 07:17 - Plan (1) Hyperammonemia Status: Acute Plan: LACTULOSE 30ML PO QID VIA PEG TUBE, CONTINUE TO MONITOR (2) Cirrhosis of liver Status: Acute Qualifiers: Hepatic cirrhosis type: other cirrhosis Qualified Code(s): K74.69 - Other cirrhosis of liver (3) Altered mental status Status: Acute Qualifiers: Altered mental status type: stupor Qualified Code(s): R40.1 - Stupor (4) Hypokalemia Status: Acute Plan: POTASSIUM PROTOCOL, CONTINUE TO MONITOR (5) Diabetes Status: Acute Qualifiers: Diabetes mellitus type: type 2 Diabetes mellitus usp insulin use: without vermin exterminator use Diabetes mellitus complication status: with other specified complication Qualified Code(s): E11.69 - Type 2 diabetes mellitus with other specified complication Plan: LEVEMIR 10 UNITS SC BID, HUMLIN R SLIDING SCALE, OTBS ACHS
[2019-05-02] MEDS: SNACK - Diabetic Appropriate PO SCH (21:23)
[2019-05-03 04:13] LABS: BASOPHILS # (AUTO) 0.2 X10^3/uL (0.0-0.1); BASOPHILS % (AUTO) 2.9 % (0.2-1.0); EOSINOPHILS # (AUTO) 0.1 x10^3/uL (0.0-0.2); EOSINOPHILS % (AUTO) 1.4 % (0.9-2.9); HEMATOCRIT 44.4 % (36.0-47.0); HEMOGLOBIN 14.8 g/dL (12.0-16.0); LYMPHOCYTES # (AUTO) 1.4 X10^3/uL (1.3-2.9); LYMPHOCYTES % (AUTO) 17.1 % (21.0-51.0); MEAN CORPUSCULAR HEMOGLOBIN 32.1 pg (27.0-34.0); MEAN CORPUSCULAR HGB CONC 33.4 g/dL (33.0-35.0); MEAN CORPUSCULAR VOLUME 96.1 fL (80.0-100.0); MEAN PLATELET VOLUME 10.6 fL (7.4-11.0); MONOCYTES # (AUTO) 0.7 x10^3/uL (0.3-0.8); MONOCYTES % (AUTO) 8.1 % (0.0-13.0); NEUTROPHILS # (AUTO) 5.9 x10^3/uL (2.2-4.8); NEUTROPHILS % (AUTO) 70.5 % (42.0-75.0); PLATELET COUNT 52 X10^3/uL (150.0-450.0); RED BLOOD COUNT 4.61 X10^6/uL (3.5-5.4); RED CELL DISTRIBUTION WIDTH 15.4 % (11.6-16.5); WHITE BLOOD COUNT 8.4 X10^3/uL (3.6-10.0)
[2019-05-03 04:17] LABS: AMMONIA 49 umol/L (11-32)
[2019-05-03 04:21] LABS: ALANINE AMINOTRANSFERASE 10 Units/L (12-78); ALKALINE PHOSPHATASE 158 Units/L (46-116); ASPARTATE AMINO TRANSFERASE 21 Units/L (15-37); BLOOD UREA NITROGEN 13 mg/dL (7-18); CARBON DIOXIDE 25.4 mmol/L (21-32); CHLORIDE 107 mmol/L (98-107); COR CA(FOR HYPOALB) 9.6 mg/dL (8.5-10.1); CREATININE 1.08 mg/dL (0.55-1.02); MAGNESIUM 1.8 mg/dL (1.7-2.9); SODIUM 139 mmol/L (136-145); TOTAL PROTEIN 5.9 g/dL (6.4-8.2); eGFR NON BLACK RACES 53 (>60)
[2019-05-03] MEDS: NS 1000 ML 1,000 ML IV SCH ×4 (06:37→20:23)
[2019-05-03] MEDS: CHRONULAC PO SCH ×4 (09:06→20:21)
[2019-05-03] MEDS: XIFAXAN PO SCH ×2 (09:06→20:22)
--- NOTE | 2019-05-03 11:54 | PCM.PROG ---
Progress Note - Progress Note for Day of Date of Exam: 05/03/19 - Subjective Subjective: WAS ADMITTED FOR TREATMENT OF AMS, HYPERAMMONEMIA, CORRHOSIS OF THE LIVER, AND HYPOKALEMIA. TODAY, SHE IS ALERT, LYING IN BED ON MORNING ROUNDS. STAFF REPORTS THAT SHE CONTINUES WITH MODERATE WEAKNESS. ON EXAMINATION, HEART IS REGULAR IN RATE AND RHYTHM. BILATERAL LUNGS ARE NOTED WITH DIMINISHED LUNG SOUNDS THROUGHOUT. ABDOMEN IS ROUND, SOFT, AND NON-TENDER WITH NORMAL BOWEL SOUNDS NOTED IN ALL QUADRANTS. HER VITALS THIS MORNING ARE: 98.3-89-14-98%-124/71. LABS WERE OBTAINED. ABNORMAL LAB VALUES INCLUDE THE FOLLOWING: PLT COUNT 52, POTASSIUM 3.3, CREATININE 1.08, CALCIUM 8.0, TOTAL BILIRUBIN 1.80, AST 10, ALK PHOS 158, AMMONIA 49, TOTAL PROTEIN 5.9, ALBUMIN 2.0. URINE CULTURE PENDING. PATIENT PULLED HER NG TUBE OUT YESTERDAY. SHE IS CURRENTLY RECEIVING LACTULOSE 30ML PO QID. WE WILL DECREASE THE DOSE OF HER LEVEMIR DUE TO A BIG DROP IN HER BLOOD GLUCOSE LEVELS. WE WILL ADVANCE DIET TO 1800 ROSMERY ADA SOFT. OTHERWISE, WE WILL CONTINUE WITH CURRENT PLAN OF CARE TODAY. WE WILL CONSULT . WE WILL FOLLOW UP WITH AM LABS AND CONTINUE TO MONITOR. - Past Medical Family Social History Past Med/Fam/Surg Hx: No changes since H&P Allergies: Allergies No Known Drug Allergies Allergy (Verified 04/29/19 06:52) - Review of Systems ROS: No change since H&P - Vital Signs and I&O's Vital Signs: Temperature 98.2 F Pulse Rate 92 Respiratory Rate 15 Blood Pressure [Right Arm] 129/58 Blood Pressure [Left Arm] 134/63 Blood Pressure 144/64 O2 Sat by Pulse Oximetry 100 Intake and Output: Intake & Output 04/30/19 05/01/19 05/02/19 05/03/19 11:59 11:59 11:59 11:59 Intake Total 986 / 986 1985 / 1985 2733 / 2733 2225 / 2225 Output Total 1225 / 1225 2500 / 2500 1900 / 1900 1250 / 1250 Balance -239 / -239 -514 / -514 833 / 833 975 / 975 - Physical Exam Oriented: Normal Eyes: Normal Ear: Normal Nose: Normal Throat: Normal Respiratory: Generalized, Diminished Cardiovascular: Normal. negative: S3, S4, Murmur : Normal Auscultation: Bowel Sounds: Normal Palpation: Normal Tenderness: Normal Skin: Normal Musculoskeletal: Normal Psychiatric: Other Mood Description: Flat Affect: Flat Speech Pattern: Unclear, Delayed, Slurred - Laboratory and Diagnostics Result Diagrams: 05/03/19 03:00 05/03/19 08:21 Labs: 04/29/19 07:17 Urine,Catheterized Urine Culture - Final Laboratory WBC 8.4 X10^3/uL (3.6-10.0) 05/03/19 03:00 RBC 4.61 X10^6/uL (3.5-5.4) 05/03/19 03:00 Hgb 14.8 g/dL (12.0-16.0) 05/03/19 03:00 Hct 44.4 % (36.0-47.0) 05/03/19 03:00 MCV 96.1 fL (80.0-100.0) 05/03/19 03:00 MCH 32.1 pg (27.0-34.0) 05/03/19 03:00 MCHC 33.4 g/dL (33.0-35.0) 05/03/19 03:00 RDW 15.4 % (11.6-16.5) 05/03/19 03:00 Plt Count 52 X10^3/uL (150.0-450.0) L 05/03/19 03:00 Plt Count Comment Decreased (ADEQUATE) A 05/02/19 03:50 MPV 10.6 fL (7.4-11.0) 05/03/19 03:00 Neut % (Auto) 70.5 % (42.0-75.0) 05/03/19 03:00 Lymph % (Auto) 17.1 % (21.0-51.0) L 05/03/19 03:00 [place] % (Auto) 8.1 % (0.0-13.0) 05/03/19 03:00 Eos % (Auto) 1.4 % (0.9-2.9) 05/03/19 03:00 Baso % (Auto) 2.9 % (0.2-1.0) H 05/03/19 03:00 Neut # (Auto) 5.9 x10^3/uL (2.2-4.8) H 05/03/19 03:00 Lymph # (Auto) 1.4 X10^3/uL (1.3-2.9) 05/03/19 03:00 [place] # (Auto) 0.7 x10^3/uL (0.3-0.8) 05/03/19 03:00 Eos # (Auto) 0.1 x10^3/uL (0.0-0.2) 05/03/19 03:00 Baso # (Auto) 0.2 X10^3/uL (0.0-0.1) H 05/03/19 03:00 Absolute Nucleated RBC 0.1 /100WBC 05/03/19 03:00 Total Counted 100 05/02/19 03:50 Neutrophils % (Manual) 94 % (39-76) H 05/02/19 03:50 Lymphocytes % (Manual) 5 % (13-43) L 05/02/19 03:50 Monocytes % (Manual) 1 % (4-9) L 05/02/19 03:50 Plt Morphology Comment Normal (NORMAL) 05/02/19 03:50 RBC Morphology Normal (NORMAL) 05/02/19 03:50 Sodium 139 mmol/L (136-145) 05/03/19 03:00 Corrected Sodium TNP 05/03/19 03:00 Potassium 3.9 mmol/L (3.5-5.1) 05/03/19 08:21 Chloride 107 mmol/L (98-107) 05/03/19 03:00 Carbon Dioxide 25.4 mmol/L (21-32) 05/03/19 03:00 BUN 13 mg/dL (7-18) 05/03/19 03:00 Creatinine 1.08 mg/dL (0.55-1.02) H 05/03/19 03:00 Est GFR (MDRD) Af Amer > 60 (>60) 05/03/19 03:00 Est GFR (MDRD) Non-Af 53 (>60) L 05/03/19 03:00 Glucose 97 mg/dL (65-99) 05/03/19 03:00 POC Glucose (mg/dL) 157 mg/dL (65-99) H 05/03/19 10:58 Calcium 8.0 mg/dL (8.5-10.1) L 05/03/19 03:00 Corrected Calcium 9.6 mg/dL (8.5-10.1) 05/03/19 03:00 Magnesium 1.8 mg/dL (1.7-2.9) 05/03/19 03:00 Total Bilirubin 1.80 mg/dL (0.2-1.0) H 05/03/19 03:00 AST 21 Units/L (15-37) 05/03/19 03:00 ALT 10 Units/L (12-78) L 05/03/19 03:00 Alkaline Phosphatase 158 Units/L (46-116) H 05/03/19 03:00 Ammonia 49 umol/L (11-32) H 05/03/19 03:00 Creatine Kinase 168 Units/L (26-192) 04/30/19 09:58 CK-MB (CK-2) 1.9 ng/mL (0-4.0) 04/30/19 09:58 CK/CKMB % Calc 1.1 % (<4) 04/30/19 09:58 Troponin I 0.16 ng/mL (0-1.5) 04/30/19 09:58 Total Protein 5.9 g/dL (6.4-8.2) L 05/03/19 03:00 Albumin 2.0 g/dL (3.4-5.0) L 05/03/19 03:00 Globulin 3.9 g/dL (2.5-4.5) 05/03/19 03:00 Albumin/Globulin Ratio 0.5 Ratio (1.1-2.1) L 05/03/19 03:00 Specimen Type Catherized urine 04/29/19 07:17 Urine Color Yellow (YELLOW) 04/29/19 07:17 Urine Appearance Clear (CLEAR) 04/29/19 07:17 Urine pH 6.0 (5.0 - 8.0) 04/29/19 07:17 Ur Specific [place] 1.015 (1.000-1.030) 04/29/19 07:17 Urine Protein 2+ (NEGATIVE) 04/29/19 07:17 Urine Glucose (UA) 4+ (NEGATIVE) 04/29/19 07:17 Urine Ketones Negative (NEGATIVE) 04/29/19 07:17 Urine Occult Blood 1+ (NEGATIVE) 04/29/19 07:17 Urine Nitrite Negative (NEGATIVE) 04/29/19 07:17 Urine Bilirubin Negative (NEGATIVE) 04/29/19 07:17 Urine Urobilinogen 1+ (NORMAL) 04/29/19 07:17 Ur Leukocyte Esterase 1+ (NEGATIVE) 04/29/19 07:17 Urine RBC 0-2 /HPF (0-3) 04/29/19 07:17 Urine WBC 3-5 /HPF (0-5) 04/29/19 07:17 Ur Squamous Epith Cells Rare /HPF (NEGATIVE) 04/29/19 07:17 Ur Renal Epithelial Cell Few /HPF (NEGATIVE) 04/29/19 07:17 Amorphous Sediment 1+ /HPF (NEGATIVE) 04/29/19 07:17 Urine Bacteria Trace /HPF (NEGATIVE) 04/29/19 07:17 Ur Culture Indicated? Yes/culture set up 04/29/19 07:17 Urine Opiates Screen Negative (NEG=<300) 04/29/19 07:17 Urine Methadone Screen Negative (NEG=<300) 04/29/19 07:17 Ur Barbiturates Screen Negative (NEG=<200) 04/29/19 07:17 Ur Phencyclidine Scrn Negative (NEG=<25) 04/29/19 07:17 Ur Amphetamines Screen Negative (NEG=<1000) 04/29/19 07:17 U Benzodiazepines Scrn Negative (NEG=<200) 04/29/19 07:17 Urine Cocaine Screen Negative (NEG=<300) 04/29/19 07:17 U Marijuana (THC) Screen Negative (NEG=<50) 04/29/19 07:17 - Plan (1) Hyperammonemia Status: Acute Plan: LACTULOSE 30ML PO QID, CONTINUE TO MONITOR (2) Cirrhosis of liver Status: Acute Qualifiers: Hepatic cirrhosis type: other cirrhosis Qualified Code(s): K74.69 - Other cirrhosis of liver (3) Altered mental status Status: Acute Qualifiers: Altered mental status type: stupor Qualified Code(s): R40.1 - Stupor (4) Hypokalemia Status: Acute Plan: POTASSIUM PROTOCOL, CONTINUE TO MONITOR (5) Diabetes Status: Acute Qualifiers: Diabetes mellitus type: type 2 Diabetes mellitus penitentiary insulin use: without exterminator termite use Diabetes mellitus complication status: with other specified complication Qualified Code(s): E11.69 - Type 2 diabetes mellitus with other specified complication Plan: LEVEMIR 5 UNITS SC BID, HUMLIN R SLIDING SCALE, OTBS ACHS
--- NOTE | 2019-05-03 12:13 | DR.CONSULT ---
Consult - Consultation for Day of: Date: 05/03/19 - Chief Complaint Chief Complaint: Patient referred for cirrhosis. Patient with no GI Complaints - History of Present Illness History of Present Illness: Patient is a 68yo female who was referred for cirrhosis. Patient with no GI complaints. Denies dysphagia, dyspepsia, nausea, vomiting, abdominal pain, constipation, diarrhea, melena and hematochezia. Last colon was 06/28/15 which showed sigmoid diverticulosis and internal hemorrhoids. LAst EGD was 02/22/19 which showed distal esophagitis and erosive gastritis. Patient with history of cirrhosis, patient denies alcohol use, previous work up negative. Hgb 14.8, Hct 44.4, Plt 52, T. Bili 1.8, AST 21, ALT 10, Alk Phos 158, Ammonia 49. - Past Medical History Past Medical History: Hypertension, Diabetes, Hypothyroidism, COPD Additional Medical History: Thyroid cancer - Past Surgical History Surgical History: Hysterectomy, Other - Family History Family Medical History: Hypertension - Social History Does patient currently use any type of tobacco product: No Have you used tobacco products in the last 12 months: No Type of Tobacco Use: None Does any household member use tobacco: No Alcohol Use: None Drug Use: None - Medications Home Medications: No Known Drug Allergies Allergy (Verified 04/29/19 06:52) CONTINUE taking the following medications lactulose 60 g PO QID 04/29/19 [History] - Review of Systems Gastrointestinal: No Symptoms Reported. denies: Nausea, Vomiting, Abdominal Pain, Diarrhea, Constipation, Melena, Hematochezia, Other - Physical Exam Vital Signs: Temperature 98.2 F Pulse Rate 92 Respiratory Rate 15 Blood Pressure [Right Arm] 129/58 Blood Pressure [Left Arm] 134/63 Blood Pressure 144/64 O2 Sat by Pulse Oximetry 100 Oriented: Normal Eyes: Normal Ear: Normal Nose: Normal Throat: Normal Respiratory: Clear Throughout Cardiovascular: Normal Auscultation: Bowel Sounds: Normal Palpation: Normal, Other (no distention). negative: Spleen Enlarged, Liver Enlarged, Mass Pulsatile Tenderness: Normal (non tender) Skin: Normal Musculoskeletal: Normal Psychiatric: Normal Mood Description: Calm Affect: Normal Speech Pattern: Clear - Plan Plan: Asessment. 1. Cirrhosis of unknown etiology r/o steatohepatitis. 2. Hyperammoniemia. Plan. 1. JUDD fibrosure, Monitor LFTs. 2. Xifaxan 550mg PO BID, Cont Lactulose. Plan reviewed with - Allergies Allergies/Adverse Reactions: Allergies Allergy/AdvReac Type Severity Reaction Status Date / Time No Known Drug Allergies Allergy Verified 04/29/19 06:52
[2019-05-03] MEDS: CARDIZEM SR 90 MG PO SCH ×2 (14:05→20:22)
[2019-05-03] MEDS: SYNTHROID 50 mcg TAB PO SCH (14:05)
[2019-05-03] MEDS: PROTONIX TAB 40 MG PO SCH (14:05)
[2019-05-03] MEDS: ZESTRIL TAB 10 MG PO SCH (14:05)
[2019-05-03] MEDS: AMARYL TAB 4 MG PO SCH (14:05)
[2019-05-03] MEDS: BUTT CREAM (COMPOUND) TOP PRN ×2 (17:10→18:23)
[2019-05-03] MEDS ORDERED: BUTT CREAM (COMPOUND) ONE (17:13)
[2019-05-03] MEDS: HumuLIN R SUBCUT PRN (20:21)
[2019-05-03] MEDS: CRESTOR TAB 10 MG PO SCH (20:22)
[2019-05-03] MEDS: SNACK - Diabetic Appropriate PO SCH (20:23)
[2019-05-04 04:02] LABS: BASOPHILS % (AUTO) 0.6 % (0.2-1.0); EOSINOPHILS # (AUTO) 0.1 x10^3/uL (0.0-0.2); EOSINOPHILS % (AUTO) 1.5 % (0.9-2.9); HEMATOCRIT 44.3 % (36.0-47.0); HEMOGLOBIN 14.8 g/dL (12.0-16.0); LYMPHOCYTES # (AUTO) 1.9 X10^3/uL (1.3-2.9); LYMPHOCYTES % (AUTO) 25.2 % (21.0-51.0); MEAN CORPUSCULAR HEMOGLOBIN 32.3 pg (27.0-34.0); MEAN CORPUSCULAR HGB CONC 33.3 g/dL (33.0-35.0); MONOCYTES # (AUTO) 0.7 x10^3/uL (0.3-0.8); MONOCYTES % (AUTO) 9.4 % (0.0-13.0); NEUTROPHILS # (AUTO) 4.8 x10^3/uL (2.2-4.8); NEUTROPHILS % (AUTO) 63.3 % (42.0-75.0); PLATELET COUNT 64 X10^3/uL (150.0-450.0); RED BLOOD COUNT 4.57 X10^6/uL (3.5-5.4); RED CELL DISTRIBUTION WIDTH 15.1 % (11.6-16.5); WHITE BLOOD COUNT 7.6 X10^3/uL (3.6-10.0)
[2019-05-04 04:06] LABS: AMMONIA 44 umol/L (11-32)
[2019-05-04 04:10] LABS: ALANINE AMINOTRANSFERASE 18 Units/L (12-78); ALBUMIN 2.1 g/dL (3.4-5.0); ALKALINE PHOSPHATASE 179 Units/L (46-116); ASPARTATE AMINO TRANSFERASE 39 Units/L (15-37); BLOOD UREA NITROGEN 11 mg/dL (7-18); CALCIUM 8.4 mg/dL (8.5-10.1); CHLORIDE 108 mmol/L (98-107); COR CA(FOR HYPOALB) 9.9 mg/dL (8.5-10.1); COR NA(FOR HYPERGLY) 141 mmol/L (136-145); CREATININE 0.92 mg/dL (0.55-1.02); SODIUM 141 mmol/L (136-145); TOTAL PROTEIN 6.1 g/dL (6.4-8.2); eGFR NON BLACK RACES > 60 (>60)
[2019-05-04] MEDS: NS 1000 ML 1,000 ML IV SCH (04:43)
[2019-05-04] MEDS: MICRO K EXTEN CAP 10 MEQ PO PRN (05:32)
[2019-05-04] MEDS: MAGNESIUM SULFATE 1 GRAM/100 mL PREMIX 1 GM/100 ML BAG IV PRN ×2 (05:32→06:25)
[2019-05-04] MEDS: VSL#3 PO SCH (08:32)
[2019-05-04] MEDS: PROTONIX TAB 40 MG PO SCH (08:32)
[2019-05-04] MEDS: CARDIZEM SR 90 MG PO SCH ×2 (08:32→20:17)
[2019-05-04] MEDS: CHRONULAC PO SCH ×4 (08:32→20:17)
[2019-05-04] MEDS: XIFAXAN PO SCH ×2 (08:33→20:17)
[2019-05-04] MEDS: SYNTHROID 50 mcg TAB PO SCH (08:33)
[2019-05-04] MEDS: ZESTRIL TAB 10 MG PO SCH (08:33)
[2019-05-04] MEDS: AMARYL TAB 4 MG PO SCH (08:33)
[2019-05-04] MEDS: HumuLIN R SUBCUT PRN (16:22)
[2019-05-04] MEDS: CRESTOR TAB 10 MG PO SCH (20:17)
[2019-05-04] MEDS: SNACK - Diabetic Appropriate PO SCH (20:20)
[2019-05-05 04:14] LABS: BASOPHILS # (AUTO) 0.1 X10^3/uL (0.0-0.1); BASOPHILS % (AUTO) 0.8 % (0.2-1.0); EOSINOPHILS # (AUTO) 0.1 x10^3/uL (0.0-0.2); EOSINOPHILS % (AUTO) 1.3 % (0.9-2.9); HEMATOCRIT 43.7 % (36.0-47.0); HEMOGLOBIN 14.4 g/dL (12.0-16.0); LYMPHOCYTES # (AUTO) 2.2 X10^3/uL (1.3-2.9); MEAN PLATELET VOLUME 11.5 fL (7.4-11.0); MONOCYTES # (AUTO) 0.6 x10^3/uL (0.3-0.8); MONOCYTES % (AUTO) 8.7 % (0.0-13.0); NEUTROPHILS # (AUTO) 4.3 x10^3/uL (2.2-4.8); NEUTROPHILS % (AUTO) 59.2 % (42.0-75.0); PLATELET COUNT 73 X10^3/uL (150.0-450.0); RED CELL DISTRIBUTION WIDTH 15.3 % (11.6-16.5); WHITE BLOOD COUNT 7.3 X10^3/uL (3.6-10.0)
[2019-05-05 04:17] LABS: AMMONIA 34 umol/L (11-32)
[2019-05-05 04:20] LABS: ALANINE AMINOTRANSFERASE 23 Units/L (12-78); ALBUMIN 1.9 g/dL (3.4-5.0); ALKALINE PHOSPHATASE 174 Units/L (46-116); ASPARTATE AMINO TRANSFERASE 53 Units/L (15-37); BLOOD UREA NITROGEN 9 mg/dL (7-18); CALCIUM 8.4 mg/dL (8.5-10.1); CARBON DIOXIDE 24.3 mmol/L (21-32); CHLORIDE 107 mmol/L (98-107); COR CA(FOR HYPOALB) 10.1 mg/dL (8.5-10.1); COR NA(FOR HYPERGLY) 141 mmol/L (136-145); CREATININE 1.13 mg/dL (0.55-1.02); MAGNESIUM 1.7 mg/dL (1.7-2.9); SODIUM 140 mmol/L (136-145); TOTAL PROTEIN 5.7 g/dL (6.4-8.2); eGFR NON BLACK RACES 51 (>60)
[2019-05-05 05:20] VITALS: BP 96/54
[2019-05-05] MEDS: MICRO K EXTEN CAP 10 MEQ PO PRN (05:40)
[2019-05-05] MEDS: CHRONULAC PO SCH (08:26)
[2019-05-05] MEDS: CARDIZEM SR 90 MG PO SCH (08:26)
[2019-05-05] MEDS: XIFAXAN PO SCH (08:26)
[2019-05-05] MEDS: AMARYL TAB 4 MG PO SCH (08:26)
[2019-05-05] MEDS: SYNTHROID 50 mcg TAB PO SCH (08:26)
[2019-05-05] MEDS: PROTONIX TAB 40 MG PO SCH (08:26)
[2019-05-05] MEDS: VSL#3 PO SCH (08:27)
[2019-05-05] MEDS: ZESTRIL TAB 10 MG PO SCH (08:27)
--- NOTE | 2019-05-05 10:17 | PCM.PROG ---
Progress Note - Progress Note for Day of Date of Exam: 05/04/19 - Subjective Subjective: WAS ADMITTED FOR TREATMENT OF AMS, HYPERAMMONEMIA, CORRHOSIS OF THE LIVER, AND HYPOKALEMIA. TODAY, SHE IS ALERT, LYING IN BED ON MORNING ROUNDS. SHE CONTINUES WITH WEAKNESS. FAMILY REPORTS THAT SHE HAS ALSO HAD CONFUSION AT TIMES. ON EXAMINATION, HEART IS REGULAR IN RATE AND RHYTHM. BILATERAL LUNGS ARE NOTED WITH DIMINISHED LUNG SOUNDS THROUGHOUT. ABDOMEN IS ROUND, SOFT, AND NON-TENDER WITH NORMAL BOWEL SOUNDS NOTED IN ALL QUADRANTS. HER VITALS THIS MORNING ARE: 98.3-89-14-98%-124/71. LABS WERE OBTAINED. ABNORMAL LAB VALUES INCLUDE THE FOLLOWING: PLT COUNT 64, CHLORIDE 108, GLUCOSE 116, CALCIUM 8.4, MAGNESIUM 1.5, TOTAL BILI 1.10, AST 39, ALK PHOS 179, AMMONIA 44, TOTAL PROTEIN 6.1, ALBUMIN 2.1. URINE CULTURE PENDING. SHE IS CURRENTLY RECEIVING LACTULOSE 30ML PO QID, LEVEMIR 5 UNITS SC BID, XIFAXIN, AND OTHER HOME MEDICATIONS WERE RESUMED. WE WILL CONTINUE WITH CURRENT PLAN OF CARE TODAY. OTHERWISE, WE WILL FOLLOW UP WITH AM LABS AND CONTINUE TO MONITOR. - Past Medical Family Social History Past Med/Fam/Surg Hx: No changes since H&P Allergies: Allergies No Known Drug Allergies Allergy (Verified 04/29/19 06:52) - Review of Systems ROS: No change since H&P - Vital Signs and I&O's Vital Signs: Temperature 97 F Pulse Rate 61 Respiratory Rate 20 Blood Pressure [Right Arm] 129/58 Blood Pressure [Left Arm] 134/63 Blood Pressure 96/54 O2 Sat by Pulse Oximetry 98 Intake and Output: Intake & Output 05/02/19 05/03/19 05/04/19 05/05/19 11:59 11:59 11:59 11:59 Intake Total 2733 / 2733 2225 / 2225 3054 / 3054 820 / 820 Output Total 1900 / 1900 1250 / 1250 2750 / 2750 0 / 0 Balance 833 / 833 975 / 975 304 / 304 820 / 820 - Physical Exam Oriented: Normal Eyes: Normal Ear: Normal Nose: Normal Throat: Normal Respiratory: Generalized, Diminished Cardiovascular: Normal : Normal Auscultation: Bowel Sounds: Normal Palpation: Normal Tenderness: Normal (non tender) Skin: Normal Musculoskeletal: Normal Psychiatric: Normal Mood Description: Calm Affect: Normal Speech Pattern: Clear, Appropriate - Laboratory and Diagnostics Result Diagrams: 05/05/19 04:00 05/05/19 04:00 Labs: 04/29/19 07:17 Urine,Catheterized Urine Culture - Final Laboratory WBC 7.3 X10^3/uL (3.6-10.0) 05/05/19 04:00 RBC 4.50 X10^6/uL (3.5-5.4) 05/05/19 04:00 Hgb 14.4 g/dL (12.0-16.0) 05/05/19 04:00 Hct 43.7 % (36.0-47.0) 05/05/19 04:00 MCV 97.0 fL (80.0-100.0) 05/05/19 04:00 MCH 32.0 pg (27.0-34.0) 05/05/19 04:00 MCHC 33.0 g/dL (33.0-35.0) 05/05/19 04:00 RDW 15.3 % (11.6-16.5) 05/05/19 04:00 Plt Count 73 X10^3/uL (150.0-450.0) L 05/05/19 04:00 Plt Count Comment Decreased (ADEQUATE) A 05/02/19 03:50 MPV 11.5 fL (7.4-11.0) H 05/05/19 04:00 Neut % (Auto) 59.2 % (42.0-75.0) 05/05/19 04:00 Lymph % (Auto) 30.0 % (21.0-51.0) 05/05/19 04:00 [place] % (Auto) 8.7 % (0.0-13.0) 05/05/19 04:00 Eos % (Auto) 1.3 % (0.9-2.9) 05/05/19 04:00 Baso % (Auto) 0.8 % (0.2-1.0) 05/05/19 04:00 Neut # (Auto) 4.3 x10^3/uL (2.2-4.8) 05/05/19 04:00 Lymph # (Auto) 2.2 X10^3/uL (1.3-2.9) 05/05/19 04:00 [place] # (Auto) 0.6 x10^3/uL (0.3-0.8) 05/05/19 04:00 Eos # (Auto) 0.1 x10^3/uL (0.0-0.2) 05/05/19 04:00 Baso # (Auto) 0.1 X10^3/uL (0.0-0.1) 05/05/19 04:00 Absolute Nucleated RBC 0.2 /100WBC 05/05/19 04:00 Total Counted 100 05/02/19 03:50 Neutrophils % (Manual) 94 % (39-76) H 05/02/19 03:50 Lymphocytes % (Manual) 5 % (13-43) L 05/02/19 03:50 Monocytes % (Manual) 1 % (4-9) L 05/02/19 03:50 Plt Morphology Comment Normal (NORMAL) 05/02/19 03:50 RBC Morphology Normal (NORMAL) 05/02/19 03:50 Sodium 140 mmol/L (136-145) 05/05/19 04:00 Corrected Sodium 141 mmol/L (136-145) 05/05/19 04:00 Potassium 3.5 mmol/L (3.5-5.1) 05/05/19 04:00 Chloride 107 mmol/L (98-107) 05/05/19 04:00 Carbon Dioxide 24.3 mmol/L (21-32) 05/05/19 04:00 BUN 9 mg/dL (7-18) 05/05/19 04:00 Creatinine 1.13 mg/dL (0.55-1.02) H 05/05/19 04:00 Est GFR (MDRD) Af Amer > 60 (>60) 05/05/19 04:00 Est GFR (MDRD) Non-Af 51 (>60) L 05/05/19 04:00 Glucose 158 mg/dL (65-99) H 05/05/19 04:00 POC Glucose (mg/dL) 140 mg/dL (65-99) H 05/05/19 05:11 Calcium 8.4 mg/dL (8.5-10.1) L 05/05/19 04:00 Corrected Calcium 10.1 mg/dL (8.5-10.1) 05/05/19 04:00 Magnesium 1.7 mg/dL (1.7-2.9) 05/05/19 04:00 Total Bilirubin 1.10 mg/dL (0.2-1.0) H 05/05/19 04:00 AST 53 Units/L (15-37) H 05/05/19 04:00 ALT 23 Units/L (12-78) 05/05/19 04:00 Alkaline Phosphatase 174 Units/L (46-116) H 05/05/19 04:00 Ammonia 34 umol/L (11-32) H 05/05/19 04:00 Creatine Kinase 168 Units/L (26-192) 04/30/19 09:58 CK-MB (CK-2) 1.9 ng/mL (0-4.0) 04/30/19 09:58 CK/CKMB % Calc 1.1 % (<4) 04/30/19 09:58 Troponin I 0.16 ng/mL (0-1.5) 04/30/19 09:58 Total Protein 5.7 g/dL (6.4-8.2) L 05/05/19 04:00 Albumin 1.9 g/dL (3.4-5.0) L 05/05/19 04:00 Globulin 3.8 g/dL (2.5-4.5) 05/05/19 04:00 Albumin/Globulin Ratio 0.5 Ratio (1.1-2.1) L 05/05/19 04:00 Specimen Type Catherized urine 04/29/19 07:17 Urine Color Yellow (YELLOW) 04/29/19 07:17 Urine Appearance Clear (CLEAR) 04/29/19 07:17 Urine pH 6.0 (5.0 - 8.0) 04/29/19 07:17 Ur Specific [place] 1.015 (1.000-1.030) 04/29/19 07:17 Urine Protein 2+ (NEGATIVE) 04/29/19 07:17 Urine Glucose (UA) 4+ (NEGATIVE) 04/29/19 07:17 Urine Ketones Negative (NEGATIVE) 04/29/19 07:17 Urine Occult Blood 1+ (NEGATIVE) 04/29/19 07:17 Urine Nitrite Negative (NEGATIVE) 04/29/19 07:17 Urine Bilirubin Negative (NEGATIVE) 04/29/19 07:17 Urine Urobilinogen 1+ (NORMAL) 04/29/19 07:17 Ur Leukocyte Esterase 1+ (NEGATIVE) 04/29/19 07:17 Urine RBC 0-2 /HPF (0-3) 04/29/19 07:17 Urine WBC 3-5 /HPF (0-5) 04/29/19 07:17 Ur Squamous Epith Cells Rare /HPF (NEGATIVE) 04/29/19 07:17 Ur Renal Epithelial Cell Few /HPF (NEGATIVE) 04/29/19 07:17 Amorphous Sediment 1+ /HPF (NEGATIVE) 04/29/19 07:17 Urine Bacteria Trace /HPF (NEGATIVE) 04/29/19 07:17 Ur Culture Indicated? Yes/culture set up 04/29/19 07:17 Urine Opiates Screen Negative (NEG=<300) 04/29/19 07:17 Urine Methadone Screen Negative (NEG=<300) 04/29/19 07:17 Ur Barbiturates Screen Negative (NEG=<200) 04/29/19 07:17 Ur Phencyclidine Scrn Negative (NEG=<25) 04/29/19 07:17 Ur Amphetamines Screen Negative (NEG=<1000) 04/29/19 07:17 U Benzodiazepines Scrn Negative (NEG=<200) 04/29/19 07:17 Urine Cocaine Screen Negative (NEG=<300) 04/29/19 07:17 U Marijuana (THC) Screen Negative (NEG=<50) 04/29/19 07:17 - Plan (1) Hyperammonemia Status: Acute Plan: LACTULOSE 30ML PO QID, CONTINUE TO MONITOR (2) Cirrhosis of liver Status: Acute Qualifiers: Hepatic cirrhosis type: other cirrhosis Qualified Code(s): K74.69 - Other cirrhosis of liver (3) Altered mental status Status: Acute Qualifiers: Altered mental status type: stupor Qualified Code(s): R40.1 - Stupor (4) Hypokalemia Status: Acute Plan: POTASSIUM PROTOCOL, CONTINUE TO MONITOR (5) Diabetes Status: Acute Qualifiers: Diabetes mellitus type: type 2 Diabetes mellitus watermelon harvesting supervisor insulin use: without watermelon harvesting supervisor use Diabetes mellitus complication status: with other specified complication Qualified Code(s): E11.69 - Type 2 diabetes mellitus with other specified complication Plan: LEVEMIR 5 UNITS SC BID, HUMLIN R SLIDING SCALE, OTBS ACHS
[2019-05-05] MEDS ORDERED: MAGIC MOUTHWASH MT PRN (10:18)
== END 2019-05-05 11:30 | disposition home or self-care (01) | DRG 433 ==
LOC: ER 06:50 → ICU 12:18
PROVIDERS: ADMIT Internal Medicine; ATTEND Internal Medicine
DX: E03.8 Other specified hypothyroidism; E87.6 Hypokalemia; R94.31 Abnormal electrocardiogram [ECG] [EKG]; E11.65 Type 2 diabetes mellitus with hyperglycemia; K75.81 Nonalcoholic steatohepatitis (NASH); R26.89 Other abnormalities of gait and mobility; E72.20 Disorder of urea cycle metabolism, unspecified; I10 Essential (primary) hypertension; K74.69 Other cirrhosis of liver; R40.1 Stupor; J44.9 Chronic obstructive pulmonary disease, unspecified
CPT/HCPCS: 36415; 51702; 70450; 74000; 74018; 80053; 80307; 81001; 81599; 82140; 82550; 82553; 83735; 84132; 84484; 85025; 87086; 93005; 96365; 96367; 96374; 97110; 97162; 97166; 97530; 99284; A4216; A4222; G0434; J1815; J2405; J3475; J3480; J7030; J8499

== ENCOUNTER 2019-05-29 12:50 | Inpatient (IN) ==
[2019-05-29 13:01] VITALS: BMI 27.6
--- NOTE | 2019-05-29 13:57 | DR.AMS ---
HPI Time Seen Time Seen by Provider: 05/29/19 13:43 PCP Primary Care Physician: SAUL HPI Comment HPI Comment: PATIENT IS 68YR OLD FEMALE HERE IN ER WITH RELATIVES FOR AMS TIMES 2 DAYS. HISTORY LIVER CIRRHOSIS AND DM. PATIENT HAVE NOT TAKEN HER LATULOSE FOR SEVERAL DAYS. RELATIVE CONCERN AMMONIA LEVEL MAY BE HIGH. NO FEVER. DENIES TRAUMA. Complaint Cheif Complaint Doctors Comments: AMS PER RELATIVES FOR 2 DAYS. Chief Complaint:: FAMILY MEMBER STATES FOR 2 DAYS PT. HAS BEEN LETHARGIC AND C/O OF PAIN WHEN TOUCHED. FAMILY THINKS PT'S AMMONIA LEVELS ARE UP. PT. HAS NOT HAD HER LACTULOSE IN A FEW DAYS. UPON ARRIVAL TO ER, PT. IS LETHARGIC, SITTING UP IN WHEELCHAIR. Reviewed Nurses Notes Reviewed: Yes Source History Provided: Family Member Mode of Arrival Mode of Arrival: Wheelchair Timing Onset of Chief Complaint: 05/27/19 Came On: Gradually Symptoms: Worsening Duration Duration: Constant Duration: Days Quality Quality: Decreased Alertness and Change in Behavior Severity Severity: Moderate Context Recent: None History Of: Diabetes (HISTORY CIRRHOSIS.) Associated Signs and Symptoms Associated Signs and Symptoms: Generalized Weakness, Change in Behavior and Confusion Other History Other History: DM, LIVER CIRRHOSIS. PMH PMH Past Medical History: Yes Past Medical History: COPD, Diabetes, Hypertension and Hypothyroidism Past Medical History Comment: HE, CIRRHOSIS Past Surgical History: Yes Surgical History: Hysterectomy and Other Family History History of Family Medical Conditions: Yes Family Medical History: Hypertension Social History Does patient currently use any type of tobacco product: No Have you used tobacco products in the last 12 months: No Type of Tobacco Use: None Does any household member use tobacco: No Alcohol Use: None Do you use any recreational Drugs:: No Lives With: Family Lives Where: Home infectious screening In the last 2 months have you had wt loss of >10#?: NO Have you had fever, night sweats or hemotysis?: No Have you traveled outside the country in the last 6 months?: No Isolation: Standard ROS Review of Systems Constitutional: No Symptoms Reported, See HPI, Weakness and Fatigue; negative Fever Eyes: No Symptoms Reported and See HPI ENTM: No Symptoms Reported and See HPI Respiratoy: No Symptoms Reported and See HPI; negative Short of Breath and Whe ezing Cardiovascular: See HPI and Edema; negative Chest Pain Gastrointestinal/Abdominal: No Symptoms Reported and See HPI; negative Abdominal Pain, Constipation, Diarrhea, Nausea and Vomiting Genitourinary: See HPI and Other (DECREASE URINATION.); negative Dysuria Neurological: See HPI and Weakness Musculoskeletal: See HPI and Muscle Pain Integumentary: No Symptoms Reported, See HPI and Juandice Hematologic/Lymphatic: See HPI, Easy Bleeding and Easy Bruising Endocrine: See HPI and Decreased Appetite Psychiatric: No Symptoms Reported and See HPI All Other Systems: Reviewed and Negative Unable to Obtain Due To: Altered mental status PE Vitals Vital Signs: Temp Pulse Pulse Resp BP BP BP 05/29/19 16:31 82 125/56 05/29/19 16:30 82 05/29/19 16:15 76 05/29/19 16:01 80 122/58 05/29/19 16:00 78 05/29/19 15:45 75 05/29/19 15:31 78 110/53 05/29/19 15:30 77 05/29/19 15:25 68 05/29/19 15:02 85 05/29/19 15:00 83 15 133/64 05/29/19 14:00 84 15 175/99 05/29/19 12:58 99.5 F 84 22 05/05/19 04:00 96/54 03/27/19 08:00 129/58 03/26/19 15:58 134/63 Pulse Ox 05/29/19 16:31 100 05/29/19 16:30 100 05/29/19 16:15 99 05/29/19 16:01 99 05/29/19 16:00 99 05/29/19 15:45 99 05/29/19 15:31 99 05/29/19 15:30 98 05/29/19 15:25 99 05/29/19 15:02 100 05/29/19 15:00 100 05/29/19 14:00 100 05/29/19 12:58 99 05/05/19 04:00 03/27/19 08:00 03/26/19 15:58 General Limitations: Altered Mental Status General Appearance: Alert and In No Apparent Distress Head Head Exam: Normal Inspection and Atraumatic Head Exam Physical: Other (NONE NOTED.) Eyes Eye exam: PERRL and Scleral Icterus; negative Conjunctival Injection Pupils: Regular, Round: Bilateral and Reactive: Bilateral ENT ENT Exam: Normal Exam, Normal Oropharynx, Normal External Ear Exam and TM's Normal Bilaterally External Ear Exam: Normal External Inspection; negative Mastoid Tenderness, Pain with Movement and External Tenderness TM/Canal Exam: Bilateral: Normal Nose Exam: Normal Nose Exam Mouth Exam: Normal Inspection Throat Exam: Normal Inspection; negative Tonsillar Erythema, Tonsillomegaly and Tonsillar Exudate Neck Neck Exam: Normal Inspection and Trachea Midline; negative Tenderness and Lymphadenopathy Chest Chest Inspection: Normal Inspection and Symmetric Chest Wall Rise; negative Tenderness Respiratory Respiratory Exam: Normal Lung Sounds Bilat; negative Accessory Muscle Use, Chest Wall Tenderness and Respiratory Distress Respiratory Exam: Bilateral: Rhonchi and Lower: Rhonchi Cardiovascular Cardiovascular Exam: Regular Rate and Normal Rhythm; negative Normal Heart Sounds, Systolic Murmur and Diastolic Murmur Abdominal Exam Abdominal Exam: Normal Inspection, Normal Bowel Sounds and Soft; negative Tenderness Extremities Extremities Exam: Normal Inspection, Normal Capillary Refill and Edema; negative Tenderness and Calf Tenderness Back Back Exam: Normal Inspection; negative (R) CVA Tenderness and (L) CVA Tenderness Neurological Neurological Exam: Alert; negative Motor Sensory Deficit Patient Oriented To: Person; negative Place and Time Cranial Nerve Exam: Gag reflex (XI): Normal Upper Motor Neuron Exam: Babinski Sign: Normal Psychological Psychiatric Exam: Normal Affect and Normal Mood Skin Skin Exam: Warm and Dry MDM Differential Diagnosis Metabolic: Dehydration, Hypercalcemia, Hypernatremia, Hypoglycemia and Hyponatr emia Structural: CVA and Mass Lesion Infectious: Sepsis and UTI (HEPATIC ENCEPHALOPATHY.) COURSE Treatment Treatment: SEE ORDERS. Education/Counseling Education/Counseling: Family Educated On: Diagnosis ROR Labs Reviewed Laboratory Results Reviewed?: Yes Result Diagrams: 06/02/19 04:53 06/02/19 04:53 Laboratory: 05/29/19 14:10 Blood Blood Culture - Final 05/29/19 13:18 Blood Blood Culture - Final Klebsiella Pneumoniae 05/29/19 14:50 Urine,Catheterized Urine Culture - Final Klebsiella Pneumoniae WBC 13.9 X10^3/uL (3.6-10.0) H 05/29/19 13:18 RBC 4.94 X10^6/uL (3.5-5.4) 05/29/19 13:18 Hgb 15.7 g/dL (12.0-16.0) 05/29/19 13:18 Hct 47.3 % (36.0-47.0) H 05/29/19 13:18 MCV 95.7 fL (80.0-100.0) 05/29/19 13:18 MCH 31.7 pg (27.0-34.0) 05/29/19 13:18 MCHC 33.1 g/dL (33.0-35.0) 05/29/19 13:18 RDW 16.2 % (11.6-16.5) 05/29/19 13:18 Plt Count 89 X10^3/uL (150.0-450.0) L 05/29/19 13:18 MPV 11.9 fL (7.4-11.0) H 05/29/19 13:18 Neut % (Auto) 75.9 % (42.0-75.0) H 05/29/19 13:18 Lymph % (Auto) 15.4 % (21.0-51.0) L 05/29/19 13:18 [place] % (Auto) 8.3 % (0.0-13.0) 05/29/19 13:18 Eos % (Auto) 0.1 % (0.9-2.9) L 05/29/19 13:18 Baso % (Auto) 0.3 % (0.2-1.0) 05/29/19 13:18 Neut # (Auto) 10.6 x10^3/uL (2.2-4.8) H 05/29/19 13:18 Lymph # (Auto) 2.1 X10^3/uL (1.3-2.9) 05/29/19 13:18 [place] # (Auto) 1.2 x10^3/uL (0.3-0.8) H 05/29/19 13:18 Eos # (Auto) 0.0 x10^3/uL (0.0-0.2) 05/29/19 13:18 Baso # (Auto) 0.0 X10^3/uL (0.0-0.1) 05/29/19 13:18 Absolute Nucleated RBC 0.3 /100WBC 05/29/19 13:18 Sodium 143 mmol/L (136-145) 05/29/19 13:18 Corrected Sodium 147 mmol/L (136-145) H 05/29/19 13:18 Potassium 2.8 mmol/L (3.5-5.1) L* 05/29/19 13:18 Chloride 107 mmol/L (98-107) 05/29/19 13:18 Carbon Dioxide 25.8 mmol/L (21-32) 05/29/19 13:18 BUN 13 mg/dL (7-18) 05/29/19 13:18 Creatinine 1.33 mg/dL (0.55-1.02) H 05/29/19 13:18 Est GFR (MDRD) Af Amer 51 (>60) L 05/29/19 13:18 Est GFR (MDRD) Non-Af 42 (>60) L 05/29/19 13:18 Glucose 257 mg/dL (65-99) H 05/29/19 13:18 Lactic Acid 2.5 mmol/L (0.4-2.0) H 05/29/19 13:18 Calcium 8.7 mg/dL (8.5-10.1) 05/29/19 13:18 Corrected Calcium 9.9 mg/dL (8.5-10.1) 05/29/19 13:18 Total Bilirubin 2.40 mg/dL (0.2-1.0) H 05/29/19 13:18 AST 28 Units/L (15-37) 05/29/19 13:18 ALT 19 Units/L (12-78) 05/29/19 13:18 Alkaline Phosphatase 196 Units/L (46-116) H 05/29/19 13:18 Ammonia 71 umol/L (11-32) H 05/29/19 13:18 Creatine Kinase 55 Units/L (26-192) 05/29/19 13:18 CK-MB (CK-2) 1.2 ng/mL (0-4.0) 05/29/19 13:18 CK/CKMB % Calc 2.2 % (<4) 05/29/19 13:18 Troponin I 0.04 ng/mL (0-1.5) 05/29/19 13:18 Total Protein 7.3 g/dL (6.4-8.2) 05/29/19 13:18 Albumin 2.5 g/dL (3.4-5.0) L 05/29/19 13:18 Globulin 4.8 g/dL (2.5-4.5) H 05/29/19 13:18 Albumin/Globulin Ratio 0.5 Ratio (1.1-2.1) L 05/29/19 13:18 Specimen Type Catherized urine 05/29/19 14:50 Urine Color Yellow (YELLOW) 05/29/19 14:50 Urine Appearance Cloudy (CLEAR) 05/29/19 14:50 Urine pH 7.0 (5.0 - 8.0) 05/29/19 14:50 Ur Specific [place] 1.010 (1.000-1.030) 05/29/19 14:50 Urine Protein 2+ (NEGATIVE) 05/29/19 14:50 Urine Glucose (UA) 2+ (NEGATIVE) 05/29/19 14:50 Urine Ketones Negative (NEGATIVE) 05/29/19 14:50 Urine Occult Blood 4+ (NEGATIVE) 05/29/19 14:50 Urine Nitrite Positive (NEGATIVE) 05/29/19 14:50 Urine Bilirubin Negative (NEGATIVE) 05/29/19 14:50 Urine Urobilinogen 2+ (NORMAL) 05/29/19 14:50 Ur Leukocyte Esterase 3+ (NEGATIVE) 05/29/19 14:50 Urine RBC Tntc /HPF (0-3) A 05/29/19 14:50 Urine WBC Tntc /HPF (0-5) A 05/29/19 14:50 Ur Squamous Epith Cells Few /HPF (NEGATIVE) 05/29/19 14:50 Urine Bacteria 3+ /HPF (NEGATIVE) 05/29/19 14:50 Ur Culture Indicated? Yes/culture set up 05/29/19 14:50 XRAY XRAY Interpreted by: Radiologist XRAY Findings: REPORT NOTED A Opioid Opioid Risk Tool Family Hx of Substance Abuse: Alcohol Age ([place] box if 16-45): No History of Preadolescent Sexual Abuse: No Total: 0 Total Score Risk Category: Low Risk Copyright: Mulugeta CARNEY predicting aberrant behaviors Diagnosis Discharge Problem: Hypokalemia, Sepsis due to urinary tract infection Altered mental status Qualifiers: Altered mental status type: transient alteration of awareness Qualified Code(s): R40.4 - Transient alteration of awareness Instructions Instructions: Type 2 Diabetes Mellitus, Diagnosis, Adult Chronic Obstructive Pulmonary Disease Exacerbation, [id number] Ammonia Test Urinary Tract Infection, Adult, [id number] Palliative [facility]
[2019-05-29 14:22] LABS: ALBUMIN 2.5 g/dL (3.4-5.0); CALCIUM 8.7 mg/dL (8.5-10.1); CARBON DIOXIDE 25.8 mmol/L (21-32); CKMB % 2.2 % (<4); COR CA(FOR HYPOALB) 9.9 mg/dL (8.5-10.1); CREATINE KINASE MB 1.2 ng/mL (0-4.0); CREATININE 1.33 mg/dL (0.55-1.02); TOTAL PROTEIN 7.3 g/dL (6.4-8.2); TROPONIN I 0.04 ng/mL (0-1.5)
[2019-05-29 14:35] LABS: BASOPHILS % (AUTO) 0.3 % (0.2-1.0); EOSINOPHILS % (AUTO) 0.1 % (0.9-2.9); HEMATOCRIT 47.3 % (36.0-47.0); HEMOGLOBIN 15.7 g/dL (12.0-16.0); LYMPHOCYTES # (AUTO) 2.1 X10^3/uL (1.3-2.9); LYMPHOCYTES % (AUTO) 15.4 % (21.0-51.0); MEAN CORPUSCULAR HEMOGLOBIN 31.7 pg (27.0-34.0); MEAN CORPUSCULAR HGB CONC 33.1 g/dL (33.0-35.0); MEAN CORPUSCULAR VOLUME 95.7 fL (80.0-100.0); MEAN PLATELET VOLUME 11.9 fL (7.4-11.0); MONOCYTES # (AUTO) 1.2 x10^3/uL (0.3-0.8); MONOCYTES % (AUTO) 8.3 % (0.0-13.0); NEUTROPHILS # (AUTO) 10.6 x10^3/uL (2.2-4.8); NEUTROPHILS % (AUTO) 75.9 % (42.0-75.0); PLATELET COUNT 89 X10^3/uL (150.0-450.0); RED BLOOD COUNT 4.94 X10^6/uL (3.5-5.4); RED CELL DISTRIBUTION WIDTH 16.2 % (11.6-16.5); WHITE BLOOD COUNT 13.9 X10^3/uL (3.6-10.0)
[2019-05-29] MEDS ORDERED: K-RIDER 10 MEQ/NS 100 ML 10 MEQ/100 ML BAG IV ONE (14:40)
[2019-05-29 14:42] LABS: LACTIC ACID 2.5 mmol/L (0.4-2.0)
[2019-05-29 14:59] LABS: BILIRUBIN,URINE NEGATIVE (NEGATIVE); BLOOD/HEMOGLOBIN,URINE 4+ (NEGATIVE); GLUCOSE, URINE 2+ (NEGATIVE); KETONES,URINE NEGATIVE (NEGATIVE); LEUKOCYTE ESTERASE ,URINE 3+ (NEGATIVE); NITRITES,URINE POSITIVE (NEGATIVE); PROTEIN,URINE 2+ (NEGATIVE); UROBILINOGEN,URINE 2+ (NORMAL)
[2019-05-29 15:06] LABS: APPEARANCE,URINE CLOUDY (CLEAR); COLOR,URINE YELLOW (YELLOW)
[2019-05-29 15:07] LABS: BACTERIA,URINE 3+ /HPF (NEGATIVE); RBC,URINE TNTC /HPF (0-3); SQUAMOUS EPITHELIAL CELL,UR FEW /HPF (NEGATIVE)
--- NOTE | 2019-05-29 15:35 | CT ---
HISTORY: Altered mental status Study: CT HEAD WITHOUT CONTRAST Comparison: 04/29/2019 Technique: Multiple axial images of the brain were obtained from the skull base to the vertex without administration of IV contrast. Findings: No acute intracranial hemorrhage or extra-axial fluid collection. No mass effect, shift or evidence of cerebral edema. Ventricular size is normal. Cortical goss-white matter differentiation is maintained. No sulcal effacement is identified. Age-related, moderate cortical volume loss is observed. The calvarium is intact. The sinuses and left mastoid air cells are predominantly clear. There is near complete opacification of the right mastoid air cell complex. IMPRESSION: 1. No acute intracranial process can be identified. 2. Chronic age-related involutional changes of the brain as detailed above. 3. Right mastoid effusion Individualized dose optimization techniques were utilized to reduce radiation dose through one or more of the following means: automated exposure control, adjustment of mA and/or KV according to patient size, or through use of iterative reconstruction technique. Reported By:
[2019-05-29] MEDS ORDERED: ROCEPHIN VIAL 1 GRAM IVP ONE (16:13)
[2019-05-29] MEDS ORDERED: ROCEPHIN VIAL 1 GRAM ONE (16:14)
--- NOTE | 2019-05-29 17:18 | RAD ---
Chest single frontal view Clinical indication: AMS, sepsis Comparison: 03/14/2019 Findings: No pulmonary infiltrates or pleural fluid collections identified. There is no free air or pneumothorax. No acute bony abnormalities of the chest are observed. The heart size is stable, mildly enlarged for technique. Impression: No acute radiographic abnormalities of the chest Stable, mild cardiomegaly Reported By:
[2019-05-29] MEDS: NS + KCL 40 MEQ/L 1,000 ML IV SCH ×2 (17:48→22:23)
[2019-05-29] MEDS ORDERED: ZOSYN VIAL 3.375 GRAMS IV ONE (17:49)
[2019-05-29] MEDS ORDERED: NS 100 ML IV + SPIKE MINIBAG* 100 ML IV ONE (17:50)
[2019-05-29] MEDS: ZOSYN VIAL 3.375 GRAMS 3.375 G in NS 100 ML IV + SPIKE MINIBAG* 100 ML IV SCH ×2 (18:00→23:24)
[2019-05-29] MEDS: HumuLIN R SUBCUT PRN (18:35)
[2019-05-29] MEDS: CHRONULAC PO SCH (21:10)
[2019-05-29] MEDS: SNACK - Diabetic Appropriate PO SCH (21:13)
[2019-05-29] MEDS: NYSTATIN POWDER TOP SCH (22:10)
[2019-05-29 23:29] LABS: CKMB % 2.3 % (<4); CREATINE KINASE 43 Units/L (26-192); CREATINE KINASE MB < 1.0 ng/mL (0-4.0); TROPONIN I 0.04 ng/mL (0-1.5)
[2019-05-30 02:29] LABS: AMMONIA 51 umol/L (11-32); BASOPHILS % (AUTO) 0.5 % (0.2-1.0); EOSINOPHILS % (AUTO) 0.2 % (0.9-2.9); HEMATOCRIT 43.3 % (36.0-47.0); HEMOGLOBIN 14.5 g/dL (12.0-16.0); LYMPHOCYTES # (AUTO) 1.3 X10^3/uL (1.3-2.9); LYMPHOCYTES % (AUTO) 16.2 % (21.0-51.0); MEAN CORPUSCULAR HEMOGLOBIN 31.8 pg (27.0-34.0); MEAN CORPUSCULAR HGB CONC 33.4 g/dL (33.0-35.0); MEAN CORPUSCULAR VOLUME 95.1 fL (80.0-100.0); MEAN PLATELET VOLUME 11.1 fL (7.4-11.0); MONOCYTES # (AUTO) 0.7 x10^3/uL (0.3-0.8); MONOCYTES % (AUTO) 8.6 % (0.0-13.0); NEUTROPHILS # (AUTO) 5.8 x10^3/uL (2.2-4.8); NEUTROPHILS % (AUTO) 74.5 % (42.0-75.0); PLATELET COUNT 65 X10^3/uL (150.0-450.0); RED BLOOD COUNT 4.55 X10^6/uL (3.5-5.4); RED CELL DISTRIBUTION WIDTH 16.1 % (11.6-16.5); WHITE BLOOD COUNT 7.7 X10^3/uL (3.6-10.0)
[2019-05-30 02:49] LABS: ALANINE AMINOTRANSFERASE 15 Units/L (12-78); ALBUMIN 1.9 g/dL (3.4-5.0); ALKALINE PHOSPHATASE 158 Units/L (46-116); ASPARTATE AMINO TRANSFERASE 26 Units/L (15-37); BLOOD UREA NITROGEN 12 mg/dL (7-18); CALCIUM 7.7 mg/dL (8.5-10.1); CARBON DIOXIDE 23.4 mmol/L (21-32); CHLORIDE 114 mmol/L (98-107); CKMB % 2.2 % (<4); COR CA(FOR HYPOALB) 9.4 mg/dL (8.5-10.1); COR NA(FOR HYPERGLY) 150 mmol/L (136-145); CREATINE KINASE 45 Units/L (26-192); CREATINE KINASE MB < 1.0 ng/mL (0-4.0); CREATININE 1.13 mg/dL (0.55-1.02); MAGNESIUM 1.5 mg/dL (1.7-2.9); SODIUM 148 mmol/L (136-145); TROPONIN I 0.05 ng/mL (0-1.5); eGFR NON BLACK RACES 51 (>60)
[2019-05-30] MEDS ORDERED: NS 1/2 + KCL 20 MEQ/L 1,000 ML IV ONE (03:13)
[2019-05-30] MEDS: NS 1/2 + KCL 20 MEQ/L 1,000 ML IV SCH ×5 (03:16→23:01)
[2019-05-30] MEDS: ZOSYN VIAL 3.375 GRAMS 3.375 G in NS 100 ML IV + SPIKE MINIBAG* 100 ML IV SCH ×3 (05:28→21:52)
[2019-05-30] MEDS ORDERED: ROCEPHIN VIAL 1 GRAM 1 G in NS 100 ML IV + SPIKE MINIBAG* 100 ML IV SCH (09:02)
[2019-05-30] MEDS: CHRONULAC PO SCH ×4 (09:39→21:52)
[2019-05-30] MEDS: NYSTATIN POWDER TOP SCH ×2 (09:40→21:50)
[2019-05-30] MEDS: HumuLIN R SUBCUT PRN ×3 (11:32→21:52)
[2019-05-30] MEDS: SNACK - Diabetic Appropriate PO SCH (20:15)
--- NOTE | 2019-05-30 22:28 | DR.H&P ---
H&P - History & Physical for Day of: H&P Date: 05/29/19 - Chief Complaint Chief Complaint: LETHARGIC, PAIN - History of Present Illness History of Present Illness: IS A 68 YEAR OLD PATIENT OF OURS WHO PRESENTED TO THE ER WITH FAMILY REPORTING THAT SHE HAS BEEN LETHARGIC AND IN PAIN. SHE HAS A HISTORY OF CIRRHOSIS AND HEPATIC ENCEPHALOPATHY. FAMILY REPORTS THAT SHE HAS NOT HAD HER LACTULOSE IN SEVERAL DAYS AND THEY BELIEVE THAT HER AMMONIA LEVELS MAY BE UP. ON ARRIVAL TO THE ER, VITALS WERE 99.5-84-22-99%-175/99. LABS WERE OBTAINED. ABNORMAL LAB VALUES INCLUDE THE FOLLOWING: WBC 13.9, HCT 47.3, POTASSIUM 2.8, CREATININE 1.33, GLUCOSE 257, LACTIC ACID 2.5, TOTAL BILI 2.40, ALK PHOS 196, AMMONIA 71, ALBUMIN 2.5, GLOBULIN 4.8. CARDIAC ENZYMES WITHIN NORMAL LIMITS. A GARZA CATHETER WAS PLACED AND A URINALYSIS WAS OBTAINED. IT REVEALED: WBC TNTC, RBC TNTC, LEUKOCYTES 3+, BACTERIA 3+. URINE AND BLOOD CULTURES ARE PENDING. A BRAIN CT WAS OBTAINED AND REVEALED: No acute intracranial process can be identified. Chronic age-related involutional changes of the brain as detailed above. Right mastoid effusion. A CHEST XRAY WAS OBTAINED AND REVEALED: No acute radiographic abnormalities of the chest. Stable, mild cardiomegaly. EKG REVEALED: ATRIAL FIBRILLATION WITH HR 69. SHE WAS ADMITTED FOR FURTHER EVALUATION AND TREATMENT OF UROSEPSIS, HEPATIC ENCEPHALOPATHY, AND HYPOKALEMIA. SHE WAS STARTED ON NORMAL SALINE WITH 20MEQ KCL AT 250ML/HR, ZOSYN 3.375 G IV TID, LACTULOSE 30ML PO QID, AND HUMULIN R SLIDING SCALE. WE PLAN TO FOLLOW UP WITH AM LABS AND CONTINUE TO MONITOR. - Past Medical History Past Medical History: Hypertension, Diabetes, Hypothyroidism, COPD Additional Medical History: Thyroid cancer - Past Surgical History Surgical History: Hysterectomy - Family History Family Medical History: Hypertension - Social History Does patient currently use any type of tobacco product: No Have you used tobacco products in the last 12 months: No Type of Tobacco Use: None Does any household member use tobacco: No Alcohol Use: None Drug Use: None - Medications Home Medications: No Known Drug Allergies Allergy (Verified 04/29/19 06:52) CONTINUE taking the following medications nystatin 1 applic TOPICAL BID 05/30/19 [History] - Review of Systems Constitutional: See HPI, Weakness, Malaise Eyes: No Symptoms Reported ENT: No Symptoms Reported Respiratory: No Symptoms Reported Cardiovascular: No Symptoms Reported Gastrointestinal: Abdominal Pain Genitourinary: No Symptoms Reported Musculoskeletal: No Symptoms Reported Skin: No Symptoms Reported Neurological: See HPI, Weakness, Confusion - Physical Exam Vital Signs: Temperature 97.5 F Pulse Rate [Left Brachial] 79 Pulse Rate 87 Respiratory Rate 16 Blood Pressure [Right Arm] 106/58 Blood Pressure [Left Arm] 130/69 Blood Pressure 123/60 O2 Sat by Pulse Oximetry 100 Oriented: Not Oriented Eyes: Normal Ear: Normal Nose: Normal Throat: Normal Respiratory: Diminished Throughout Cardiovascular: Normal : Normal Auscultation: Bowel Sounds: Normal Palpation: Normal Tenderness: Suprapubic, Moderate. negative: Rebound, Guarding, Rigidity Skin: Normal Musculoskeletal: Normal Psychiatric: Normal Mood Description: Calm Affect: Normal Speech Pattern: Clear - Assessment/Plan (1) Sepsis due to urinary tract infection Status: Acute Plan: IV ZOSYN, IV FLUIDS, CONTINUE TO MONITOR (2) Hepatic encephalopathy Status: Acute Plan: NORMAL SALINE WITH 20MEQ KCL AT 250ML/HR, ZOSYN 3.375 G IV TID, LACTULOSE 30ML PO QID, AND HUMULIN R SLIDING SCALE (3) Hypokalemia Status: Acute Plan: POTASSIUM PROTOCOL, CONTINUE TO MONITOR (4) Cirrhosis of liver Qualifiers: Hepatic cirrhosis type: other cirrhosis Qualified Code(s): K74.69 - Other cirrhosis of liver Status: Chronic Plan: NORMAL SALINE WITH 20MEQ KCL AT 250ML/HR, ZOSYN 3.375 G IV TID, LACTULOSE 30ML PO QID (5) Diabetes Qualifiers: Diabetes mellitus type: 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
[2019-05-31] MEDS: NS 1/2 + KCL 20 MEQ/L 1,000 ML IV SCH ×4 (02:49→21:56)
[2019-05-31 04:10] LABS: BASOPHILS % (AUTO) 0.5 % (0.2-1.0); EOSINOPHILS % (AUTO) 0.8 % (0.9-2.9); HEMATOCRIT 40.6 % (36.0-47.0); HEMOGLOBIN 13.5 g/dL (12.0-16.0); LYMPHOCYTES # (AUTO) 1.3 X10^3/uL (1.3-2.9); LYMPHOCYTES % (AUTO) 22.5 % (21.0-51.0); MEAN CORPUSCULAR HEMOGLOBIN 31.8 pg (27.0-34.0); MEAN CORPUSCULAR HGB CONC 33.2 g/dL (33.0-35.0); MEAN PLATELET VOLUME 10.7 fL (7.4-11.0); MONOCYTES # (AUTO) 0.6 x10^3/uL (0.3-0.8); MONOCYTES % (AUTO) 9.4 % (0.0-13.0); NEUTROPHILS % (AUTO) 66.8 % (42.0-75.0); PLATELET COUNT 55 X10^3/uL (150.0-450.0); RED BLOOD COUNT 4.23 X10^6/uL (3.5-5.4); RED CELL DISTRIBUTION WIDTH 16.3 % (11.6-16.5); WHITE BLOOD COUNT 5.9 X10^3/uL (3.6-10.0)
[2019-05-31 04:13] LABS: AMMONIA 28 umol/L (11-32)
[2019-05-31 04:16] LABS: ALANINE AMINOTRANSFERASE 14 Units/L (12-78); ALBUMIN 1.6 g/dL (3.4-5.0); ALKALINE PHOSPHATASE 138 Units/L (46-116); ASPARTATE AMINO TRANSFERASE 26 Units/L (15-37); BLOOD UREA NITROGEN 6 mg/dL (7-18); CALCIUM 7.6 mg/dL (8.5-10.1); CARBON DIOXIDE 20.4 mmol/L (21-32); CHLORIDE 108 mmol/L (98-107); COR CA(FOR HYPOALB) 9.5 mg/dL (8.5-10.1); COR NA(FOR HYPERGLY) 142 mmol/L (136-145); CREATININE 1.09 mg/dL (0.55-1.02); SODIUM 140 mmol/L (136-145); TOTAL PROTEIN 5.2 g/dL (6.4-8.2); eGFR NON BLACK RACES 53 (>60)
[2019-05-31] MEDS: ZOSYN VIAL 3.375 GRAMS 3.375 G in NS 100 ML IV + SPIKE MINIBAG* 100 ML IV SCH ×3 (05:42→21:44)
[2019-05-31] MEDS: HumuLIN R SUBCUT PRN ×4 (05:54→21:55)
[2019-05-31] MEDS: NYSTATIN POWDER TOP SCH ×2 (08:35→21:56)
[2019-05-31] MEDS: CHRONULAC PO SCH ×4 (08:35→21:50)
[2019-05-31] MEDS: VSL#3 PO SCH (11:28)
[2019-05-31] MEDS: CARDIZEM SR 90 MG 12-HR PO SCH ×2 (11:29→21:43)
[2019-05-31] MEDS: LEVEMIR SC SCH ×2 (11:29→21:50)
[2019-05-31] MEDS: SYNTHROID 50 mcg TAB PO SCH (11:30)
[2019-05-31] MEDS: PROTONIX TAB 40 MG PO SCH (11:30)
[2019-05-31] MEDS: SNACK - Diabetic Appropriate PO SCH (21:42)
[2019-05-31] MEDS: CRESTOR TAB 10 MG PO SCH (21:43)
--- NOTE | 2019-05-31 21:50 | PCM.PROG ---
Progress Note - Progress Note for Day of Date of Exam: 05/30/19 - Subjective Subjective: WAS ADMITTED FOR UROSEPSIS, HEPATIC ENCEPHALOPATHY, AND HYPOKALEMIA. TODAY, SHE IS LYING IN BED WITH EYES CLOSED ON MORNING ROUNDS. SHE IS DIFFICULT TO AROUSE THIS MORNING. FAMILY REPORTS THAT SHE HAS BEEN CONFUSED AT TIMES. ON EXAMINATION, HEART IS REGULAR IN RATE AND RHYTHM. BILATERAL LUNGS ARE NOTED WITH DIMINISHED LUNG SOUNDS THROUGHOUT. ABDOMEN IS ROUND, SOFT, AND NOTED WITH NORMAL BOWEL SOUNDS IN ALL QUADRANTS. HER VITALS THIS MORNING ARE: 97.4-85-18-100%-123/72. LABS WERE OBTAINED. ABNORMAL LAB VALUES INCLUDE THE FOLLOWING: PLT COUNT 65, SODIUM 148, CHLORIDE 114, CREATININE 1.13, GLUCOSE 187, CALCIUM 7.7, MAGNESIUM 1.5, TOTAL BILI 1.80, ALK PHOS 158, AMMONIA 51, TOTAL PROTEIN 6.0, ALBUMIN 1.9. BLOOD AND URINE CULTURES ARE PENDING. SHE IS CURRENTLY RECEIVING: NORMAL SALINE WITH 20MEQ KCL AT 250ML/HR, ZOSYN 3.375 G IV TID, LACTULOSE 30ML PO QID, AND HUMULIN R SLIDING SCALE. WE WILL CONTINUE WITH CURRENT PLAN OF CARE TODAY. OTHERWISE, WE PLAN TO FOLLOW UP WITH AM LABS AND CONTINUE TO MONITOR. - Past Medical Family Social History Past Med/Fam/Surg Hx: No changes since H&P Allergies: Allergies No Known Drug Allergies Allergy (Verified 04/29/19 06:52) - Review of Systems ROS: No change since H&P - Vital Signs and I&O's Vital Signs: Temperature 97.7 F Pulse Rate [Left Brachial] 79 Pulse Rate 61 Respiratory Rate 20 Blood Pressure [Right Arm] 103/57 Blood Pressure [Left Arm] 130/69 Blood Pressure 96/66 O2 Sat by Pulse Oximetry 100 Intake and Output: Intake & Output 05/29/19 05/30/19 05/31/19 06/01/19 11:59 11:59 11:59 11:59 Intake Total 3573 / 3573 6476 / 6476 2420 / 2420 Output Total 1300 / 1300 3600 / 3600 1400 / 1400 Balance 2273 / 2273 2876 / 2876 1020 / 1020 - Physical Exam Oriented: Not Oriented Eyes: Normal Ear: Normal Nose: Normal Throat: Normal Cardiovascular: Normal : Normal Auscultation: Bowel Sounds: Normal Palpation: Normal Tenderness: Suprapubic, Moderate. negative: Rebound, Guarding, Rigidity Skin: Normal Musculoskeletal: Normal Psychiatric: Normal Mood Description: Calm Affect: Normal Speech Pattern: Clear - Laboratory and Diagnostics Result Diagrams: 05/31/19 03:55 05/31/19 03:55 Labs: 05/29/19 14:10 Blood Blood Culture - Preliminary 05/29/19 13:18 Blood Blood Culture - Preliminary 05/29/19 14:50 Urine,Catheterized Urine Culture - Final Klebsiella Pneumoniae Laboratory WBC 5.9 X10^3/uL (3.6-10.0) 05/31/19 03:55 RBC 4.23 X10^6/uL (3.5-5.4) 05/31/19 03:55 Hgb 13.5 g/dL (12.0-16.0) 05/31/19 03:55 Hct 40.6 % (36.0-47.0) 05/31/19 03:55 MCV 96.0 fL (80.0-100.0) 05/31/19 03:55 MCH 31.8 pg (27.0-34.0) 05/31/19 03:55 MCHC 33.2 g/dL (33.0-35.0) 05/31/19 03:55 RDW 16.3 % (11.6-16.5) 05/31/19 03:55 Plt Count 55 X10^3/uL (150.0-450.0) L 05/31/19 03:55 MPV 10.7 fL (7.4-11.0) 05/31/19 03:55 Neut % (Auto) 66.8 % (42.0-75.0) 05/31/19 03:55 Lymph % (Auto) 22.5 % (21.0-51.0) 05/31/19 03:55 [place] % (Auto) 9.4 % (0.0-13.0) 05/31/19 03:55 Eos % (Auto) 0.8 % (0.9-2.9) L 05/31/19 03:55 Baso % (Auto) 0.5 % (0.2-1.0) 05/31/19 03:55 Neut # (Auto) 4.0 x10^3/uL (2.2-4.8) 05/31/19 03:55 Lymph # (Auto) 1.3 X10^3/uL (1.3-2.9) 05/31/19 03:55 [place] # (Auto) 0.6 x10^3/uL (0.3-0.8) 05/31/19 03:55 Eos # (Auto) 0.0 x10^3/uL (0.0-0.2) 05/31/19 03:55 Baso # (Auto) 0.0 X10^3/uL (0.0-0.1) 05/31/19 03:55 Absolute Nucleated RBC 0.1 /100WBC 05/31/19 03:55 Sodium 140 mmol/L (136-145) 05/31/19 03:55 Corrected Sodium 142 mmol/L (136-145) 05/31/19 03:55 Potassium 3.8 mmol/L (3.5-5.1) 05/31/19 03:55 Chloride 108 mmol/L (98-107) H 05/31/19 03:55 Carbon Dioxide 20.4 mmol/L (21-32) L 05/31/19 03:55 BUN 6 mg/dL (7-18) L 05/31/19 03:55 Creatinine 1.09 mg/dL (0.55-1.02) H 05/31/19 03:55 Est GFR (MDRD) Af Amer > 60 (>60) 05/31/19 03:55 Est GFR (MDRD) Non-Af 53 (>60) L 05/31/19 03:55 Glucose 179 mg/dL (65-99) H 05/31/19 03:55 POC Glucose (mg/dL) 179 mg/dL (65-99) H 05/31/19 20:10 Lactic Acid 2.5 mmol/L (0.4-2.0) H 05/29/19 13:18 Calcium 7.6 mg/dL (8.5-10.1) L 05/31/19 03:55 Corrected Calcium 9.5 mg/dL (8.5-10.1) 05/31/19 03:55 Magnesium 1.5 mg/dL (1.7-2.9) L 05/30/19 02:10 Total Bilirubin 1.30 mg/dL (0.2-1.0) H 05/31/19 03:55 AST 26 Units/L (15-37) 05/31/19 03:55 ALT 14 Units/L (12-78) 05/31/19 03:55 Alkaline Phosphatase 138 Units/L (46-116) H 05/31/19 03:55 Ammonia 28 umol/L (11-32) 05/31/19 03:55 Creatine Kinase 45 Units/L (26-192) 05/30/19 02:10 CK-MB (CK-2) < 1.0 ng/mL (0-4.0) 05/30/19 02:10 CK/CKMB % Calc 2.2 % (<4) 05/30/19 02:10 Troponin I 0.05 ng/mL (0-1.5) 05/30/19 02:10 Total Protein 5.2 g/dL (6.4-8.2) L 05/31/19 03:55 Albumin 1.6 g/dL (3.4-5.0) L 05/31/19 03:55 Globulin 3.6 g/dL (2.5-4.5) 05/31/19 03:55 Albumin/Globulin Ratio 0.4 Ratio (1.1-2.1) L 05/31/19 03:55 Specimen Type Catherized urine 05/29/19 14:50 Urine Color Yellow (YELLOW) 05/29/19 14:50 Urine Appearance Cloudy (CLEAR) 05/29/19 14:50 Urine pH 7.0 (5.0 - 8.0) 05/29/19 14:50 Ur Specific [place] 1.010 (1.000-1.030) 05/29/19 14:50 Urine Protein 2+ (NEGATIVE) 05/29/19 14:50 Urine Glucose (UA) 2+ (NEGATIVE) 05/29/19 14:50 Urine Ketones Negative (NEGATIVE) 05/29/19 14:50 Urine Occult Blood 4+ (NEGATIVE) 05/29/19 14:50 Urine Nitrite Positive (NEGATIVE) 05/29/19 14:50 Urine Bilirubin Negative (NEGATIVE) 05/29/19 14:50 Urine Urobilinogen 2+ (NORMAL) 05/29/19 14:50 Ur Leukocyte Esterase 3+ (NEGATIVE) 05/29/19 14:50 Urine RBC Tntc /HPF (0-3) A 05/29/19 14:50 Urine WBC Tntc /HPF (0-5) A 05/29/19 14:50 Ur Squamous Epith Cells Few /HPF (NEGATIVE) 05/29/19 14:50 Urine Bacteria 3+ /HPF (NEGATIVE) 05/29/19 14:50 Ur Culture Indicated? Yes/culture set up 05/29/19 14:50 - Plan (1) Sepsis due to urinary tract infection Status: Acute Plan: IV ZOSYN, IV FLUIDS, CONTINUE TO MONITOR (2) Hepatic encephalopathy Status: Acute Plan: NORMAL SALINE WITH 20MEQ KCL AT 250ML/HR, ZOSYN 3.375 G IV TID, LACTULOSE 30ML PO QID, AND HUMULIN R SLIDING SCALE (3) Hypokalemia Status: Acute Plan: POTASSIUM PROTOCOL, CONTINUE TO MONITOR (4) Cirrhosis of liver Status: Chronic Qualifiers: Hepatic cirrhosis type: other cirrhosis Qualified Code(s): K74.69 - Other cirrhosis of liver Plan: NORMAL SALINE WITH 20MEQ KCL AT 250ML/HR, ZOSYN 3.375 G IV TID, LACTULOSE 30ML PO QID (5) Diabetes Status: Chronic Qualifiers: Diabetes mellitus type: type 2 Diabetes mellitus 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
--- NOTE | 2019-05-31 22:01 | PCM.PROG ---
Progress Note - Progress Note for Day of Date of Exam: 05/31/19 - Subjective Subjective: WAS ADMITTED FOR UROSEPSIS, HEPATIC ENCEPHALOPATHY, AND HYPOKALEMIA. TODAY, SHE IS ALERT, LYING IN BED ON [place] [address]DS. FAMILY REPORTS THAT SHE HAS BEEN CONFUSED AT TIMES. ON EXAMINATION, HEART IS REGULAR IN RATE AND RHYTHM. BILATERAL LUNGS ARE NOTED WITH DIMINISHED LUNG SOUNDS THROUGHOUT. ABDOMEN IS ROUND, SOFT, AND NOTED WITH SUPRAPUBIC TENDERNESS. NORMAL BOWEL SOUNDS IN ALL QUADRANTS. HER VITALS THIS MORNING ARE: 98.7-100-18-97%-120/78. LABS WERE OBTAINED. ABNORMAL LAB VALUES INCLUDE THE FOLLOWING: PLT COUNT 55, CHLORIDE 108, CARBON DIOXIDE 20.4, BUN 6, CREATININE 1.09, GLUCOSE 179, CALCIUM 7.6, TOTAL BILI 1.30, ALK PHOS 138, TOTAL PROTEIN 5.2, ALBUMIN 1.6. PRELIMINARY BLOOD CULTURES ARE POSITIVE. URINE CULTURE IS POSITIVE FOR KLEBSIELLA PNEUMONIAE. SHE IS CURRENTLY RECEIVING: NORMAL SALINE WITH 20MEQ KCL AT 250ML/HR, ZOSYN 3.375 G IV TID, LACTULOSE 30ML PO QID, AND HUMULIN R SLIDING SCALE. WE WILL CONTINUE WITH CURRENT PLAN OF CARE TODAY. OTHERWISE, WE PLAN TO FOLLOW UP WITH AM LABS AND CONTINUE TO MONITOR. - Past Medical Family Social History Past Med/Fam/Surg Hx: No changes since H&P Allergies: Allergies No Known Drug Allergies Allergy (Verified 04/29/19 06:52) - Review of Systems ROS: No change since H&P - Vital Signs and I&O's Vital Signs: Temperature 97.7 F Pulse Rate [Left Brachial] 79 Pulse Rate 61 Respiratory Rate 20 Blood Pressure [Right Arm] 103/57 Blood Pressure [Left Arm] 130/69 Blood Pressure 96/66 O2 Sat by Pulse Oximetry 100 Intake and Output: Intake & Output 05/29/19 05/30/19 05/31/19 06/01/19 11:59 11:59 11:59 11:59 Intake Total 3573 / 3573 6476 / 6476 2420 / 2420 Output Total 1300 / 1300 3600 / 3600 1400 / 1400 Balance 2273 / 2273 2876 / 2876 1020 / 1020 - Physical Exam Oriented: Not Oriented Eyes: Normal Ear: Normal Nose: Normal Throat: Normal Cardiovascular: Normal : Normal Auscultation: Bowel Sounds: Normal Tenderness: Suprapubic, Moderate. negative: Rebound, Guarding, Rigidity Skin: Normal Musculoskeletal: Normal Psychiatric: Normal Mood Description: Calm Affect: Normal Speech Pattern: Clear - Laboratory and Diagnostics Result Diagrams: 05/31/19 03:55 05/31/19 03:55 Labs: 05/29/19 14:10 Blood Blood Culture - Preliminary 05/29/19 13:18 Blood Blood Culture - Preliminary 05/29/19 14:50 Urine,Catheterized Urine Culture - Final Klebsiella Pneumoniae Laboratory WBC 5.9 X10^3/uL (3.6-10.0) 05/31/19 03:55 RBC 4.23 X10^6/uL (3.5-5.4) 05/31/19 03:55 Hgb 13.5 g/dL (12.0-16.0) 05/31/19 03:55 Hct 40.6 % (36.0-47.0) 05/31/19 03:55 MCV 96.0 fL (80.0-100.0) 05/31/19 03:55 MCH 31.8 pg (27.0-34.0) 05/31/19 03:55 MCHC 33.2 g/dL (33.0-35.0) 05/31/19 03:55 RDW 16.3 % (11.6-16.5) 05/31/19 03:55 Plt Count 55 X10^3/uL (150.0-450.0) L 05/31/19 03:55 MPV 10.7 fL (7.4-11.0) 05/31/19 03:55 Neut % (Auto) 66.8 % (42.0-75.0) 05/31/19 03:55 Lymph % (Auto) 22.5 % (21.0-51.0) 05/31/19 03:55 [place] % (Auto) 9.4 % (0.0-13.0) 05/31/19 03:55 Eos % (Auto) 0.8 % (0.9-2.9) L 05/31/19 03:55 Baso % (Auto) 0.5 % (0.2-1.0) 05/31/19 03:55 Neut # (Auto) 4.0 x10^3/uL (2.2-4.8) 05/31/19 03:55 Lymph # (Auto) 1.3 X10^3/uL (1.3-2.9) 05/31/19 03:55 [place] # (Auto) 0.6 x10^3/uL (0.3-0.8) 05/31/19 03:55 Eos # (Auto) 0.0 x10^3/uL (0.0-0.2) 05/31/19 03:55 Baso # (Auto) 0.0 X10^3/uL (0.0-0.1) 05/31/19 03:55 Absolute Nucleated RBC 0.1 /100WBC 05/31/19 03:55 Sodium 140 mmol/L (136-145) 05/31/19 03:55 Corrected Sodium 142 mmol/L (136-145) 05/31/19 03:55 Potassium 3.8 mmol/L (3.5-5.1) 05/31/19 03:55 Chloride 108 mmol/L (98-107) H 05/31/19 03:55 Carbon Dioxide 20.4 mmol/L (21-32) L 05/31/19 03:55 BUN 6 mg/dL (7-18) L 05/31/19 03:55 Creatinine 1.09 mg/dL (0.55-1.02) H 05/31/19 03:55 Est GFR (MDRD) Af Amer > 60 (>60) 05/31/19 03:55 Est GFR (MDRD) Non-Af 53 (>60) L 05/31/19 03:55 Glucose 179 mg/dL (65-99) H 05/31/19 03:55 POC Glucose (mg/dL) 179 mg/dL (65-99) H 05/31/19 20:10 Lactic Acid 2.5 mmol/L (0.4-2.0) H 05/29/19 13:18 Calcium 7.6 mg/dL (8.5-10.1) L 05/31/19 03:55 Corrected Calcium 9.5 mg/dL (8.5-10.1) 05/31/19 03:55 Magnesium 1.5 mg/dL (1.7-2.9) L 05/30/19 02:10 Total Bilirubin 1.30 mg/dL (0.2-1.0) H 05/31/19 03:55 AST 26 Units/L (15-37) 05/31/19 03:55 ALT 14 Units/L (12-78) 05/31/19 03:55 Alkaline Phosphatase 138 Units/L (46-116) H 05/31/19 03:55 Ammonia 28 umol/L (11-32) 05/31/19 03:55 Creatine Kinase 45 Units/L (26-192) 05/30/19 02:10 CK-MB (CK-2) < 1.0 ng/mL (0-4.0) 05/30/19 02:10 CK/CKMB % Calc 2.2 % (<4) 05/30/19 02:10 Troponin I 0.05 ng/mL (0-1.5) 05/30/19 02:10 Total Protein 5.2 g/dL (6.4-8.2) L 05/31/19 03:55 Albumin 1.6 g/dL (3.4-5.0) L 05/31/19 03:55 Globulin 3.6 g/dL (2.5-4.5) 05/31/19 03:55 Albumin/Globulin Ratio 0.4 Ratio (1.1-2.1) L 05/31/19 03:55 Specimen Type Catherized urine 05/29/19 14:50 Urine Color Yellow (YELLOW) 05/29/19 14:50 Urine Appearance Cloudy (CLEAR) 05/29/19 14:50 Urine pH 7.0 (5.0 - 8.0) 05/29/19 14:50 Ur Specific [place] 1.010 (1.000-1.030) 05/29/19 14:50 Urine Protein 2+ (NEGATIVE) 05/29/19 14:50 Urine Glucose (UA) 2+ (NEGATIVE) 05/29/19 14:50 Urine Ketones Negative (NEGATIVE) 05/29/19 14:50 Urine Occult Blood 4+ (NEGATIVE) 05/29/19 14:50 Urine Nitrite Positive (NEGATIVE) 05/29/19 14:50 Urine Bilirubin Negative (NEGATIVE) 05/29/19 14:50 Urine Urobilinogen 2+ (NORMAL) 05/29/19 14:50 Ur Leukocyte Esterase 3+ (NEGATIVE) 05/29/19 14:50 Urine RBC Tntc /HPF (0-3) A 05/29/19 14:50 Urine WBC Tntc /HPF (0-5) A 05/29/19 14:50 Ur Squamous Epith Cells Few /HPF (NEGATIVE) 05/29/19 14:50 Urine Bacteria 3+ /HPF (NEGATIVE) 05/29/19 14:50 Ur Culture Indicated? Yes/culture set up 05/29/19 14:50 - Plan (1) Sepsis due to urinary tract infection Status: Acute Plan: IV ZOSYN, IV FLUIDS, CONTINUE TO MONITOR (2) Hepatic encephalopathy Status: Acute Plan: NORMAL SALINE WITH 20MEQ KCL AT 250ML/HR, ZOSYN 3.375 G IV TID, LACTULOSE 30ML PO QID, AND HUMULIN R SLIDING SCALE (3) Hypokalemia Status: Acute Plan: POTASSIUM PROTOCOL, CONTINUE TO MONITOR (4) Cirrhosis of liver Status: Chronic Qualifiers: Hepatic cirrhosis type: other cirrhosis Qualified Code(s): K74.69 - Other cirrhosis of liver Plan: NORMAL SALINE WITH 20MEQ KCL AT 250ML/HR, ZOSYN 3.375 G IV TID, LACTULOSE 30ML PO QID (5) Diabetes Status: Chronic Qualifiers: Diabetes mellitus type: type 2 Diabetes mellitus salvage determiner insulin use: without nursing home use Diabetes mellitus complication status: with other specified complication Qualified Code(s): E11.69 - Type 2 diabetes mellitus with other specified complication Plan: HUMULIN R SLIDING SCALE
[2019-06-01 05:28] LABS: BASOPHILS % (AUTO) 0.4 % (0.2-1.0); EOSINOPHILS # (AUTO) 0.1 x10^3/uL (0.0-0.2); EOSINOPHILS % (AUTO) 0.8 % (0.9-2.9); HEMATOCRIT 44.1 % (36.0-47.0); HEMOGLOBIN 14.4 g/dL (12.0-16.0); LYMPHOCYTES # (AUTO) 1.6 X10^3/uL (1.3-2.9); LYMPHOCYTES % (AUTO) 24.4 % (21.0-51.0); MEAN CORPUSCULAR HEMOGLOBIN 31.6 pg (27.0-34.0); MEAN CORPUSCULAR HGB CONC 32.7 g/dL (33.0-35.0); MEAN CORPUSCULAR VOLUME 96.8 fL (80.0-100.0); MEAN PLATELET VOLUME 11.1 fL (7.4-11.0); MONOCYTES # (AUTO) 0.7 x10^3/uL (0.3-0.8); MONOCYTES % (AUTO) 10.2 % (0.0-13.0); NEUTROPHILS # (AUTO) 4.1 x10^3/uL (2.2-4.8); NEUTROPHILS % (AUTO) 64.2 % (42.0-75.0); PLATELET COUNT 62 X10^3/uL (150.0-450.0); RED BLOOD COUNT 4.55 X10^6/uL (3.5-5.4); RED CELL DISTRIBUTION WIDTH 16.5 % (11.6-16.5); WHITE BLOOD COUNT 6.4 X10^3/uL (3.6-10.0)
[2019-06-01 05:41] LABS: ALANINE AMINOTRANSFERASE 22 Units/L (12-78); ALBUMIN 1.8 g/dL (3.4-5.0); ALKALINE PHOSPHATASE 160 Units/L (46-116); ASPARTATE AMINO TRANSFERASE 55 Units/L (15-37); BLOOD UREA NITROGEN 5 mg/dL (7-18); CALCIUM 7.9 mg/dL (8.5-10.1); CARBON DIOXIDE 22.1 mmol/L (21-32); CHLORIDE 108 mmol/L (98-107); COR CA(FOR HYPOALB) 9.7 mg/dL (8.5-10.1); COR NA(FOR HYPERGLY) 142 mmol/L (136-145); CREATININE 1.04 mg/dL (0.55-1.02); SODIUM 140 mmol/L (136-145); TOTAL PROTEIN 5.6 g/dL (6.4-8.2); eGFR NON BLACK RACES 56 (>60)
[2019-06-01] MEDS: ZOSYN VIAL 3.375 GRAMS 3.375 G in NS 100 ML IV + SPIKE MINIBAG* 100 ML IV SCH ×3 (06:15→21:20)
[2019-06-01] MEDS: NS 1/2 + KCL 20 MEQ/L 1,000 ML IV SCH ×3 (06:26→21:53)
[2019-06-01] MEDS: LEVEMIR SC SCH ×2 (09:29→20:37)
[2019-06-01] MEDS: VSL#3 PO SCH (09:29)
[2019-06-01] MEDS: SYNTHROID 50 mcg TAB PO SCH (09:29)
[2019-06-01] MEDS: PROTONIX TAB 40 MG PO SCH (09:29)
[2019-06-01] MEDS: NYSTATIN POWDER TOP SCH ×2 (09:30→21:20)
[2019-06-01] MEDS: CHRONULAC PO SCH ×4 (09:30→20:31)
[2019-06-01] MEDS: CARDIZEM SR 90 MG 12-HR PO SCH ×2 (09:31→20:33)
[2019-06-01] MEDS: HumuLIN R SUBCUT PRN (16:55)
[2019-06-01] MEDS: CRESTOR TAB 10 MG PO SCH (20:32)
--- NOTE | 2019-06-01 21:01 | PCM.PROG ---
Progress Note - Progress Note for Day of Date of Exam: 06/01/19 - Subjective Subjective: WAS ADMITTED FOR UROSEPSIS, HEPATIC ENCEPHALOPATHY, AND HYPOKALEMIA. TODAY, SHE IS ALERT, LYING IN BED ON [address]. FAMILY REPORTS THAT SHE CONTINUES WITH CONFUSION AT TIMES. ON EXAMINATION, HEART IS REGULAR IN RATE AND RHYTHM. BILATERAL LUNGS ARE NOTED WITH DIMINISHED LUNG SOUNDS THROUGHOUT. ABDOMEN IS ROUND, SOFT, AND NOTED WITH MILD SUPRAPUBIC TENDERNESS. NORMAL BOWEL SOUNDS IN ALL QUADRANTS. HER VITALS THIS MORNING ARE: 97.5-76-18-98%-139/72. LABS WERE OBTAINED. ABNORMAL LAB VALUES INCLUDE THE FOLLOWING: PLT COUNT 62, CHLORIDE 108, BUN 5, CREATININE 1.04, GLUCOSE 164, CALCIUM 7.9, TOTAL BILI 1.10, AST 55, ALK PHOS 160, TOTAL PROTEIN 5.6, ALBUMIN 1.8. URINE AND BLOOD CULTURES ARE POSITIVE FOR KLEBSIELLA PNEUMONIAE. SHE IS CURRENTLY RECEIVING: NORMAL SALINE WITH 20MEQ KCL AT 250ML/HR, ZOSYN 3.375 G IV TID, LACTULOSE 30ML PO QID, AND HUMULIN R SLIDING SCALE. WE WILL CONTINUE WITH CURRENT PLAN OF CARE TODAY. OTHERWISE, WE PLAN TO FOLLOW UP WITH AM LABS AND CONTINUE TO MONITOR. - Past Medical Family Social History Past Med/Fam/Surg Hx: No changes since H&P Allergies: Allergies No Known Drug Allergies Allergy (Verified 04/29/19 06:52) - Review of Systems ROS: No change since H&P - Vital Signs and I&O's Vital Signs: Temperature 98.8 F Pulse Rate [Left Brachial] 79 Pulse Rate 56 Respiratory Rate 18 Blood Pressure [Right Arm] 103/57 Blood Pressure [Left Arm] 130/69 Blood Pressure 104/62 O2 Sat by Pulse Oximetry 97 Intake and Output: Intake & Output 05/30/19 05/31/19 06/01/19 06/02/19 11:59 11:59 11:59 11:59 Intake Total 3573 / 3573 6476 / 6476 2900 / 2900 1700 / 1700 Output Total 1300 / 1300 3600 / 3600 3175 / 3175 1300 / 1300 Balance 2273 / 2273 2876 / 2876 -275 / -275 400 / 400 - Physical Exam Oriented: Not Oriented Eyes: Normal Ear: Normal Nose: Normal Throat: Normal Cardiovascular: Normal : Normal Auscultation: Bowel Sounds: Normal Palpation: Normal Tenderness: Suprapubic, Moderate. negative: Rebound, Guarding, Rigidity Skin: Normal Musculoskeletal: Normal Psychiatric: Normal Mood Description: Calm Affect: Normal Speech Pattern: Clear - Laboratory and Diagnostics Result Diagrams: 06/01/19 04:36 06/01/19 04:36 Labs: 05/29/19 13:18 Blood Blood Culture - Final Klebsiella Pneumoniae 05/29/19 14:10 Blood Blood Culture - Preliminary 05/29/19 14:50 Urine,Catheterized Urine Culture - Final Klebsiella Pneumoniae Laboratory WBC 6.4 X10^3/uL (3.6-10.0) 06/01/19 04:36 RBC 4.55 X10^6/uL (3.5-5.4) 06/01/19 04:36 Hgb 14.4 g/dL (12.0-16.0) 06/01/19 04:36 Hct 44.1 % (36.0-47.0) 06/01/19 04:36 MCV 96.8 fL (80.0-100.0) 06/01/19 04:36 MCH 31.6 pg (27.0-34.0) 06/01/19 04:36 MCHC 32.7 g/dL (33.0-35.0) L 06/01/19 04:36 RDW 16.5 % (11.6-16.5) 06/01/19 04:36 Plt Count 62 X10^3/uL (150.0-450.0) L 06/01/19 04:36 MPV 11.1 fL (7.4-11.0) H 06/01/19 04:36 Neut % (Auto) 64.2 % (42.0-75.0) 06/01/19 04:36 Lymph % (Auto) 24.4 % (21.0-51.0) 06/01/19 04:36 [place] % (Auto) 10.2 % (0.0-13.0) 06/01/19 04:36 Eos % (Auto) 0.8 % (0.9-2.9) L 06/01/19 04:36 Baso % (Auto) 0.4 % (0.2-1.0) 06/01/19 04:36 Neut # (Auto) 4.1 x10^3/uL (2.2-4.8) 06/01/19 04:36 Lymph # (Auto) 1.6 X10^3/uL (1.3-2.9) 06/01/19 04:36 [place] # (Auto) 0.7 x10^3/uL (0.3-0.8) 06/01/19 04:36 Eos # (Auto) 0.1 x10^3/uL (0.0-0.2) 06/01/19 04:36 Baso # (Auto) 0.0 X10^3/uL (0.0-0.1) 06/01/19 04:36 Absolute Nucleated RBC 0.1 /100WBC 06/01/19 04:36 Sodium 140 mmol/L (136-145) 06/01/19 04:36 Corrected Sodium 142 mmol/L (136-145) 06/01/19 04:36 Potassium 3.7 mmol/L (3.5-5.1) 06/01/19 04:36 Chloride 108 mmol/L (98-107) H 06/01/19 04:36 Carbon Dioxide 22.1 mmol/L (21-32) 06/01/19 04:36 BUN 5 mg/dL (7-18) L 06/01/19 04:36 Creatinine 1.04 mg/dL (0.55-1.02) H 06/01/19 04:36 Est GFR (MDRD) Af Amer > 60 (>60) 06/01/19 04:36 Est GFR (MDRD) Non-Af 56 (>60) L 06/01/19 04:36 Glucose 164 mg/dL (65-99) H 06/01/19 04:36 POC Glucose (mg/dL) 179 mg/dL (65-99) H 05/31/19 20:10 Lactic Acid 2.5 mmol/L (0.4-2.0) H 05/29/19 13:18 Calcium 7.9 mg/dL (8.5-10.1) L 06/01/19 04:36 Corrected Calcium 9.7 mg/dL (8.5-10.1) 06/01/19 04:36 Magnesium 1.5 mg/dL (1.7-2.9) L 05/30/19 02:10 Total Bilirubin 1.10 mg/dL (0.2-1.0) H 06/01/19 04:36 AST 55 Units/L (15-37) H 06/01/19 04:36 ALT 22 Units/L (12-78) 06/01/19 04:36 Alkaline Phosphatase 160 Units/L (46-116) H 06/01/19 04:36 Ammonia 23 umol/L (11-32) 06/01/19 08:25 Creatine Kinase 45 Units/L (26-192) 05/30/19 02:10 CK-MB (CK-2) < 1.0 ng/mL (0-4.0) 05/30/19 02:10 CK/CKMB % Calc 2.2 % (<4) 05/30/19 02:10 Troponin I 0.05 ng/mL (0-1.5) 05/30/19 02:10 Total Protein 5.6 g/dL (6.4-8.2) L 06/01/19 04:36 Albumin 1.8 g/dL (3.4-5.0) L 06/01/19 04:36 Globulin 3.8 g/dL (2.5-4.5) 06/01/19 04:36 Albumin/Globulin Ratio 0.5 Ratio (1.1-2.1) L 06/01/19 04:36 Specimen Type Catherized urine 05/29/19 14:50 Urine Color Yellow (YELLOW) 05/29/19 14:50 Urine Appearance Cloudy (CLEAR) 05/29/19 14:50 Urine pH 7.0 (5.0 - 8.0) 05/29/19 14:50 Ur Specific [place] 1.010 (1.000-1.030) 05/29/19 14:50 Urine Protein 2+ (NEGATIVE) 05/29/19 14:50 Urine Glucose (UA) 2+ (NEGATIVE) 05/29/19 14:50 Urine Ketones Negative (NEGATIVE) 05/29/19 14:50 Urine Occult Blood 4+ (NEGATIVE) 05/29/19 14:50 Urine Nitrite Positive (NEGATIVE) 05/29/19 14:50 Urine Bilirubin Negative (NEGATIVE) 05/29/19 14:50 Urine Urobilinogen 2+ (NORMAL) 05/29/19 14:50 Ur Leukocyte Esterase 3+ (NEGATIVE) 05/29/19 14:50 Urine RBC Tntc /HPF (0-3) A 05/29/19 14:50 Urine WBC Tntc /HPF (0-5) A 05/29/19 14:50 Ur Squamous Epith Cells Few /HPF (NEGATIVE) 05/29/19 14:50 Urine Bacteria 3+ /HPF (NEGATIVE) 05/29/19 14:50 Ur Culture Indicated? Yes/culture set up 05/29/19 14:50 - Plan (1) Sepsis due to urinary tract infection Status: Acute Plan: IV ZOSYN, IV FLUIDS, CONTINUE TO MONITOR (2) Hepatic encephalopathy Status: Acute Plan: NORMAL SALINE WITH 20MEQ KCL AT 250ML/HR, ZOSYN 3.375 G IV TID, LACTULOSE 30ML PO QID, AND HUMULIN R SLIDING SCALE (3) Hypokalemia Status: Acute Plan: POTASSIUM PROTOCOL, CONTINUE TO MONITOR (4) Cirrhosis of liver Status: Chronic Qualifiers: Hepatic cirrhosis type: other cirrhosis Qualified Code(s): K74.69 - Other cirrhosis of liver Plan: NORMAL SALINE WITH 20MEQ KCL AT 250ML/HR, ZOSYN 3.375 G IV TID, LACTULOSE 30ML PO QID (5) Diabetes Status: Chronic Qualifiers: Diabetes mellitus type: type 2 Diabetes mellitus intermediate designer insulin use: without intermediate designer use Diabetes mellitus complication status: with other specified complication Qualified Code(s): E11.69 - Type 2 diabetes mellitus with other specified complication Plan: HUMULIN R SLIDING SCALE
[2019-06-01] MEDS: SNACK - Diabetic Appropriate PO SCH (21:49)
[2019-06-02] MEDS: NS 1/2 + KCL 20 MEQ/L 1,000 ML IV SCH ×2 (00:20→06:08)
[2019-06-02 05:34] LABS: BASOPHILS % (AUTO) 0.6 % (0.2-1.0); EOSINOPHILS # (AUTO) 0.1 x10^3/uL (0.0-0.2); EOSINOPHILS % (AUTO) 0.8 % (0.9-2.9); HEMATOCRIT 42.7 % (36.0-47.0); HEMOGLOBIN 14.1 g/dL (12.0-16.0); LYMPHOCYTES % (AUTO) 26.8 % (21.0-51.0); MEAN CORPUSCULAR HEMOGLOBIN 31.9 pg (27.0-34.0); MEAN CORPUSCULAR VOLUME 96.7 fL (80.0-100.0); MEAN PLATELET VOLUME 11.1 fL (7.4-11.0); MONOCYTES # (AUTO) 0.7 x10^3/uL (0.3-0.8); NEUTROPHILS # (AUTO) 4.8 x10^3/uL (2.2-4.8); NEUTROPHILS % (AUTO) 62.8 % (42.0-75.0); PLATELET COUNT 81 X10^3/uL (150.0-450.0); RED BLOOD COUNT 4.41 X10^6/uL (3.5-5.4); RED CELL DISTRIBUTION WIDTH 16.9 % (11.6-16.5); WHITE BLOOD COUNT 7.6 X10^3/uL (3.6-10.0)
[2019-06-02 05:46] LABS: ALANINE AMINOTRANSFERASE 50 Units/L (12-78); ALBUMIN 1.9 g/dL (3.4-5.0); ALKALINE PHOSPHATASE 193 Units/L (46-116); ASPARTATE AMINO TRANSFERASE 126 Units/L (15-37); BLOOD UREA NITROGEN 4 mg/dL (7-18); CARBON DIOXIDE 20.9 mmol/L (21-32); CHLORIDE 108 mmol/L (98-107); COR CA(FOR HYPOALB) 9.7 mg/dL (8.5-10.1); COR NA(FOR HYPERGLY) 140 mmol/L (136-145); CREATININE 1.08 mg/dL (0.55-1.02); SODIUM 139 mmol/L (136-145); TOTAL PROTEIN 5.8 g/dL (6.4-8.2); eGFR NON BLACK RACES 53 (>60)
[2019-06-02] MEDS: ZOSYN VIAL 3.375 GRAMS 3.375 G in NS 100 ML IV + SPIKE MINIBAG* 100 ML IV SCH (06:08)
[2019-06-02] MEDS: PROTONIX TAB 40 MG PO SCH (10:03)
[2019-06-02] MEDS: CHRONULAC PO SCH (10:03)
[2019-06-02] MEDS: SYNTHROID 50 mcg TAB PO SCH (10:03)
[2019-06-02] MEDS: LEVEMIR SC SCH (10:04)
[2019-06-02] MEDS: VSL#3 PO SCH (10:04)
[2019-06-02] MEDS: NYSTATIN POWDER TOP SCH (10:06)
[2019-06-02] MEDS: CARDIZEM SR 90 MG 12-HR PO SCH (10:08)
[2019-06-02] MEDS: HumuLIN R SUBCUT PRN (11:58)
[2019-06-02 12:06] VITALS: BP 114/59
== END 2019-06-02 12:10 | disposition hospice, home (50) | DRG 689 ==
LOC: ER 12:57 → ICU 16:48 → MED/SURG 05-31 15:35
PROVIDERS: ADMIT Obstetrics & Gynecology Obstetrics; ATTEND Internal Medicine
DX: R65.20 Severe sepsis without septic shock; B96.1 Klebsiella pneumoniae [K. pneumoniae] as the cause of diseases classified elsewhere; K74.69 Other cirrhosis of liver; K72.00 Acute and subacute hepatic failure without coma; A41.89 Other specified sepsis; I48.91 Unspecified atrial fibrillation; N39.0 Urinary tract infection, site not specified; E87.6 Hypokalemia; E11.65 Type 2 diabetes mellitus with hyperglycemia; J44.9 Chronic obstructive pulmonary disease, unspecified; H74.8X1 Other specified disorders of right middle ear and mastoid; I10 Essential (primary) hypertension; E03.8 Other specified hypothyroidism
CPT/HCPCS: 36415; 51702; 70450; 71010; 71045; 80053; 81001; 82140; 82550; 82553; 83605; 83735; 84484; 85025; 87040; 87077; 87086; 87088; 87186; 93005; 96365; 96374; 97110; 97112; 97162; 97166; 97530; 97535; 99284; A4222; J7030; J0696; J1815; J2543; J7050